=== PATIENT | female | born 1975 | race American Indian/Alaskan Native ===

== ENCOUNTER 2019-01-22 07:50 | Emergency (ER) | payer BC, OTHER ==
[~2019-01-22] VITALS: Ht 165.1 cm; Wt 71.7 kg
[~2019-01-22 07:50] MED LIST: ALLEGRA ALLERGY60 MG PO; FERROUS SULFAT325 MG PO; KEFLEX500 MG PO; LISINOPRIL5 MG PO; METHOCARBAMOL500 MG PO; OMEPRAZOLE20 MG PO; ORTHO TRI-CYCL1 EACH PO; PERCOCET 5-3251 EACH PO; PREDNISONE20 MG; QUASENSE1 EACH PO; SIMVASTATIN10 MG PO; VITAMIN D5000 UNIT PO; ZOFRAN ODT4 MG SL
--- OUTSIDE RECORDS SUMMARY | 2019-01-22 07:52 | XMS ---
PreManage Notification: HARLEEN CM Security Manager Completions Events No recent Security Events currently on file CRITERIA MET - PDMP CARE PROVIDERS [facility] Primary Care Current PRIMARY CARE CNTR PHONE: Unknown Leeann has no Care Guidelines for this patient. EJulia VISIT COUNT (12 MO.) 1 SHWETHA Persaud TOTAL 1 NOTE: Visits indicate total known visits. ED/UCC VISIT TRACKING (12 MO.) 01/22/2019 07:51 SHWETHA Yoder [place] TYPE: Emergency COMPLAINT: - BILAT HIP PAIN/NO INJURY INPATIENT VISIT TRACKING (12 MO.) No inpatient visits to display in this time frame [email or web address]
[2019-01-22] MEDS ORDERED: NORTRIPTYLINE H10 MG PO (08:12)
[2019-01-22] MEDS ORDERED: CYCLOBENZAPRINE5 MG PO (09:54)
[2019-01-22] MEDS ORDERED: NAPRELAN375 MG PO (09:54)
== END 2019-01-22 11:08 | disposition home or self-care (01) ==
LOC: ED 07:50
DX: M25.551 Pain in right hip (principal); M25.552 Pain in left hip; E87.6 Hypokalemia; E86.0 Dehydration; I10 Essential (primary) hypertension; D50.9 Iron deficiency anemia, unspecified; Z87.442 Personal history of urinary calculi; Z91.011 Allergy to milk products; Z88.5 Allergy status to narcotic agent; Z79.899 Other long term (current) drug therapy
CPT/HCPCS: 72131; 74176; 80053; 81001; 85025; 85379; 85651; 96372; 99284-25; J1885; J7030

== ENCOUNTER 2019-03-13 09:40 | Emergency (ER) | payer BC, OTHER ==
[~2019-03-13] VITALS: Ht 165.1 cm; Wt 71.7 kg
--- OUTSIDE RECORDS SUMMARY | ~2019-03-13 | XMS | Encounter Summary ---
Demographics + + + | Address | [address] | | | [place] [address] | + + + | Home Phone | | + + + | Preferred Language | Unknown | + + + | Marital Status | | + + + | Orthodox Affiliation | Unknown | + + + | Race | Unknown | + + + | Ethnic Group | Unknown | + + + Author + + + | Author | [facility] | | | and [place] | + + + | Organization | [facility] | | | and [place] | + + + | Address | Unknown | + + + | Phone | Unavailable | + + + Support + + +---------+ + | Name | Relationship | Address | Phone | + + +---------+ + | Meera Nicole | ECON | Unknown | | + + +---------+ + Care Team Providers + +------+ + | Care Baseball Club Manager Name | Role | Phone | + +------+ + | Maria Ines Moses PA-C | PCP | | + +------+ + Reason for Referral Diagnostic/Screening (Routine) +--------+--------+ + + + + | Status | Reason | Specialty | Diagnoses / | Referred By | Referred To | | | | | Procedures | Contact | Contact | +--------+--------+ + + + + | Closed | | Radiology | Diagnoses | Cortez, | [facility] | | | | | Pain and | Justin Salguero MD | [address] | | | | | numbness of | [address] | [place], | | | | | left upper | [address] | [place] | | | | | extremity | [place], | [address] | | | | | Neuropathic | [place] [address] | Phone: | | | | | pain | Phone: | [phone] | | | | | Cervicalgia | [phone] | Fax: | | | | | Weakness of | Fax: | [phone] | | | | | left upper | [phone] | | | | | | extremity | | | | | | | Cervical | | | | | | | radiculopath | | | | | | | y | | | | | | | Procedures | | | | | | | MRI Cervical | | | | | | | Spine wo | | | | | | | Contrast | | | | | | | 02/14- PEND | | | | | | | [facility] AUTH | | | +--------+--------+ + + + + Evaluate & Treat (Routine) + + + + + + + | Status | Reason | Specialty | Diagnoses / | Referred By | Referred To | | | | | Procedures | Contact | Contact | + + + + + + + | Authorized | Specialty | Physical | Diagnoses | [facility] | [address] | | | Services | Therapy | Thoracic | Justin E A, MD | [facility] | | | Required | | outlet | [address] | HOSPITAL | | | | | syndrome of | [address] | [address] | | | | | left | [place], | AVE | | | | | thoracic | [place] [address] | [place], [place] | | | | | outlet | Phone: | [phone] | | | | | Procedures | [phone] | Phone: | | | | | HIM | Fax: | [phone] | | | | | 02/08/19 | [phone] | Fax: | | | | | | | [phone] | + + + + + + + Reason for Visit + + + | Reason | Comments | + + + | Arm Pain | left upper extremity | + + + Encounter Details +--------+---------+ + + + | Date | Type | Department | Care Team | Description | +--------+---------+ + + + | 01/23/ | Office | [facility] [place] | Justin Cortez, | Pain and numbness of | | 2018 | Visit | PHYSIATRY [address] | MD [address] | left upper | | | | [address] [place], | [place], [place] | extremity (Primary | | | | [place] [address] | [address] | Dx); Neuropathic | | | | [phone] | | pain; Cervicalgia; | | | | | | Weakness of left | | | | | | upper extremity; | | | | | | Cervical | | | | | | radiculopathy; | | | | | | Thoracic outlet | | | | | | syndrome of left | | | | | | thoracic outlet | +--------+---------+ + + + Social History + +-------+ [...] this encounter Last Filed Vital Signs + + + + | Vital Sign | Reading | Time Taken | + + + + | Blood Pressure | - | - | + + + + | Pulse | - | - | + + + + | Temperature | - | - | + + + + | Respiratory Rate | - | - | + + + + | Oxygen Saturation | - | - | + + + + | Inhaled Oxygen | - | - | | Concentration | | | + + + + | Weight | 77.1 kg (170 lb) | 01/23/2019919 PDT | + + + + | Height | 165.1 cm (5' 5") | 01/23/2019919 PDT | + + + + | Body Mass Index | 28.29 | 01/23/2019919 PDT | + + + + documented in this encounter Patient Instructions Patient Instructions Melly Ambrocio, Home Office Claims Examiner - 01/23/2019 8:15 PDTPhysical therapy has been prescribed. Please participate in physical therapy. If you have not be co ntacted for an appointment with physical therapy within one week, please contact the clinic. Once you have completed physical therapy please continue the home exercise program as outl ine by physical therapy, indefinitely. X-rays have been requested. Please go to the x-ray department after your appointment to co mplete these x-rays. The results of your x-rays will be reviewed at your next appointment. If your x-rays demonstrate any emergent results, the clinic will contact you. A MRI has been requested. Please complete the requested imaging. Within one week, you speedy kernskevin receive a call to schedule your MRI. If you have not heard from anyone within one week, please call the clinic. The results of your MRI will be reviewed at your next appointment. If your MRI demonstrates any emergent results, the clinic will contact you. Continue taking Nortriptyline as prescribed. documented in this encounter Progress Notes Justin Cortez MD - 01/23/2019 0815 PDTFormatting of this note might be different from kavitha vail. Justin Cortez MD [address] [place], [place] [id number] FAX: PHYSICAL MEDICINE AND REHABILITATION H&P CHIEF COMPLAINT: Chief Complaint Patient presents with Arm Pain HISTORY OF PRESENT ILLNESS: Isi Springer is a 43 y.o. female being seen today in follow-up for complaints of left u pper extremity pain. Isi Springer was last seen on 11/15/18. Previously it was recomme nded that she continue taking Nortriptyline and have left upper extremity ultrasound. Marcelo Springer reports that she continues to take nortriptyline 40 mg with some improvement in pain. She denies side effects to medication. Isi Springer reports increased pain in the left elbow. She reports that elbow pain is throbbing. Isi Springer denies skin color hammad nges. She denies hyperesthesia to left upper extremity. She denies changes to hair in the le ft upper extremity. Isi Springer does report some neck pain. Isi Springer rates the pain as moderate. Isi Springer describes the pain as sha rp, stabbing, burning or throbbing. Her symptoms worsen with laying on her back. Her sympt oms improve with nothing. Isi Springer does describe numbness of the fourth and fifth digit on the left, though has improved. She does report weakness of the left upper extremi ty. Isi Springer report that she was in the hospital for renal impairment due to shelter use of lisinopril and hydrochlorothiazide. Isi Springer reports that has discontinued th e use of hydrochlorothiazide. She reports history of kidney impairment. She reports poor rajan etite. Isi Springer's medications, allergies, past medical, surgical, social and family histor ies were reviewed and updated as appropriate. CURRENT MEDICATIONS: Current Outpatient Prescriptions Medication Sig Dispense Refill cyclobenzaprine (FLEXERIL) 10 mg tablet Take 10 mg by mouth 3 times daily as needed for Muscle spasms. Do not take with hydrocodone may take 1/2 tablet diclofenac (FLECTOR) 1.3% PTCH Place 1 patch onto the skin 2 times daily. As directed hydroCHLOROthiazide 25 mg tablet lisinopril (PRINIVIL, ZESTRIL) 10 mg tablet Take 40 mg by mouth Daily. nortriptyline (PAMELOR) 10 MG capsule 1 capsule by mouth at bedtime for 7 days; then 2 at bedtime for 7 days; then 3 at bedtime for 7 days; then 4 at bedtime 120 capsule 1 sertraline (ZOLOFT) 25 mg tablet Take 50 mg by mouth Daily. No current facility-administered medications for this visit. ALLERGIES: Allergies Allergen Reactions Hydrocodone Rash REVIEW OF SYSTEMS: ROS GENERALLY: No fever, no night sweats, no anemia, no fatigue, no recent profound weight ch anges. EYES: No eye problems, no use of corrective lenses, no eye injury, no double vision, no bl indness. EARS, NOSE, AND THROAT: No changes in taste or smell, no hearing difficulty, no ringing in the ears, no ear drainage, no dizziness, no voice changes, no difficulty swallowing, no sig nificant snoring, no sleep apnea, no sinus problems, no major dental work. NEUROLOGICALLY:The patient has+ numbness/pain of arms, no numbness/pain of legs,+ awake wit h numbness/pain,+ weakness, no muscle aching, no coordination difficulty, no change in walk, no head injury, no neck injury, no back injury, no pain in neck, no pain in back, no stroke , no fainting spells, no loss of consciousness, no tremor/shaking, no seizures, no headaches , no migraine, no memory loss, no speech difficulty, no confusion and no numbness of face. PSYCHIATRIC: No depression, no sleep disorders, + anxiety, no bipolar disorder, no psychot ic episodes. CARDIOVASCULAR: No heart attacks, no heart murmur, no heart fluttering, no chest pain, no ankle swelling. LUNG DISEASE: No shortness of breath, no cough, no tuberculosis, no bloody cough, no asth ma, no emphysema/COPD. GASTROINTESTINAL: No bowel disease, no nausea or vomiting, no rectal bleeding, no constipa tion, no stool incontinence, no liver disease, no gallbladder disease, no abdominal pain, no ulcers. KIDNEY DISEASE: No urinary frequency, no painful or difficult urination, no incontinence. ENDOCRINE: No diabetes, no thyroid disease, no osteopenia or osteoporosis, no breast drain age. SKIN: No breast lumps, no skin changes, no rashes, no itches. HEMATOLOGIC/LYMPHATIC: No enlarged lymph nodes, no easy or unusual bleeding, no personal h istory of cancer. RHEUMATOLOGIC: No joint arthritis, no rheumatoid arthritis. PHYSICAL EXAMINATION: There were no vitals taken for this visit. There is no height or weight on file to calculat e BMI. GENERAL: The patient is well developed and well nourished. She does appear uncomfortable w hen seated. HEENT: Normocephalic and atraumatic. Normal sclerae without icterus. NECK (ANTERIOR): There is no apparent cervical lymphadenopathy or thyromegaly. PULMONARY: The patient is in no acute respiratory distress with unlabored respirations. CARDIOVASCULAR: Regular rate and rhythm. ABDOMEN: Non-distended. SKIN: Limited skin exam shows no significant rashes or lesions. NEUROLOGIC: The patient is awake, alert, and oriented. She follows simple and complex commands. Her speech is fluent. She comprehends speech well. She has no apparent deficits with short or shelter memory. The cranial nerves appear grossly intact. Sensory exam: Subjective decreased sensation in left C8 versus ulnar distribution to monof ilament touch. Intact sensation bilateral upper extremities to monofilament touch. 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 I concur with the results as reported by the Radiologist. ASSESSMENT: 1. Pain and numbness of left upper extremity 2. Neuropathic pain 3. Cervicalgia 4. Weakness of left upper extremity 5. Cervical radiculopathy 6. Thoracic outlet syndrome of left thoracic outlet PLAN: 1. Isi Springer returns to clinic today to review left upper extremity pain, numbness a nd weakness. Differential diagnosis includes but is not limited to thoracic outlet syndrome, cervical radiculopathy and cervical spinal stenosis. Additionally there may be a component of cervical dystonia contributing to referred pain. Upon exam etiology is unknown at this time. Initial injury was in the inner upper arm medi al aspect, above the elbow. Nerve conduction study of left upper extremity was normal. Left upper extremity ultrasound was also unremarkable. We will evaluate for cervical pathology. 2. Cervical MRI and cervical xray order was placed today for evaluation of cervical spinal stenosis, neural foraminal narrowing, facet arthritis and instability. Isi Springer lef t upper extremity symptoms are persisting for more than 3 months. Pain is interfering with q uality of life and function. 3. Order for physical therapy was placed with the focus of left upper extremity strengtheni ng and nerve flossing. 4. Isi Springer should continue Nortriptyline 50 mg. We can not consider gabapentin du e to renal impairment and recent hospitalization for renal function. We do not have labs to review at this time. 5. Isi Springer should return to clinic as scheduled to review physical therapy and sorin ging. We may consider addition of gabapentin in the future if renal function improves in hop es of reducing severity of pain. Isi Springer reports initial injury of kayak falling and hitting left ulnar nerve at amberly funes. Nerve study did not reveal ulnar nerve injury. Vascular ultrasound study demonstrates normal circulation in left upper extremity. She has hypersensitivity and pain throughout l eft shoulder and arm with continued reported numbness. She has neck pain. Her physical exa m demonstrates findings consistent with thoracic outlet syndrome (TOS). She will participat e in PT for TOS. While her nerve study was unremarkable, the presence of cervical radiculop athy and spinal stenosis cannot be excluded. It is possible that she had cervical strain wi th catching the falling Kayak and developed TOS. It is also possible that she has underlyin g cervical pathology contributing to her current pain, symptoms and disability. Her current symptoms are affecting function, her ability to carry out activities and quality of life. She has tried 6 months of prior PT. She has tried NSAIDs and medication for neuropathic mary n. She is sleeping better on notriptyline. At this time we are requesting cervical x-rays and MRI to evaluate for cervical pathology that could be contributing to her left upper extr emity pain, numbness, weakness and disability. We are evaluating for cervical spinal stenos is, cervical radiculopathy (left C8) We may consider Bone scan to evaluate for CRPS in the future. Thank you for allowing me to be involved in the care of your patient. If you have any ques tions regarding the care of your patient please don't hesitate to call. Approximately 40 minutes was spent face to face with Isi Springer, over half of which w as spent formulating and discussing their medical treatment plan. I, Justin Cortez MD personally performed the services described in this documentation, as scribed by in my presence, SHARAD Theodore and are both accurate and complete. Justin Cortez MD - 01/23/2019 documented in this encou nter Plan of Treatment +--------+---------+ + + + | Date | Type | Specialty | Care Team | Description | +--------+---------+ + + + | 05/02/ Office | Physical Medicine | Justin Cortez, | | | 2018 | Visit | and Rehabilitation | MD [address] | | | | | | [place] | | | | | | [address] | | | | | | | | +--------+---------+ + + + + +--------+ + + | Name | Priori | Associated Diagnoses | Order Schedule | | | ty | | | + +--------+ + + | XR Cervical Spine 4 or 5 Vws | Routin | Pain and numbness | Expected: | | | e | of left upper | 01/23/2019, Expires: | | | | extremity | 01/23/2020 | | | | Neuropathic pain | | | | | Cervicalgia | | | | | Weakness of left | | | | | upper extremity | | | | | Cervical | | | | | radiculopathy | | + +--------+ + + + +--------+ + + | Name | Priori | Associated Diagnoses | Order Schedule | | | ty | | | + +--------+ + + | Physical Therapy - Ambulatory | Routin | Thoracic outlet | Ordered: 01/23/2019 | | Referral | e | syndrome of left | | | | | thoracic outlet | | + +--------+ + + documented as of this encounter Results MRI Cervical Spine wo Contrast (02/15/2019 11:53 PDT) + + | Specimen | + + | | + + + + + | Narrative | Performed At | + + + | UNENHANCED MRI CERVICAL SPINE 02/15/2019 11:34 AM CLINICAL | [facility] | | HISTORY: Neck and left arm pain COMPARISON: MRI August | | | 2017 TECHNIQUE: The following 1.5T MR sequences of the cervical | | | spine were obtained: 1. Sagittal and coronal T1. 2. Axial and | | | sagittal T2. 3. Axial GRE. 4. Sagittal STIR. FINDINGS: | | | Cervical vertebral height and alignment are maintained, without | | | evident fracture or subluxation. Marrow signal is normal. Imaged | | | contents of the posterior fossa and foramen magnum are | | | unremarkable. The cervical and imaged thoracic spinal cord | | | demonstrates normal signal intensity and caliber. Imaged cervical | | | and upper thoracic soft tissues are unremarkable. The | | | craniocervical junction and C1-2 and C2-3 levels are unremarkable on | | | provided sagittal and coronal images through the region. C3-4: No | | | disc pathology or stenosis. C4-5: Minimal right paramedian disc | | | protrusion persists, without stenosis. C5-6: Mild, broad-based | | | left paramedian/foraminal disc bulge persists, mildly narrowing the | | | left foramen to a similar degree. C6-7: Generalized posterior disc | | | bulge again mildly narrows the central canal and mild to moderately | | | narrows the foramina to a similar to slightly greater degree. | | | C7-T1: No disc pathology or stenosis. The imaged upper thoracic | | | spine is unremarkable on provided sagittal images through the region. | | | IMPRESSION - 1. 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 | | | 2. DEGENERATIVE DISC DISEASE AT C5-6 WITH MILD LEFT FORAMINAL | | | STENOSIS. Dictated and Signed by: Joey Stokes MD | | | Electronically signed: 02/15/2019 1:41 PM | | + + + + + | Procedure Note | + + | Isaías, Rad Results In - 02/15/2019 1344 PDT UNENHANCED MRI CERVICAL SPINE 02/15/2019 | | 11:34 AMCLINICAL HISTORY: Neck and left arm pain COMPARISON: MRI August | | 2018TECHNIQUE: The following 1.5T MR sequences of the cervical spine were obtained:1. | | Sagittal and coronal T1.2. Axial and sagittal T2.3. Axial GRE.4. Sagittal | | STIR.FINDINGS: Cervical vertebral height and alignment are maintained, withoutevident | | fracture or subluxation. Marrow signal is normal. Imaged contents ofthe posterior | | fossa and foramen magnum are unremarkable. The cervical andimaged thoracic spinal cord | | demonstrates normal signal intensity and caliber. Imaged cervical and upper thoracic | | soft tissues are unremarkable.The craniocervical junction and C1-2 and C2-3 levels are | | unremarkable onprovided sagittal and coronal images through the region.C3-4: No disc | | pathology or stenosis.C4-5: Minimal right paramedian disc protrusion persists, without | | stenosis.C5-6: Mild, broad-based left paramedian/foraminal disc bulge persists, | | mildlynarrowing the left foramen to a similar degree.C6-7: Generalized posterior disc | | bulge again mildly narrows the central [place] mild to moderately narrows the foramina | | to a similar to slightly greaterdegree.C7-T1: No disc pathology or stenosis.The imaged | | upper thoracic spine is unremarkable on provided sagittal imagesthrough the | | region.IMPRESSION -1. DEGENERATIVE DISC DISEASE AT C6-7 WITH MILD CENTRAL CANAL | | STENOSIS AND MILDTO MODERATE FORAMINAL STENOSIS.2. DEGENERATIVE DISC DISEASE AT C5-6 | | WITH MILD LEFT FORAMINAL STENOSIS.Dictated and Signed by: Joey Stokes MD | | Electronically signed: 02/15/2019 1:41 PM | | | |C3-4: No disc pathology or stenosis. | | | |C4-5: Minimal right paramedian disc protrusion persists, without stenosis. | | | |C5-6: Mild, broad-based left paramedian/foraminal disc bulge persists, mildly | |narrowing the left foramen to a similar degree. | | | |C6-7: Generalized posterior disc bulge again mildly narrows the central canal | |and mild to moderately narrows the foramina to a similar to slightly greater | |degree. | | | |C7-T1: No disc pathology or stenosis. | | | |The imaged upper thoracic spine is unremarkable on provided sagittal images | |through the region. | | | |IMPRESSION - | |1. DEGENERATIVE DISC DISEASE AT C6-7 WITH MILD CENTRAL CANAL STENOSIS AND MILD | |TO MODERATE FORAMINAL STENOSIS. | | | |2. DEGENERATIVE DISC DISEASE AT C5-6 WITH MILD LEFT FORAMINAL STENOSIS. | | | |Dictated and Signed by: Joey Stokes MD | | Electronically signed: 02/15/2019 1:41 PM | + + + +---------+ + + | Performing | Address | City/State/Zipcode | Phone Number | | Organization | | | | + +---------+ + + | [facility] | | | | + +---------+ + + documented in this encounter Visit Diagnoses + + | Diagnosis | + + | Pain and numbness of left upper extremity - Primary | + + | Neuropathic pain Neuralgia, neuritis, and radiculitis, unspecified | + + | Cervicalgia | + + | Weakness of left upper extremity Other musculoskeletal symptoms referable to limbs | + + | Cervical radiculopathy Brachial neuritis or radiculitis nos | + + | Thoracic outlet syndrome of left thoracic outlet | + + documented in this encounter
--- OUTSIDE RECORDS SUMMARY | ~2019-03-13 | XMS | Encounter Summary ---
Demographics + + + | Address | [address] | | | [place] [address] | + + + | Home Phone | | + + + | Preferred Language | Unknown | + + + | Marital Status | | + + + | Yazdanism Affiliation | Unknown | + + + | Race | Unknown | + + + | Ethnic Group | Unknown | + + + Author + + + | Author | [facility] | | | and [place] | + + + | Organization | [facility] | | | and Justinana [...] Team Providers + +------+ + | Care Safe And Vault Mechanic Name | Role | Phone | + +------+ + | Maria Ines Moses PA-C | PCP | | + +------+ + Reason for Referral Diagnostic/Screening (Routine) + +--------+ + + + + | Status | Reason | Specialty | Diagnoses / | Referred By | Referred To | | | | | Procedures | Contact | Contact | + +--------+ + + + + | Pending | | Radiology | Diagnoses | Diego, | [facility] | | Review | | | Pain and | Justin Salguero MD | [facility] | | | | | numbness of | [address] | [facility] | | | | | left upper | [address] | MEDICAL | | | | | extremity | [place], | CENTER [address] | | | | | Complex | [place] [address] | [place] | | | | | regional | Phone: | [place], | | | | | pain | [phone] | [place] [address] | | | | | syndrome | Fax: | Phone: | | | | | type 2 of | [phone] | [phone] | | | | | left upper | | Fax: | | | | | extremity | | [phone] | | | | | Procedures | | | | | | | NM Bone Scan | | | | | | | 3 Phase W | | | | | | | SPECT | | | + +--------+ + + + + Reason for Visit + + + | Reason | Comments | + + + | Arm Pain | left upper extremity | + + + Encounter Details +--------+---------+ + + + | Date | Type | Department | Care Team | Description | +--------+---------+ + + + | 03/13/ | Office | [facility] [place] | Justin Cortez, | Pain and numbness of | | 2018 | Visit | PHYSIATRY [address] | MD [address] | left upper | | | | [place], | [place], [place] | extremity (Primary | | | | [place] [address] | [address] | Dx); Thoracic outlet | | | | [phone] | | syndrome of left | | | | | | thoracic outlet; | | | | | | Complex regional | | | | | | pain syndrome type 2 | | | | | | of left upper | | | | | | extremity; | | | | | | Hypertension, | | | | | | unspecified type; | | | | | | Recurrent kidney | | | | | | stones; Flank pain; | | | | | | Fatigue, unspecified | | | | | | type | +--------+---------+ + + + Social History [...] + + + | Blood Pressure | 148/107 | 03/13/2019815 PDT | + + + + | Pulse | 115 | 03/13/201916 PDT | + + + + | Temperature [...] Weight | 77.1 kg (170 lb) | 03/13/2019815 PDT | + + + + | Height | 165.1 cm (5' 5") | 03/13/201916 PDT | + + + + | Body Mass Index | 28.29 | 03/13/2019815 PDT | + + + + documented in this encounter Patient Instructions Patient Instructions Melly Ambrocio, Route Sales Delivery Drivers Supervisor - 03/13/2019 8:10 PDTBone scan order was placed today. Laboratory tests have been requested. Please go to the lab to complete your laboratory haylee ting. The results of your laboratory testing will be reviewed at your next appointment. If your labratory results demonstrate any emergent results the clinic will contact you. documented in this encounter Plan of Treatment +--------+---------+ + + + | Date | Type | Specialty | Care Team | Description | +--------+---------+ + + + | 05/02/ | Office | Physical Medicine | Justin Cortez, | | | 2018 | Visit | and Rehabilitation | MD [address] | | | | | | [place] | | | | | | [address] | | | | | | | | +--------+---------+ + + + + +--------+ + + | Name | Priori | Associated Diagnoses | Order Schedule | | | ty | | | + +--------+ + + | Comprehensive Metabolic Panel | Routin | Recurrent kidney | Expected: | | | e | stones | 03/13/2019, Expires: | | | | | 03/12/2020 | + +--------+ + + | Vitamin D, Deficiency Screen | Routin | Recurrent kidney | Expected: | | (25-Hydroxy) | e | stones | 03/13/2019, Expires: | | | | | 03/12/2020 | + +--------+ + + | CBC with Differential | Routin | Fatigue, | Expected: | | | e | unspecified type | 03/13/2019, Expires: | | | | | 03/12/2020 | + +--------+ + + | Calcium, Urine, 24Hr | Routin | Recurrent kidney | 1 Occurrences | | | e | stones | starting 03/13/2019 | | | | | until 03/13/2020 | + +--------+ + + | NM Bone Scan 3 Phase W SPECT | Routin | Pain and numbness | Expected: | | | e | of left upper | 03/13/2019, Expires: | | | | extremity Complex | 03/13/2020 | | | | regional pain | | | | | syndrome type 2 of | | | | | left upper extremity | | + +--------+ + + documented as of this encounter Visit Diagnoses + + | Diagnosis | + + | Pain and numbness of left upper extremity - Primary | + + | Thoracic outlet syndrome of left thoracic outlet | + + | Complex regional pain syndrome type 2 of left upper extremity | + + | Hypertension, unspecified type | + + | Recurrent kidney stones Calculus of kidney | + + | Flank pain Abdominal pain, unspecified site | + + | Fatigue, unspecified type | + + documented in this encounter
--- OUTSIDE RECORDS SUMMARY | ~2019-03-13 | XMS | Encounter Summary ---
Demographics + + + | Address | [address] | | | [place] [address] | + + + | Home Phone | | + + + | Preferred Language | Unknown | + + + | Marital Status | | + + + | Baptist Affiliation | Unknown | + + + | Race | Unknown | + + + | Ethnic Group | Unknown | + + + Author + + + | Author | [facility] | | | and [place] | + + + | Organization | [facility] | | | and Justinana | [...] Team Providers + +------+ + | Care Cattery Operator Name | Role | Phone | + [...] | Justin Salguero MD | [address] | | | | | numbness of | [address] | [place], | | | | | left upper | [address] | [place] | | | | | extremity | [place], | [address] | | | | | Neuropathic | [place] [address] | Phone: | | | | | pain | Phone: | [phone] | | | | | Cervicalgia | [phone] | Fax: | | | | | Weakness of | Fax: | [phone] | | | | | left upper | [phone] | | | | | | extremity [...] | | | | | | 02/14- | | | | | | | [facility] | | | +--------+--------+ + + + + Diagnostic/Screening (Routine) +--------+--------+ + + + + [...] | Justin Salguero MD | [address] | | | | | numbness of | [address] | [place], | | | | | left upper | [address] | [place] | | | | | extremity | [place], | [address] | | | | | Neuropathic | [place] [address] | Phone: | | | | | pain | Phone: | [phone] | | | | | Cervicalgia | [phone] | Fax: | | | | | Weakness of | Fax: | [phone] | | | | | left upper | [phone] | | | | | | extremity [...] | | | | | | 02/14- | | | | | | | [...] + + | 02/15/ | Hospital | [facility] | Justin Cortez, | Pain and numbness of | | 2019 | Encounter | MED CTR MRI [address] | MD [address] | left upper | | | | [address] [place], | [place], [place] | extremity; | | | | [place] [address] | [id number] | Neuropathic pain; | | | | [phone] | | Cervicalgia; | | | | [...] ZESTRIL) | Daily. | | | | | | 10 mg tablet | | | | | | + + + +---------+ + + | nortriptyline | Take 4 capsules by | 120 | 1 | 01/24/20 | | | (PAMELOR) 10 MG | mouth nightly. | capsule | | 19 | | | capsule | | | | | | + + + +---------+ + + | sertraline | Take 50 mg by mouth | | 0 | 10/18/20 | | | (ZOLOFT) 25 mg | Daily. | | | 18 | | | tablet | | | | | | + + + +---------+ + + documented as of this encounter Plan of Treatment +--------+---------+ + + + | Date | Type | Specialty | Care Team | Description | +--------+---------+ + + + | 05/02/ | Office | Physical Medicine | Justin Cortez, | | | 2019 | Visit | and Rehabilitation | [address] | | | | | | [place] | | | | | | [address] | | | | | | | | +--------+---------+ + + + documented as of this encounter Procedures + +--------+ + + + | Procedure Name | Priori | Date/Time | Associated Diagnosis | Comments | | | ty | | | | + +--------+ + + + | MRI CERVICAL SPINE | Routin | 02/15/2019 | Pain and numbness | Results for this | | WO CONTRAST | e | 11:53 PDT | of left upper | procedure are in the | | | | | extremity | results section. | | [...]
--- OUTSIDE RECORDS SUMMARY | ~2019-03-13 | XMS | Encounter Summary ---
Demographics + + + | Address | [address] | | | [place] [address] | + + + | Home Phone | | + + + | Preferred Language | Unknown | + + + | Marital Status | | + + + | Gnosticist Affiliation | Unknown | + + + | Race | Unknown | + + + | Ethnic Group | Unknown | + + + Author + + + | Author | [facility] | | | and [place] | + + + | Organization | [facility] | | | and Justinana [...] Team Providers + +------+ + | Care Heat Transfer Technician Name | Role | Phone | [...] | Justin Salguero MD | [address] | | | | | numbness of | [address] | [place], | | | | | left upper | [address] | [place] | | | | | extremity | [place], | [address] | | | | | Neuropathic | [place] [address] | Phone: | | | | | pain | Phone: | [phone] | | | | | Cervicalgia | [phone] | Fax: | | | | | Weakness of | Fax: | [phone] | | | | | left upper | [phone] | | | | | | extremity [...] | Justin Salguero MD | [address] | | | | | numbness of | [address] | [place], | | | | | left upper | [address] | [place] | | | | | extremity | [place], | [address] | | | | | Neuropathic | [place] [address] | Phone: | | | | | pain | Phone: | [phone] | | | | | Cervicalgia | [phone] | Fax: | | | | | Weakness of | Fax: | [phone] | | | | | left upper | [phone] | | | | | | extremity [...] + + | 02/15/ | Hospital | [facility] | Justin Cortez, | Pain and numbness of | | 2019 | Encounter | MED CTR MRI [address] | MD [address] | left upper | | | | [place], | [place], [place] | extremity; | | | | [place] [address] | [id number] | Neuropathic pain; | | | | [phone] | | Cervicalgia; | | | | [...] [place] | | | | | | [address] | | | | | | | [...]
--- OUTSIDE RECORDS SUMMARY | ~2019-03-13 | XMS | Encounter Summary ---
Demographics + + + | Address | [address] | | | [place] [address] | + + + | Home Phone | | + + + | Preferred Language | Unknown | + + + | Marital Status | | + + + | Jain Affiliation | Unknown | + + + | Race | Unknown | + + + | Ethnic Group | Unknown | + + + Author + + + | Author | [facility] | | | and Justin[place] | + + + | Organization | [facility] | | | and Justinana [...] Team Providers + +------+ + | Care Patrol Police Sergeant Name | Role | Phone | + [...] Pain and | Justin Salguero MD | [facility] | | | | | numbness of | [address] | [facility] | | | | | left upper | [address] | MEDICAL | | | | | extremity | [place], | CENTER [address] | | | | | Complex | [place] [address] | [place] | | | | | regional | Phone: | [place], | | | | | pain | [phone] | [place] [address] | | | | | syndrome | Fax: | Phone: | | | | | type 2 of | [phone] | [phone] | | | | | left upper | | Fax: | | | | | extremity | | [phone] | | | | | Procedures | [...] + + | 03/13/ | Office | [facility] [place] | Justin Cortez, | Pain and numbness of | | 2018 | Visit | PHYSIATRY [address] | MD [address] | left upper | | | | [place], | [place], [place] | extremity (Primary | | | | [place] [address] | [address] | Dx); Thoracic outlet | | | | [phone] | | syndrome of left | | [...] encounter Patient Instructions Patient Instructions Melly Ambrocio, Instrument Man - 03/13/2019 8:10 PDTBone scan order was [...] | | | | | [place] | | | | | | [id number] | | | | | | | [...]
--- OUTSIDE RECORDS SUMMARY | ~2019-03-13 | XMS | Clinical Summary ---
Demographics + + + | Address | [address] | | | [place] [address] | + + + | Home Phone | | + + + | Preferred Language | Unknown | + + + | Marital Status | Single | + + + | Zoroastrian Affiliation | Unknown | + + + | Race | Unknown | + + + | Ethnic Group | Unknown | + + + Author + + + | Author | [facility] | + + + | Organization | [facility] | + + + | Address | Unknown | + + + | Phone | Unavailable | + + + Support + + +---------+ + | Name | Relationship | Address | Phone | + + +---------+ + | Klaudia Palomares | ECON | Unknown | | + + +---------+ + | Meera Nicole | ECON | Unknown | | + + +---------+ + Care Team Providers + +------+ + | Care Regulatory Affairs Internship Name | Role | Phone | + +------+ + | Maria Ines Moses PA-C | PP | | + +------+ + Allergies + + + + + + | Active Allergy | Reactions | Severity | Noted | Comments | | | | | Date | | + + + + + + | Hydrocodone | Rash | High | 20/20 | | | | | | 18 | | + + + + + + Current Medications + + +-------+---------+------+------+-------+ | Prescription | Sig. | Disp. | Refills | Star | End | Statu | | | | | | t | Date | s | | | | | | Date | | | + + +-------+---------+------+------+-------+ | sertraline | Take 50 mg by mouth. | | | 12/0 | | Activ | | (ZOLOFT) 25 MG | | | | 5/20 | | e | | tablet | | | | 18 | | | + + +-------+---------+------+------+-------+ | lisinopril | Take 40 mg by mouth. | | | | | Activ | | (ZESTRIL) 10 MG | | | | | | e | | tablet | | | | | | | + + +-------+---------+------+------+-------+ | | | | | 11/2 | | Activ | | hydrochlorothiazide | | | | 0/20 | | e | | (HYDRODIURIL) 25 MG | | | | 18 | | | | tablet | | | | | | | + + +-------+---------+------+------+-------+ | nortriptyline | 1 capsule by mouth | | | 12/2 | | Activ | | (PAMELOR) 10 MG | at bedtime for 7 | | | 0/20 | | e | | capsule | days; then 2 at | | | 18 | | | | | bedtime for 7 days; | | | | | | | | then 3 at bedtime | | | | | | | | for 7 days; then 4 | | | | | | | | at bedtime | | | | | | + + +-------+---------+------+------+-------+ Active Problems No known active problems Family History + + +------+ + | Medical History | Relation | Name | Comments | + + +------+ + | Diabetes type II | Father | | | + + +------+ + | Heart disease | Father | | | + + +------+ + | Stroke | Father | | | + + +------+ + | Cancer | Mother | | | + + +------+ + | Hypertension | Mother | | | + + +------+ + + +------+ + + | Relation | Name | Status | Comments | + +------+ + + | Father | | | | + +------+ + + | Mother | | Alive | | + +------+ + + Social History + +-------+ +--------+------+ [...] on file | | + + + Last Filed Vital Signs + + + + | Vital Sign | Reading | Time Taken | + + + + | Blood Pressure | 131/96 | 12/04/2018 11:00 AM PST | + + + + | Pulse | 104 | 12/04/2018 11:00 AM PST | + + + + | Temperature [...] Weight | 77.1 kg (170 lb) | 12/04/2018 11:00 AM PST | + + + + | Height | 165.1 cm (5' 5") | 12/04/2018 11:00 AM PST | + + + + | Body Mass Index | 28.29 | 12/04/2018 11:00 AM PST | + + + + Plan of Treatment + + + + + | Health Maintenance | Due Date | Last Done | Comments | + + + + + | Vaccine: | | | | | Dtap/Tdap/Td (1 - | 4 | | | | Tdap) | | | | + + + + + | Cervical Cancer | | | | | Screening (Pap) | 5 | | | + + + + + | Vaccine: Influenza | | | | | (Season Ended) | 9 | | | + + + + + Results Not on filefrom Last 3 Months Insurance + +--------+ +------+-------+ + | Payer | Benefi | Subscriber | Type | Phone | Address | | | t Plan | ID | | | | | | / | | | | | | | Group | | | | | + +--------+ +------+-------+ + | PREMERA | PREMER | [id number] | | | [address] [address] | | | A BLUE | | | | [place], [place] | | | [place]OSS | | | | [address] | | | FED | | | | | | | PPO | | | | | + +--------+ +------+-------+ + | /[employer] | YELLOW | [id number] | | | | | PLANS | [place] | | | | | + +--------+ +------+-------+ + + +--------+ +--------+ + + | Guarantor Name | Accoun | Relation to | Date | Phone | Billing Address | | | t Type | Patient | of | | | | | | | | | | + +--------+ +--------+ + + | HARLEEN SPRINGER | Person | Self [birth year] | Home: | [address] | | | al/Fam | | 1974 | [phone] [place] [address] | | | [place] | | | [phone] | | + +--------+ +--------+ + +
--- OUTSIDE RECORDS SUMMARY | ~2019-03-13 | XMS | Clinical Summary ---
Demographics + + + | Address | [address] | | | [place] [address] | + + + | Home Phone [...] | Organization | [facility] | | | and Justinana | [...] Providers + +------+ + | Care Manager Math Name | Role | Phone | + +------+ + | Maria Ines Moses PA-C | PP | | + +------+ + Allergies + + + + + + | Active Allergy | Reactions | Severity | Noted | Comments | | | | | Date | | + + + + + + | Hydrocodone | Rash | High | 12/20/20 | | | | | | 18 [...] + + + +---------+------+------+-------+ | lisinopril | Take 40 mg by mouth | | 0 | | | Activ | | (PRINIVIL, ZESTRIL) | Daily. | | | | | e | | 10 mg tablet | | | | | | | + + + +---------+------+------+-------+ | sertraline | Take 50 mg by mouth | | 0 | 12/0 | | Activ | | (ZOLOFT) 25 mg | Daily. | | | 5/20 | | e | | tablet | | | | 18 | | | + + + +---------+------+------+-------+ | nortriptyline | Take 4 capsules by | 120 | 1 | 03/1 | | Activ | | (PAMELOR) 10 MG | mouth nightly. | capsule | | 2/20 | | e | | capsule | | | | 19 | | | + + + +---------+------+------+-------+ Active Problems No known active problems Encounters +--------+ + + + + | Date | Type | Specialty | Care Team | Description | +--------+ + + + + | 03/13/ | Office | | Justin Cortez, | Pain and numbness of | | 2018 | Visit | | MD | left upper | | | | | | extremity (Primary | | | | | | Dx); Thoracic outlet | | | | | [...] | | | | | type | +--------+ + + + + | 02/19/ | Telephone | | Justin Cortez, | Imaging Only | | 2018 | | | MD | | +--------+ + + + + | 02/15/ | Hospital | | Justin Cortez, | Pain and numbness of | | 2018 | Encounter | | MD | left upper | | | | | | extremity; | | | | | | Neuropathic pain; | | | | | | Cervicalgia; | | | | | | Weakness of left | | | | | | upper extremity; | | | | | | Cervical | | | | | | radiculopathy | +--------+ + + + + | 01/23/ | Office | | Justin Cortez, | Pain and numbness of | | 2019 | Visit | | MD | left upper | | | | | | extremity (Primary | | | | | | Dx); Neuropathic | | | | | | pain; Cervicalgia; | | | | | | Weakness of left | | | | | | upper extremity; | | | | | | Cervical | | | | | | radiculopathy; | | | | | | Thoracic outlet | | | | | | syndrome of left | | | | | | thoracic outlet | +--------+ + + + + from Last 3 Months Immunizations + + + + | Name | Dates Previously Given | Next Due | + + + + | HEP B, 3 DOSE | 02/23/2013, 09/29/2012 | | | (ADULT) | | | + + + + | ADIEL PF | 08/17/2012 | | | TRIVALENT | | | | INTRADERMAL | | | + + + + Family History + + +--------+ + | Relation | Name | Status | Comments | + + +--------+ + | Father | Lee | | | | | Lubrin | | | + + +--------+ + | Mother | Caitlyn | | | | | [place] | | | + + +--------+ + | Sister | Klaudia | Alive | | | | Jelani | | | + + +--------+ + | Sister | Meera | Alive | | | | Bonnie | | | + + +--------+ + Social History + +-------+ +--------+------+ | [...] + + | Pulse | 115 | 03/13/2019815 PDT | + + + [...] Height | 165.1 cm (5' 5") | 03/13/2019815 PDT | + + + + | Body Mass Index | 28.29 | 03/13/2019815 PDT | + + + + Plan of Treatment +--------+---------+ + + + | Date | Type | Specialty | Care Team | Description | +--------+---------+ + + + | 05/02/ | Office | | Justin Cortez, | | | 2018 | Visit | | [address] | | | | | | [place] | | | | | | [address] | | | | | | | | +--------+---------+ + + + + + + + [...] + + | Vaccine: Influenza | | 08/17/2012 | | | (Season Ended) | 9 | | | + + + + + Procedures + +--------+ + + + | [...] | | + +--------+ + + + from Last 3 Months Results MRI Cervical Spine wo Contrast (02/15/2019 [...] | | | + +---------+ + + from Last 3 Months Insurance + +--------+ +--------+-------+---------+--------+ | Payer | Benefi | Subscriber | Effect | Phone | Address | Type | | | t Plan | ID | george | | | | | | / | | Dates | | | | | | Group | | | | | | + +--------+ +--------+-------+---------+--------+ | BCBS | BCBS | [id number] | 11/14/19 | | | PPO | | | FEDERA | | 16-Pre | | | | | | L FEP | | sent | | | | + +--------+ +--------+-------+---------+--------+ | [facility] | [employer] | [id number] | 08/25/ | | | Indemn | | SERVICE | YELLOW | | 2018-P | | | ity | | | [...] Self | [birth year] | | [address] | | | al/Carmine | | 1975 | [phone] | [place] [address] | | | [place] | | | 2 (Home) | | + +--------+ +--------+ + + Advance Directives Patient has advance care planning documents on file. For more information, please contact:[facility] [place] [address]
--- OUTSIDE RECORDS SUMMARY | ~2019-03-13 | XMS | Encounter Summary ---
Demographics + + + | Address | [address] | | | [place] [address] | + + + | Home Phone | | + + + | Preferred Language | Unknown | + + + | Marital Status | | + + + | Pentecostal Affiliation | Unknown | + + + | Race | Unknown | + + + | Ethnic Group | Unknown | + + + Author + + + | Author | [facility] | | | and Justinana | + + + | Organization | [facility] | | | and Justinana [...] Team Providers + +------+ + | Care Vp Foundation Name | Role | Phone | + [...] Imaging Only | | 2018 | | PHYSIATRY [address] | MD [address] | | | | | [place], | [place], [place] | | | | | [place] [address] | [address] | | | | | [phone] | | | +--------+ + + + [...] [place] | | | | | | [address] | | | | | | | | +--------+---------+ + + + documented as of this encounter Visit Diagnoses Not on filedocumented in this encounter"
--- OUTSIDE RECORDS SUMMARY | ~2019-03-13 | XMS | Encounter Summary ---
Demographics + + + | Address | [address] | | | [place] [address] | + + + | Home Phone | | + + + | Preferred Language | Unknown | + + + | Marital Status | | + + + | Gnosticist Affiliation | Unknown | + + + | Race | Unknown | + + + | Ethnic Group | Unknown | + + + Author + + + | Author | [facility] | | | and [place]ana | + + + | Organization | [facility] | | | and [...] Team Providers + +------+ + | Care Screen Printing Equipment Setter Name | Role | Phone | [...] | Justin Salguero MD | [address] | | | | | numbness of | [address] | [place], | | | | | left upper | [address] | [place] | | | | | extremity | [place], | [address] | | | | | Neuropathic | [place] [address] | Phone: | | | | | pain | Phone: | [phone] | | | | | Cervicalgia | [phone] | Fax: | | | | | Weakness of | Fax: | [phone] | | | | | left upper | [phone] | | | | | | extremity [...] | | | | syndrome of | [address] | [address] | | | | | left | [place], | AVE | | | | | thoracic | [place] [address] | [place], [place] | | | | | outlet | Phone: | [phone] | | | | | Procedures | [phone] | Phone: | | | | | HIM | Fax: | [phone] | | | | | 02/08/19 | [phone] | Fax: | | | | | | | [phone] | + + + + + + + Reason for Visit + + + | Reason | Comments | + + + | Arm Pain | left upper extremity | + + + Encounter Details +--------+---------+ + + + | Date | Type | Department | Care Team | Description | +--------+---------+ + + + | 01/23/ | Office | [facility] [place] | Justin Cortez, | Pain and numbness of | | 2018 | Visit | PHYSIATRY [address] | MD [address] | left upper | | | | [place], | [place], [place] | extremity (Primary | | | | [place] [address] | [address] | Dx); Neuropathic | | | | [phone] | | pain; Cervicalgia; | | | [...] encounter Patient Instructions Patient Instructions Melly Ambrocio, Shoulder Boner - 01/23/2019 8:15 PDTPhysical therapy has been [...] from kavitha [facility]. Justin Cortez MD [address] [facility], [address] [place], [place] [id number] FAX: PHYSICAL MEDICINE AND REHABILITATION H&P CHIEF [...] Extension 5 5 Finger Abduction 5 5 Lime Puller Strength 5 4+ REFLEX: RIGHT LEFT BICEPS [...] | | | | | [place] | | | | | | [address] | | | | | | | [...]
--- OUTSIDE RECORDS SUMMARY | ~2019-03-13 | XMS | Clinical Summary ---
Demographics + + + | Address | [address] | | | [place] [address] | + + + | Home Phone [...] | Organization | [facility] | | | and Justinana [...] Team Providers + +------+ + | Care Instrument And Controls Technician Name | Role | Phone | [...] | 02/15/ | Hospital | | Justin Cortze, | Pain and numbness of | | [...] + + +--------+ + | Sister | Kluadia | Alive | | | | Jelani [...] [place] | | | | | | [address] | | | | | | | [...] +--------+ +--------+-------+---------+--------+ | BCBS | BCBS | [id number] | 11/14/19 | | | PPO | | | FEDERA | | 16-Pre | | | | | | L FEP | | sent | | | | + +--------+ +--------+-------+---------+--------+ | [facility] | IHS | [id number] | 08/25/ | | | Indemn | [...] | | al/Carmine | | 1975 | [phone] | [place] [address] | | | aroldo | | | 2 (Home) | | + +--------+ +--------+ + + Advance Directives Patient has advance care planning documents on file. For more information, please contact:[facility] [place] [address]
--- OUTSIDE RECORDS SUMMARY | ~2019-03-13 | XMS | Encounter Summary ---
Demographics + + + | Address | [address] | | | [place] [address] | + + + | Home Phone | | + + + | Preferred Language | Unknown | + + + | Marital Status | | + + + | Yazidism Affiliation | Unknown | + + + | Race | Unknown | + + + | Ethnic Group | Unknown | + + + Author + + + | Author | [facility] | | | and Justinana | + + + | Organization | [facility] | | | and [...] Team Providers + +------+ + | Care Corsetier Name | Role | Phone | + [...] PHYSIATRY [address] | MD [address] | | | | | [place], | [place], [place] | | | | | [place] [address] | [address] | | | | | [phone] | | | +--------+ + + + [...] [place] | | | | | | [address] | | | | | | | | +--------+---------+ + + + documented as of this encounter Visit Diagnoses Not on filedocumented in this encounter"
--- OUTSIDE RECORDS SUMMARY | ~2019-03-13 | XMS | Clinical Summary ---
Demographics + + + | Address | [address] | | | [place] [address] | + + + | Home Phone | | + + + | Preferred Language | Unknown | + + + | Marital Status | Single | + + + | Protestant Affiliation | Unknown | + + + | Race | Unknown | + + + | Ethnic Group | Unknown | + + + Author + + + | Author | [facility] | + + + | Organization | [facility] | + + + | [...] Team Providers + +------+ + | Care Diamond Cutter Name | Role | Phone | [...] +------+-------+ + | PREMERA | PREMER | [id number] | | | [address] [address] | | | A BLUE | | | | [place], [place] | | | CROSS | | | | [address] | | | FED | | | | | | | PPO | | | | | + +--------+ +------+-------+ + | /[employer] | YELLOW | [id number] | | | | | PLANS | [...] al/Fam | | 1974 | [phone] [place] [address] | | | [place] | | | [phone] | | + +--------+ +--------+ + +
[~2019-03-13 09:40] MED LIST changes: +CYCLOBENZAPRINE5 MG PO; +NAPRELAN375 MG PO; +NORTRIPTYLINE H10 MG PO
--- OUTSIDE RECORDS SUMMARY | 2019-03-13 09:44 | XMS ---
PreManage Notification: HARLEEN CM Security Program Admin Events No recent Security Events currently on file CRITERIA MET - [facility] - Has Care Guidelines CARE PROVIDERS ROXIE LAMAR Physician Franchise Specialist: Surgical 01/22/2019-Current PHONE: Unknown [facility] Primary Care Current PRIMARY CARE CNTR PHONE: Unknown Leeann has no Care Guidelines for this patient. 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 \T\middot;\T\nbsp; PLEASE REFER PATIENT TO [facility] FOR NON EMERGENT MEDICAL NEEDS. \T\middot;\ T\nbsp; [facility] CAN SEE PATIENTS SAME DAY FOR APTS IF PATIENT CALLS FIRST THING IN THE MORNING. E.D. VISIT COUNT (12 MO.) 2 SHWETHA Persaud TOTAL 2 NOTE: Visits indicate total known visits. 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
[2019-03-13] MEDS ORDERED: HYDROCHLOROTHIA25 MG PO (09:58)
[2019-03-13] MEDS ORDERED: SERTRALINE HCL25 MG PO (09:59)
[2019-03-13] MEDS ORDERED: ONDANSETRON ODT8 MG PO (13:43)
== END 2019-03-13 14:13 | disposition home or self-care (01) ==
LOC: ED 09:40
DX: K85.90 Acute pancreatitis without necrosis or infection, unspecified (principal); M54.9 Dorsalgia, unspecified; I10 Essential (primary) hypertension; Z88.5 Allergy status to narcotic agent; Z91.011 Allergy to milk products; Z79.899 Other long term (current) drug therapy
CPT/HCPCS: 71046; 76705; 80053; 81001; 83690; 85025; 96361; 96374; 96375; 99284-25; J1170; J1885; J2405; J7030

== ENCOUNTER 2020-04-19 21:12 | Inpatient (IN) | payer BC, OTHER ==
[~2020-04-19] VITALS: Ht 165.1 cm; Wt 83.0 kg
--- OUTSIDE RECORDS SUMMARY | ~2020-04-19 | XMS | Encounter Summary ---
Demographics + + + | Address | [address] | | | [place] [address] | + + + | Home Phone | | + + + | Preferred Language | Unknown | + + + | Marital Status | | + + + | Restorationist Affiliation | Unknown | + + + | Race | Unknown | + + + | Ethnic Group | Unknown | + + + Author + + + | Author | [facility] | | | and [place] | + + + | Organization | [facility] | | | and [place] | + + + | Address | Unknown | + + + | Phone | Unavailable | + + + Support + + +---------+ + | Name | Relationship | Address | Phone | + + +---------+ + | Meera Bonnie | ECON | Unknown | | + + +---------+ + | Klaudia Palomares | ECON | Unknown | | + + +---------+ + Care Team Providers + +------+ + | Care Lead Investigator Name | Role | Phone | + +------+ + | Maria Ines Moses PA-C | PCP | | + +------+ + Encounter Details +--------+ + + + + | Date | Type | Department | Care Team | Description | +--------+ + + + + | 09/28/ | Hospital | [facility] | Saurav Glover, | | | 2019 | Encounter | [facility] | MD [address] | | | | | XRAY [address] | | | | | [address], | [place] [address] | | | | | [place] [address] | [phone] | | | | | [phone] | | | +--------+ + + + + Social History + +-------+ +--------+------+ | Tobacco Use | Types | Packs/Day | Years | Date | | | | | Used | | + +-------+ +--------+------+ | Former Smoker | | | | | + +-------+ +--------+------+ + +---+---+---+ | Smokeless Tobacco: | | | | | Never Used | | | | + +---+---+---+ + + +---------+ + | Alcohol Use | Drinks/Week | oz/Week | Comments | + + +---------+ + | Yes | | | everyday | + + +---------+ + + + + | Sex Assigned at | Date Recorded | | | | + + + | Not on file | | + + + + + + + | Job Start Date | Occupation | Industry | + + + + | Not on file | Not on file | Not on file | + + + + + + + + | Travel History | Travel Start | Travel End | + + + + + + | No recent travel history available. | + + documented as of this encounter Medications at Time of Discharge + + + +---------+ + + | Medication | Sig | Dispensed | Refills | Start | End Date | | | | | | Date | | + + + +---------+ + + | B Complex Vitamins | Take by mouth. | | 0 | | | | (B COMPLEX-B12 PO) | | | | | | + + + +---------+ + + | cyclobenzaprine | Take 10 mg by mouth | | 0 | | | | (FLEXERIL) 10 mg | 3 times daily as | | | | | | tablet | needed for Muscle | | | | | | | spasms. Do not take | | | | | | | with hydrocodone may | | | | | | | take 1/2 tablet | | | | | + + + +---------+ + + | diclofenac | Place 1 patch onto | | 0 | | | | (FLECTOR) 1.3% PTCH | the skin 2 times | | | | | | | daily. As directed | | | | | + + + +---------+ + + | furosemide (LASIX) | Take 1 tablet by | 30 | 11 | 09/13/20 | | | 20 mg tablet | mouth Daily as | tablet | | 19 | 0 | | | needed for Edema. | | | | | + + + +---------+ + + | labetalol | Take 1 tablet by | 60 | 11 | 09/13/20 | | | (NORMODYNE) 100 mg | mouth 3 times daily. | tablet | | 19 | | | tablet | | | | | | + + + +---------+ + + | lisinopril | | | 0 | 04/02/20 | | | (PRINIVIL,ZESTRIL) | | | | 19 | | | 40 MG tablet | | | | | | + + + +---------+ + + | potassium chloride | Take 1 packet by | 30 | 0 | 09/13/20 | | | (KLOR-CON) 20 MEQ | mouth Daily as | tablet | | 19 | | | packet | needed (daily as | | | | | | | needed with Lasix). | | | | | + + + +---------+ + + | sertraline | | | 0 | 07/11/20 | | | (ZOLOFT) 50 mg | | | | 19 | | | tablet | | | | | | + + + +---------+ + + | amLODIPine | | | 0 | 04/11/20 | | | (NORVASC) 2.5 mg | | | | 19 | 0 | | tablet | | | | | | + + + +---------+ + + | calcitonin | 1 spray in alternate | 3.7 mL | 0 | 08/01/20 | | | (FORTICAL) 200 | nostrils daily | | | 19 | 0 | | units/nasal spray | | | | | | | nasal spray | | | | | | + + + +---------+ + + | gabapentin | 1 capsule by mouth | 120 | 1 | 08/01/20 | | | (NEURONTIN) 300 mg | at bedtime for 3 | capsule | | 19 | 9 | | capsule | days; then 1 twice | | | | | | | daily for 4 days; | | | | | | | then 1 three times | | | | | | | daily for 7 days; | | | | | | | then 1 qAM, 1 qNoon, | | | | | | | and 2 qHS | | | | | + + + +---------+ + + | nortriptyline | Take 1 capsule by | 30 | 1 | 05/02/20 | | | (PAMELOR) 50 MG | mouth nightly. | capsule | | 19 | 9 | | capsule | | | | | | + + + +---------+ + + documented as of this encounter Plan of Treatment +--------+ + + + + | Date | Type | Specialty | Care Team | Description | +--------+ + + + + | 04/23/ | Appointment | Radiology | Rylee Pollard DO | | | 2019 | | | [address] | | | | | | [place] | | | | | | [address] | | | | | | | | +--------+ + + + + | 05/22/ | Office | Cardiology | Rylee Pollard DO | | | 2019 | Visit | | [address] | | | | | | [place] | | | | | | [address] | | | | | | | | +--------+ + + + + | 06/18/ | Office | Physical Medicine | Justin Cortez, | | | 2019 | Visit | and Rehabilitation | [address] | | | | | | [place] | | | | | | [address] | | | | | | | | +--------+ + + + + documented as of this encounter Procedures + +--------+ + + + | Procedure Name | Priori | Date/Time | Associated Diagnosis | Comments | | | ty | | | | + +--------+ + + + | JOHN Lombardo ARM | Routin | 09/28/2019 | | Results for this | | | e | 8:18 AM | | procedure are in the | | | | PST | | results section. | + +--------+ + + + documented in this encounter Results AR Anthony (09/28/2019 8:18 AM PST) + + | Specimen | + + | | + + + + + | Narrative | Performed At | + + + | This exam has been finalized by a system utility. Please review | [facility] | | the encounter or progress note for any imaging results. | | + + + + + | Procedure Note | + + | Cherie User - 11/29/2019 6:35 AM PST This exam has been finalized by a system | | utility. Please review the encounter or progress note for any imaging results. | + + + +---------+ + + | Performing | Address | City/State/Zipcode | Phone Number | | Organization | | | | + +---------+ + + | [facility] | | | | + +---------+ + + documented in this encounter Visit Diagnoses Not on filedocumented in this encounter"
--- OUTSIDE RECORDS SUMMARY | ~2020-04-19 | XMS | Encounter Summary ---
Demographics + + + | Address | [address] | | | [place] [address] | + + + | Home Phone | | + + + | Preferred Language | Unknown | + + + | Marital Status | | + + + | Sabianism Affiliation | Unknown | + + + | Race | Unknown | + + + | Ethnic Group | Unknown | + + + Author + + + | Author | [facility] | | | and [place] | + + + | Organization | [facility] | | | and [...] Team Providers + +------+ + | Care Paper Conservator Name | Role | Phone | + +------+ + | Maria Ines Moses PA-C | PCP | | + +------+ + Reason for Visit +--------+ + | Reason | Comments | +--------+ + | Other | Patient reaction to Labetalol. | +--------+ + Encounter Details +--------+ + + + + | Date | Type | Department | Care Team | Description | +--------+ + + + + | 10/01/ | Telephone | [facility] | Shanice Santiago | Other (Patient | | 2019 | | CARDIOLOGY [place], [employer] | reaction to | | | | [address] | | Labetalol. ) | | | | [address] | | | | | | [place] | | | | | | [address] | | | | | | [phone] | | | +--------+ + + + [...] | | | 2019 | | | [address] | | | | | | [place] | | | | | | [address] | | | | | | | | +--------+ + + + + | 05/22/ | Office | Cardiology | Rylee Pollard DO | | | 2019 | Visit | | [address] | | | | | | [place] | | | | | | [address] | | | | | | | | +--------+ + + + + | 06/18/ | Office | Physical Medicine | Justin Cortez, | | | 2019 | Visit | and Rehabilitation | [address] | | | | | | [place] | | | | | | [address] | | | | | | | | +--------+ + + + + documented as of this encounter Visit Diagnoses Not on filedocumented in this encounter"
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
--- OUTSIDE RECORDS SUMMARY | ~2020-04-19 | XMS | Encounter Summary ---
Demographics + + + | Address | [address] | | | [place] [address] | + + + | Home Phone | | + + + | Preferred Language | Unknown | + + + | Marital Status | | + + + | Rastafari Affiliation | Unknown | + + + | Race | Unknown | + + + | Ethnic Group | Unknown | + + + Author + + + | Author | [facility] | | | and [place] | + + + | Organization | [facility] | | | and [...] Team Providers + +------+ + | Care Almond Cutting Machine Tender Name | Role | Phone | + +------+ + | Maria Ines Moses PA-C | PCP | | + +------+ + Reason for Visit + + + | Reason | Comments | + + + | Medication Refill | | + + + | Medication Refill | | + + + Encounter Details +--------+--------+ + + + | Date | Type | Department | Care Team | Description | +--------+--------+ + + + | 10/29/ | Refill | [facility] | Justin Cortez, | Medication Refill; | | 2018 | | PHYSIATRY [address] | MD [address] | Medication Refill | | | | [address] | [place] | | | | | [place] | [address] | | | | | [address] | | | | | | [phone] | | | +--------+--------+ + + + Social History + +-------+ [...] [place] | | | | | | [address] | | | | | | | | +--------+ + + + + | 05/22/ | Office | Cardiology | Rylee Pollard DO | | | 2019 | Visit | | [address] | | | | | | [place] | | | | | | [address] | | | | | | | | +--------+ + + + + | 06/18/ | Office | Physical Medicine | Justin Cortez, | | | 2019 | Visit | and Rehabilitation | [address] | | | | | | [place] | | | | | | [address] | | | | | | | | +--------+ + + + + documented as of this encounter Visit Diagnoses Not on filedocumented in this encounter"
--- OUTSIDE RECORDS SUMMARY | ~2020-04-19 | XMS | Encounter Summary ---
Demographics + + + | Address | [address] | | | [place] [address] | + + + | Home Phone | | + + + | Preferred Language | Unknown | + + + | Marital Status | | + + + | Baptism Affiliation | Unknown | + + + | Race | Unknown | + + + | Ethnic Group | Unknown | + + + Author + + + | Author | [facility] | | | and [place] | + + + | Organization | [facility] | | | [...] Team Providers + +------+ + | Care Manager Subway Name | Role | Phone | + [...] | Justin Salguero MD | [address] | | | | | numbness of | [address] | [place], | | | | | left upper | [address] | [place] | | | | | extremity | [place], | [address] | | | | | Neuropathic | [place] [address] | Phone: | | | | | pain | Phone: | [phone] | | | | | Cervicalgia | [phone] | Fax: | | | | | Weakness of | Fax: | [phone] | | | | | left upper | [phone] | | | | | | extremity [...] | | +--------+--------+ + + + + Reason for Visit Auth/Cert +--------+--------+ + [...] | +--------+ + + + + | 02/15/ | Hospital | [facility] | Justin Cortez, | Pain and numbness of | | 2019 | Encounter | MED CTR MRI [address] | MD [address] | left upper | | | | [place], | [place], [place] | extremity; | | | | [place] [address] | [address] | Neuropathic pain; | | | | [phone] | | Cervicalgia; | | | | | | Weakness of left | | | | | | upper extremity; | | | | | | Cervical | | | | | | radiculopathy | +--------+ + + + + Social [...] | +--------+ + + + + | 06/10/ | Appointment | Radiology | Rylee Pollard DO | | | 2019 | | | [address] | | | | | | [place] | | | | | | [address] | | | | | | | | +--------+ + + + + | 05/22/ | Office | Cardiology | Rylee Pollard DO | | | 2019 | Visit | | [address] | | | | | | [place] | | | | | | [address] | | | | | | | | +--------+ + + + + | 06/18/ | Office | Physical Medicine | Justin Cortez, | | | 2019 | Visit | and Rehabilitation | [address] | | | | | | [place] | | | | | | [address] | | | | | | | | +--------+ + + + + documented as of this encounter Procedures + +--------+ + + + | Procedure Name | Priori | Date/Time | Associated Diagnosis | Comments | | | ty | | | | + +--------+ + + + | MRI CERVICAL SPINE | Routin | 02/15/2019 | Pain and numbness | Results for this | | WO CONTRAST | e | 11:53 AM | of left upper | procedure are in the | | | | PDT | extremity | results section. | | | | | Neuropathic pain | | | | | | Cervicalgia | | | | | | Weakness of left | | | | | | upper extremity | | | | | | Cervical | | | | | | radiculopathy | | + +--------+ + + + documented in this encounter Results MRI Cervical Spine wo Contrast (02/15/2019 11:53 AM PDT) + + | Specimen | + + | | + + + + + | Narrative | Performed At | + + + | UNENHANCED MRI CERVICAL SPINE 02/15/2019 11:34 AM CLINICAL | [facility] | | HISTORY: Neck and left arm pain COMPARISON: MRI August 2018 | | | TECHNIQUE: The following 1.5T MR sequences of [...] the posterior fossa and foramen magnum are unremarkable. | | | The cervical and imaged thoracic spinal cord demonstrates normal | | | signal intensity and caliber. Imaged cervical and upper thoracic | | | soft tissues are unremarkable. The craniocervical junction and | | | C1-2 and C2-3 levels are unremarkable on provided sagittal and | | | coronal images through the region. C3-4: No disc pathology or | | | stenosis. C4-5: Minimal right paramedian disc protrusion persists, | | | without stenosis. C5-6: Mild, broad-based left | | | paramedian/foraminal disc bulge persists, mildly narrowing the left | | | foramen to a similar degree. C6-7: Generalized [...] | Isaías, Rad Results In - 02/15/2019 1:44 PM PDT UNENHANCED MRI CERVICAL SPINE 02/15/2019 | | 11:34 AMCLINICAL HISTORY: Neck and left arm pain COMPARISON: MRI August | | 2017TECHNIQUE: The following 1.5T MR sequences of the [...] neuritis or radiculitis nos | + + documented in this encounter"
--- OUTSIDE RECORDS SUMMARY | ~2020-04-19 | XMS | Encounter Summary ---
Demographics + + + | Address | [address] | | | [place] [address] | + + + | Home Phone | | + + + | Preferred Language | Unknown | + + + | Marital Status | | + + + | Jehovah'S Witness Affiliation | Unknown | + + + | Race | Unknown | + + + | Ethnic Group | Unknown | + + + Author + + + | Author | [facility] | | | and [place] | + + + | Organization | [facility] | | | and [place] | + + + | Address | Unknown | + + + | Phone | Unavailable | + + + Support + + +---------+ + | Name | Relationship | Address | Phone | + + +---------+ + | Meera Bonnie | ECON | Unknown | | + + +---------+ + | Klaudia Palomraes | ECON | Unknown | | + + +---------+ + Care Team Providers + +------+ + | Care Dairy Equipment Specialist Name | Role | Phone | + [...] | | | Pain and | Justin Lupillo Salguero MD | [address] | | | | | numbness of | [address] | [place], | | | | | left upper | [address] | [place] | | | | | extremity | [place], | [address] | | | | | Neuropathic | [place] [address] | Phone: | | | | | pain | Phone: | [phone] | | | | | Cervicalgia | [phone] | Fax: | | | | | Weakness of | Fax: | [phone] | | | | | left upper | [phone] | | | | | | extremity [...] | Specialty | Physical | Diagnoses | Cortez, | [address] ST | | | Services | Therapy | Thoracic | Justin Salguero MD | [facility] | | | Required | | outlet | [address] | HOSPITAL | | | | | syndrome of | [address] | [address] | | | | | left | [place], | AVE | | | | | thoracic | [place] [address] | [place] | | | | | outlet | Phone: | [phone] | | | | | Procedures | [phone] | Phone: | | | | | HIM | Fax: | [phone] | | | | | 02/08/19 | [phone] | Fax: | | | | | | | [phone] | +--------+ + + + + + Reason for Visit + + + | Reason | Comments | + + + | Arm Pain | left upper extremity | + + + Encounter Details +--------+---------+ + + + | Date | Type | Department | Care Team | Description | +--------+---------+ + + + | 01/23/ | Office | [facility] | Justin Cortez, | Pain and numbness of | | 2018 | Visit | PHYSIATRY [address] | MD [address] | left upper | | | | [address] | [place] | extremity (Primary | | | | [place] | [address] | Dx); Neuropathic | | | | [address] | | pain; Cervicalgia; | | | | [phone] | | Weakness of left | | [...] Filed Vital Signs + + + + + | Vital Sign | Reading | Time Taken | Comments | + + + + + | Blood Pressure | - | - | | + + + + + | Pulse | - | - | | + + + + + | Temperature | - | - | | + + + + + | Respiratory Rate | - | - | | + + + + + | Oxygen Saturation | - | - | | + + + + + | Inhaled Oxygen | - | - | | | Concentration | | | | + + + + + | Weight | 77.1 kg (170 lb) | 01/23/2019 9:20 AM | | | | | PDT | | + + + + + | Height | 165.1 cm (5' 5") | 01/23/2019 9:20 AM | | | | | PDT | | + + + + + | Body Mass Index | 28.29 | 01/23/2019 9:20 AM | | | | | PDT | | + + + + + documented in this encounter Patient Instructions Patient Instructions Melly Ambrocio, Pedal Assembler - 01/23/2019 8:15 AM PDTPhysic al therapy has been prescribed. Please participate in physical therapy. If you have not be contacted for an appointment with physical therapy within one week, please contact the clin ic. Once you have completed physical therapy please continue the home exercise program as o utline by physical therapy, indefinitely. X-rays have been requested. Please go to the x-ray department after your appointment to co mplete these x-rays. The results of your x-rays will be reviewed at your next appointment. If your x-rays demonstrate any emergent results, the clinic will contact you. A MRI has been requested. Please complete the requested imaging. Within one week, you speedy uld receive a call to schedule your MRI. If you have not heard from anyone within one week, please call the clinic. The results of your MRI will be reviewed at your next appointment. If your MRI demonstrates any emergent results, the clinic will contact you. Continue taking Nortriptyline as prescribed. documented in this encounter Progress Notes Justin Cortez MD - 01/23/2019 8:15 AM PDTFormatting of this note might be different fro m the original. Justin Cortez MD [address] [place] [address], [address] [place], [place] [id number] FAX: PHYSICAL MEDICINE AND REHABILITATION H&P CHIEF [...] of the left upper extremi ty. Isi pSringer report that she was in the hospital for renal impairment due to care home use of lisinopril and hydrochlorothiazide. Isi Springer reports that has discontinued use of hydrochlorothiazide. She reports history of kidney impairment. She reports poor rajan etite. Isi Gus medications, allergies, past medical, surgical, social and [...] has no apparent deficits with short or care home memory. The cranial nerves appear grossly intact. [...] Extension 5 5 Finger Abduction 5 5 Business Office Associate Strength 5 4+ REFLEX: RIGHT LEFT BICEPS [...] falling and hitting left ulnar nerve at [facility]. Nerve study did not reveal ulnar nerve [...] was spent face to face with Isi Reyes Luis Albertoyahaira, over half of which w as spent formulating and discussing their medical treatment plan. I, Justin Cortez MD personally performed the services described in this documentation, as scribed by in my presence, SHARAD Theodore and are both accurate and complete. Justin Cortez MD - 01/23/2019 documented in this en counter Plan of [...] [place] | | | | | | [id number] | | | | | | | | +--------+ + + + + | 05/22/ | Office | Cardiology | Rylee Pollard DO | | | 2019 | Visit | | [address] | | | | | | [place] | | | | | | [address] | | | | | | | | +--------+ + + + + | 06/18/ | Office | Physical Medicine | Justin Cortez, | | | 2019 | Visit | and Rehabilitation | [address] | | | | | | [place] | | | | | | [address] | | | | | | | | +--------+ + + + + + +---------+--------+ + + | Name | Type | Priori | Associated Diagnoses | Order Schedule | | | | ty | | | + +---------+--------+ + + | XR Cervical Spine 4 | Imaging | Routin | Pain and numbness | Expected: | | or 5 Vws | | e | of left upper | 01/23/2019, Expires: | | | | | extremity | 01/23/2020 | | | | | Neuropathic pain | | | | | | Cervicalgia | | | | | | Weakness of left | | | | | | upper extremity | | | | | | Cervical | | | | | | radiculopathy | | + +---------+--------+ + + + + +--------+ + + | Name | Type | Priori | Associated Diagnoses | Order Schedule | | | | ty | | | + + +--------+ + + | Physical Therapy - | Outpatient | Routin | Thoracic outlet | Ordered: 01/23/2019 | | Ambulatory Referral | Referral | e | syndrome of left | | | | | | thoracic outlet | | + + +--------+ + + documented as of [...]
--- OUTSIDE RECORDS SUMMARY | ~2020-04-19 | XMS | Encounter Summary ---
Demographics + + + | Address | [address] | | | [place] [address] | + + + | Home Phone | | + + + | Preferred Language | Unknown | + + + | Marital Status | | + + + | Restorationism Affiliation | Unknown | + + + | Race | Unknown | + + + | Ethnic Group | Unknown | + + + Author + + + | Author | [facility] | | | and [place] | + + + | Organization | [facility] | | | and [...] Team Providers + +------+ + | Care Director Social Service Name | Role | Phone | + +------+ + PCP | Unavailable | + +------+ + Encounter Details +--------+ + + + + | Date | Type | Department | Care Team | Description | +--------+ + + + + | 05/07/ | Hospital | [facility] | Conversion | | | 1994 | Encounter | SYSTEM EMR | Transaction, | | | | | CONVERSION [address] | Provider Unknown | | | | | [address] [place], [place] | | | | | | [address] | (Fax) | | | | | [phone] | | | +--------+ + + + + Social History + +-------+ +--------+------+ | Tobacco Use | Types | Packs/Day | Years | Date | | | | | Used | | + +-------+ +--------+------+ | Never Assessed | | | | | + +-------+ +--------+------+ + + + | Sex Assigned at [...] [place] | | | | | | [address] | | | | | | | | +--------+ + + + + | 05/22/ | Office | Cardiology | Rylee Pollard DO | | | 2019 | Visit | | [address] | | | | | | [place] | | | | | | [address] | | | | | | | | +--------+ + + + + | 06/18/ | Office | Physical Medicine | Justni Cortez, | | | 2019 | Visit | and Rehabilitation | [address] | | | | | | [place] | | | | | | [address] | | | | | | | | +--------+ + + + + documented as of this encounter Visit Diagnoses Not on filedocumented in this encounter"
--- OUTSIDE RECORDS SUMMARY | ~2020-04-19 | XMS | Encounter Summary ---
Demographics + + + | Address | [address] | | | [place] [address] | + + + | Home Phone | | + + + | Preferred Language | Unknown | + + + | Marital Status | | + + + | Episcopal Affiliation | Unknown | + + + | Race | Unknown | + + + | Ethnic Group | Unknown | + + + Author + + + | Author | [facility] | | | and [place] | + + + | Organization | [facility] | | | [...] Team Providers + +------+ + | Care Embedded Linux Engineer Name | Role | Phone | + +------+ + | Maria Ines Moess PA-C | PCP | | + +------+ + Reason for Visit + + + | Reason | Comments | + + + | Referral Question | | + + + Encounter Details +--------+ + + + + | Date | Type | Department | Care Team | Description | +--------+ + + + + | 09/21/ | Telephone | [facility] | Celeste Kingsley, | Referral Question | | 2019 | | [facility] | Farm Management Adviser | | | | | [address]OLOGY [address] | | | | | [address] | | | | | | [place] | | | | | | [address] | | | | | | [phone] | | | +--------+ + + + [...] | Rylee Pollard DO | | | 2020 | | | [address] | | | | | | [place] | | | | | | [address] | | | | | | | | +--------+ + + + + | 05/22/ | Office | Cardiology | Rylee Pollard DO | | | 2019 | Visit | | [address] | | | | | | [place] | | | | | | [address] | | | | | | | | +--------+ + + + + | 06/18/ | Office | Physical Medicine | Justin Cortez, | | | 2019 | Visit | and Rehabilitation | [address] | | | | | | [place] | | | | | | [address] | | | | | | | | +--------+ + + + + documented as of this encounter Visit Diagnoses Not on filedocumented in this encounter"
--- OUTSIDE RECORDS SUMMARY | ~2020-04-19 | XMS | Encounter Summary ---
Demographics + + + | Address | [address] | | | [place] [address] | + + + | Home Phone | | + + + | Preferred Language | Unknown | + + + | Marital Status | | + + + | Cheondoism Affiliation | Unknown | + + + | Race | Unknown | + + + | Ethnic Group | Unknown | + + + Author + + + | Author | [facility] | | | and [place] | + + + | Organization | [facility] | | | [...] Team Providers + +------+ + | Care Dehydrogenation Operator Head Name | Role | Phone | + +------+ + | Maria Ines Moses PA-C | PCP | | + +------+ + Reason for Visit + + + | Reason | Comments | + + + | Imaging Only | | + + + Encounter Details +--------+ + + + + | Date | Type | Department | Care Team | Description | +--------+ + + + + | 02/19/ | Telephone | [facility] [place] | Justin Cortez, | Imaging Only | | 2019 | | PHYSIATRY [address] | MD [address] | | | | | [address] | [place] | | | | | [place] | [address] | | | | | [address] | | | | | | [phone] | | | +--------+ + + + [...] [place] | | | | | | [address] | | | | | | | | +--------+ + + + + | 05/22/ | Office | Cardiology | Rylee Pollard DO | | | 2019 | Visit | | [address] | | | | | | [place] | | | | | | [address] | | | | | | | | +--------+ + + + + | 06/18/ | Office | Physical Medicine | Justin Cortez, | | | 2019 | Visit | and Rehabilitation | [address] | | | | | | [place] | | | | | | [address] | | | | | | | | +--------+ + + + + documented as of this encounter Visit Diagnoses Not on filedocumented in this encounter"
--- OUTSIDE RECORDS SUMMARY | ~2020-04-19 | XMS | Encounter Summary ---
Demographics + + + | Address | [address] | | | [place] [address] | + + + | Home Phone | | + + + | Preferred Language | Unknown | + + + | Marital Status | | + + + | Scientologist Affiliation | Unknown | + + + | Race | Unknown | + + + | Ethnic Group | Unknown | + + + Author + + + | Author | [facility] | | | and [place] | + + + | Organization | [facility] | | | and [...] Team Providers + +------+ + | Care Nonprofit Financial Controller Name | Role | Phone | + +------+ + | Maria Ines Moses PA-C | PCP | | + +------+ + Reason for Visit + + + | Reason | Comments | + + + | Procedure | | + + + Encounter Details +--------+ + + + + | Date | Type | Department | Care Team | Description | +--------+ + + + + | 09/26/ | Telephone | [facility] | Saurav Glover, | Procedure | | 2019 | | [facility] | [address] | | | | | [address] | | | | | [address] | [place] [address] | | | | | [place], [place] | [phone] | | | | | [address] | | | | | | [phone] | | | +--------+ + + + [...] | | | 2020 | | | [address] | | | | | | [place] | | | | | | [address] | | | | | | | | +--------+ + + + + | 05/22/ | Office | Cardiology | Rylee Pollard DO | | | 2019 | Visit | | [address] | | | | | | [place] | | | | | | [address] | | | | | | | | +--------+ + + + + | 06/18/ | Office | Physical Medicine | Justin Cortez, | | | 2019 | Visit | and Rehabilitation | [address] | | | | | | [place] | | | | | | [address] | | | | | | | | +--------+ + + + + documented as of this encounter Visit Diagnoses Not on filedocumented in this encounter"
--- OUTSIDE RECORDS SUMMARY | ~2020-04-19 | XMS | Encounter Summary ---
Demographics + + + | Address | [address] | | | [place] [address] | + + + | Home Phone | | + + + | Preferred Language | Unknown | + + + | Marital Status | | + + + | Restorationist Affiliation | Unknown | + + + | Race | Unknown | + + + | Ethnic Group | Unknown | + + + Author + + + | Author | [facility] | | | and [place] | + + + | Organization | [facility] | | | and [...] Team Providers + +------+ + | Care Physician Ophthalmologist Name | Role | Phone | + +------+ + | Maria Ines Moses PA-C | PCP | | + +------+ + Reason for Referral Service/Procedure (Routine) +--------+ + + + + + | Status | Reason | Specialty | Diagnoses / | Referred By | Referred To | | | | | Procedures | Contact | Contact | +--------+ + + + + + | Closed | Specialty | Pain Medicine | Diagnoses | Adalberto, | Teddy, | | | Services | | Cervical | MD Saurav | Nirmal Mckinley DO | | | Required | | radicular | [address] | | | | | pain | [address] | | | | | Cervical | [address] | [place] | | | | | spondylosis | [address] | [address] | | | | | without | [place] Phone: | | | | | myelopathy | [place] [address] | [phone] | | | | | HNP | Phone: | Fax: | | | | | (herniated | [phone] | [phone] | | | | | nucleus | Fax: | | | | | | pulposus), | [phone] | | | | | | cervical | | | | | | | Neuroforamin | | | | | | | al stenosis | | | | | | | of cervical | | | | | | | spine | | | | | | | Whiplash | | | | | | | injury to | | | | | | | neck, | | | | | | | sequela | | | +--------+ + + + + + Encounter Details +--------+ + + + + | Date | Type | Department | Care Team | Description | +--------+ + + + + | 09/25/ | Orders Only | [facility] | Saurav Glover, | Cervical radicular | | 2019 | | NE[facility]ENCE [facility]ENTER | [address] | pain (Primary Dx); | | | | [address]OLOGY [address] | Cervical spondylosis | | | | [address] | [place] [address] | without myelopathy; | | | | [place], [place] | [phone] | HNP (herniated | | | | [address] | | nucleus pulposus), | | | | [phone] | | cervical; | | | | | | Neuroforaminal | | | | | | stenosis of cervical | | | | | | spine; Whiplash | | | | | | injury to neck, | | | | | | sequela | +--------+ + + + + Social [...] [place] | | | | | | [address] | | | | | | | | +--------+ + + + + | 05/22/ | Office | Cardiology | Rylee Pollard DO | | | 2019 | Visit | | [address] | | | | | | [place] | | | | | | [address] | | | | | | | | +--------+ + + + + | 06/18/ | Office | Physical Medicine | Justin Cortez, | | | 2019 | Visit | and Rehabilitation | [address] | | | | | | [place] | | | | | | [address] | | | | | | | | +--------+ + + + + +---------+ +--------+ + + | Name | Type | Priori | Associated Diagnoses | Order Schedule | | | | ty | | | +---------+ +--------+ + + | [facility] | Outpatient | Routin | Cervical radicular | Ordered: 09/26/2019 | | | Referral | e | pain Cervical | | | | | | spondylosis without | | | | | | myelopathy HNP | | | | | | (herniated nucleus | | | | | | pulposus), cervical | | | | | | Neuroforaminal | | | | | | stenosis of cervical | | | | | | spine Whiplash | | | | | | injury to neck, | | | | | | sequela | | +---------+ +--------+ + + documented as of this encounter Visit Diagnoses + + | Diagnosis | + + | Cervical radicular pain - Primary Brachial neuritis or radiculitis nos | + + | Cervical spondylosis without myelopathy | + + | HNP (herniated nucleus pulposus), cervical Displacement of cervical intervertebral | | disc without myelopathy | + + | Neuroforaminal stenosis of cervical spine | + + | Whiplash injury to neck, sequela | + + documented in this encounter"
--- OUTSIDE RECORDS SUMMARY | ~2020-04-19 | XMS | Encounter Summary ---
Demographics + + + | Address | [address] | | | [place] [address] | + + + | Home Phone | | + + + | Preferred Language | Unknown | + + + | Marital Status | | + + + | Holiness Affiliation | Unknown | + + + [...] Team Providers + +------+ + | Care Household Personal Assistant Name | Role | Phone | + [...] PHYSIATRY [address] | MD [address] | | | | | [address] | [place] | | | | | [place] | [address] | | | | | [address] | | | | | | [phone] | | | +--------+ + + + [...] [place] | | | | | | [address] | | | | | | | | +--------+ + + + + | 05/22/ | Office | Cardiology | Rylee Pollard DO | | | 2019 | Visit | | [address] | | | | | | [place] | | | | | | [address] | | | | | | | | +--------+ + + + + | 06/18/ | Office | Physical Medicine | Justin Cortez, | | | 2019 | Visit | and Rehabilitation | [address] | | | | | | [place] | | | | | | [address] | | | | | | | | +--------+ + + + + documented as of this encounter Visit Diagnoses Not on filedocumented in this encounter"
--- OUTSIDE RECORDS SUMMARY | ~2020-04-19 | XMS | Encounter Summary ---
Demographics + + + | Address | [address] | | | [place] [address] | + + + | Home Phone | | + + + | Preferred Language | Unknown | + + + | Marital Status | | + + + | Voodoo Affiliation | Unknown | + + + | Race | Unknown | + + + | Ethnic Group | Unknown | + + + Author + + + | Author | [facility] | | | and [place] | + + + | Organization | [facility] | | [...] Team Providers + +------+ + | Care Care Aid Name | Role | Phone | + +------+ + | Maria Ines Moses PA-C | PCP | | + +------+ + Reason for Referral Evaluate & Treat (Routine) +--------+ + + + + + | Status | Reason | Specialty | Diagnoses / | Referred By | Referred To | | | | | Procedures | Contact | Contact | +--------+ + + + + + | Closed | Specialty | Pain Medicine | Diagnoses | Diego, | Adalberto, | | | Services | | Complex | Justin Salguero MD | MD Saurav | | | Required | | regional | [address] | | | | | pain | [address] | [address] | | | | | syndrome | [place], | B | | | | | type 1 of | [place] [address] | [place] | | | | | left upper | Phone: | [address] | | | | | extremity | [phone] | Phone: | | | | | Hyperalgesia | Fax: | [phone] | | | | | Allodynia | [phone] | Fax: | | | | | Pain and | | [phone] | | | | | numbness of | | | | | | | left upper | | | | | | | extremity | | | | | | | Diaphoresis | | | | | | | Procedures | | | | | | | 08/14- NEED | | | | | | | DATE OF | | | | | | | SERVICE FOR | | | | | | | [facility] | | | | | | | INSURANCE | | | +--------+ + + + + + Reason for Visit + + + | Reason | Comments | + + + | Follow-up | left hand and elbow | + + + Follow Up (Routine) + +--------+ + + + + | Status | Reason | Specialty | Diagnoses / | Referred By | Referred To | | | | | Procedures | Contact | Contact | + +--------+ + + + + | Authorized | | Physical | Diagnoses | Aurelia, | Justin Cortez | | | | Medicine and | Cervicalgia | Maria Ines H, | Lupillo Salguero MD [address] | | | | Rehabilitatio | 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 [address] | [address] | | | | n | plexus | [address] | [place], | | | | | disorders | [place] | [place] [address] | | | | | Radiculopath | [address] | Phone: | | | | | y, cervical | [facility] [place], | [phone] | | | | | region | [place] | Fax: | | | | | Other | [address] | [phone] | | | | | disturbances | Phone: | | | | | | of skin | [phone] | | | | | | sensation | Fax: | | | | | | Other | [phone] | | | | | | disturbances | | | | | | | of skin | | | | | | | sensation | | | | | | | physcial | | | | | | | therapy | | | | | | | review * | | | | | | | Procedures | | | | | | | FOLLOW UP | | | | | | | DOS 12/19/2019 | | | + +--------+ + + + + Encounter Details +--------+---------+ + + + | Date | Type | Department | Care Team | Description | +--------+---------+ + + + | 08/01/ | Office | [facility] [place] Justin Cortez, | Complex regional | | 2019 | Visit | PHYSIATRY [address] | MD [address] | pain syndrome type 1 | | | | [address] | [place] | of left upper | | | | [place] | [address] | extremity (Primary | | | | [address] | | Dx); Hyperalgesia; | | | | [phone] | | Allodynia; Pain and | | | | | | numbness of left | | | | | | upper extremity; | | | | | | Diaphoresis | +--------+---------+ + + + Social History [...] + + + | Blood Pressure | 124/62 | 08/01/2019 2:21 PM | | | | | PDT | | + + + + + | Pulse | 84 | 08/01/2019 2:21 PM | | | | | PDT | | + + + + + | Temperature | - | - | | + + + + + | Respiratory Rate | 16 | 08/01/2019 2:21 PM | | | | | PDT | | + + + + + | Oxygen Saturation | - | - | | + + + + + | Inhaled Oxygen | - | - | | | Concentration | | | | + + + + + | Weight | 77.1 kg (170 lb) | 08/01/2019 2:21 PM | | | | | PDT | | + + + + + | Height | 165.1 cm (5' 5") | 08/01/2019 2:21 PM | | | | | PDT | | + + + + + | Body Mass Index | 28.29 | 08/01/2019 2:21 PM | | | | | PDT | | + + + + + documented in this encounter Patient Instructions Patient Instructions Cielo Neri RN - 08/01/2019 2:10 PM PDTPlease taper the Gabapent in as written on your prescription. Please Take your Calcitonin. Please begin taking a Vitamin D and Calcium Supplement. documented in this encounter Progress Notes Justin Cortez MD - 08/01/2019 2:10 PM PDTFormatting of this note might be different fro m the original. Justin Cortez MD [address] [place] [address], [address] [place], [place] [id number] FAX: PHYSICAL MEDICINE AND REHABILITATION H&P CHIEF COMPLAINT: Chief Complaint Patient presents with Follow-up left hand and elbow HISTORY OF PRESENT ILLNESS: Isi Springer is a 43 y.o. female being seen today in follow-up for complaints of lef t arm, elbow, and hand pain. Isi Springer was last seen on 05/02/2019. Previously it was recommended that she participate in physical therapy and begin Nortriptyline. She r eports that the treatment was effective the physical therapy was helping until her foot inju ry, and the Nortriptyline has been reported to help. Isi Springer has not had her la bs completed that were ordered on 03/13/2019. Overall Isi Springer reports that her symptoms are worsening, Isi Springer re ports that this could be due to her foot injury that occurred in April. Isi Springer rates the pain as 7 on scale of 1-10. Isi Springer describes the pain as sharp or b urning. Her symptoms worsen with nothing. Her symptoms improve with ice and heat and flect or patches. Isi Springer does describe numbness of the inside of her left arm and h er fourth and fifth digit on her left hand. She does report weakness of the left arm, she does not report dropping items. Isi Springer reports experiencing spasms in the left shoulder. Isi Springer is currently taking cyclobenzaprine and flector patches for treatment of pain. Isi Springer's medications, allergies, past medical, surgical, social and family his tories were reviewed and updated as appropriate. CURRENT MEDICATIONS: Current Outpatient Medications Medication Sig Dispense Refill amLODIPine (NORVASC) 2.5 mg tablet B Complex Vitamins (B COMPLEX-B12 PO) Take by mouth. calcitonin (FORTICAL) 200 units/nasal spray nasal spray 1 spray in alternate nostrils d aily 3.7 mL 0 cyclobenzaprine (FLEXERIL) 10 mg tablet Take 10 mg by mouth 3 times daily as needed for Muscle spasms. Do not take with hydrocodone may take 1/2 tablet diclofenac (FLECTOR) 1.3% PTCH Place 1 patch onto the skin 2 times daily. As directed gabapentin (NEURONTIN) 300 mg capsule 1 capsule by mouth at bedtime for 3 days; then 1 twice daily for 4 days; then 1 three times daily for 7 days; then 1 qAM, 1 qNoon, and 2 qHS 120 capsule 1 hydroCHLOROthiazide 25 mg tablet lisinopril (PRINIVIL, ZESTRIL) 10 mg tablet Take 40 mg by mouth Daily. lisinopril (PRINIVIL,ZESTRIL) 40 MG tablet nortriptyline (PAMELOR) 50 MG capsule Take 1 capsule by mouth nightly. 30 capsule 1 sertraline (ZOLOFT) 50 mg tablet spironolactone (ALDACTONE) 100 MG tablet No current facility-administered medications for this visit. ALLERGIES: Allergies Allergen Reactions Hydrocodone Rash REVIEW OF SYSTEMS: Review of Systems Constitutional: Positive for diaphoresis. Musculoskeletal: Positive for joint pain, myalgias and neck pain. Neurological: Positive for headaches. PHYSICAL EXAMINATION: Body mass index is 28.29 kg/m. Vitals: 08/01/19 1421 BP: 124/62 Pulse: 84 Resp: 16 PainSc: 7 PainLoc: Shoulder GENERAL: The patient is well developed and well nourished. She does appear uncomfortable w hen seated. She has a walking shoe on the right foot from multiple hairline fractures of th e right foot. HEENT: Normocephalic and atraumatic. Normal sclerae without icterus. NECK (ANTERIOR): There is no apparent cervical lymphadenopathy or thyromegaly. PULMONARY: The patient is in no acute respiratory distress with unlabored respirations. CARDIOVASCULAR: Regular rate and rhythm. There is not lower extremity edema. ABDOMEN: Non-distended. SKIN: Limited skin exam shows no significant rashes or lesions. NEUROLOGIC: The patient is awake, alert, and oriented. She follows simple and complex commands. Her speech is fluent. She comprehends speech well. She has no apparent deficits with short or shelter memory. The cranial nerves appear grossly intact. MUSCULOSKELETAL : Supraclavicular fullness on the left side Hyperalgesia with palpation over the left rhombus and trapezius muscles Left hand warmer upon touch than right hand and left hand has airathemitis DATABASE: No pertinent imaging at this time. ASSESSMENT: 1. Complex regional pain syndrome type 1 of left upper extremity 2. Hyperalgesia 3. Allodynia 4. Pain and numbness of left upper extremity 5. Diaphoresis PLAN: 1. Isi Springer returns to the clinic today to discuss her response to physical medicine physician apy and Nortriptyline use for her left upper extremity pain 2. Today we discussed Isi Springer's right foot injury. 3. Today we discussed Isi Springer's usage of Nortriptyline, she reports improved sl eep and no side effects. 4. Today we discussed Isi Springer's physical therapy participation and how the use of crutched makes shoulder and arm pain worse. 5. Today we discussed further treatment options, which include but are not limited to tanivr er point injections or Botox injections. 6. Today we discussed desensitization of Isi Springer's hyperalgesia. 7. Today we discussed the possible diagnosis of Regional Complex Pain Syndrome. We discusse d the pathophysiology of CPS, and we discussed treatment options which are desensitization t echniques and Stellum Ganglion Block Today we sent a referral for a Stellate Ganglion Block at the Pain [facility] in [facility] 8. Today we discussed the possibilities of different types of medications. We advised Marcelo Springer that there may be, but not guaranteed, medication that she could take during the day that would not make her tired throughout the day. Today we discussed how Gabapentin is to be used and how the medication is tapered so that t he body is able to adjust to the medicatoin while also getting the benefits of the medicatio ns. Today we advised Isi Springer to take Calcitonin. Isi Springer was advised to begin taking a Calcium and Vitamin D supplement with this medication. Today we order Gabapentin. Isi Springer was advised to taper up the dose of the med ication as directed. She was advised to stop tapering up the medication at the lowest effe ctive dose. She was advised that if She experiences side effects to the medication that S he should reduce the dose of the medication to the last dose that She was able to tolerate w ithout side effects. In summary, even though Isi Springer has had normal bone scan, normal nerve study, h er clinical presentation today is very convincing for CRPS type I. She has temperature fall ges in her left arm. Her left arm is red and warm compared to her right. She has abnormal sweating of her left arm and palm compared to her right. She has severe allodynia and hyper algesia of her left arm. She recently has stress fractures of foot after running a [employer] race. She is already doing desensitization therapy of left arm. She has had some benefit f rom nortriptyline but symptoms persist. She had previously tried gabapentin, with possible benefit, but she was concerned because someone had told her that she could develop tolerance to gabapentin. She is willing to restart gabapentin. She will also start calcitonin for o ne kirby trial to see if it offers her benefit. She has been instructed to supplement calciu m and vitamin D daily while on nasal calcitonin. Lasting she will be referred to pain clini c for trial of stellate ganglion blocks. Based off of allodynia on today's exam, she would not likely benefit from trigger point injections, and in fact more likely to aggregate her c urrent symptoms. I spent 30 minutes in visit with Isi Springer today with the majority of time spent counselling the patient on her diagnosis, options for her care, and coordinating her care. I, Justin Cortez MD personally performed the services described in this documentation, as scribed by in my presence, Cielo Neri RN and are both accurate and complete. Justin Cortez MD - 08/01/2019 documented in this en counter Plan of [...] [place] | | | | | | [address] | | | | | | | | +--------+ + + + + | 05/22/ | Office | Cardiology | Rylee Pollard DO | | | 2019 | Visit | | [address] | | | | | | [place] | | | | | | [address] | | | | | | | | +--------+ + + + + | 06/18/ | Office | Physical Medicine | Justin Cortez, | | | 2019 | Visit | and Rehabilitation | MD [address] | | | | | | [place] | | | | | | [address] | | | | | | | | +--------+ + + + + + + +--------+ + + | Name | Type | Priori | Associated Diagnoses | Order Schedule | | | | ty | | | + + +--------+ + + | [facility] | Outpatient | Routin | Complex regional | Ordered: 08/01/2019 | | Management - AMB | Referral | e | pain syndrome type 1 | | | Referral | | | of left upper | | | | | | extremity | | | | | | Hyperalgesia | | | | | | Allodynia Pain and | | | | | | numbness of left | | | | | | upper extremity | | | | | | Diaphoresis | | + + +--------+ + + documented as of this encounter Visit Diagnoses + + | Diagnosis | + + | Complex regional pain syndrome type 1 of left upper extremity - Primary | + + | Hyperalgesia Disturbance of skin sensation | + + | Allodynia Disturbance of skin sensation | + + | Pain and numbness of left upper extremity | + + | Diaphoresis Generalized hyperhidrosis | + + documented in this encounter
--- OUTSIDE RECORDS SUMMARY | ~2020-04-19 | XMS | Encounter Summary ---
Demographics + + + | Address | [address] | | | [place] [address] | + + + | Home Phone | | + + + | Preferred Language | Unknown | + + + | Marital Status | | + + + | Confucianist Affiliation | Unknown | + + + | Race | Unknown | + + + | Ethnic Group | Unknown | + + + Author + + + | Author | [facility] | | | and [place] | + + + | Organization | [facility] | | [...] Team Providers + +------+ + | Care Micro Lab Analyst Name | Role | Phone | + +------+ + | Maria Ines Moses PA-C | PCP | | + +------+ + Reason for Visit +--------+ + | Reason | Comments | +--------+ + | Other | | +--------+ + Encounter Details +--------+ + + + + | Date | Type | Department | Care Team | Description | +--------+ + + + + | 09/25/ | Telephone | [facility] | Aaron Craig, | Other | | 2019 | | NEUROSCIENCE [facility]ENTER | Julianna Pe[facility] | | | | | DOLOROLOGY [address] | Hydrology Professor | | | | | [address] | | | | | | [place] | | | | | | [address] | | | | | | [phone] | | | +--------+ + + + [...] [place] | | | | | | [address] | | | | | | | | +--------+ + + + + | 05/22/ | Office | Cardiology | Rylee Pollard DO | | | 2019 | Visit | | [address] | | | | | | [place] | | | | | | [address] | | | | | | | | +--------+ + + + + | 06/18/ | Office | Physical Medicine | Justin Cortez, | | | 2019 | Visit | and Rehabilitation | [address] | | | | | | [place] | | | | | | [id number] | | | | | | | | +--------+ + + + + documented as of this encounter Visit Diagnoses Not on filedocumented in this encounter"
--- OUTSIDE RECORDS SUMMARY | ~2020-04-19 | XMS | Encounter Summary ---
Demographics + + + | Address | [address] | | | [place] [address] | + + + | Home Phone | | + + + | Preferred Language | Unknown | + + + | Marital Status | | + + + | Protestant Affiliation | Unknown | + + + | Race | Unknown | + + + | Ethnic Group | Unknown | + + + Author + + + | Author | [facility] | | | and [place] | + + + | Organization | [facility] | | | and [...] Providers + +------+ + | Care Paper Bag Making Machinist Name | Role | Phone | + +------+ + | Maria Ines Moses PA-C | PCP | | + +------+ + Encounter Details +--------+ + + + + | Date | Type | Department | Care Team | Description | +--------+ + + + + | 09/28/ | Hospital | [facility] | Saurav Gloevr, | | | 2019 | Encounter | NEUROSCIENCE CENTER | MD [address] | | | | | XRAY [address] | [address] | | | | | [address], | [place] [address] | | | | | [place] [address] | [phone] | | | | | [phone] | | | +--------+ + + + [...] [place] | | | | | | [address] | | | | | | | | +--------+ + + + + | 05/22/ | Office | Cardiology | Rylee Pollard DO | | | 2019 | Visit | | [address] | | | | | | [place] | | | | | | [address] | | | | | | | | +--------+ + + + + | 06/18/ | Office | Physical Medicine | Justin Cortez, | | | 2019 | Visit | and Rehabilitation | [address] | | | | | | [place] | | | | | | [address] | | | | | | | [...] + + documented in this encounter Results [place] Anthony (09/28/2019 8:18 AM PST) + + [...]
--- OUTSIDE RECORDS SUMMARY | ~2020-04-19 | XMS | Encounter Summary ---
Demographics + + + | Address | [address] | | | [place] [address] | + + + | Home Phone | | + + + | Preferred Language | Unknown | + + + | Marital Status | | + + + | Buddhist Affiliation | Unknown | + + + | Race | Unknown | + + + | Ethnic Group | Unknown | + + + Author + + + | Author | [facility] | | | and [place] | + + + | Organization | [facility] | | | [...] Team Providers + +------+ + | Care Manual Training Teacher Name | Role | Phone | + +------+ + | Maria Ines Moses PA-C | PCP | | + +------+ + Encounter Details +--------+ + + + + | Date | Type | Department | Care Team | Description | +--------+ + + + + | 12/04/ | Hospital | [facility] | Conversion | Causalgia of left | | 2019 | Encounter | [facility] | Transaction, | upper extremity | | | | ULTRASOUND [address] | Provider Unknown | | | | | [address] | | | | | | [place], [place] | (Fax) | | | | | [address] | | | | | | [phone] | | | +--------+ + + + [...] + | | | | 0 | 10/03/20 | | | hydroCHLOROthiazide | | | | 18 | 9 | | 25 mg tablet | | | | | | + + + +---------+ + + | lisinopril | Take 40 mg by mouth | | 0 | | | | (PRINIVIL, ZESTRIL) | Daily. | | | | 9 | | 10 mg tablet | | | | | | + + + +---------+ + + | nortriptyline | 1 capsule by mouth | 120 | 1 | 11/02/20 | | | (PAMELOR) 10 MG | at bedtime for 7 | capsule | | 18 | 9 | | capsule | days; then 2 at | | | | | | | bedtime for 7 days; | | | | | | | then 3 at bedtime | | | | | | | for 7 days; then 4 | | | | | | | at bedtime | | | | | + + [...] [place] | | | | | | [address] | | | | | | | | +--------+ + + + + | 05/22/ | Office | Cardiology | Rylee Pollard DO | | | 2019 | Visit | | [address] | | | | | | [facility] [place] | | | | | | [address] | | | | | | | | +--------+ + + + + | 06/18/ | Office | Physical Medicine | Justin Cortez, | | | 2019 | Visit | and Rehabilitation | [address] | | | | | | [place] | | | | | | [address] | | | | | | | | +--------+ + + + + documented as of this encounter Procedures + +--------+ + + + | Procedure Name | Priori | Date/Time | Associated Diagnosis | Comments | | | ty | | | | + +--------+ + + + | VAS UPPER EXTREMITY | Routin | 12/04/2018 | | Results for this | | ARTERIES LEFT | e | 8:49 AM | | procedure are in the | | | | PST | | results section. | + +--------+ + + + documented in this encounter Results VAS Upper Extremity Arteries Left (12/04/2018 8:49 AM PST) + + | Specimen | + + | | + + + + + | Impressions | Performed At | + + + | 1. No evidence of significant hemodynamic stenosis within the left | | | upper extremity. 2. Triphasic flow throughout. Signed by: Linus | | | Zion Reilly Date/Time: 12/04/2018 9:53 AM | | + + + + + + | Narrative | Performed At | + + + | ULTRASOUND ARTERIAL DUPLEX, LEFT UPPER EXTREMITY WITH COLOR DOPPLER | | | CLINICAL INFORMATION: Causalgia of left upper extremity. Left | | | elbow numbness. COMPARISON: None PROCEDURE: Duplex and color | | | Doppler evaluation of the arteries of the left upper extremity. | | | FINDINGS: Peak systolic velocity and waveforms. All velocities in | | | cm/sec. Subclavian Artery proximal: 115 and triphasic. Subclavian | | | artery distal: 90 and triphasic. Axillary Artery: 70 and triphasic | | | Brachial Artery: 84 and triphasic Ulnar Artery: 44 and triphasic | | | Radial Artery: 22 and triphasic | | + + + + + | Procedure Note | + + | Isaías, Roman Conversion - 06/26/2019 10:56 PM PDT ULTRASOUND ARTERIAL DUPLEX, LEFT UPPER | | EXTREMITY WITH COLOR DOPPLERCLINICAL INFORMATION:Causalgia of left upper extremity. | | Left elbow numbness.COMPARISON:NonePROCEDURE:Duplex and color Doppler evaluation of the | | arteries of the left upperextremity.FINDINGS:Peak systolic velocity and waveforms. All | | velocities in cm/sec.Subclavian Artery proximal: 115 and triphasic.Subclavian artery | | distal: 90 and triphasic.Axillary Artery: 70 and triphasicBrachial Artery: 84 and | | triphasicUlnar Artery: 44 and triphasicRadial Artery: 22 and triphasicIMPRESSION: 1. No | | evidence of significant hemodynamic stenosis within the leftupper extremity.2. Triphasic | | flow throughout.Signed by: Tawny Barriga Date/Time: 12/04/2018 9:53 AM | |Peak systolic velocity and waveforms. All velocities in cm/sec. | |Subclavian Artery proximal: 115 and triphasic. | |Subclavian artery distal: 90 and triphasic. | |Axillary Artery: 70 and triphasic | |Brachial Artery: 84 and triphasic | |Ulnar Artery: 44 and triphasic | |Radial Artery: 22 and triphasic | |IMPRESSION: | |1. No evidence of significant hemodynamic stenosis within the left | |upper extremity. | |2. Triphasic flow throughout. | |Signed by: Zion Barriga | |Sign Date/Time: 12/04/2018 9:53 AM | + + documented in this encounter Visit Diagnoses + + | Diagnosis | + + | Causalgia of left upper extremity Causalgia of upper limb | + + documented in this encounter"
--- OUTSIDE RECORDS SUMMARY | ~2020-04-19 | XMS | Encounter Summary ---
Demographics + + + | Address | [address] | | | [place] [address] | + + + | Home Phone | | + + + | Preferred Language | Unknown | + + + | Marital Status | | + + + | Voodoo Affiliation | Unknown | + + + | Race | Unknown | + + + | Ethnic Group | Unknown | + + + Author + + + | Author | [facility] | | | and [place] | + + + | Organization | [facility] | | [...] Team Providers + +------+ + | Care Oil Spot Washer Name | Role | Phone | + +------+ + PCP | Unavailable | + +------+ + Encounter Details +--------+ + + + + | Date | Type | Department | Care Team | Description | +--------+ + + + + | 04/20/ | Hospital | [facility] | Conversion | | | 1996 | Encounter | SYSTEM EMR | Transaction, | | | | | CONVERSION [address] | Provider Unknown | | | | | [address] [place], [place] | | | | | | [address] | (Fax) | | | | | [phone] | | | +--------+ + + + [...] [place] | | | | | | [address] | | | | | | | | +--------+ + + + + | 05/22/ | Office | Cardiology | Rylee Pollard DO | | | 2019 | Visit | | [address] | | | | | | [place] | | | | | | [address] | | | | | | | | +--------+ + + + + | 06/18/ | Office | Physical Medicine | Justin Cortez, | | | 2019 | Visit | and Rehabilitation | [address] | | | | | | [place] | | | | | | [address] | | | | | | | | +--------+ + + + + documented as of this encounter Visit Diagnoses Not on filedocumented in this encounter"
--- OUTSIDE RECORDS SUMMARY | ~2020-04-19 | XMS | Encounter Summary ---
Demographics + + + | Address | [address] | | | [place] [address] | + + + | Home Phone | | + + + | Preferred Language | Unknown | + + + | Marital Status | | + + + | Confucianism Affiliation | Unknown | + + + | Race | Unknown | + + + | Ethnic Group | Unknown | + + + Author + + + | Author | [facility] | | | and [place] | + + + | Organization | [facility] | | | and [...] Team Providers + +------+ + | Care Timber Appraiser Name | Role | Phone | + +------+ + | Meng Joseph MD | PCP | | + +------+ + Reason for Visit + + + | Reason | Comments | + + + | Referral | EMG | + + + Encounter Details +--------+ + + + + | Date | Type | Department | Care Team | Description | +--------+ + + + + | 09/12/ | Telephone | [facility] | Nirmal Espinal, | Referral (EMG) | | 2019 | | NEUROSCIENCE [facility]ENTER | DO [address] | | | | | [address] [place], [place] | | | | | [address] | [address] | | | | | [place], [place] | | | | | | [address] | | | | | | [phone] | | | +--------+ + + + [...] [place] | | | | | | [address] | | | | | | | | +--------+ + + + + | 05/22/ | Office | Cardiology | Rylee Pollard DO | | | 2019 | Visit | | [address] | | | | | | [place] | | | | | | [address] | | | | | | | | +--------+ + + + + | 06/18/ | Office | Physical Medicine | Justin Cortez, | | | 2019 | Visit | and Rehabilitation | MD [address] | | | | | | [place] | | | | | | [address] | | | | | | | | +--------+ + + + + documented as of this encounter Visit Diagnoses Not on filedocumented in this encounter"
--- OUTSIDE RECORDS SUMMARY | ~2020-04-19 | XMS | Encounter Summary ---
Demographics + + + | Address | [address] | | | [place] [address] | + + + | Home Phone | | + + + | Preferred Language | Unknown | + + + | Marital Status | | + + + | Tenriism Affiliation | Unknown | + + + | Race | Unknown | + + + | Ethnic Group | Unknown | + + + Author + + + | Author | [facility] | | | and [place] | + + + | Organization | [facility] | | [...] Team Providers + +------+ + | Care Family Helper Name | Role | Phone | + [...] + + | 09/26/ | Telephone | [facility] | Aaron Craig, | Other | | 2019 | | INTERVENTIONAL PAIN | Julianna Peña, Medical | | | | | [address] | Architectural Intern | | | | | [address] [place], | | | | | | [place] [address] | | | | | | [phone] | | | +--------+ + + + [...] [place] | | | | | | [address] | | | | | | | | +--------+ + + + + | 05/22/ | Office | Cardiology | Rylee Pollard DO | | | 2019 | Visit | | [address] | | | | | | [place] | | | | | | [address] | | | | | | | | +--------+ + + + + | 06/18/ | Office | Physical Medicine | Justin Cortez, | | | 2019 | Visit | and Rehabilitation | [address] | | | | | | [place] | | | | | | [address] | | | | | | | | +--------+ + + + + documented as of this encounter Visit Diagnoses Not on filedocumented in this encounter"
--- OUTSIDE RECORDS SUMMARY | ~2020-04-19 | XMS | Encounter Summary ---
Demographics + + + | Address | [address] | | | [place] [address] | + + + | Home Phone | | + + + | Preferred Language | Unknown | + + + | Marital Status | | + + + | Synagogue Affiliation | Unknown | + + + [...] Team Providers + +------+ + | Care Signalling And Communications Engineer Name | Role | Phone | [...] | | | | | pain | [address] | [address] | | | | | syndrome | [place], | [place] | | | | | type 1 of | [place] [address] | [place] | | | | | left upper | Phone: | [phone] | | | | | extremity | [phone] | Phone: | | | | | Hyperalgesia | Fax: | [phone] | | | | | Allodynia | [phone] | Fax: | | | | | Pain and | | [phone] | | | | | numbness of [...] Cervicalgia | Maria Ines H, | Lupillo Salgeuro MD [address] | | | | Rehabilitatio | 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 [address] | [address] | | | | n | plexus | [address] | [place], | | | | | disorders | [place] | [place] [address] | | | | | Radiculopath | [address] | Phone: | | | | | y, cervical | [place], | [phone] | | | | | region | [place] | Fax: | | | | | Other | [address] | [phone] | | | | | disturbances | Phone: | | | | | | of skin | [phone] | | | | | | sensation | Fax: | | | | | | Other | [phone] | | | | | | disturbances [...] + + | 08/01/ | Office | [facility] [place] | Justin Cortez, | 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 Justin Cortez MD [address] [place] [address], [address] [place], [place] [id number] FAX: PHYSICAL MEDICINE AND REHABILITATION H&P CHIEF [...] has no apparent deficits with short or intermediate memory. The cranial nerves appear grossly intact. [...] clinic today to discuss her response to geophysical laboratory supervisor apy and Nortriptyline use for her left [...] which include but are not limited to tanvir er point injections or Botox injections. 6. Today we discussed desensitization of Isi Springer's hyperalgesia. 7. Today we discussed the possible diagnosis of Regional Complex Pain Syndrome. We discusse d the pathophysiology of CPS, and we discussed treatment options which are desensitization t echniques and Stellum Ganglion Block Today we sent a referral for a Stellate Ganglion Block at the [facility] in [facility] 8. Today we discussed the possibilities of [...] [place] | | | | | | [address] | | | | | | | | +--------+ + + + + | 05/22/ | Office | Cardiology | Rylee Pollard DO | | | 2019 | Visit | | [address] | | | | | | [place] | | | | | | [address] | | | | | | | | +--------+ + + + + | 06/18/ | Office | Physical Medicine | Justin Cortez, | | | 2019 | Visit | and Rehabilitation | MD [address] | | | | | | [place] | | | | | | [address] | | | | | | | [...]
--- OUTSIDE RECORDS SUMMARY | ~2020-04-19 | XMS | Encounter Summary ---
Demographics + + + | Address | [address] | | | [place] [address] | + + + | Home Phone | | + + + | Preferred Language | Unknown | + + + | Marital Status | | + + + | Oriental Orthodox Affiliation | Unknown | + + + | Race | Unknown | + + + | Ethnic Group | Unknown | + + + Author + + + | Author | [facility] | | | and [place] | + + + | Organization | [facility] | | | and [...] Team Providers + +------+ + | Care Sessions Clerk Name | Role | Phone | + +------+ + PCP | Unavailable | + +------+ + Encounter Details +--------+ + + + + | Date | Type | Department | Care Team | Description | +--------+ + + + + | 05/07/ | Hospital | [facility] | Conversion | | | 1994 | Encounter | SYSTEM EMR | Transaction, | | | | | CONVERSION [address] | Provider Unknown | | | | | [address] [place], [place] | | | | | | [address] | (Fax) | | | | | [phone] | | | +--------+ + + + [...] [place] | | | | | | [address] | | | | | | | | +--------+ + + + + | 05/22/ | Office | Cardiology | Rylee Pollard DO | | | 2019 | Visit | | [address] | | | | | | [place] | | | | | | [address] | | | | | | | | +--------+ + + + + | 06/18/ | Office | Physical Medicine | Justin Cortez, | | | 2019 | Visit | and Rehabilitation | [address] | | | | | | [place] | | | | | | [address] | | | | | | | | +--------+ + + + + documented as of this encounter Visit Diagnoses Not on filedocumented in this encounter"
--- OUTSIDE RECORDS SUMMARY | ~2020-04-19 | XMS | Encounter Summary ---
Demographics + + + | Address | [address] | | | [place] [address] | + + + | Home Phone | | + + + | Preferred Language | Unknown | + + + | Marital Status | | + + + | Yazidi Affiliation | Unknown | + + + [...] Team Providers + +------+ + | Care Parking Enforcement Manager Name | Role | Phone | [...] | regional | [address] | | | | n | pain | [address] | [place], | | | | | syndrome | [place], | [place] [address] | | | | | type 2 of | [place] [address] | Phone: | | | | | left upper | Phone: | [phone] | | | | | extremity | [phone] | Fax: | | | | | Ulnar | Fax: | [phone] | | | | | neuropathy | [phone] | | | | | | of [...] | | | | | | | TX MOTOR | | | | | | | &/SENS 13/> | | | | | | | NRV CNDJ | | | | | | | PRECONF | | | | | | | ELTRODE LIMB | | | | | | | TX NEEDLE | | | | | | | EMG EA | | | | | | | EXTREMITY | | | | | | | W/PARASPINL | | | | | | | AREA LIMITED | | | | | | | TX MOTOR | | | | | | | &/SENS 7-8 | | | | | | | NRV CNDJ | | | | | | | PRECONF | | | | | | | ELTRODE LIMB | | | | | | | TX NEEDLE | | | | | | | EMG EA | | | | | | | EXTREMTY | | | | | | | W/PARASPINL | | | | | | | AREA | | | | | | | COMPLETE [place] | | | | | | | [...] PHYSIATRY [address] | MD [address] | pain syndrome type 2 | | | | [address] | [place], [place] | of left upper | | | | [place], [place] | [address] | extremity (Primary | | | | [address] | | Dx); Pain and | | | | [phone] | | numbness of left | | [...] might be different fro m the original. [facility] Physical Medicine & Rehabilitation [address] [place] [address], [facility] [address] [place] [address] Test Date: 11/15/2018 Patient Name: Isi Springer : 1975 Physician: Justin Cortez MD (Jr.) MR #: [id number] Sex: Female Referring Physician: Maria Ines Moses [...] denies having implanted electro clay device. Isi Springer denies taking blood thinning medications such as [...] biceps, tri ceps, wrist dorsiflexion and hand electronic security technician strength bilaterally. There is normal 2+ reflexes [...] (.) Physical Medicine and Rehabilitation Cc: Maria Inse Moses PA-C documented in this en counter Plan of Treatment +--------+ + + + + | Date | Type | Specialty | Care Team | Description | +--------+ + + + + | 04/23/ | Appointment | Radiology | Rylee Pollard DO | | | 2019 | | | [address] | | | | | | [facility] [facility] | | | | | | [id number] | | | | | | | | +--------+ + + + + | 05/22/ | Office | Cardiology | Rylee Pollard DO | | | 2019 | Visit | | [address] | | | | | | [place] | | | | | | [address] | | | | | | | | +--------+ + + + + | 06/18/ | Office | Physical Medicine | Justin Cortez, | | | 2019 | Visit | and Rehabilitation | [address] | | | | | | [place] | | | | | | [id number] | | | | | | | [...]
--- OUTSIDE RECORDS SUMMARY | ~2020-04-19 | XMS | Encounter Summary ---
Demographics + + + | Address | [address] | | | [place] [address] | + + + | Home Phone | | + + + | Preferred Language | Unknown | + + + | Marital Status | | + + + | Latter-Day Affiliation | Unknown | + + + | Race | Unknown | + + + | Ethnic Group | Unknown | + + + Author + + + | Author | [facility] | | | and [place] | + + + | Organization | [facility] | | [...] Team Providers + +------+ + | Care Spray Applicator Name | Role | Phone | + +------+ + | Maria Ines Moses PA-C | PCP | | + +------+ + Encounter Details +--------+---------+ + + + | Date | Type | Department | Care Team | Description | +--------+---------+ + + + | 10/22/ | Office | [facility] | Saurav Glover, | Cervical radicular | | 2019 | Visit | NEUROSCIENCE CENTER | [address] | pain (Primary Dx); | | | | [address] | HNP (herniated | | | | [address] | [place] [address] | nucleus pulposus), | | | | [place], [place] | [phone] | cervical; | | | | [address] | | Neuroforaminal | | | | [phone] | | stenosis of cervical | | | | | | spine; Whiplash | | | | | | injury to neck, | | | | | | sequela; Cervical | | | | | | spondylosis without | | | | | | myelopathy | +--------+---------+ + + + Social History [...] + + + | Blood Pressure | 130/94 | 10/22/2019 9:27 AM | | | | | PST | | + + + + + | Pulse | 108 | 10/22/2019 9:27 AM | | | | | PST | | + + + + + | Temperature | - | - | | + + + + + | Respiratory Rate | 16 | 10/22/2019 9:27 AM | | | | | PST | | + + + + + | Oxygen Saturation | 97% | 10/22/2019 9:27 AM | | | | | PST | | + + + + + | Inhaled Oxygen | - | - | | | Concentration | | | | + + + + + | Weight | 79.9 kg (176 lb 3.2 | 10/22/2019 9:27 AM | | | | oz) | PST | | + + + + + | Height | 165.1 cm (5' 5") | 10/22/2019 9:27 AM | | | | | PST | | + + + + + | Body Mass Index | 29.32 | 10/22/2019 9:27 AM | | | | | PST | | + + + + + documented in this encounter Progress Notes Saurav Glover MD - 10/22/2019 9:25 AM PSTFormatting of this note might be different fr om the original. Neurologic Progress note Subjective: Patient ID: Isi Springer is a 44 y.o. female. HPI This is a 44 y.o. female who presents to the office today for neck pain. She rates her pain at its worst a 5/10, at its least a 0/10, on average a 1/10 and is currently a 5/10. This 44-year-old patient was injured May 2016 when she was manipulating a kayak on top of a car and it slipped and fell into her arms injuring her left upper extremity. Patient stat es that the left upper extremity was quite injured and had significant swelling and bruising that persisted for significant period of time. She states that she broke her wrist. She h as had persistent left upper extremity pain since that time. The pain is located in the med ial aspect of her left arm and forearm extending into digits 4 and 5 of her left hand. Patient cervical MRI showed a significant disc protrusion at C6-7 eccentric to the left wit h neuroforaminal narrowing. The patient's primary complaint is neck pain radiating into her left upper extremity in approximately C8 distribution. When I examined her previously she did not have symptoms of CRPS her symptoms were more consistent with left upper extremity ra dicular pain. She did have an EMG test done in [place] which was reported as normal. T herefore at the time of that test he did not have permanent nerve damage. 09/28/2019 the clotilde vann underwent a left C7 transforaminal cervical epidural steroid injection. This has prov ided 70 to 80% relief of her pain. She does still have some upper extremity pain but it is much less frequent and much less severe. She still does have neck pain and left shoulder pa in. But it is much better. The patient denies any side effects from the injection. Overal l she is pleased with the results of the injection but she feels like it is beginning to wea r off but very slowly. She still exhibiting very significant relief of pain. The patient r eturns to discuss treatment options. At this point the patient's average pain is a 1 but th e maximum pain is 5. Review of Systems Musculoskeletal: Positive for back pain and neck pain. Muscle Spasms/Tightness Psychiatric/Behavioral: Positive for sleep disturbance. All other systems reviewed and are negative. Objective: BP (!) 130/94 | Pulse 108 | Resp 16 | Ht 1.651 m (5' 5") | Wt 79.9 kg (176 lb 3.2 oz) | SpO2 97% | BMI 29.32 kg/m Neurologic Exam Physical Exam General: Well-developed well-nourished patient in no acute distress. Patient is awake alert and oriented x4. Mood is appropriate. HEENT: NCAT, EOMI, PERRLA. Oropharynx is pink and moist without lesions. Lungs: Clear to auscultation. Heart: Regular rate and rhythm without murmurs gallops or rubs. Abdomen: Soft and nontender, bowel sounds present. Musculoskeletal: Upper Extremities-skin and hair growth appear normal. Motor mass tone and strength are normal and symmetric with 5/5 strength throughout. Deep tendon reflexes biceps triceps and brachia radialis-+2 and equal. Neurologic: Cranial nerves II through XII are grossly intact. Memory-intact. Speech is flue nt with no expressive issues. Fund of knowledge is appropriate. Sensation to light touch C2- C8 is intact except for a slight decrease in sensation in the left C8 distribution. Station/Gait: Upright, normal non-shuffling non-antalgic gait Cervical Spine: Normal cervical lordosis. Tenderness to palpation over spinous processes and facets: Moderately positive at C5-6 and C6-7. Range of motion: Flexion-60, extension-30, left tilt-45, right total-45, left rotation-60, right rotation-70. Spurling sign: Left-negative: Right-negative. Axial compression: Negative Thoracic Spine: Normal Kyhpo/Lordosis present Alignment/ROM/normal and sagittal/coronal plane without pain Non-tender to palpation over the thoracic spinous processes and facets The patient's cervical MRI was personally reviewed. Dictation performed with PulseOn voice recognition software and has been reviewed, even so t here may be some sound alike typographical errors. Assessment and Plan: This 44-year-old patient was injured May 2016 when she was manipulating a kayak on top of a car and it slipped and fell into her arms injuring her left upper extremity. Patient stat es that the left upper extremity was quite injured and had significant swelling and bruising that persisted for significant period of time. She states that she broke her wrist. She h as had persistent left upper extremity pain since that time. The pain is located in the med ial aspect of her left arm and forearm extending into digits 4 and 5 of her left hand. Patient cervical MRI showed a significant disc protrusion at C6-7 eccentric to the left wit h neuroforaminal narrowing. The patient's primary complaint is neck pain radiating into her left upper extremity in approximately C8 distribution. When I examined her previously she did not have symptoms of CRPS her symptoms were more consistent with left upper extremity ra dicular pain. She did have an EMG test done in [place] which was reported as normal. T herefore at the time of that test he did not have permanent nerve damage. 09/28/2019 the pa soo underwent a left C7 transforaminal cervical epidural steroid injection. This has prov ided 70 to 80% relief of her pain. She does still have some upper extremity pain but it is much less frequent and much less severe. She still does have neck pain and left shoulder pa in. But it is much better. The patient denies any side effects from the injection. Overal l she is pleased with the results of the injection but she feels like it is beginning to wea r off but very slowly. She still exhibiting very significant relief of pain. The patient r eturns to discuss treatment options. At this point the patient's average pain is a 1 but th e maximum pain is 5. On examination the patient does have a slight decrease in sensation in the left C8 distribu tion relative to the right. The neurologic exam of the upper extremity is otherwise normal. The patient is very positive results from her transforaminal epidural steroid injection al so suggest that her primary pain generator her left upper extremity is radicular pain and no t a CRPS type situation. I discussed treatment options with the patient and after our discu ssion the patient will continue to monitor her progress. When the pain starts to increase s ignificantly she will contact our office. At that point we will schedule her for a repeat l eft C7 transforaminal epidural steroid injection. The patient and I are in agreement with t his plan. Oswestry Disability Index (ESTUARDO): Total Score 12 (10/22/19926) Percentage 24 (10/22/19926) documented in this encounter Plan of Treatment +--------+ + + + + | Date | Type | Specialty | Care Team | Description | +--------+ + + + + | 04/23/ | Appointment | Radiology | Rylee Pollard DO | | | 2019 | | | [address] | | | | | | [place] | | | | | | [address] | | | | | | | | +--------+ + + + + | 05/22/ | Office | Cardiology | Rylee Pollard DO | | | 2019 | Visit | | [address] | | | | | | [place] | | | | | | [address] | | | | | | | | +--------+ + + + + | 06/18/ | Office | Physical Medicine | Justin Cortez, | | | 2019 | Visit | and Rehabilitation | MD [address] | | | | | | [place] | | | | | | [address] | | | | | | | | +--------+ + + + + documented as of this encounter Visit Diagnoses + + | Diagnosis | + + | Cervical radicular pain - Primary Brachial neuritis or radiculitis nos | + + | HNP (herniated nucleus pulposus), cervical Displacement of cervical intervertebral | | disc without myelopathy | + + | Neuroforaminal stenosis of cervical spine | + + | Whiplash injury to neck, sequela | + + | Cervical spondylosis without myelopathy | + + documented in this encounter
--- OUTSIDE RECORDS SUMMARY | ~2020-04-19 | XMS | Encounter Summary ---
Demographics + + + | Address | [address] | | | [place] [address] | + + + | Home Phone [...] Team Providers + +------+ + | Care Change Management Facilitator Name | Role | Phone | + [...] Justin Lupillo Salguero MD | [address] | | | | | numbness of | [address] | [place], | | | | | left upper | [address] | [place] | | | | | extremity | [place], | [address] | | | | | Neuropathic | [place] [address] | Phone: | | | | | pain | Phone: | [phone] | | | | | Cervicalgia | [phone] | Fax: | | | | | Weakness of | Fax: | [phone] | | | | | left upper | [phone] | | | | | | extremity [...] | | | | syndrome of | [address] | [address] | | | | | left | [place], | AVE | | | | | thoracic | [place] [address] | [place] | | | | | outlet | Phone: | [address] | | | | | Procedures | [phone] | Phone: | | | | | HIM | Fax: | [phone] | | | | | 02/08/19 | [phone] | Fax: | | | | | | | [phone] | +--------+ + + + + + Reason for Visit + + + | Reason | Comments | + + + | Arm Pain | left upper extremity | + + + Encounter Details +--------+---------+ + + + | Date | Type | Department | Care Team | Description | +--------+---------+ + + + | 01/23/ | Office | [facility] | Justin Cortez, | Pain and numbness of | | 2018 | Visit | PHYSIATRY [address] | MD [address] | left upper | | | | [address] | [place] | extremity (Primary | | | | [place] | [address] | Dx); Neuropathic | | | | [address] | | pain; Cervicalgia; | | | | [phone] | | Weakness of left | | [...] encounter Patient Instructions Patient Instructions Melly Ambrocio, Funder - 01/23/2019 8:15 AM PDTPhysic al therapy [...] fro m the original. Justin Cortez MD [address] [place] [address], [address] [place], [place] [id number] FAX: PHYSICAL MEDICINE AND REHABILITATION H&P CHIEF [...] the hospital for renal impairment due to snf use of lisinopril and hydrochlorothiazide. Isi Springer [...] has no apparent deficits with short or snf memory. The cranial nerves appear grossly intact. [...] Extension 5 5 Finger Abduction 5 5 Bpm Analyst Strength 5 4+ REFLEX: RIGHT LEFT BICEPS [...] [facility]. [facility] study did not reveal ulnar nerve [...] [place] | | | | | | [address] | | | | | | | | +--------+ + + + + | 05/22/ | Office | Cardiology | Rylee Pollard DO | | | 2019 | Visit | | [address] | | | | | | [place] | | | | | | [address] | | | | | | | | +--------+ + + + + | 06/18/ | Office | Physical Medicine | Justin Cortez, | | | 2019 | Visit | and Rehabilitation | [address] | | | | | | [place] | | | | | | [address] | | | | | | | [...]
--- OUTSIDE RECORDS SUMMARY | ~2020-04-19 | XMS | Encounter Summary ---
Demographics + + + | Address | [address] | | | [place] [address] | + + + | Home Phone | | + + + | Preferred Language | Unknown | + + + | Marital Status | | + + + | Amish Affiliation | Unknown | + + + | Race | Unknown | + + + | Ethnic Group | Unknown | + + + Author + + + | Author | [facility] | | | and [place] | + + + | Organization | [facility] | | | [...] Team Providers + +------+ + | Care Food Assembler Kitchen Name | Role | Phone | + [...] | | | spondylosis | [place] | [address] | | | | | without | Brad AMBROSIO Phone: | | | | | myelopathy | [place] [address] | [phone] | | | | | HNP | Phone: | Fax: | | | | | (herniated | [phone] | [phone] | | | | | nucleus | Fax: | | | | | | pulposus), | [phone] | | | | | | cervical [...] + | 09/25/ | Orders Only | [facility] | Saurav Glover, | Cervical radicular | | 2019 | | [facility] | [address] | pain (Primary Dx); | | | | [address] | Cervical spondylosis | | | | [address] | [place] [address] | without myelopathy; | | | | [place], [place] | [phone] | HNP (herniated | | | | [address] | | nucleus pulposus), | | | | [phone] | | cervical; | | | | [...] [place] | | | | | | [address] | | | | | | | | +--------+ + + + + | 05/22/ | Office | Cardiology | Rylee Pollard DO | | | 2019 | Visit | | [address] | | | | | | [place] | | | | | | [address] | | | | | | | | +--------+ + + + + | 06/18/ | Office | Physical Medicine | Justin Cortez, | | | 2019 | Visit | and Rehabilitation | [address] | | | | | | [place] | | | | | | [address] | | | | | | | [...]
--- OUTSIDE RECORDS SUMMARY | ~2020-04-19 | XMS | Encounter Summary ---
Demographics + + + | Address | [address] | | | [place] [address] | + + + | Home Phone | | + + + | Preferred Language | Unknown | + + + | Marital Status | | + + + | Scientology Affiliation | Unknown | + + + | Race | Unknown | + + + | Ethnic Group | Unknown | + + + Author + + + | Author | [facility] | | | and [place] | + + + | Organization | [facility] | | | [...] Team Providers + +------+ + | Care Angle Roll Operator Name | Role | Phone | [...] + + | 04/10/ | Hospital | [facility] | Justin Cortez, | | | 2018 | Encounter | MED CTR NUCLEAR | [address] | | | | | MEDICINE [address] | [place] | | | | | [place], | [address] | | | | | [place] [address] | | | | | | [phone] | | | +--------+ + + + [...] [place] | | | | | | [address] | | | | | | | | +--------+ + + + + | 05/22/ | Office | Cardiology | Rylee Pollard DO | | | 2019 | Visit | | [address] | | | | | | [place] | | | | | | [address] | | | | | | | | +--------+ + + + + | 06/18/ | Office | Physical Medicine | Justin Cortez, | | | 2019 | Visit | and Rehabilitation | [address] | | | | | | [place] | | | | | | [address] | | | | | | | [...]
--- OUTSIDE RECORDS SUMMARY | ~2020-04-19 | XMS | Encounter Summary ---
Demographics + + + | Address | [address] | | | [place] [address] | + + + | Home Phone | | + + + | Preferred Language | Unknown | + + + | Marital Status | | + + + | Hoahaoism Affiliation | Unknown | + + + | Race | Unknown | + + + | Ethnic Group | Unknown | + + + Author + + + | Author | [facility] | | | and [place] | + + + | Organization | [facility] | | [...] Team Providers + +------+ + | Care Plaster Whittler Name | Role | Phone | + +------+ + | Maria Ines Moses PA-C | PCP | | + +------+ + Reason for Visit Service/Procedure (Routine) +--------+--------+ + + + + | Status | Reason | Specialty | Diagnoses / | Referred By | Referred To | | | | | Procedures | Contact | Contact | +--------+--------+ + + + + | Closed | | Anesthesiolog | Diagnoses | Glover, | Glover, | | | | y / Pain | | MD Saurav | MD Saurav | | | | Medicine | Radiculopath | [address] | | | | | y, cervical | [address] | | | | | region HNP | [address]IVE [address] | B | | | | | (herniated | B | [place]ILY [place] | | | | | nucleus | DAILY, | [address] | | | | | pulposus), | [place] [address] | Phone: | | | | | cervical | Phone: | [phone] | | | | | Other | [phone] | Fax: | | | | | biomechanica | Fax: | [phone] | | | | | l lesions of | [phone] | | | | | | cervical | | | | | | | region | | | | | | | Cervical | | | | | | | spondylosis | | | | | | | Procedures | | | | | | | [place] INJECT | | | | | | | ANES/STEROID | | | | | | | FORAMEN | | | | | | | CERV/THORACI | | | | | | | C W IMG | | | | | | | GUIDE ,1 | | | | | | | LEVEL CHG | | | | | | | FLUOR | | | | | | | NEEDLE/CATH | | | | | | | SPINE/PARASP | | | | | | | INAL DX/THER | | | | | | | ADDON Left | | | | | | | C7 TFCESI- | | | +--------+--------+ + + + + Encounter Details +--------+ + + + + | Date | Type | Department | Care Team | Description | +--------+ + + + + | 09/28/ | Hospital | [facility] | Saurav Glover, | Cervical radicular | | 2019 | Encounter | INTERVENTIONAL PAIN | MD [address] | pain (Primary Dx); | | | | [facility] [address] | Neuroforaminal | | | | [address] [place], | [place] [address] | stenosis of cervical | | | | [place] [address] | [phone] | spine; Cervical | | | | [phone] | | spondylosis without | | | | | | myelopathy; HNP | | | | | | (herniated nucleus | | | | | | pulposus), cervical | +--------+ + + + + Social [...] + + + | Blood Pressure | 108/72 | 09/28/2019 8:26 AM | | | | | PST | | + + + + + | Pulse | 86 | 09/28/2019 8:26 AM | | | | | PST | | + + + + + | Temperature | 36.2 C (97.1 F) | 09/28/2019 8:22 AM | | | | | PST | | + + + + + | Respiratory Rate | 16 | 09/28/2019 8:26 AM | | | | | PST | | + + + + + | Oxygen Saturation | 98% | 09/28/2019 8:26 AM | | | | | PST | | + + + + + | Inhaled Oxygen | - | - | | | Concentration | | | | + + + + + | Weight | - | - | | + + + + + | Height | - | - | | + + + + + | Body Mass Index | - | - | | + + + + + documented in this encounter Discharge Instructions Patient Instructions Moraima Lee RN - 09/28/2019 7:48 AM PSTEpidural Steroid Inject ion Discharge Instructions Activity If you received medication for sedation-analgesia, you may experience drowsiness, dizziness , or blurred vision. You are instructed to: ? Rest for 24 hours; avoid strenuous activity. ? DO NOT drive. Do not perform other tasks in which you are required to be alert and coordi nated for the remainder of the day. ? Do not make important decisions today. ? Do not drink alcoholic beverages including beer, wine, etc. ? If you are diabetic, monitor your blood glucose ? Remove your dressing 2-3 hours after your procedure Medications May resume regular medications Diet You may eat a regular diet. If you are experiencing nausea, limit yourself to clear liquids then slowly advance your diet. Pain Control You may experience mild discomfort from the insertion of the needle for your injection. You may apply an ice pack as needed. Put the ice pack on only while you are awake for 20 minute s on, 20 minutes off. No heat including hot pads, heated seats, hot tubs, hot showers, etc. FOR 3 DAYS Dressing Keep the back dry for 24 hours. Effects It can take up to two weeks to feel the effects of the procedure. Follow-up Appointment Schedule an appointment with your physician as instructed. Report to your doctor if you experience: ? Persistent weakness in arms / legs. ? Continuous bleeding from the injection site. ? Persistent headache longer than 24 hours. ? Nausea / vomiting. ? Fever / chills. ? Any problems and / or concerns regarding this procedure. Dr. Saurav Glover and his staff can be contacted at [phone]. If you are unable to contact your doctor or their associate, you may come to the Emergency Department at [facility]. These instructions have been explained to the patient and escort. The patient received a co py and patient / escort verbalized understanding of these instructions documented in this encounter Medications at Time of Discharge [...] + + documented as of this encounter Progress Notes Saurav Glover MD - 09/28/2019 12:06 PM PST Please see procedure note. There have been no changes to the history and physical since 09/05/2019. Sedation Presedation Assessment completed. ASA Classification: 1 Airway assessment performed. Mallampati Classification: 1 documented in this e ncounter Plan of Treatment +--------+ + + + + | Date | Type | Specialty | Care Team | Description | +--------+ + + + + | 04/23/ | Appointment | Radiology | Rylee Pollard DO | | | 2019 | | | [address] | | | | | | [place] | | | | | | [address] | | | | | | | | +--------+ + + + + | 05/22/ | Office | Cardiology | Rylee Pollard DO | | | 2019 | Visit | | [address] | | | | | | [place] | | | | | | [address] | | | | | | | | +--------+ + + + + | 06/18/ | Office | Physical Medicine | Justin Cortez, | | | 2019 | Visit | and Rehabilitation | [address] | | | | | | [place] | | | | | | [address] | | | | | | | [...] + + documented in this encounter Results JOHN Cruz (09/28/2019 8:18 AM PST) + + | [...] or radiculitis nos | + + | Neuroforaminal stenosis of cervical spine | + + | Cervical spondylosis without myelopathy | + + | HNP (herniated nucleus pulposus), cervical Displacement of cervical intervertebral | | disc without myelopathy | + + documented in this encounter Administered Medications + +--------+ +-------+------+------+ | Medication Order | MAR | Action | Dose | Rate | Site | | | Action | Date | | | | + +--------+ +-------+------+------+ | dexamethasone (DECADRON) 10 | Given | 09/28/20 | 10 mg | | | | mg/mL injection ONCE PRN, | | 19 8:18 | | | | | Starting 09/28/19 at 0818, | | AM PST | | | | | Intra-op | | | | | | + +--------+ +-------+------+------+ +---+---+ | | | +---+---+ + +-------+ +--------+---+---+ | fentaNYL (PF) injection | Given | 09/28/20 | 50 mcg | | | | Intravenous, ONCE PRN, Starting | | 19 8:12 | | | | | 09/28/19 at 0812 | | AM PST | | | | + +-------+ +--------+---+---+ +---+---+ | | | +---+---+ + +-------+ +------+---+---+ | midazolam (VERSED) 1 mg/mL | Given | 09/28/20 | 1 mg | | | | injection Intravenous, ONCE PRN, | | 19 8:13 | | | | | Starting 09/28/19 at 0813, | | AM PST | | | | | Intra-op | | | | | | + +-------+ +------+---+---+ +---+---+ | | | +---+---+ + +-------+ +-------+---+---+ | sodium chloride (PF) 0.9% | Given | 09/28/20 | 5 mLs | | | | injection flush Intravenous, | | 19 8:13 | | | | | ONCE PRN, Starting 09/28/19 | | AM PST | | | | | at 0813 | | | | | | + +-------+ +-------+---+---+ +---+---+ | | | +---+---+ documented in this encounter"
--- OUTSIDE RECORDS SUMMARY | ~2020-04-19 | XMS | Encounter Summary ---
Demographics + + + | Address | [address] | | | [place] [address] | + + + | Home Phone | | + + + | Preferred Language | Unknown | + + + | Marital Status | | + + + | Buddhism Affiliation | Unknown | + + + | Race | Unknown | + + + | Ethnic Group | Unknown | + + + Author + + + | Author | [facility] | | | and [place] | + + + | Organization | [facility] | | | [...] Team Providers + +------+ + | Care Contestant Coordinator Name | Role | Phone | + [...] | Justin Salguero MD | [address] | | | | | numbness of | [address] | [place], | | | | | left upper | [address] | [place] | | | | | extremity | [place], | [address] | | | | | Neuropathic | [place] [address] | Phone: | | | | | pain | Phone: | [phone] | | | | | Cervicalgia | [phone] | Fax: | | | | | Weakness of | Fax: | [phone] | | | | | left upper | [phone] | | | | | | extremity [...] + + | 02/15/ | Hospital | [facility] | Justin Cortez, | Pain and numbness of | | 2019 | Encounter | MED CTR MRI [address] | MD [address] | left upper | | | | [place], | [place], [place] | extremity; | | | | [place] [address] | [address] | Neuropathic pain; | | | | [phone] | | Cervicalgia; | | | | [...] [place] | | | | | | [address] | | | | | | | | +--------+ + + + + | 05/22/ | Office | Cardiology | Rylee Pollard DO | | | 2019 | Visit | | [address] | | | | | | [place] | | | | | | [address] | | | | | | | | +--------+ + + + + | 06/18/ | Office | Physical Medicine | Justin Cortez, | | | 2019 | Visit | and Rehabilitation | [address] | | | | | | [place] | | | | | | [address] | | | | | | | [...]
--- OUTSIDE RECORDS SUMMARY | ~2020-04-19 | XMS | Encounter Summary ---
Demographics + + + | Address | [address] | | | [place] [address] | + + + | Home Phone | | + + + | Preferred Language | Unknown | + + + | Marital Status | | + + + | Mormon Affiliation | Unknown | + + + [...] Team Providers + +------+ + | Care Redrawer Name | Role | Phone | + +------+ + | Meng Joseph MD | PCP | | + +------+ + Reason for Visit +--------+ + | Reason | Comments | +--------+ + | Pain | | +--------+ + Follow Up (Routine) + +--------+ + + + + | Status | Reason | Specialty | Diagnoses / | Referred By | Referred To | | | | | Procedures | Contact | Contact | + +--------+ + + + + | Authorized | | Physical | Diagnoses | [place], | Justin Cortez | | | | Medicine and | Cervicalgia | Maria Ines H, | Lupillo Salguero MD [address] | | | | Rehabilitatio | 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 [address] | [address] | | | | n | plexus | [address] | [place], | | | | | disorders | [place] | [place] [address] | | | | | Radiculopath | [address] | Phone: | | | | | y, cervical | [place], | [phone] | | | | | region | [place] | Fax: | | | | | Other | [address] | [phone] | | | | | disturbances | Phone: | | | | | | of skin | [phone] | | | | | | sensation | Fax: | | | | | | Other | [phone] | | | | | | disturbances [...] Description | +--------+---------+ + + + | 12/19/ | Office | [facility] [place] | Justin Cortez, | Complex regional | | 2020 | Visit | PHYSIATRY [address] | MD [address] | pain syndrome type 1 | | | | [address] | [place] | of left upper | | | | [place] | [address] | extremity (Primary | | | | [address] | | Dx); Allodynia; | | | | [phone] | | Hyperalgesia; Pain | | | | | | and numbness of left | | | | | | upper extremity; | | | | | | Anemia, unspecified | | | | | | [...] + + + | Blood Pressure | 138/90 | 12/19/2019 3:05 PM | | | | | PST [...] + + + + | Weight | 79.8 kg (176 lb) | 12/19/2019 3:05 PM | | | | | PST | | + + + + + | Height | 165.1 cm (5' 5") | 12/19/2019 3:05 PM | | | | | PST | | + + + + + | Body Mass Index | 29.29 | 12/19/2019 3:05 PM | | | | | PST | | + + + + + documented in this encounter Patient Instructions Patient Instructions Melly Ambrocio, Animal Feeder - 12/19/2019 2:10 PM PSTContin ue with at home desensitization. Continue with plans to have repeat ganglion blocks. Consider watching video on [facility] videos, "Chronic Pain: Pain Without Purpose"Evera llmagalys signed by Justin Cortez MD at 12/19/2019 3:01 PM PST documented in this encounter Progress Notes Justin Cortez MD - 12/19/2019 2:10 PM PSTFormatting of this note might be different fro m the original. Justin Cortez MD [address] [facility] [place] [address] [place], [place] [id number] FAX: PHYSICAL MEDICINE AND REHABILITATION H&P CHIEF COMPLAINT: Chief Complaint Patient presents with Pain HISTORY OF PRESENT ILLNESS: Isi Springer is a 44 y.o. female being seen today in follow-up for complaints of lef t upper extremity pain. Isi Sprigner was last seen on 08/01/19. Previously it was recommended that she continue taking Nortriptyline and start Gabapentin. Isi Springer reports improvement in pain with taking combination of Nortriptyline and Gabapentin. She re ports that she completed use of calcitonin. Isi Springer reports that she had ganglion block that provided relief for about 2 we eks. She reports gradual return in symptoms following injection at about 2 weeks. Isi Springer rates the pain as mild-moderate. Isi Springer's medications, allergies, past medical, surgical, social and family his tories were reviewed and updated as appropriate. CURRENT MEDICATIONS: Current Outpatient Medications Medication Sig Dispense Refill B Complex Vitamins (B COMPLEX-B12 PO) Take by mouth. cyclobenzaprine (FLEXERIL) 10 mg tablet Take 10 mg by mouth 3 times daily as needed for Muscle spasms. Do not take with hydrocodone may take 1/2 tablet diclofenac (FLECTOR) 1.3% PTCH Place 1 patch onto the skin 2 times daily. As directed furosemide (LASIX) 20 mg tablet Take 1 tablet by mouth Daily as needed for Edema. 30 ta blet 11 gabapentin (NEURONTIN) 300 mg capsule 1 qAM, 1 qNoon, and 2 qHS 120 capsule 5 labetalol (NORMODYNE) 100 mg tablet Take 1 tablet by mouth 3 times daily. 60 tablet 11 lisinopril (PRINIVIL,ZESTRIL) 40 MG tablet nortriptyline (PAMELOR) 50 MG capsule Take 1 capsule by mouth nightly. 30 capsule 5 potassium chloride (KLOR-CON) 20 MEQ packet Take 1 packet by mouth Daily as needed (june ly as needed with Lasix). 30 tablet 0 sertraline (ZOLOFT) 50 mg tablet No current facility-administered medications for this [...] problems, no major dental work. NEUROLOGICALLY:The patient has no numbness/pain of arms, no numbness/pain of legs, no awake with numbness/pain, no weakness, no muscle aching, no coordination difficulty, no change in walk, no head injury, no neck injury, no back injury, no pain in neck, no pain in back, no stroke, no fainting spells, no loss of consciousness, no tremor/shaking, no seizures, no hea daches, no migraine, no memory loss, no speech difficulty, no confusion and no numbness of f billy. PSYCHIATRIC: No depression, no sleep disorders, no anxiety, no bipolar disorder, no psycho tic episodes. CARDIOVASCULAR: No heart attacks, no heart [...] joint arthritis, no rheumatoid arthritis. PHYSICAL EXAMINATION: Blood pressure 138/90, height 1.651 m (5' 5"), weight 79.8 kg (176 lb). Body mass index is 29.29 kg/m. GENERAL: The patient is well developed and well nourished. HEENT: Normocephalic and atraumatic. Normal sclerae without [...] has no apparent deficits with short or [facility] memory. The cranial nerves appear grossly intact. MUSCULOSKELETAL : Trace swelling in the left hand DATABASE: No new imaging is available on review. ASSESSMENT: 1. Complex regional pain syndrome type 1 of left upper extremity 2. Allodynia 3. Hyperalgesia 4. Pain and numbness of left upper extremity 5. Anemia, unspecified type PLAN: 1. Isi Springer presents to clinic today to review CRPS type I. It was previously re commended that she start medication Gabapentin and Nortriptyline and have stellate ganglion block. Isi Springer reports improvement in with addition of medication Gabapentin. Michael Springer denies side effects to medication. Isi Springer was provided with a 6 month supply of Gabapentin and Nortriptyline. No refill for calcitonin was provided today as there is no convincing improvement in pain w ith use of calcitonin. Usually calcitonin is most helpful early on in course of CRPS. Since there was no convincing evidence it was helping her, it has been discontinued. 2. Today we discussed possible treatment of pain with ketamine infusion. May consider this in the future if symptoms persist and stellate ganglion blocks fail to provide relief. Magdalena mine infusion would need to be done through a pain clinic that offers this service. Isi Springer should continue with stellate ganglion blocks with pain clinic. Reviewed that re peating the stellate ganglion blocks in a timely fashion may provide more benefit over time. 3. In regards to labs demonstrating anemia, Isi Springer was advised to follow up wi kavitha Joseph MD to discuss possible cause of anemia. Isi Springer denies heavy m enstruation. She has history of partial hysterectomy. Isi Springer denies melena. Meryl Springer is not vegetarian or vegan. She has routine exercise program. 4. Isi Springer should follow up in clinic as scheduled to review medication. I spent 30 minutes in visit with Isi Springer today with the majority of time spent counseling the patient on her diagnosis, options for her care, and coordinating her care. I, Justin Cortez MD personally performed the services described in this documentation, as scribed by in my presence, SHARAD Theodore and are both accurate and complete. Justin Cortez MD - 12/19/2019 documented in this en counter Plan of [...] [place] | | | | | | [id number] | | | | | | | | +--------+ + + + + | 05/22/ | Office | Cardiology | Rylee Pollard DO | | | 2019 | Visit | | [address] | | | | | | [place] | | | | | | [address] | | | | | | | | +--------+ + + + + | 06/18/ | Office | Physical Medicine | Justin Cortez, | | | 2019 | Visit | and Rehabilitation | [address] | | | | | | [place] | | | | | | [address] | | | | | | | | +--------+ + + + + documented as of this encounter Visit Diagnoses + + | Diagnosis | + + | Complex regional pain syndrome type 1 of left upper extremity - Primary | + + | Allodynia Disturbance of skin sensation | + + | Hyperalgesia Disturbance of skin sensation | + + | Pain and numbness of left upper extremity | + + | Anemia, unspecified type | + + documented in this encounter
--- OUTSIDE RECORDS SUMMARY | ~2020-04-19 | XMS | Encounter Summary ---
Demographics + + + | Address | [address] | | | [place] [address] | + + + | Home Phone | | + + + | Preferred Language | Unknown | + + + | Marital Status | | + + + | Caodaism Affiliation | Unknown | + + + [...] Team Providers + +------+ + | Care Rubber Stamp Assembler Name | Role | Phone | + [...] + + | 03/13/ | Office | [facility] | Justin Cortez, | Pain and numbness of | | 2018 | Visit | PHYSIATRY [address] | MD [address] | left upper | | | | [address] | [place] | extremity (Primary | | | | [place], [place] | [address] | Dx); Complex | | | | [id number] | | regional pain | | | | [phone] | | syndrome type 2 of | [...] unspecified | | | | | | type; Thoracic | | | | | | outlet syndrome of | | | | | | left thoracic outlet | +--------+---------+ + + + [...] + | Blood Pressure | 148/107 | 03/13/2019 8:16 AM | | | | | PDT | | + + + + + | Pulse | 115 | 03/13/2019 8:16 AM | | | | | PDT [...] Weight | 77.1 kg (170 lb) | 03/13/2019 8:16 AM | | | | | PDT | | + + + + + | Height | 165.1 cm (5' 5") | 03/13/2019 8:16 AM | | | | | PDT | | + + + + + | Body Mass Index | 28.29 | 03/13/2019 8:16 AM | | | | | PDT | | + + + + + documented in this encounter Patient Instructions Patient Instructions Melly Ambrocio, Transport Aircrewman - 03/13/2019 8:10 AM PDTBone s can order was placed today. Laboratory tests have been requested. Please go to the lab to complete your laboratory haylee ting. The results of your laboratory testing will be reviewed at your next appointment. If your labratory results demonstrate any emergent results the clinic will contact you. documented in this encounter Progress Notes Justin Cortez MD - 03/13/2019 8:10 AM PDTFormatting of this note might be different fro m the original. Justin Cortez MD [address] [place] [address], [address] [place] [address] FAX: PHYSICAL MEDICINE AND REHABILITATION H&P CHIEF COMPLAINT: Chief Complaint Patient presents with Arm Pain left upper extremity HISTORY OF PRESENT ILLNESS: Isi Springer is a 43 y.o. female being seen today in follow-up for complaints of lef t upper extremity pain. Isi Springer was last seen on 01/23/19. Previously it was recommended that she participate in physical therapy and have cervical imaging. Isi Springer reports that she has not participated in physical therapy. Isi Springer rates the pain as moderate-severe. Isi Springer describes the pain as piercing, throbbing and pulsating. Her symptoms worsen with nothing. Her symptoms improve with stetching. Isi Springer does describe numbness of the fourth and fifth digit on the left, though has improved. She does report weakness of the left upper extremi ty. Isi Springer reports continued kidney pain. She reports history of kidney stones. Sh jen reports that comes and goes throughout the day. She reports that she will be visiting the ER after this visit. Isi Springer has history of hypertension. Isi Springer's medications, allergies, past medical, surgical, social and family his tories were reviewed and updated as appropriate. CURRENT MEDICATIONS: Current Outpatient Medications Medication Sig Dispense Refill cyclobenzaprine (FLEXERIL) 10 mg tablet Take 10 mg by mouth 3 times daily as needed for Muscle spasms. Do not take with hydrocodone may take 1/2 tablet diclofenac (FLECTOR) 1.3% PTCH Place 1 patch onto the skin 2 times daily. As directed lisinopril (PRINIVIL, ZESTRIL) 10 mg tablet Take 40 mg by mouth Daily. nortriptyline (PAMELOR) 10 MG capsule Take 4 capsules by mouth nightly. 120 capsule 1 sertraline (ZOLOFT) 25 mg [...] no major dental work. NEUROLOGICALLY:The patient has + numbness/pain of arms, no numbness/pain of legs, no awake with numbness/pain, no weakness, no muscle aching, no coordination difficulty, no change in walk, no head injury, no neck injury, no back injury, no pain in neck, + pain in back, no st roke, no fainting spells, no loss of consciousness, no tremor/shaking, no seizures, no heada ches, no migraine, no memory loss, no speech difficulty, no confusion and no numbness of fac e. PSYCHIATRIC: No depression, no sleep disorders, no [...] no rheumatoid arthritis. PHYSICAL EXAMINATION: Blood pressure (!) 148/107, pulse 115, height 1.651 m (5' 5"), weight 77.1 kg (170 lb). Bod y mass index is 28.29 kg/m. GENERAL: The patient is well developed and well nourished. HEENT: Normocephalic and atraumatic. Normal sclerae without icterus. NECK (ANTERIOR): There is no apparent cervical lymphadenopathy or thyromegaly. PULMONARY: The patient is in no acute respiratory distress with unlabored respirations. CARDIOVASCULAR: Regular rate and rhythm. ABDOMEN: Non-distended. SKIN: Limited skin exam shows no significant rashes or lesions. T NEUROLOGIC: The patient is awake, alert, and oriented. She follows simple and complex commands. Her speech is fluent. She comprehends speech well. She has no apparent deficits with short or exterminator helper memory. The cranial nerves appear grossly intact. MUSCULOSKELETAL : DATABASE: Cervical MRI completed 02/15/19 was reviewed personally by me in detail during today's visit. I concur with the results as reported by the Radiologist. ASSESSMENT: 1. Pain and numbness of left upper extremity 2. Thoracic outlet syndrome of left thoracic outlet 3. Complex regional pain syndrome type 2 of left upper extremity 4. Hypertension, unspecified type 5. Recurrent kidney stones 6. Flank pain 7. Fatigue, unspecified type PLAN: 1. Isi Springer returns to clinic today to review cervical imaging and geophysical prospecting permit agent apy. Based on review of symptoms order for bone scan was placed today to evaluate for comple x regional pain syndrome. Isi Springer has persisting dusky color. Today we discussed changes that may be seen on bone scan including mineralization and calci um deposit that may be contributing to recurring kidney stones. Isi Springer reports history of renal impairment. unfortunately we do not have labs to review. She reports recent hospitalization due to kidney stones. Differential diagnosis includes but is not limited to pituitary dysfunction, hyperparathyro idism and complex regional pain syndrome. Isi Springer has history of hypertension an d reoccurring kidney stones. She has history of renal impairment. 2. Lab orders were placed today to evaluate for underlying condition that may be contributi ng to symptoms. 3. Isi Springer should continue taking Nortriptyline as prescribed. Isi syed reports improvement in sleep with use of Nortriptyline. 4. Isi Springer should return to clinic as scheduled to review labs and bone scan. F uture considerations includes referral to endocrinology to evaluate for hyperparathyroidism that may be contributing to symptoms. Isi Springer's exam for thoracic outlet syndrome continues to be positive on the lef t. She has not yet completed physical therapy. I would still like her to proceed with phys ical therapy to treat presumed thoracic outlet syndrome on the left, to include scalene musc le stretches and relaxation as well as nerve flossing. Isi Springer has skin discoloration in the left arm, she also has hypersensitivity. Her symptoms are consistent with CRPS. She will have bone scan to evaluate for changes con sistent with CRPS. Isi Springer has history of hypertension. She has had multiple rounds of flank pain and kidney stones over recent months. I am wondering if she has hypercalcemia. CRPS could increase calcium released into blood stream. Also hyperparathyroidism should be considered . Lab testing including CMP, 24 hour urine calcium, CBC and vitamin D have been requested. May consider bisphosphonate medication in future. She has found nortriptyline helpful, possibly improving pain, but is helping with sleep. S he denies side effects. The medication is not renally cleared. She will continue nortripty line at present dose. I spent 45 minutes in visit with Isi Springer today with the majority of time spent counselling the patient on her diagnosis, options for her care, and coordinating her care. I, Justin Cortez MD personally performed the services described in this documentation, as scribed by in my presence, SHARAD Theodore and are both accurate and complete. Justin Cortez MD - 03/13/2019 documented in this en counter Plan of [...] [place] | | | | | | [address] | | | | | | | | +--------+ + + + + | 05/22/ | Office | Cardiology | Rylee Pollard DO | | | 2019 | Visit | | [address] | | | | | | [place] | | | | | | [address] | | | | | | | | +--------+ + + + + | 06/18/ | Office | Physical Medicine | Justin Cortez, | | | 2019 | Visit | and Rehabilitation | [address] | | | | | | [place] | | | | | | [id number] | | | | | | | | +--------+ + + + + + +------+--------+ + + | Name | Type | Priori | Associated Diagnoses | Order Schedule | | | | ty | | | + +------+--------+ + + | Comprehensive | Lab | Routin | Recurrent kidney | Expected: | | Metabolic Panel | | e | stones | 03/13/2019, Expires: | | | | | | 03/12/2020 | + +------+--------+ + + | Vitamin D, | Lab | Routin | Recurrent kidney | Expected: | | Deficiency Screen | | e | stones | 03/13/2019, Expires: | | (25-Hydroxy) | | | | 03/12/2020 | + +------+--------+ + + | CBC with | Lab | Routin | Fatigue, | Expected: | | Differential | | e | unspecified type | 03/13/2019, Expires: | | | | | | 03/12/2020 | + +------+--------+ + + | Calcium, Urine, 24Hr | Lab | Routin | Recurrent kidney | 1 Occurrences | | | | e | stones | starting 03/13/2019 | | | | | | until 03/13/2020 | + +------+--------+ + + documented as of this encounter Visit Diagnoses + + | Diagnosis | + + | Pain and numbness of left upper extremity - Primary | + + | Complex regional pain syndrome type 2 of left upper extremity | + + | Hypertension, unspecified type | + + | Recurrent kidney stones Calculus of kidney | + + | Flank pain Abdominal pain, unspecified site | + + | Fatigue, unspecified type | + + | Thoracic outlet syndrome of left thoracic outlet | + + documented in this encounter
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
--- OUTSIDE RECORDS SUMMARY | ~2020-04-19 | XMS | Encounter Summary ---
Demographics + + + | Address | [address] | | | [place] [address] | + + + | Home Phone | | + + + | Preferred Language | Unknown | + + + | Marital Status | | + + + | Roman Catholic Affiliation | Unknown | + + + | Race | Unknown | + + + | Ethnic Group | Unknown | + + + Author + + + | Author | [facility] | | | and [place] | + + + | Organization | [facility] | | [...] Team Providers + +------+ + | Care Pediatric Psychologist Name | Role | Phone | + +------+ + | Maria Ines Moses PA-C | PCP | | + +------+ + Encounter Details +--------+ + + + + | Date | Type | Department | Care Team | Description | +--------+ + + + + | 10/21/ | Hospital | [facility] | Conversion | Pain | | 2018 | Encounter | CONVERSION [address] | Transaction, | | | | | [address] | Provider Unknown | | | | | [place], [place] | [phone] | | | | | [address] | | | | | | [phone] | | | +--------+ + + + [...] + + +---------+ + + | | Take 1-2 tablets by | | 0 | | | | HYDROcodone-acetamin | mouth nightly as | | | | 8 | | ophen (NORCO) 5-325 | needed for Pain. | | | | | | mg per tablet | | | | | | [...] [place] | | | | | | [address] | | | | | | | | +--------+ + + + + | 05/22/ | Office | Cardiology | Rylee Pollard DO | | | 2019 | Visit | | [address] | | | | | | [place] | | | | | | [address] | | | | | | | | +--------+ + + + + | 06/18/ | Office | Physical Medicine | Justin Cortez, | | | 2019 | Visit | and Rehabilitation | [address] | | | | | | [place] | | | | | | [address] | | | | | | | | +--------+ + + + + documented as of this encounter Procedures + +--------+ + + + | Procedure Name | Priori | Date/Time | Associated Diagnosis | Comments | | | ty | | | | + +--------+ + + + | MRI CERVICAL SPINE | Routin | 08/14/2018 | | Results for this | | WO CONTRAST | e | 1:24 AM | | procedure are in the | | | | PDT | | results section. | + +--------+ + + + documented in this encounter Results MRI Cervical Spine wo Contrast (08/14/2018 1:24 AM PDT) + + | Specimen | + + | | + + + + + | Narrative | Performed At | + + + | This is a non-reportable procedure without a radiologist report and | | | is used for image storage only | | + + + + + | Procedure Note | + + | Roman Metz Rosana - 06/27/2019 12:16 PM PDT This is a non-reportable procedure | | without a radiologist report and isused for image storage only | + + documented in this encounter Visit Diagnoses + + | Diagnosis | + + | Pain Generalized pain | + + documented in this encounter"
--- OUTSIDE RECORDS SUMMARY | ~2020-04-19 | XMS | Encounter Summary ---
Demographics + + + | Address | [address] | | | [place] [address] | + + + | Home Phone | | + + + | Preferred Language | Unknown | + + + | Marital Status | | + + + | Mormonism Affiliation | Unknown | + + + | Race | Unknown | + + + | Ethnic Group | Unknown | + + + Author + + + | Author | [facility] | | | and [place] | + + + | Organization | [facility] | | | and [...] Team Providers + +------+ + | Care Apple Turner Name | Role | Phone | + [...] + + | 04/10/ | Hospital | [facility] | Justin Cortez, | Pain and numbness of | | 2018 | Encounter | MED CTR NUCLEAR | MD [address] | left upper | | | | MEDICINE [address] | [place] | extremity; Complex | | | | [place], | [address] | regional pain | | | | [place] [address] | | syndrome type 2 of | | | | [phone] | | left upper extremity | +--------+ + + + + Social [...] | lisinopril | | | 0 | 05//20 | | | (PRINIVIL,ZESTRIL) | | | | 19 | | | 40 MG tablet | | | | | | + + + +---------+ + + | | | | 0 | 03/02/ | | | hydroCHLOROthiazide | | | [...] [place] | | | | | | [address] | | | | | | | | +--------+ + + + + | 05/22/ | Office | Cardiology | Rylee Pollard DO | | | 2019 | Visit | | [address] | | | | | | [place] | | | | | | [address] | | | | | | | | +--------+ + + + + | 06/18/ | Office | Physical Medicine | Justin Cortez, | | | 2019 | Visit | and Rehabilitation | [address] | | | | | | [place] | | | | | | [address] | | | | | | | [...] + | Isaías, Rad Results In - 04/11/2019 7:12 AM PDT [...] left upper extremity | + + | Complex regional pain syndrome type 2 of left upper extremity | + + documented in this encounter Administered Medications + +--------+ + +------+------+ | Medication Order | MAR | Action | Dose | Rate | Site | | | Action | Date | | | | + +--------+ + +------+------+ | technetium TC-99M medronate | Given | 04/10/20 | 25 | | | | (MDP) injection 25 millicurie 25 | | 19 9:10 | millicur | | | | millicurie, Intravenous, ONCE | | AM PDT | ies | | | | PRN, Other, Starting 04/10/19 | | | | | | | at 0910, For 1 dose, Nuclear | | | | | | | Medicine | | | | | | + +--------+ + +------+------+ +---+---+ | | | +---+---+ documented in this encounter"
--- OUTSIDE RECORDS SUMMARY | ~2020-04-19 | XMS | Encounter Summary ---
Demographics + + + | Address | [address] | | | [place] [address] | + + + | Home Phone [...] Team Providers + +------+ + | Care Computer Systems Administrator Name | Role | Phone | + [...] + + | 04/10/ | Hospital | [facility] | Justin Cortez, | Pain and numbness of | | 2018 | Encounter | MED CTR NUCLEAR | MD [address] | left upper | | | | MEDICINE [address] | [place] | extremity; Complex | | | | [place], | [address] | regional pain | | | | [place] [address] | | syndrome type 2 of | | | | [phone] | | left upper extremity | +--------+ [...] [place] | | | | | | [address] | | | | | | | | +--------+ + + + + | 05/22/ | Office | Cardiology | Rylee Pollard DO | | | 2019 | Visit | | [address] | | | | | | [place] | | | | | | [address] | | | | | | | | +--------+ + + + + | 06/18/ | Office | Physical Medicine | Justin Cortez, | | | 2019 | Visit | and Rehabilitation | MD [address] | | | | | | [place] | | | | | | [address] | | | | | | | [...]
--- OUTSIDE RECORDS SUMMARY | ~2020-04-19 | XMS | Clinical Summary ---
Demographics + + + | Address | [address] | | | [place] [address] | + + + | Home Phone | | + + + | Preferred Language | Unknown | + + + | Marital Status | | + + + | Rastafarian Affiliation | Unknown | + + + | Race | Unknown | + + + | Ethnic Group | Unknown | + + + Author + + + | Author | [facility] | | | and [place] | + + + | Organization | [facility] | | | [...] Team Providers + +------+ + | Care Pulpit Operator Name | Role | Phone | + +------+ + | Meng Joseph MD | PCP | | + +------+ + Allergies + + + + + + | Active Allergy | Reactions | Severity | Noted | Comments | | | | | Date | | + + + + + + | Hydrocodone | Rash | High | 11/02/20 | | | | | | 18 | | + + + + + + Medications + + + +---------+------+------+-------+ | Medication | Sig | Dispensed | Refills | Star | End | Statu | | | | | | t | Date | s | | | | | | Date | | | + + + +---------+------+------+-------+ | cyclobenzaprine | Take 10 mg by mouth | | 0 | | | Activ | | (FLEXERIL) 10 mg | 3 times daily as | | | | | e | | tablet | needed for Muscle | | | | | | | | spasms. Do not take | | | | | | | | with hydrocodone may | | | | | | | | take 1/2 tablet | | | | | | + + + +---------+------+------+-------+ | diclofenac | Place 1 patch onto | | 0 | | | Activ | | (FLECTOR) 1.3% PTCH | the skin 2 times | | | | | e | | | daily. As directed | | | | | | + + + +---------+------+------+-------+ | lisinopril | | | 0 | 05/2 | | Activ | | (PRINIVIL,ZESTRIL) | | | | 0/20 | | e | | 40 MG tablet | | | | 19 | | | + + + +---------+------+------+-------+ | B Complex Vitamins | Take by mouth. | | 0 | | | Activ | | (B COMPLEX-B12 PO) | | | | | | e | + + + +---------+------+------+-------+ | sertraline | | | 0 | 08/2 | | Activ | | (ZOLOFT) 50 mg | | | | 8/20 | | e | | tablet | | | | 19 | | | + + + +---------+------+------+-------+ | labetalol | Take 1 tablet by | 60 | 11 | 10/3 | | Activ | | (NORMODYNE) 100 mg | mouth 3 times daily. | tablet | | 1/20 | | e | | tablet | | | | 19 | | | + + + +---------+------+------+-------+ | furosemide (LASIX) | Take 1 tablet by | 30 | 11 | 10/3 | 10/3 | Activ | | 20 mg tablet | mouth Daily as | tablet | | 1/20 | 0/20 | e | | | needed for Edema. | | | 19 | 20 | | + + + +---------+------+------+-------+ | potassium chloride | Take 1 packet by | 30 | 0 | 10/3 | | Activ | | (KLOR-CON) 20 MEQ | mouth Daily as | tablet | | 1/20 | | e | | packet | needed (daily as | | | 19 | | | | | needed with Lasix). | | | | | | + + + +---------+------+------+-------+ | gabapentin | 1 qAM, 1 qNoon, and | 120 | 5 | 02/0 | | Activ | | (NEURONTIN) 300 mg | 2 qHS | capsule | | 5/20 | | e | | capsule | | | | 20 | | | + + + +---------+------+------+-------+ | nortriptyline | Take 1 capsule by | 30 | 5 | 02/0 | | Activ | | (PAMELOR) 50 MG | mouth nightly. | capsule | | 5/20 | | e | | capsule | | | | 20 | | | + + + +---------+------+------+-------+ Active Problems + + + | Problem | Noted Date | + + + | Cervical radicular pain | 09/05/2019 | + + + | Cervical spondylosis without myelopathy | 09/05/2019 | + + + | HNP (herniated nucleus pulposus), cervical | 09/05/2019 | + + + | Neuroforaminal stenosis of cervical spine | 09/05/2019 | + + + | Whiplash injury syndrome | 09/05/2019 | + + + Immunizations + + + + | Name | Administration Dates | Next Due | + + + + | HEP B, 3 DOSE | 02/23/2013, 09/29/2012 | | | (ADULT) | | | + + + + | INFLUENAZ PF | 08/17/2012 | | | TRIVALENT | | | | INTRADERMAL | | | + + + + | INFLUENZA TRIV | 08/17/2012 | | | W/PRES(PED/ADOL/ADUL | | | | T),MULTIDOSE | | | + + + + Family History + + +---------+ + | Medical History | Relation | Name | Comments | + + +---------+ + | Heart failure | Father | Lee | | | | | Lubrin | | + + +---------+ + + + + + + | Relation | Name | Status | Comments | + + + + + | Father | Lee | | | | | Lubrin | | | + + + + + | Mother | Caitlyn | Alive | | | | [place] | | | + + + + + | Sister | Klaudia | Alive | | | | Jelani | | | + + + + + | Sister | Meera | Alive | | | | Bonnie | | | + + + + + Social History + [...] recent travel history available. | + + Last Filed Vital Signs + + + [...] + + + + | Temperature | 36.7 C (98 F) | 10/08/2019 11:23 AM | | | | | PST [...] | | + + + + + Plan of Treatment +--------+ + + + + | Date | Type | Specialty | Care Team | Description | +--------+ + + + + | 04/23/ | Appointment | Radiology | Rylee Pollard DO | | | 2019 | | | [address] | | | | | | [place] | | | | | | [address] | | | | | | | | +--------+ + + + + | 05/22/ | Office | Cardiology | Rylee Pollard DO | | | 2019 | Visit | | [address] | | | | | | [place] | | | | | | [address] | | | | | | | | +--------+ + + + + | 06/18/ | Office | Physical Medicine | Justin Cortez, | | | 2019 | Visit | and Rehabilitation | [address] | | | | | | [place] | | | | | | [address] | | | | | | | | +--------+ + + + + + + + + + | Health Maintenance | Due Date | Last Done | Comments | + + + + + | Vaccine: | | | | | Dtap/Tdap/Td (1 - | 6 | | | | Tdap) | | | | + + + + + | Cervical Cancer | | | | | Screening (Pap) | 5 | | | + + + + + | Vaccine: Influenza | | 08/17/2012, 08/17/2012 | | | (Season Ended) | 0 | | | + + + + + Results Not on filefrom Last 3 Months Insurance + +--------+ +--------+-------+---------+--------+ | Payer | Benefi | Subscriber | Effect | Phone | Address | Type | | | t Plan | ID | george | | | | | | / | | Dates | | | | | | Group | | | | | | + +--------+ +--------+-------+---------+--------+ | BCBS | BCBS | [id number] | 11/14/19 | | | PPO | | | FEDERA | | 16-Pre | | | | | | L FEP | | sent | | | | + +--------+ +--------+-------+---------+--------+ | BCBS | BCBS | [id number] | 06/14/20 | | | PPO | | | FEDERA | | 19-Pre | | | | | | L FEP | | sent | | | | + +--------+ +--------+-------+---------+--------+ | [employer] [facility] | [employer] | [id number] | 08/25/ | | | Indemn | | SERVICE | YELLOW | | 2017-P | | | ity | | | HAWK | | resent | | | | + +--------+ +--------+-------+---------+--------+ | [employer] | [employer] | [id number] | 10/05/ | | | Indemn | | SERVICE | YELLOW | | 2017-P | | | ity | | | HAWK | | resent | | | | + +--------+ +--------+-------+---------+--------+ + +--------+ +--------+ + + | Guarantor Name | Accoun | Relation to | Date | Phone | Billing Address | | | t Type | Patient | of | | | | | | | | | | + +--------+ +--------+ + + | Isi Springer | Person | Self | [birth year] | | [address] | | | al/Fam | | 1974 | | [place], [place] | | | [place] | | | 2 (Home) | [address] | + +--------+ +--------+ + + | Isi Springer | Person | Self | [birth year] | | [address] | | | al/Fam | | 1974 | [address] | [place], [place] | | | [place] | | | 2 (Home) | [address] | + +--------+ +--------+ + + Advance Directives + + + + + | Type | Date Recorded | Patient | Explanation | | | | Scouring Train Operator Chief | | + + + + + | Power of | | | | | Tooth Cutter Spur | | | | + + + + + | Advance | | | | | Directive | | | | + + + + +
--- OUTSIDE RECORDS SUMMARY | ~2020-04-19 | XMS | Encounter Summary ---
Demographics + + + | Address | [address] | | | [place] [address] | + + + | Home Phone | | + + + | Preferred Language | Unknown | + + + | Marital Status | | + + + | Restorationist Affiliation | Unknown | + + + | Race | Unknown | + + + | Ethnic Group | Unknown | + + + Author + + + | Author | [facility] | | | and [place] | + + + | Organization | [facility] | | | [...] Team Providers + +------+ + | Care Bench Scientist Name | Role | Phone | + [...] + + | 09/12/ | Telephone | [facility] | Nirmal Espinal, | Referral (EMG) | | 2019 | | [facility] | DO [address] | | | | | [address] [place], [place] | | | | | [address] | [address] | | | | | [place], [place] | | | | | | [address] | | | | | | [phone] | | | +--------+ + + + [...] [place] | | | | | | [address] | | | | | | | | +--------+ + + + + | 05/22/ | Office | Cardiology | Rylee Pollard DO | | | 2019 | Visit | | [address] | | | | | | [place] | | | | | | [address] | | | | | | | | +--------+ + + + + | 06/18/ | Office | Physical Medicine | Justin Cortez, | | | 2019 | Visit | and Rehabilitation | [address] | | | | | | [place] | | | | | | [address] | | | | | | | | +--------+ + + + + documented as of this encounter Visit Diagnoses Not on filedocumented in this encounter"
--- OUTSIDE RECORDS SUMMARY | ~2020-04-19 | XMS | Encounter Summary ---
Demographics + + + | Address | [address] | | | [place] [address] | + + + | Home Phone | | + + + | Preferred Language | Unknown | + + + | Marital Status | | + + + | Amish Affiliation | Unknown | + + + | Race | Unknown | + + + | Ethnic Group | Unknown | + + + Author + + + | Author | [facility] | | | and [place] | + + + | Organization | [facility] | | | [...] Team Providers + +------+ + | Care Flight Agent Name | Role | Phone | + +------+ + PCP | Unavailable | + +------+ + Encounter Details +--------+ + + + + | Date | Type | Department | Care Team | Description | +--------+ + + + + | 04/20/ | Hospital | [facility] | Conversion | | | 1996 | Encounter | SYSTEM EMR | Transaction, | | | | | CONVERSION [address] | Provider Unknown | | | | | [address] [place], [place] | | | | | | [address] | (Fax) | | | | | [phone] | | | +--------+ + + + [...] [place] | | | | | | [address] | | | | | | | | +--------+ + + + + | 05/22/ | Office | Cardiology | Rylee Pollard DO | | | 2019 | Visit | | [address] | | | | | | [place] | | | | | | [address] | | | | | | | | +--------+ + + + + | 06/18/ | Office | Physical Medicine | Justin Cortez, | | | 2019 | Visit | and Rehabilitation | [address] | | | | | | [place] | | | | | | [address] | | | | | | | | +--------+ + + + + documented as of this encounter Visit Diagnoses Not on filedocumented in this encounter"
--- OUTSIDE RECORDS SUMMARY | ~2020-04-19 | XMS | Encounter Summary ---
Demographics + + + | Address | [address] | | | [place] [address] | + + + | Home Phone | | + + + | Preferred Language | Unknown | + + + | Marital Status | | + + + | Jehovah'S Witness Affiliation | Unknown | + + + | Race | Unknown | + + + | Ethnic Group | Unknown | + + + Author + + + | Author | [facility] | | | and [place] | + + + | Organization | [facility] | | | [...] Team Providers + +------+ + | Care Turning Lathe Tender Name | Role | Phone | + +------+ + PCP | Unavailable | + +------+ + Encounter Details +--------+ + + + + | Date | Type | Department | Care Team | Description | +--------+ + + + + | 10/19/ | Hospital | [facility] | Conversion | | | 1974 - | Encounter | SYSTEM GENERIC IP | Transaction, | | | | | CONVERSION [address] | Provider Unknown | | | 10/21/ | | [address] [place], [place] | [phone] | | | 1974 | | [address] | | | | | | [phone] | | | +--------+ + + + [...] [place] | | | | | | [address] | | | | | | | | +--------+ + + + + | 05/22/ | Office | Cardiology | Rylee Pollard DO | | | 2019 | Visit | | [address] | | | | | | [place] | | | | | | [address] | | | | | | | | +--------+ + + + + | 06/18/ | Office | Physical Medicine | Justin Cortez, | | | 2019 | Visit | and Rehabilitation | [address] | | | | | | [place] | | | | | | [address] | | | | | | | | +--------+ + + + + documented as of this encounter Visit Diagnoses Not on filedocumented in this encounter"
--- OUTSIDE RECORDS SUMMARY | ~2020-04-19 | XMS | Encounter Summary ---
Demographics + + + | Address | [address] | | | [place] [address] | + + + | Home Phone | | + + + | Preferred Language | Unknown | + + + | Marital Status | | + + + | Sikhism Affiliation | Unknown | + + + | Race | Unknown | + + + | Ethnic Group | Unknown | + + + Author + + + | Author | [facility] | | | and [place] | + + + | Organization | [facility] | | | [...] Team Providers + +------+ + | Care Nurse College Name | Role | Phone | + [...] | | | nucleus | DAILY, | [address] | | | | | pulposus), | [place] [address] | Phone: | | | | | cervical | Phone: | [phone] | | | | | Other | [phone] | Fax: | | | | | biomechanica | Fax: | [phone] | | | | | l lesions of | [phone] | | | | | | cervical | | | | | | | region | | | | | | | Cervical | | | | | | | spondylosis | | | | | | | Procedures | | | | | | | NE INJECT | | | | | | [...] + + | 09/28/ | Hospital | [facility] | Saurav Glover, | Cervical radicular | | 2019 | Encounter | INTERVENTIONAL PAIN | MD [address] | pain (Primary Dx); | | | | [place] | [address] | Neuroforaminal | | | | [address] [place], | [place] [address] | stenosis of cervical | | | | [place] [address] | [phone] | spine; Cervical | | | | [phone] | | spondylosis without | | | [...] and his staff can be contacted at [phone]. If you are unable to contact your doctor or their associate, you may come to the Emergency Department at [facility]. These instructions have been explained to the [...] [place] | | | | | | [address] | | | | | | | | +--------+ + + + + | 05/22/ | Office | Cardiology | Rylee Pollard DO | | | 2019 | Visit | | [address] | | | | | | [place] | | | | | | [address] | | | | | | | | +--------+ + + + + | 06/18/ | Office | Physical Medicine | Justin Cortez, | | | 2019 | Visit | and Rehabilitation | [address] | | | | | | [place] | | | | | | [address] | | | | | | | [...]
--- OUTSIDE RECORDS SUMMARY | ~2020-04-19 | XMS | Encounter Summary ---
Demographics + + + | Address | [address] | | | [place] [address] | + + + | Home Phone | | + + + | Preferred Language | Unknown | + + + | Marital Status | | + + + | Evangelical Affiliation | Unknown | + + + | Race | Unknown | + + + | Ethnic Group | Unknown | + + + Author + + + | Author | [facility] | | | and [place] | + + + | Organization | [facility] | | | [...] Team Providers + +------+ + | Care Donation Worker Name | Role | Phone | + [...] + + + | Authorized | | Diagnostic | Diagnoses | Atul, | [facility] | | | | Radiology | Essential | [facility] | | | | | hypertension | [address] | | | | | Procedures | [address] | [address] | | | | | VAS Renal | [address] | [place], [place] | | | | | Artery | [place], [place] | [address] | | | | | Complete | [address] | Phone: | | | | | | Phone: | [phone] | | | | | | [phone] | Fax: | | | | | | Fax: | [phone] | | | | | | [phone] | | + +--------+ + + + + Reason for Visit + + + | Reason | Comments | + + + | New Patient | new patient | + + + Evaluate & Treat (Routine) +--------+--------+ + + + + | Status | Reason | Specialty | Diagnoses / | Referred By | Referred To | | | | | Procedures | Contact | Contact | +--------+--------+ + + + + | Closed | | Cardiology | Diagnoses | Roseanne, | Atul, | | | | | | Jama Pro, | DO Rylee | | | | | HYPERTENSION | PA-C [address] | [address] | | | | | Procedures | [address] | [address] | | | | | CONSULT | WAY | [facility] [place] | | | | | | [place] | [address] Phone: | | | | | | [place] [address] | [phone] | | | | | | Phone: | Fax: | | | | | | [phone] | [phone] | | | | | | Fax: | | | | | | | [phone] | | +--------+--------+ + + + + Encounter Details +--------+---------+ + + + | Date | Type | Department | Care Team | Description | +--------+---------+ + + + | 09/13/ | Office | [facility] | Rylee Pollard DO | Essential | | 2019 | Visit | CARDIOLOGY [place] | [address] | hypertension | | | | [address] | [address] [place], [place] | (Primary Dx) | | | | [address] | [address] | | | | | [place], [place] | | | | | | [address] | | | | | | [phone] | | | +--------+---------+ + + + Social History [...] + + + | Blood Pressure | 110/76 | 09/13/2019 2:23 PM | | | | | PDT | | + + + + + | Pulse | 114 | 09/13/2019 2:23 PM | | | | | PDT | | + + + + + | Temperature | - | - | | + + + + + | Respiratory Rate | - | - | | + + + + + | Oxygen Saturation | 98% | 09/13/2019 2:23 PM | | | | | PDT | | + + + + + | Inhaled Oxygen | - | - | | | Concentration | | | | + + + + + | Weight | 79.4 kg (175 lb) | 09/13/2019 2:23 PM | | | | | PDT | | + + + + + | Height | 165.1 cm (5' 5") | 09/13/2019 2:23 PM | | | | | PDT | | + + + + + | Body Mass Index | 29.12 | 09/13/2019 2:23 PM | | | | | PDT | | + + + + + documented in this encounter Patient Instructions Patient Instructions Rylee Pollard DO - 09/13/2019 2:20 PM PDT- STOP taking spironolacton e - START taking Labetalol 100mg by mouth three times daily - Check your blood pressure at home, if it continues to run high (>140/90, give me a call) - I ordered a renal artery ultrasound - check lab work in one month from today ~10/14/19 documented in this encounter Progress Notes Rylee Pollard DO - 09/13/2019 2:20 PM PDT [facility] Cardiology Cardiology Consult Note Reason for Consultation: HTN Requesting Physician: Jama Cronin History Obtained From: patient HISTORY OF PRESENT ILLNESS: The patient is a very pleasant 43-year-old female, who presents to the Cardiology office fo r initial consultation regarding hypertension. The patient reports that she was first diagn osed with hypertension in her 20s. She reports that it was mildly elevated when it was firs t diagnosed and progressively has become worse. She was on hydrochlorothiazide and lisinopr il and was told that her hydrochlorothiazide may be affecting her pancreas, so this medicat ion was discontinued. She is currently on spironolactone 50 mg by mouth daily and has been on this for the past 4 months. She also notes that she had issues with hypertension during her pregnancies. She has never had an echocardiogram. She describes herself as an active i ndividual and runs 5K daily up until recently when she broke her foot and has not been back to running since. She denies any lower extremity swelling, orthopnea, PND. She does check her blood pressures at home and recently her systolics have been in the 140s and diastolics have been in the 90s typically. She denies any recent episodes of chest pain or shortness of breath. Review of Systems Constitutional: Negative for fatigue. HENT: Negative for nosebleeds. Eyes: Negative for visual disturbance. Respiratory: Negative for cough and shortness of breath. Cardiovascular:see HPI Gastrointestinal: Negative for nausea, vomiting, abdominal pain and blood in stool. Genitourinary: Negative for hematuria or dysuria. Musculoskeletal: Negative for myalgias, back pain and arthralgias. Skin: Negative for color change. Neurological: Negative for dizziness, syncope and numbness. Hematological: Does not bruise/bleed easily. Psychiatric/Behavioral: The patient is not nervous/anxious. PAST MEDICAL & SURGICAL HISTORY Past Medical History: Diagnosis Date Acute sinusitis [...] Uterine leiomyoma Vitamin D deficiency Past Surgical History: Procedure Laterality Date BUNIONECTOMY HYSTERECTOMY 2014 KIDNEY STONE SURGERY 2013 MEDICATIONS Home Medications Outpatient Encounter Medications as of 09/13/2019 Medication Sig Dispense Refill amLODIPine (NORVASC) 2.5 [...] qNoon, and 2 qHS 120 capsule 1 lisinopril (PRINIVIL,ZESTRIL) 40 MG tablet nortriptyline (PAMELOR) 50 MG capsule Take 1 capsule by mouth nightly. 30 capsule 1 sertraline (ZOLOFT) 50 mg tablet spironolactone (ALDACTONE) 100 MG tablet No facility-administered encounter medications on file as of 09/13/2019. 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 Appears approximately stated age . HEENT: Normocephalic, atraumatic. EYES: PERRL, sclerae anicteric, no xanthelsasmas NECK: No JVD, lymphadenopathy, thyromegaly, bruits. Carotid pulses are 2+ bilaterally LUNGS: Clear bilaterally, with no rales, rhonchi or wheezing noted, respirations unlabored HEART: Nondisplaced PMI, regular rate and rhythm, S1, S2 normal. No murmurs, rubs or gall ops noted. ABDOMEN: Soft, nontender, no organomegaly, masses or bruits. Bowel sounds are normal in a ll 4 quadrants. The abdominal aortic pulsation is not palpable. EXTREMITIES: No edema. Radial pulses 2+ bilaterally. DP and PT pulses are 2+ bilaterally. SKIN: Warm and dry, capillary refill is normal, no lesions. NEUROLOGIC: Awake, alert and oriented x 3. No focal motor deficits. PSYCHIATRIC: Appropriate, affect appears normal DATA No results found for: WBC, HGB, HCT, PLTNo results found for: INR, PTT No results found for : NA, K, CL, CO2, BUN, CREA, GLUCOSE, MG, AST, ALT, DIGOXIN, BNP, TSHNo results found for: C HOL, TRIG, HDL, LDL, TSH Most recent blood work from 03/13/2019 reviewed including sodium 142, potassium 3.4, chlori de 100, carbon dioxide 26, glucose 74, BUN 0.74, creatinine 0.82, calcium 8.9, AST 49, ALT 3 1, alkaline phosphatase 61, total bilirubin 0.4, total protein 6.7, white blood cell count 1 2.6, hemoglobin 10.1, hematocrit 30.2, platelet count 365. EK09/13/2019 ordered and reviewed by myself sinus tachycardia 105 bpm, otherwise normal EKG. Last Echo: Last stress test: Last cath: Carotid US: AAA screening: Lower extremity US: OTHERS: ASSESSMENT & PLAN 1. Resistant HTN -The patient is a 43-year-old female who presents to the cardiology office for initial cons ultation history of resistant hypertension. She is currently on amlodipine, lisinopril, and spironolactone. Her systolic blood pressures remain above 140. Will pursue a work-up for secondary hypertension including renal artery ultrasound and aldosterone renin ratio. Will discontinue spironolactone today and allow for a 3-week washout before checking aldosterone and renal levels. We will also check a TSH. -Continue lisinopril 40 mg by mouth daily -Continue amlodipine 2.5 mg by mouth daily -Start labetalol 100 mg by mouth 3 times daily -Obtain bilateral renal artery ultrasound -Follow-up in 3 months - Sleep Study - Renin level, aldosterone level, and ratio - Renal artery US - TSH - Plasma metanephrines Thank you for allowing me to participate in the care of this patient. Primary Care Physician: MEKHI Agarwal, 09/13/2019 documented in this enco unter Plan of Treatment +--------+ + + + + | Date | Type | Specialty | Care Team | Description | +--------+ + + + + | 04/23/ | Appointment | Radiology | Rylee Pollard DO | | | 2019 | | | [address] | | | | | | [place] | | | | | | [address] | | | | | | | | +--------+ + + + + | 05/22/ | Office | Cardiology | Rylee Pollard DO | | | 2019 | Visit | | [address] | | | | | | [place] | | | | | | [address] | | | | | | | | +--------+ + + + + | 06/18/ | Office | Physical Medicine | Justin Cortez, | | | 2019 | Visit | and Rehabilitation | [address] | | | | | | [place] | | | | | | [address] | | | | | | | | +--------+ + + + + + +---------+--------+ + + | Name | Type | Priori | Associated Diagnoses | Order Schedule | | | | ty | | | + +---------+--------+ + + | VAS Renal Artery | Imaging | Routin | Essential | Expected: | | Complete | | e | hypertension | 09/13/2019, Expires: | | | | | | 09/13/2020 | + +---------+--------+ + + | Renin Activity and | Lab | Routin | Essential | 1 Occurrences | | Aldosterone | | e | hypertension | starting 09/13/2019 | | | | | | until 09/13/2020 | + +---------+--------+ + + | Aldosterone/Renin | Lab | Routin | Essential | 1 Occurrences | | Ratio | | e | hypertension | starting 09/13/2019 | | | | | | until 09/13/2020 | + +---------+--------+ + + | TSH | Lab | Routin | Essential | 1 Occurrences | | | | e | hypertension | starting 09/13/2019 | | | | | | until 09/13/2020 | + +---------+--------+ + + | Comprehensive | Lab | Routin | Essential | 1 Occurrences | | Metabolic Panel | | e | hypertension | starting 09/13/2019 | | | | | | until 09/13/2020 | + +---------+--------+ + + documented as of this encounter Procedures + +--------+ + + + | Procedure Name | Priori | Date/Time | Associated Diagnosis | Comments | | | ty | | | | + +--------+ + + + | ECG 12 LEAD | Routin | 09/13/2019 | Essential | Results for this | | | e | 2:30 PM | hypertension | procedure are in the | | | | PDT | | results section. | + +--------+ + + + documented in this encounter Results ECG 12 lead (09/13/2019 2:30 PM PDT) + + + + + + | Component | Value | Ref Range | Performed | Pathologist | | | | | At | Signature | + + + + + + | VENTRICULAR | 105 | BPM | [facility] | | | RATE EKG | | | | | + + + + + + | ATRIAL RATE | 105 | BPM | [facility] | | + + + + + + | P-R | 154 | ms | [facility] | | | INTERVAL | | | | | + + + + + + | QRS | 76 | ms | [facility] | | | DURATION | | | | | + + + + + + | Q-T | 338 | ms | [facility] | | | INTERVAL | | | | | + + + + + + | Q-T | 446 | ms | [facility] | | | INTERVAL | | | | | | (CORRECTED) | | | | | + + + + + + | P WAVE AXIS | 56 | degrees | [facility] | | + + + + + + | QRS AXIS | 43 | degrees | [facility] | | + + + + + + | T AXIS | 18 | degrees | [facility] | | + + + + + + | INTERPRETAT | Please refer to | | [facility] | | | ION TEXT | Providers office visit | | | | | | note for Providers | | | | | | Interpretation.Confirmed | | | | | | by ICA Burr Read Only, | | | | | | ICA Veronica ([id number]), | | | | | | film editor supervisor Helder Oreilly | | | | | | ([id number]) on 09/13/2019 | | | | | | 3:05:02 PM | | | | + + + + + + + + | Specimen | + + | | + + + + + | Narrative | Performed At | + + + | | | + + + + +---------+ + + | Performing | Address | City/State/Zipcode | Phone Number | | Organization | | | | + +---------+ + + | [facility] | | | | + +---------+ + + documented in this encounter Visit Diagnoses + + | Diagnosis | + + | Essential hypertension - Primary Unspecified essential hypertension | + + documented in this encounter
--- OUTSIDE RECORDS SUMMARY | ~2020-04-19 | XMS | Encounter Summary ---
Demographics + + + | Address | [address] | | | [place] [address] | + + + | Home Phone | | + + + | Preferred Language | Unknown | + + + | Marital Status | | + + + | Islam Affiliation | Unknown | + + + | Race | Unknown | + + + | Ethnic Group | Unknown | + + + Author + + + | Author | [facility] | | | and [place] | + + + | Organization | [facility] | | | [...] Team Providers + +------+ + | Care Electrician Deck Name | Role | Phone | + +------+ + | Maria Ines Moses PA-C | PCP | | + +------+ + Encounter Details +--------+ + + + + | Date | Type | Department | Care Team | Description | +--------+ + + + + | 10/16/ | Abstract | [facility] [place] | Provider, | | | 2017 | | PHYSIATRY [address] | [address] | | | | | [address] | [place] | | | | | [place] | [place] [address] | | | | | [address] | | | | | | [phone] | | | +--------+ + + + [...] [place] | | | | | | [address] | | | | | | | | +--------+ + + + + | 05/22/ | Office | Cardiology | Rylee Pollard DO | | | 2019 | Visit | | [address] | | | | | | [place] | | | | | | [address] | | | | | | | | +--------+ + + + + | 06/18/ | Office | Physical Medicine | Justin Cortez, | | | 2019 | Visit | and Rehabilitation | [address] | | | | | | [place] | | | | | | [address] | | | | | | | | +--------+ + + + + documented as of this encounter Visit Diagnoses Not on filedocumented in this encounter"
--- OUTSIDE RECORDS SUMMARY | ~2020-04-19 | XMS | Encounter Summary ---
Demographics + + + | Address | [address] | | | [place] [address] | + + + | Home Phone | | + + + | Preferred Language | Unknown | + + + | Marital Status | | + + + | Anglican Affiliation | Unknown | + + + | Race | Unknown | + + + | Ethnic Group | Unknown | + + + Author + + + | Author | [facility] | | | and [place] | + + + | Organization | [facility] | | [...] Team Providers + +------+ + | Care Potline Monitor Name | Role | Phone | + +------+ + | Maria Ines Moses PA-C | PCP | | + +------+ + Reason for Visit + + + | Reason | Comments | + + + | Results, Imaging | | + + + Encounter Details +--------+ + + + + | Date | Type | Department | Care Team | Description | +--------+ + + + + | 04/12/ | Telephone | [facility] [place] | Justin Cortez, | Results, Imaging | | 2019 | | PHYSIATRY [address] | MD [address] | | | | | [address] | [place] | | | | | [place] | [address] | | | | | [address] | | | | | | [phone] | | | +--------+ + + + [...] [place] | | | | | | [address] | | | | | | | | +--------+ + + + + | 05/22/ | Office | Cardiology | Rylee Pollard DO | | | 2019 | Visit | | [address] | | | | | | [place] | | | | | | [address] | | | | | | | | +--------+ + + + + | 06/18/ | Office | Physical Medicine | Justin Cortez, | | | 2019 | Visit | and Rehabilitation | [address] | | | | | | [place] | | | | | | [id number] | | | | | | | | +--------+ + + + + documented as of this encounter Visit Diagnoses Not on filedocumented in this encounter"
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
--- OUTSIDE RECORDS SUMMARY | ~2020-04-19 | XMS | Encounter Summary ---
Demographics + + + | Address | [address] | | | [place] [address] | + + + | Home Phone | | + + + | Preferred Language | Unknown | + + + | Marital Status | | + + + | Moravian Affiliation | Unknown | + + + | Race | Unknown | + + + | Ethnic Group | Unknown | + + + Author + + + | Author | [facility] | | | and [place] | + + + | Organization | [facility] | | [...] Team Providers + +------+ + | Care Mechanical Unit Repairer Name | Role | Phone | + +------+ + | Maria Ines Moses PA-C | PCP | | + +------+ + Encounter Details +--------+ + + + + | Date | Type | Department | Care Team | Description | +--------+ + + + + | 02/09/ | Imaging | [facility] | Provider, | | | 2019 | Exam | [facility] | [address] | | | | | IMAGING [address] | [address] | | | | | [address] [place] | [place] [address] | | | | | [place] [address] | | | | | | [phone] | | | +--------+ + + + [...] [place] | | | | | | [address] | | | | | | | | +--------+ + + + + | 05/22/ | Office | Cardiology | Rylee Pollard DO | | | 2019 | Visit | | [address] | | | | | | [place] | | | | | | [address] | | | | | | | | +--------+ + + + + | 06/18/ | Office | Physical Medicine | Justin Cortez, | | | 2019 | Visit | and Rehabilitation | [address] | | | | | | [place] | | | | | | [address] | | | | | | | [...] | | WO CONTRAST | e | 9:00 AM | | procedure are in the | | | | PDT | | results section. | + +--------+ + + + documented in this encounter Results MRI Cervical Spine wo Contrast (08/14/2018 9:00 AM PDT) + + | Specimen | + + | | + + + + + | Narrative | Performed At | + + + | External films for comparison only | [facility] | | | | | No results will be in the chart. | | + + + + +---------+ + + | Performing | Address | City/State/Zipcode | Phone Number | | Organization | | | | + +---------+ + + | [facility] | | | | + +---------+ + + documented in this encounter Visit Diagnoses Not on filedocumented in this encounter"
--- OUTSIDE RECORDS SUMMARY | ~2020-04-19 | XMS | Encounter Summary ---
Demographics + + + | Address | [address] | | | [place] [address] | + + + | Home Phone | | + + + | Preferred Language | Unknown | + + + | Marital Status | | + + + | Methodist Affiliation | Unknown | + + + | Race | Unknown | + + + | Ethnic Group | Unknown | + + + Author + + + | Author | [facility] | | | and [place] | + + + | Organization | [facility] | | | [...] Providers + +------+ + | Care Director Of Tax Services Name | Role | Phone | + +------+ + PCP | Unavailable | + +------+ + Encounter Details +--------+ + + + + | Date | Type | Department | Care Team | Description | +--------+ + + + + | 04/20/ | Hospital | [facility] | Conversion | | | 1996 | Encounter | SYSTEM EMR | Transaction, | | | | | CONVERSION [address] | Provider Unknown | | | | | [address] [place], [place] | | | | | | [address] | (Fax) | | | | | [phone] | | | +--------+ + + + [...] [place] | | | | | | [address] | | | | | | | | +--------+ + + + + | 05/22/ | Office | Cardiology | Rylee Pollard DO | | | 2019 | Visit | | [address] | | | | | | [place] | | | | | | [address] | | | | | | | | +--------+ + + + + | 06/18/ | Office | Physical Medicine | Justin Cortez, | | | 2019 | Visit | and Rehabilitation | [address] | | | | | | [place] | | | | | | [address] | | | | | | | | +--------+ + + + + documented as of this encounter Visit Diagnoses Not on filedocumented in this encounter"
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
--- OUTSIDE RECORDS SUMMARY | ~2020-04-19 | XMS | Encounter Summary ---
Demographics + + + | Address | [address] | | | [place] [address] | + + + | Home Phone [...] Team Providers + +------+ + | Care Undercover Operator Name | Role | Phone | + +------+ + PCP | Unavailable | + +------+ + Encounter Details +--------+ + + + + | Date | Type | Department | Care Team | Description | +--------+ + + + + | 05/04/ | Hospital | [facility] | Conversion | | | 1994 | Encounter | SYSTEM EMR | Transaction, | | | | | CONVERSION [address] | Provider Unknown | | | | | [address] [place], [place] | | | | | | [address] | (Fax) | | | | | [phone] | | | +--------+ + + + [...] [place] | | | | | | [address] | | | | | | | | +--------+ + + + + | 05/22/ | Office | Cardiology | Rylee Pollard DO | | | 2019 | Visit | | [address] | | | | | | [place] | | | | | | [address] | | | | | | | | +--------+ + + + + | 06/18/ | Office | Physical Medicine | Justin Cortez, | | | 2019 | Visit | and Rehabilitation | [address] | | | | | | [place] | | | | | | [address] | | | | | | | | +--------+ + + + + documented as of this encounter Visit Diagnoses Not on filedocumented in this encounter"
--- OUTSIDE RECORDS SUMMARY | ~2020-04-19 | XMS | Encounter Summary ---
Demographics + + + | Address | [address] | | | [place] [address] | + + + | Home Phone | | + + + | Preferred Language | Unknown | + + + | Marital Status | | + + + | Roman Catholic Affiliation | Unknown | + + + | Race | Unknown | + + + | Ethnic Group | Unknown | + + + Author + + + | Author | [facility] | | | and [place] | + + + | Organization | [facility] | | | and [...] + +------+ + | Care Director Of Fundraising Name | Role | Phone | + [...] | | | | | pain | [address] | [address] | | | | | syndrome | [place], | B | | | | | type 1 of | [place] [id number] | [place] | | | | | left upper | Phone: | [address] | | | | | extremity | [phone] | Phone: | | | | | Hyperalgesia | Fax: | [phone] | | | | | Allodynia | [phone] | Fax: | | | | | Pain and | | [phone] | | | | | numbness of [...] | 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 [address] | [address] | | | | n | plexus | [address] | [place], | | | | | disorders | [place] | [place] [address] | | | | | Radiculopath | [address] | Phone: | | | | | y, cervical | [place], | [phone] | | | | | region | [place] | Fax: | | | | | Other | [address] | [phone] | | | | | disturbances | Phone: | | | | | | of skin | [phone] | | | | | | sensation | Fax: | | | | | | Other | [phone] | | | | | | disturbances [...] + + | 08/01/ | Office | [facility] [place] | Justin Cortez, | 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 Justin Cortez MD [address] [place] [address], [address] [place], [place] [id number] FAX: PHYSICAL MEDICINE AND REHABILITATION H&P CHIEF [...] has no apparent deficits with short or residential memory. The cranial nerves appear grossly intact. [...] clinic today to discuss her response to certified adaptive physical educator apy and Nortriptyline use for her left [...] Ganglion Block at the [facility]. Today we discussed the possibilities of [...] [place] | | | | | | [address] | | | | | | | | +--------+ + + + + | 05/22/ | Office | Cardiology | Rylee Pollard DO | | | 2019 | Visit | | [address] | | | | | | [place] | | | | | | [address] | | | | | | | | +--------+ + + + + | 06/18/ | Office | Physical Medicine | Justin Cortez, | | | 2019 | Visit | and Rehabilitation | [address] | | | | | | [place] | | | | | | [address] | | | | | | | [...]
--- OUTSIDE RECORDS SUMMARY | ~2020-04-19 | XMS | Encounter Summary ---
Demographics + + + | Address | [address] | | | [place] [address] | + + + | Home Phone | | + + + | Preferred Language | Unknown | + + + | Marital Status | | + + + | Jehovah'S Witness Affiliation | Unknown | + + + | Race | Unknown | + + + | Ethnic Group | Unknown | + + + Author + + + | Author | [facility] | | | and [place] | + + + | Organization | [facility] | | | [...] Team Providers + +------+ + | Care Radio Sportscaster Name | Role | Phone | + +------+ + | Maria Ines Moses PA-C | PCP | | + +------+ + Reason for Visit + + + | Reason | Comments | + + + | Flank Pain | | + + + Encounter Details +--------+ + + + + | Date | Type | Department | Care Team | Description | +--------+ + + + + | 10/08/ | Emergency | [facility] | He Sarkar MD | Flank pain (Primary | | 2019 | | [facility] | [address] | Dx) | | | | CENTER [address] | [place] | | | | | [place] | [address] | | | | | [address] | | | | | | [phone] | | | +--------+ + + + [...] + + + | Blood Pressure | 128/80 | 10/08/2019 11:23 AM | | | | | PST | | + + + + + | Pulse | 117 | 10/08/2019 11:23 AM | | | | | PST | | + + + + + | Temperature | 36.7 C (98 F) | 10/08/2019 11:23 AM | | | | | PST | | + + + + + | Respiratory Rate | 22 | 10/08/2019 11:23 AM | | | | | PST | | + + + + + | Oxygen Saturation | 98% | 10/08/2019 11:23 AM | | | [...] + documented in this encounter Discharge Instructions Instructions He Sarkar MD - 10/08/2019Follow-up with your primary care provider. Take Flexeril and tramadol as needed for your back pain. AttachmentsThe following attachments cannot be sent through Care Everywhere.Flank Pain, Unc ertain Cause (Maltese)documented in this encounter Medications at Time of [...] [place] | | | | | | [address] | | | | | | | | +--------+ + + + + | 05/22/ | Office | Cardiology | Rylee Pollard DO | | | 2019 | Visit | | [address] | | | | | | [place] | | | | | | [address] | | | | | | | | +--------+ + + + + | 06/18/ | Office | Physical Medicine | Justin Cortez, | | | 2019 | Visit | and Rehabilitation | [address] | | | | | | [place] | | | | | | [address] | | | | | | | | +--------+ + + + + + +------+--------+ + + | Name | Type | Priori | Associated Diagnoses | Date/Time | | | | ty | | | + +------+--------+ + + | ED INFORMATION | NA | Routin | | 10/08/2019 10:50 AM | | EXCHANGE | | e | | PST | + +------+--------+ + + documented as of this encounter Procedures + +--------+ + + + | Procedure Name | Priori | Date/Time | Associated Diagnosis | Comments | | | ty | | | | + +--------+ + + + | CBC WITH | STAT | 10/08/2019 | | Results for this | | DIFFERENTIAL | | 3:22 PM | | procedure are in the | | | | PST | | results section. | + +--------+ + + + | LIPASE | STAT | 10/08/2019 | | Results for this | | | | 3:22 PM | | procedure are in the | | | | PST | | results section. | + +--------+ + + + | COMPREHENSIVE | STAT | 10/08/2019 | | Results for this | | METABOLIC PANEL | | 3:22 PM | | procedure are in the | | | | PST | | results section. | + +--------+ + + + | URINALYSIS WITH | STAT | 10/08/2019 | | Results for this | | MICROSCOPIC WITH | | 3:21 PM | | procedure are in the | | CULTURE IF INDICATED | | PST | | results section. | + +--------+ + + + | CT ABDOMEN PELVIS W | STAT | 10/08/2019 | | Results for this | | CONTRAST | | 3:02 PM | | procedure are in the | | | | PST | | results section. | + +--------+ + + + | ED INFORMATION | Routin | 10/08/2019 | | | | EXCHANGE | e | 10:50 AM | | | | | | PST | | | + +--------+ + + + +---+--------+ | | | | | Proced | | | ure | | | Note - | | | Isaías, | | | Lab In | | | | | | Hlseve | | | n - | | | | | | 2019 | | | 10:51 | | | AM PST | | | | | | Format | | | ting | | | of | | | this | | | note | | | might | | | be | | | differ | | | ent | | | from | | | the | | | origin | | | al.COL | | | LECTIV | | | E?NOTI | | | FICATI | | | ON?11/ | | | 25/201 | | | 9 | | | 10:49? | | | LUBRIN | | | , | | | ELFRIN | | | A | | | H?MRN: | | | | | | [id number] | | | [id number] | | | riteri | | | a Met | | | Care | | | Guidel | | | inesSe | | | curity | | | and | | | Safety | | | No | | | recent | | | | | | Securi | | | ty | | | Events | | | | | | curren | | | tly on | | | | | | fileED | | | Care | | | Guidel | | | inesTh | | | ere | | | are | | | curren | | | tly no | | | ED | | | Care | | | Guidel | | | hanh | | | for | | | this | | | patien | | | t. | | | Please | | | check | | | your | | | facili | | | ty's | | | medica | | | l | | | record | | | s | | | system | | | .Care | | | Histor | | | yMedic | | | al/Wilman | | | [email or web address] | | | /11/19 | | | 12:00 | | | AM | | | [facility] | | [facility] | | | al?? | | | PATIEN | | | T IS A | | | | | | YELLOW | | | [facility] | | | MEMBER | | | .?? | | | PLEASE | | | REFER | | | | | | PATIEN | | | T TO | | | [facility] | | | [facility] | [facility] | | | FOR | | | NON | | | EMERGE | | | NT | | | MEDICA | | | L | | | NEEDS. | | | ?? | | | YELLOW | | | [facility] | | [facility] | | | CAN | | | SEE | | | PATIEN | | | TS | | | SAME | | | DAY | | | FOR | | | APTS | | | IF | | | PATIEN | | | T | | | CALLS | | | FIRST | | | THING | | | IN THE | | | | | | MORNIN | | | G.Pres | | | cripti | | | on | | | Drug | | | Report | | | (12 | | | Mo.)PD | | | MP | | | query | | | found | | | no | | | report | | | .E.D. | | | Visit | | | Count | | | (12 | | | mo.)Fa | | | cility | | | | | | Visits | | | Low | | | Acuity | | | | | | Provid | | | ence | | | St[facility] | | | [facility] | Medica | | | l | | | Center | | | 1 0 | | | [facility] y | | | Hospit | | | al 2 0 | | | Total | | | 3 0 | | | Note: | | | Visits | | | | | | indica | | | te | | | total | | | known | | | visits | | | . | | | Medica | | | id Low | | | | | | Acuity | | | Dx | | | are | | | the | | | number | | | of | | | primar | | | y | | | diagno | | | ses on | | | the | | | Medica | | | id's | | | Low | | | Acuity | | | dx | | | list. | | | | | | Recent | | | | | | Emerge | | | ncy | | | Depart | | | ment | | | Visit | | | [facility] | | | yDate | | | Facili | | | ty | | | City | | | State | | | Type | | | Diagno | | | ses or | | | Chief | | | | | | Compla | | | int | | | Nov | | | 25, | | | 2019 | | | Prov[facility] | | | ence | | | [facility] | [facility] | [place] | | | [place] | | | Emerge | | | ncy | | | | | | kidney | | | pain | | | Apr | | | 30, | | | 2019 | | | [facility] [place] | [facility] | [facility] | | | [place] | | | [place] | | | Emerge | | | ncy | | | | | | Dorsal | | | gabbie, | | | unspec | | | ified | | | | | | Acute | | | pancre | | | atitis | | | | | | withou | | | t | | | necros | | | is or | | | infect | | | ion, | | | unsp | | | | | | Unspec | | | ified | | | abdomi | | | nal | | | pain | | | | | | Allerg | | | y | | | status | | | to | | | narcot | | | ic | | | agent | | | status | | | | | | Other | | | long | | | term | | | (curre | | | nt) | | | drug | | | therap | | | y | | | Allerg | | | y to | | | milk | | | produc | | | ts | | | Essent | | | ial | | | (prima | | | ry) | | | hypert | | | ension | | | Mar | | | 11, | | | 2019 | | | [facility] [place] | | [facility] | | | [place] | | | [place] | | | Emerge | | | ncy | | | Other | | | long | | | term | | | (curre | | | nt) | | | drug | | | therap | | | y | | | Pain | | | in | | | left | | | hip | | | Iron | | | defici | | | ency | | | anemia | | | , | | | unspec | | | ified | | | | | | Dehydr | | | ation | | | | | | Allerg | | | y | | | status | | | to | | | narcot | | | ic | | | agent | | | status | | | | | | Person | | | al | | | histor | | | y of | | | urinar | | | y | | | calcul | | | i | | | [place] | | | lemia | | | | | | Allerg | | | y to | | | milk | | | produc | | | ts | | | Pain | | | in | | | right | | | hip | | | | | | Essent | | | ial | | | (prima | | | ry) | | | hypert | | | ension | | | | | | Recent | | | | | | Inpati | | | ent | | | Visit | | | [facility] | | | yNo | | | record | | | ed | | | inpati | | | ent | | | visits | | | . Care | | | | | | TeamPr | | | ovider | | | | | | Specia | | | lty | | | Phone | | | Fax | | | Servic | | | e | | | Dates | | | BOURRE | | | T, | | | FÁTIMA | | | N, PAC | | | | | | Physic | | | mary | | | Assist | | | ant: | | | Surgic | | | al | | | Mar | | | 11, | | | 2019 - | | | | | | Curren | | | t | | | [facility] | | | | | | [facility] | | | | | | PRIMAR | | | Y CARE | | | CNTR | | | Primar | | | y Care | | | | | | Curren | | | t | | | Collec | | | tive | | | Portal | | | This | | | patien | | | t has | | | regist | | | ered | | | at the | | | | | | Provid | | | ence | | | St[facility] | | | [facility] | Medica | | | l | | | Center | | | | | | Emerge | | | ncy | | | Depart | | | ment | | | For | | | more | | | inform | | | ation | | | visit: | | | | | | https: | | | //secu | | | re.col | | | lectiv | | | emedic | | | al.com | | | /notif | | | y/470d | | | a051-4 | | | f18-4f | | | 6b-86d | | | [phone] | | | [id number] | | | 2d | | | PLEASE | | | NOTE: | | | 1. | | | Any | | | care | | | recomm | | | endati | | | ons | | | and | | | other | | | clinic | | | al | | | inform | | | ation | | | are | | | provid | | | ed as | | | guidel | | | hanh | | | or for | | | | | | histor | | | ical | | | purpos | | | es | | | only, | | | and | | | provid | | | ers | | | should | | | | | | exerci | | | se | | | their | | | own | | | clinic | | | al | | | judgme | | | nt | | | when | | | provid | | | ing | | | care. | | | 2. | | | You | | | may | | | only | | | use | | | this | | | inform | | | ation | | | for | | | purpos | | | es of | | | treatm | | | ent, | | | paymen | | | t or | | | health | | | care | | | operat | | | ions | | | activi | | | ties, | | | and | | | subjec | | | t to | | | the | | | limita | | | tions | | | of | | | applic | | | able | | | Collec | | | tive | | | Polici | | | es. | | | 3. | | | You | | | should | | | | | | consul | | | t | | | direct | | | ly | | | with | | | the | | | organi | | | zation | | | that | | | provid | | | ed a | | | care | | | guidel | | | ine or | | | other | | | | | | clinic | | | al | | | histor | | | y with | | | any | | | questi | | | ons | | | about | | | additi | | | onal | | | inform | | | ation | | | or | | | accura | | | cy or | | | comple | | | teness | | | of | | | inform | | | ation | | | provid | | | ed.? | | | 2019 | | | Collec | | | tive | | | Medica | | | l | | | Techn[employer] | | | logies | | | , Inc[employer] | | | - | | | [email or web address] | | | llecti | | | vemedi | | | [email or web address] | | | m | +---+--------+ documented in this encounter Results Lipase (10/08/2019 3:22 PM PST) + + + + + + | Component | Value | Ref Range | Performed | Pathologist | | | | | At | Signature | + + + + + + | Lipase | 25Comment: New method in | 12 - 53 U/L | [facility] | | | | use as of January 10, | | [facility] | | | | 2019. Check reference | | MEDICAL | | | | range for changes.Some | | CENTER - | | | | analytes show | | LABORATORY | | | | significant variation | | | | | | from the previous | | | | | | method.It may be | | | | | | necessary to set a new | | | | | | baseline for this | | | | | | analyte. | | | | + + + + + + + + | Specimen | + + | Blood | + + + + + + + | Performing | Address | City/State/Zipcode | Phone Number | | Organization | | | | + + + + + | [facility] | [address] | [place] | [phone] | | [facility] | | [address] | | | - LABORATORY | | | | + + + + + Comprehensive Metabolic Panel (10/08/2019 3:22 PM PST) + +---------+ + + + | Component | Value | Ref Range | Performed | Pathologist | | | | | At | Signature | + +---------+ + + + | Na | 134 (L) | 136 - 145 | [facility] | | | | | mmol/L | [facility] | | | | | | [facility] | | | | | | CENTER - | | | | | | LABORATORY | | + +---------+ + + + | K | 3.4 | 3.4 - 5.1 | [facility] | | | | | mmol/L | [facility] | | | | | | [facility] | | | | | | CENTER - | | | | | | LABORATORY | | + +---------+ + + + | Cl | 101 | 98 - 107 mmol/L | [facility] | | | | | | [facility] | | | | | | [facility] | | | | | | CENTER - | | | | | | LABORATORY | | + +---------+ + + + | CO2 | 22 | 20 - 31 mmol/L | [facility] | | | | | | [facility] | | | | | | [facility] | | | | | | CENTER - | | | | | | LABORATORY | | + +---------+ + + + | Anion Gap | 11 | 3 - 16 mmol/L | [facility] | | | | | | [facility] | | | | | | [facility] | | | | | | CENTER - | | | | | | LABORATORY | | + +---------+ + + + | Glucose | 94 | 60 - 106 mg/dL | [facility] | | | | | | [facility] | | | | | | [facility] | | | | | | CENTER - | | | | | | LABORATORY | | + +---------+ + + + | BUN | 8 (L) | 9 - 23 mg/dL | [facility] | | | | | | [facility] | | | | | | [facility] | | | | | | CENTER - | | | | | | LABORATORY | | + +---------+ + + + | Creatinine | 0.58 | 0.55 - 1.02 | [facility] | | | | | mg/dL | [facility] | | | | | | MEDICAL | | | | | | CENTER - | | | | | | LABORATORY | | + +---------+ + + + | eGFR if not | >60 | >=60 | [facility] | | | | | mL/min/1.73m2 | [facility] | | | [facility] | | | MEDICAL | | | | | | CENTER - | | | | | | LABORATORY | | + +---------+ + + + | Calcium | 8.1 (L) | 8.7 - 10.4 | [facility] | | | | | mg/dL | [facility] | | | | | | MED[facility] | | | | | | CENTER - | | | | | | LABORATORY | | + +---------+ + + + | Albumin | 3.8 | 3.2 - 4.8 g/dL | [facility] | | | | | | [facility] | | | | | | MEDICAL | | | | | | CENTER - | | | | | | LABORATORY | | + +---------+ + + + | Bilirubin | 0.2 (L) | 0.3 - 1.2 mg/dL | [facility] | | | Total | | | [facility] | | | | | | MEDICAL | | | | | | CENTER - | | | | | | LABORATORY | | + +---------+ + + + | Total | 6.2 | 5.7 - 8.2 g/dL | [facility] | | | Protein | | | [facility] | | | | | | MEDICAL | | | | | | CENTER - | | | | | | LABORATORY | | + +---------+ + + + | AST | 36 (H) | 0 - 34 U/L | [facility] | | | | | | [facility] | | | | | | MEDICAL | | | | | | CENTER - | | | | | | LABORATORY | | + +---------+ + + + | ALT | 43 | 10 - 49 U/L | [facility] | | | | | | [facility] | | | | | | MEDICAL | | | | | | CENTER - | | | | | | LABORATORY | | + +---------+ + + + | Alkaline | 82 | 46 - 116 U/L | [facility] | | | Phosphatase | | | [facility] | | | | | | MEDICAL | | | | | | CENTER - | | | | | | LABORATORY | | + +---------+ + + + | Globulin | 2.4 | 2.1 - 3.8 g/dL | [facility] | | | | | | [facility] | | | | | | MEDICAL | | | | | | CENTER - | | | | | | LABORATORY | | + +---------+ + + + | Albumin/Kady | 1.6 | 0.8 - 1.9 | [facility] | | | bulin Ratio | | | [facility] | | | | | | MEDICAL | | | | | | CENTER - | | | | | | LABORATORY | | + +---------+ + + + | BUN/Creatin | 13.8 | | [facility] | | | ine Ratio | | | [facility] | | | | | | MEDICAL | | | | | | CENTER - | | | | | | LABORATORY | | + +---------+ + + + + + | Specimen | + + | Blood | + + + + + + + | Performing | Address | City/State/Zipcode | Phone Number | | Organization | | | | + + + + + | [facility] | [address] | [place] | [phone] | | [facility] | | [address] | | | - LABORATORY | | | | + + + + + CBC with Differential (10/08/2019 3:22 PM PST) + + + + + + | Component | Value | Ref Range | Performed | Pathologist | | | | | At | Signature | + + + + + + | WBC | 10.2 | 4.0 - 11.0 K/uL | [facility] | | | | | | [facility] | | | | | | MEDICAL | | | | | | CENTER - | | | | | | LABORATORY | | + + + + + + | RBC | 3.36 (L) | 3.70 - 5.20 | [facility] | | | | | M/uL | [facility] | | | | | | MEDICAL | | | | | | CENTER - | | | | | | LABORATORY | | + + + + + + | Hemoglobin | 10.0 (L) | 11.5 - 16.0 | [facility] | | | | | g/dL | [facility] | | | | | | MEDICAL | | | | | | CENTER - | | | | | | LABORATORY | | + + + + + + | Hematocrit | 30.6 (L) | 34.0 - 47.0 % | [facility] | | | | | | [facility] | | | | | | MEDICAL | | | | | | CENTER - | | | | | | LABORATORY | | + + + + + + | MCV | 91.1 | 83.0 - 101.0 fL | [facility] | | | | | | [facility] | | | | | | MEDICAL | | | | | | CENTER - | | | | | | LABORATORY | | + + + + + + | MCH | 29.8 | 28.0 - 35.0 pg | [facility] | | | | | | [facility] | | | | | | MEDICAL | | | | | | CENTER - | | | | | | LABORATORY | | + + + + + + | MCHC | 32.7 | 32.0 - 36.0 | [facility] | | | | | g/dL | [facility] | | | | | | MEDICAL | | | | | | CENTER - | | | | | | LABORATORY | | + + + + + + | RDW-CV | 14.1 | <15.0 % | [facility] | | | | | | [facility] | | | [facility] | | MEDICAL | | | | | | CENTER - | | | | | | LABORATORY | | + + + + + + | RDW-SD | 47.0 (H) | 35.1 - 46.3 fL | [facility] | | | | | | [facility] | | | | | | MED[facility] | | | | | | CENTER - | | | | | | LABORATORY | | + + + + + + | Platelet | 331 | 140 - 440 K/uL | [facility] | | | Count | | | [facility] | | | | | | MEDICAL | | | | | | CENTER - | | | | | | LABORATORY | | + + + + + + | MPV | 9.3 | 6.5 - 12.4 fL | [facility] | | | | | | [facility] | | | | | | MEDICAL | | | | | | CENTER - | | | | | | LABORATORY | | + + + + + + | % | 70.3 | 45.0 - 82.0 % | [facility] | | | Neutrophils | | | [facility] | | | | | | MEDICAL | | | | | | CENTER - | | | | | | LABORATORY | | + + + + + + | % | 18.9 (L) | 20.0 - 45.0 % | [facility] | | | Lymphocytes | | | [facility] | | | | | | MEDICAL | | | | | | CENTER - | | | | | | LABORATORY | | + + + + + + | % Monocytes | 6.5 | 4.0 - 12.0 % | [facility] | | | | | | [facility] | | | | | | MEDICAL | | | | | | CENTER - | | | | | | LABORATORY | | + + + + + + | % | 2.2 | 0.0 - 5.0 % | [facility] | | | Eosinophils | | | [facility] | | | | | | MEDICAL | | | | | | CENTER - | | | | | | LABORATORY | | + + + + + + | % Basophils | 0.7 | 0.0 - 1.0 % | [facility] | | | | | | [facility] | | | | | | MEDICAL | | | | | | CENTER - | | | | | | LABORATORY | | + + + + + + | % Immature | 1.4 (H)Comment: | 0.0 - 0.4 % | [facility] | | | Granulocyte | Preliminary studies have | | [facility] | | | s | indicated the IG% | | MEDICAL | | | | and/or IG# show promise | | CENTER - | | | | as an early indicator | | LABORATORY | | | | for infection. For | | | | | | patients, use | | | | | | the special reference | | | | | | ranges listed below. | | | | + + + + + + | Absolute | 7.20 | 1.80 - 8.50 | [facility] | | | Neutrophils | | K/uL | [facility] | | | | | | MEDICAL | | | | | | CENTER - | | | | | | LABORATORY | | + + + + + + | Absolute | 1.93 | 0.60 - 3.20 | [facility] | | | Lymphocytes | | K/uL | [facility] | | | | | | MEDICAL | | | | | | CENTER - | | | | | | LABORATORY | | + + + + + + | Absolute | 0.66 | 0.00 - 1.00 | [facility] | | | Monocytes | | K/uL | [facility] | | | | | | MEDICAL | | | | | | CENTER - | | | | | | LABORATORY | | + + + + + + | Absolute | 0.23 | 0.00 - 0.40 | [facility] | | | Eosinophils | | K/uL | [facility] | | | | | | MEDICAL | | | | | | CENTER - | | | | | | LABORATORY | | + + + + + + | Absolute | 0.07 | 0.00 - 0.10 | [facility] | | | Basophils | | K/uL | [facility] | | | | | | MEDICAL | | | | | | CENTER - | | | | | | LABORATORY | | + + + + + + | Absolute | 0.14 (H)Comment: For | 0.00 - 0.03 | [facility] | | | Immature | patients, use | K/uL | [facility] | | | Granulocyte | the special reference | | MEDICAL | | | s | ranges listed below. | | CENTER - | | | | | | LABORATORY | | + + + + + + | % nRBC | 0 | 0 - 2 per 100 | [facility] | | | | | WBCs | [facility] | | | | | | MEDICAL | | | | | | CENTER - | | | | | | LABORATORY | | + + + + + + | Absolute | 0.00 | 0.00 - 0.01 | [facility] | | | nRBC | | K/uL | [facility] | | | | | | MEDICAL | | | | | | CENTER - | | | | | | LABORATORY | | + + + + + + + + | Specimen | + + | Blood | + + + + + | Narrative | Performed At | + + + | IMMATURE GRANULOCYTES - For patients, use the following | [facility] | | reference ranges: Trim. Absolute (K/uL) Percentage (%) | [facility] | | 1st 0.003-0.091 K/uL 0.0-0.9% 2nd 0.007-0.247 K/uL | MEDICAL CENTER | | 0.1-2.0% 3rd 0.018-0.456 K/uL 0.1-2.0% | - LABORATORY | + + + + + + + + | Performing | Address | City/State/Zipcode | Phone Number | | Organization | | | | + + + + + | [facility] | [address] | [place], [place] | [phone] | | [facility] | | [address] | | | - LABORATORY | | | | + + + + + Urinalysis with Microscopic with Culture if Indicated (10/08/2019 3:21 PM PST) + + + + + + | Component | Value | Ref Range | Performed | Pathologist | | | | | At | Signature | + + + + + + | Color, | Yellow | Light Yellow, | [facility] | | | Urine | | Yellow, Straw | [facility] | | | | | | MEDICAL | | | | | | CENTER - | | | | | | LABORATORY | | + + + + + + | Clarity | Clear | Clear | [facility] | | | | | | [facility] | | | | | | MEDICAL | | | | | | CENTER - | | | | | | LABORATORY | | + + + + + + | pH, Urine | 8.0 | 5.0 - 8.0 | [facility] | | | | | | [facility] | | | | | | MEDICAL | | | | | | CENTER - | | | | | | LABORATORY | | + + + + + + | Specific | 1.015 | 1.001 - 1.030 | [facility] | | | [place], | | | [facility] | | | Urine | | | MEDICAL | | | | | | CENTER - | | | | | | LABORATORY | | + + + + + + | Protein, | Negative | Negative | [facility] | | | Urine | | | [facility] | | | | | | MEDICAL | | | | | | CENTER - | | | | | | LABORATORY | | + + + + + + | Blood, | Negative | Negative | [facility] | | | Urine | | | [facility] | | | | | | MEDICAL | | | | | | CENTER - | | | | | | LABORATORY | | + + + + + + | Glucose, | Negative | Negative | [facility] | | | Urine | | | [facility] | | | | | | MEDICAL | | | | | | CENTER - | | | | | | LABORATORY | | + + + + + + | Ketones, | Negative | Negative | [facility] | | | Urine | | | [facility] | | | | | | MEDICAL | | | | | | CENTER - | | | | | | LABORATORY | | + + + + + + | Bilirubin, | Negative | Negative | [facility] | | | Urine | | | [facility] | | | | | | MEDICAL | | | | | | CENTER - | | | | | | LABORATORY | | + + + + + + | Nitrite, | Negative | Negative | [facility] | | | Urine | | | [facility] | | | | | | MEDICAL | | | | | | CENTER - | | | | | | LABORATORY | | + + + + + + | Leukocyte | Negative | Negative | [facility] | | | Esterase, | | | [facility] | | | Urine | | | MEDICAL | | | | | | CENTER - | | | | | | LABORATORY | | + + + + + + | Urobilinoge | Negative | 0.2 mg/dL, 1.0 | [facility] | | | n, Urine | | mg/dL, Negative | [facility] | | | | | | MEDICAL | | | | | | CENTER - | | | | | | LABORATORY | | + + + + + + | White Blood | 0-2 | 0 - 2 /HPF | [facility] | | | Cells, | | | [facility] | | | Urine | | | MEDICAL | | | | | | CENTER - | | | | | | LABORATORY | | + + + + + + | Red Blood | 0-2 | 0 - 2 /HPF | [facility] | | | Cells, | | | [facility] | | | Urine | | | MEDICAL | | | | | | CENTER - | | | | | | LABORATORY | | + + + + + + | Squamous | 10-15 (A) | 0 - 2 /LPF | [facility] | | | Epithelial | | | [facility] | | | Cells, | | | MEDICAL | | | Urine | | | CENTER - | | | | | | LABORATORY | | + + + + + + | Bacteria, | Negative | Negative /HPF | [facility] | | | Urine | | | [facility] | | | | | | MEDICAL | | | | | | CENTER - | | | | | | LABORATORY | | + + + + + + | Mucus, | Present (A) | Negative /LPF | [facility] | | | Urine | | | [facility] | | | | | | MEDICAL | | | | | | CENTER - | | | | | | LABORATORY | | + + + + + + | Urine | Urine Culture Not | | [facility] | | | Comment | Indicated | | [facility] | | | | | | MEDICAL | | | | | | CENTER - | | | | | | LABORATORY | | + + + + + + + + | Specimen | + + | Urine - Urine | | specimen obtained by | | clean catch | | procedure (specimen) | + + + + + + + | Performing | Address | City/State/Zipcode | Phone Number | | Organization | | | | + + + + + | [facility] | [address] | [place] | [phone] | | [facility] | | [id number] | | | - LABORATORY | | | | + + + + + CT Abdomen Pelvis w Contrast (10/08/2019 3:02 PM PST) + + | Specimen | + + | | + + + + + | Impressions | Performed At | + + + | No acute abdominal or pelvic abnormality. Dictated and Signed | [facility] | | by: Lopez Aldrich MD Electronically signed: 10/08/2019 3:40 PM | | | | | + + + + + + | Narrative | Performed At | + + + | TECHNIQUE: After administration of 90 mL Omnipaque 350 | [facility] | | intravenously, axial CT imaging was obtained through the abdomen and | | | pelvis with coronal and sagittal reformats. At least one of the | | | following CT dose optimization techniques were used: Automated | | | exposure control; Adjustment of mA and/or kV according to patient | | | size; Use of iterative reconstruction technique. CLINICAL | | | INFORMATION: Abdominal pain, acute, nonlocalized Bilateral kidney | | | pain initially right now left ongoing for the past week. | | | COMPARISON: None available. FINDINGS: LUNGS: Bases are clear. | | | BONES: No acute osseous abnormality. No osteoblastic or | | | osteolytic lesion. ABDOMEN/PELVIS: Abdominal wall: Normal. | | | Liver: No mass lesion. Gallbladder: No calcified gallstones. Normal | | | caliber wall. Pancreas: No mass or ductal dilatation. Spleen: | | | Unremarkable. Adrenals: No nodule. Kidneys: No mass, | | | nephrolithiasis, or hydronephrosis. Ureters: No hydroureter. | | | Urinary Bladder: No wall thickening. Reproductive organs: No adnexal | | | mass. Bowel: Normal appendix. No wall thickening or obstruction. | | | Peritoneum/retroperitoneum: No ascites, free air, or lymphadenopathy. | | | Vessels: Normal caliber of the abdominal aorta. | | + + + + + | Procedure Note | + + | Isaías, Rad Results In - 10/08/2019 3:43 PM PST | | TECHNIQUE: After administration of 90 mL Omnipaque 350 intravenously, axial CT | | imaging was obtained through the abdomen and pelvis with coronal and sagittal | | reformats. | | | | At least one of the following CT dose optimization techniques were | | used: Automated exposure control; Adjustment of mA and/or kV according | | to patient size; Use of iterative reconstruction technique. | | | | CLINICAL INFORMATION: Abdominal pain, acute, nonlocalized | | Bilateral kidney pain initially right now left ongoing for the past week. | | | | COMPARISON: None available. | | | | FINDINGS: | | | | LUNGS: Bases are clear. | | | | BONES: No acute osseous abnormality. No osteoblastic or osteolytic lesion. | | | | ABDOMEN/PELVIS: | | Abdominal wall: Normal. | | | | Liver: No mass lesion. | | Gallbladder: No calcified gallstones. Normal caliber wall. | | Pancreas: No mass or ductal dilatation. | | Spleen: Unremarkable. | | | | Adrenals: No nodule. | | Kidneys: No mass, nephrolithiasis, or hydronephrosis. | | Ureters: No hydroureter. | | Urinary Bladder: No wall thickening. | | Reproductive organs: No adnexal mass. | | | | Bowel: Normal appendix. No wall thickening or obstruction. | | Peritoneum/retroperitoneum: No ascites, free air, or lymphadenopathy. | | Vessels: Normal caliber of the abdominal aorta. | | | | | | IMPRESSION: | | | | No acute abdominal or pelvic abnormality. | | | | Dictated and Signed by: Lopez Aldrich MD | | Electronically signed: 10/08/2019 3:40 PM | + + + +---------+ + + | Performing | Address | City/State/Zipcode | Phone Number | | Organization | | | | + +---------+ + + | [facility] | | | | + +---------+ + + documented in this encounter Visit Diagnoses + + | Diagnosis | + + | Flank pain - Primary Abdominal pain, unspecified site | + + documented in this encounter Administered Medications + +--------+ +--------+------+------+ | Medication Order | MAR | Action | Dose | Rate | Site | | | Action | Date | | | | + +--------+ +--------+------+------+ | iohexol (OMNIPAQUE 350) 350 | Given | 10/08/20 | 90 mLs | | | | mg/mL injection 90 mL 90 mL, | | 19 3:03 | | | | | Intravenous, ONCE PRN, Other, for | | PM PST | | | | | imaging CT study, Starting Mon | | | | | | | 10/08/19 at 1502, For 1 dose, | | | | | | | Radiology | | | | | | + +--------+ +--------+------+------+ +---+---+ | | | +---+---+ + +-------+ +-------+---+---+ | ketorolac (TORADOL) injection | Given | 10/08/20 | 15 mg | | | | 15 mg 15 mg, Intravenous, ONCE, | | 19 3:26 | | | | | 10/08/19 at 1425, For 1 dose | | PM PST | | | | + +-------+ +-------+---+---+ +---+---+ | | | +---+---+ + +---------+ +--------+-------+---+ | sodium chloride 0.9% (NS) bolus | New Bag | 10/08/20 | 1,000 | 2000 | | | 1,000 mL 1,000 mL, Intravenous, | | 19 3:26 | mLs | mL/hr | | | Administer over 30 Minutes, | | PM PST | | | | | ONCE, 10/08/19 at 1425, For 1 | | | | | | | dose | | | | | | + +---------+ +--------+-------+---+ +---+---+ | | | +---+---+ documented in this encounter"
--- OUTSIDE RECORDS SUMMARY | ~2020-04-19 | XMS | Clinical Summary ---
Demographics + + + | Address | [address] | | | [place] [address] | + + + | Home Phone | | + + + | Preferred Language | Unknown | + + + | Marital Status | | + + + | Hinduism Affiliation | Unknown | + + + | Race | Unknown | + + + | Ethnic Group | Unknown | + + + Author + + + | Author | [facility] | | | and [place] | + + + | Organization | [facility] | | | and [...] Team Providers + +------+ + | Care Custom Home Installer Name | Role | Phone | + [...] + | Heart failure | Father | Ele | | | | | Lubrin | [...] [place] | | | | | | [address] | | | | | | | | +--------+ + + + + | 05/22/ | Office | Cardiology | Rylee Pollard DO | | | 2019 | Visit | | [address] | | | | | | [place] | | | | | | [address] | | | | | | | | +--------+ + + + + | 06/18/ | Office | Physical Medicine | Justin Cortez, | | | 2019 | Visit | and Rehabilitation | [address] | | | | | | [place] | | | | | | [address] | | | | | | | [...] +--------+ +--------+-------+---------+--------+ | BCBS | BCBS | [id number] | 11/14/19 | | | PPO | | | FEDERA | | 16-Pre | | | | | | L FEP | | sent | | | | + +--------+ +--------+-------+---------+--------+ | BCBS | BCBS | [id number] | 06/14/20 | | | PPO | | | [place]A | | 19-Pre | | | | | | L FEP | | sent | | | | + +--------+ +--------+-------+---------+--------+ | [facility] | IHS | [id number] | 08/25/ | | | Indemn | | SERVICE | YELLOW | | 2017-P | | | ity | | | HAWK | | resent | | | | + +--------+ +--------+-------+---------+--------+ | [facility] | IHS | [id number] | 10/05/ | | | Indemn | [...] [place] | | | 2 (Home) | [address] | + +--------+ +--------+ + + | Isi Springer | Person | Self | [birth year] | | [address] | | | al/Fam | | 1974 | [address] | [place], [place] | | | [place] | | | 2 (Home) | [address] | + +--------+ +--------+ + + Advance Directives + + + + + | Type | Date Recorded | Patient | Explanation | | | | Human Resources Associate | | + + + + + | Power of | | | | | Blanket Winder Helper | | | | + + + + + | Advance | | | | | Directive | | | | + + + + +
--- OUTSIDE RECORDS SUMMARY | ~2020-04-19 | XMS | Encounter Summary ---
Demographics + + + | Address | [address] | | | [place] [address] | + + + | Home Phone | | + + + | Preferred Language | Unknown | + + + | Marital Status | | + + + | Anabaptist Affiliation | Unknown | + + + | Race | Unknown | + + + | Ethnic Group | Unknown | + + + Author + + + | Author | [facility] | | | and [place] | + + + | Organization | [facility] | | | [...] Team Providers + +------+ + | Care Ornamental Painter Name | Role | Phone | + [...] + + | 04/12/ | Telephone | [facility] [place] | Justin Cortez, | Results, Imaging | | 2019 | | [address]SIATRY [address] | MD [address] | | | | | [address] | [place] | | | | | [place] | [address] | | | | | [address] | | | | | | [phone] | | | +--------+ + + + [...] [place] | | | | | | [address] | | | | | | | | +--------+ + + + + | 05/22/ | Office | Cardiology | Rylee Pollard DO | | | 2019 | Visit | | [address] | | | | | | [place] | | | | | | [address] | | | | | | | | +--------+ + + + + | 06/18/ | Office | Physical Medicine | Justin Cortez, | | | 2019 | Visit | and Rehabilitation | [address] | | | | | | [place] | | | | | | [address] | | | | | | | | +--------+ + + + + documented as of this encounter Visit Diagnoses Not on filedocumented in this encounter"
--- OUTSIDE RECORDS SUMMARY | ~2020-04-19 | XMS | Encounter Summary ---
Demographics + + + | Address | [address] | | | [place] [address] | + + + | Home Phone | | + + + | Preferred Language | Unknown | + + + | Marital Status | | + + + | Latter Day Affiliation | Unknown | + + + | Race | Unknown | + + + | Ethnic Group | Unknown | + + + Author + + + | Author | [facility] | | | and [place] | + + + | Organization | [facility] | | | [...] Team Providers + +------+ + | Care Executive Coach Name | Role | Phone | + +------+ + PCP | Unavailable | + +------+ + Encounter Details +--------+ + + + + | Date | Type | Department | Care Team | Description | +--------+ + + + + | 10/25/ | Hospital | [facility] | Conversion | | | 1998 | Encounter | SYSTEM EMR | Transaction, | | | | | CONVERSION [address] | Provider Unknown | | | | | [address] [place], [place] | | | | | | [address] | (Fax) | | | | | [phone] | | | +--------+ + + + [...] [place] | | | | | | [address] | | | | | | | | +--------+ + + + + | 05/22/ | Office | Cardiology | Rylee Pollard DO | | | 2019 | Visit | | [address] | | | | | | [place] | | | | | | [address] | | | | | | | | +--------+ + + + + | 06/18/ | Office | Physical Medicine | Justin Cortez, | | | 2019 | Visit | and Rehabilitation | [address] | | | | | | [place] | | | | | | [address] | | | | | | | | +--------+ + + + + documented as of this encounter Visit Diagnoses Not on filedocumented in this encounter"
--- OUTSIDE RECORDS SUMMARY | ~2020-04-19 | XMS | Encounter Summary ---
Demographics + + + | Address | [address] | | | [place] [address] | + + + | Home Phone [...] Team Providers + +------+ + | Care Outreach Coordinator Name | Role | Phone | [...] Justin Lupillo Salguero MD | [address] | | | | | numbness of | [address] | [place], | | | | | left upper | [address] | [place] | | | | | extremity | [place], | [address] | | | | | Neuropathic | [place] [address] | Phone: | | | | | pain | Phone: | [phone] | | | | | Cervicalgia | [phone] | Fax: | | | | | Weakness of | Fax: | [phone] | | | | | left upper | [phone] | | | | | | extremity [...] | | | | syndrome of | [address] | [address] | | | | | left | [place], | AVE | | | | | thoracic | [place] [address] | [place] | | | | | outlet | Phone: | [phone] | | | | | Procedures | [phone] | Phone: | | | | | HIM | Fax: | [phone] | | | | | 02/08/19 | [phone] | Fax: | | | | | | | [phone] | +--------+ + + + + + Reason for Visit + + + | Reason | Comments | + + + | Arm Pain | left upper extremity | + + + Encounter Details +--------+---------+ + + + | Date | Type | Department | Care Team | Description | +--------+---------+ + + + | 01/23/ | Office | [facility] | Justin Cortez, | Pain and numbness of | | 2018 | Visit | PHYSIATRY [address] | MD [address] | left upper | | | | [address] | [place] | extremity (Primary | | | | [place] | [address] | Dx); Neuropathic | | | | [address] | | pain; Cervicalgia; | | | | [phone] | | Weakness of left | | [...] encounter Patient Instructions Patient Instructions Melly Ambrocio, State Assessed Properties Director - 01/23/2019 8:15 AM PDTPhysic al therapy [...] fro m the original. Justin Cortez MD [address] [place] [address], [address] [place], [place] [id number] FAX: PHYSICAL MEDICINE AND REHABILITATION H&P CHIEF [...] the hospital for renal impairment due to [facility] use of lisinopril and hydrochlorothiazide. Isi Springer [...] has no apparent deficits with short or [facility] memory. The cranial nerves appear grossly intact. [...] Extension 5 5 Finger Abduction 5 5 Key Maker Strength 5 4+ REFLEX: RIGHT LEFT BICEPS [...] falling and hitting left ulnar nerve at [facility]. Nerve study did not reveal ulnar [...] [place] | | | | | | [address] | | | | | | | | +--------+ + + + + | 05/22/ | Office | Cardiology | Rylee Pollard DO | | | 2019 | Visit | | [address] | | | | | | [place] | | | | | | [address] | | | | | | | | +--------+ + + + + | 06/18/ | Office | Physical Medicine | Justin Cortez, | | | 2019 | Visit | and Rehabilitation | [address] | | | | | | [place] | | | | | | [address] | | | | | | | [...]
--- OUTSIDE RECORDS SUMMARY | ~2020-04-19 | XMS | Encounter Summary ---
Demographics + + + | Address | [address] | | | [place] [address] | + + + | Home Phone | | + + + | Preferred Language | Unknown | + + + | Marital Status | | + + + | Judaism Affiliation | Unknown | + + + [...] Team Providers + +------+ + | Care Managed Care Provider Name | Role | Phone | + [...] + + | 04/10/ | Hospital | [facility] | Justin Cortez, | | | 2018 | Encounter | [facility] | [address] | | | | | MEDICINE [address] | [place] | | | | | [place], | [address] | | | | | [place] [address] | | | | | | [phone] | | | +--------+ + + + [...] [place] | | | | | | [address] | | | | | | | | +--------+ + + + + | 05/22/ | Office | Cardiology | Rylee Pollard DO | | | 2019 | Visit | | [address] | | | | | | [place] | | | | | | [address] | | | | | | | | +--------+ + + + + | 06/18/ | Office | Physical Medicine | Justin Cortez, | | | 2019 | Visit | and Rehabilitation | [address] | | | | | | [place] | | | | | | [address] | | | | | | | [...]
--- OUTSIDE RECORDS SUMMARY | ~2020-04-19 | XMS | Encounter Summary ---
Demographics + + + | Address | [address] | | | [place] [address] | + + + | Home Phone | | + + + | Preferred Language | Unknown | + + + | Marital Status | | + + + | Mandaen Affiliation | Unknown | + + + | Race | Unknown | + + + | Ethnic Group | Unknown | + + + Author + + + | Author | [facility] | | | and [place] | + + + | Organization | [facility] | [...] Team Providers + +------+ + | Care Molecular Biologist Name | Role | Phone | + [...] | Physical | Diagnoses | Cortez, | [facility] | | | Services | Therapy | Trigger | Justin Salguero MD | HOSPITAL | | | Required | | point with | [address] | PHYSICAL | | | | | neck pain | [address] | THERAPY [address] | | | | | Thoracic | [place], | [place] | | | | | outlet | [place] [address] | [place] | | | | | syndrome | Phone: | [address] | | | | | Cervical | [phone] | Phone: | | | | | radiculitis | Fax: | [phone] | | | | | | [phone] | Fax: | | | | | Hyperalgesia | | [phone] | | | | | Allodynia | | | +--------+ + + + + + Reason for Visit + + + | Reason | Comments | + + + | Arm Pain | | + + + | Elbow Pain | | + + + Encounter Details +--------+---------+ + + + | Date | Type | Department | Care Team | Description | +--------+---------+ + + + | 05/02/ | Office | [facility] | Justin Cortez, | Trigger point with | | 2019 | Visit | PH[address]SIATRY [address] | MD [address] | neck pain (Primary | | | | [address] | [place] | Dx); Thoracic outlet | | | | [place] | [address] | syndrome; Cervical | | | | [address] | | radiculitis; | | | | [phone] | | Hyperalgesia; | | | | | | Allodynia | +--------+---------+ + + + Social History [...] Weight | 77.1 kg (170 lb) | 05/02/2019 8:11 AM | | | | | PDT | | + + + + + | Height | 165.1 cm (5' 5") | 05/02/2019 8:11 AM | | | | | PDT | | + + + + + | Body Mass Index | 28.29 | 05/02/2019 8:11 AM | | | | | PDT | | + + + + + documented in this encounter Patient Instructions Patient Instructions Melly Ambrocio, Senior Solutions Consultant - 05/02/2019 8:10 AM PDTTake N ortriptyline 50 mg. Continue with plans to participate in physical therapy. documented in this encounter Progress Notes Justin Cortez MD - 05/02/2019 8:10 AM PDTFormatting of this note might be different fro m the original. Justin Cortez MD [address] [place] [address], [address] [place] [address] FAX: PHYSICAL MEDICINE AND REHABILITATION H&P CHIEF COMPLAINT: Chief Complaint Patient presents with Arm Pain Elbow Pain HISTORY OF PRESENT ILLNESS: Isi Springer is a 43 y.o. female being seen today in follow-up for complaints of lef t upper extremity pain. Isi Springer was last seen on 03/13/19. Previously it was recommended that she participate in physical therapy and complete imaging. Isi [place] in reports that she has not contacted the physical therapy department for an appointment. Isi Springer rates the pain as moderate-severe. Isi Springer describes the pain as piercing, throbbing and pulsating. Her symptoms worsen with nothing. Her symptoms improve with stretching. Isi Springer doesdescribe numbness of the fourth and fifth digit on the left, though has improved.Shedoesreport weakness of the left upper e xtremity.Isi Springer reports persisting left elbow pain. Isi Springer's medications, allergies, past medical, [...] joint arthritis, no rheumatoid arthritis. PHYSICAL EXAMINATION: Height 1.651 m (5' 5"), weight 77.1 kg (170 lb). Body mass index is 28.29 kg/m. GENERAL: The patient is well developed and well nourished. She does not appear uncomfortab le when seated. HEENT: Normocephalic and atraumatic. Normal sclerae without icterus. NECK (ANTERIOR): There is no apparent cervical lymphadenopathy or thyromegaly. PULMONARY: The patient is in no acute respiratory distress with unlabored respirations. CARDIOVASCULAR: Regular rate and rhythm. There is not lower extremity edema. ABDOMEN: Non-distended. SKIN: Limited skin exam shows no significant rashes or lesions. There are not scars in the cervical region. NEUROLOGIC: The patient is awake, alert, and oriented. She follows simple and complex commands. Her speech is fluent. She comprehends speech well. She has no apparent deficits with short or computer terminal operator memory. The cranial nerves appear grossly intact. Sensory exam: Sensation is intact in both upper extremities but with subjective paresthesi a over ulnar versus C8 distribution of left upper extremity. MOTOR EXAM: (5 IS NORMAL) * Indicates pain limited MUSCLE/ MOVEMENT: RIGHT LEFT Deltoids 5 5 Biceps 5 5 Triceps 5 5 Wrist Flexion 5 5 Wrist Extension 5 5 Finger Abduction 5 5 Mathematician Research Strength 5 5 Hip Flexion 5 5 Hip Extension 5 5 Knee Flexion 5 5 Knee Extension 5 5 Extensor Hallicus Longus 5 5 Ankle Dorsiflexion 5 5 Plantarflexion 5 5 REFLEX: RIGHT LEFT BICEPS 2+ 2+ BRACHIORADIALIS 2+ 2+ TRICEPS 2+ 2+ MUSCULOSKELETAL : Mild reproduction of elbow pain with triceps activation Tenderness over left levator scapulae, and ulnar aspect of left upper arm, elbow, and forea rm. Paresthesia over palpation of ulnar region of elbow Hyperalgesia over left cervical paraspinal muscles DATABASE: Cervical MRI completed 02/15/19 was reviewed personally by me in detail during today's visit . I concur with the results as reported by the Radiologist. 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 NM Bone scan completed on 04/10/19 was reviewed personally by me in detail during today's v isit. I concur with the results as reported by the Radiologist. ASSESSMENT: 1. Trigger point with neck pain 2. Thoracic outlet syndrome 3. Cervical radiculitis 4. Hyperalgesia 5. Allodynia PLAN: 1. Today Michaelbull Vaughnkari Springer returns to clinic today to review bone scan as previously requ sharifa. Based on review of imaging there is no evidence of CRPS. Symptoms are most consistent but not limited to thoracic outlet syndrome. Today we reviewed pathology and treatment opti ons for thoracic outlet syndrome include physical therapy, posture stabilization and trigge r point injections. Order for physical therapy was placed today for the treatment of thoracic outlet syndrome w ith the focus of nerve flossing and posture stabilization. In hopes of reducing pain and simplicity of dosing Isi Springer will increase Nortri ptyline 1 50 mg capsule. Isi Springer denies side effects to Nortriptyline 40 mg. Michaelvincenzo vishnu Roderick Springer should complete labs as previously requested. Discussed with Isi Springer the process of pain chronification.Isi Springer advised that when an individual sufferers from chronic pain for an extended period of time t heir brain become more proficient at recognizing, responding, and feeling painful stimuli. E xplained that over time the body recognizes and feel even non painful stimuli as painful, nichols ch as light touch. Patient advised that even after the cause of the pain is removed, individ uals with pain chronification may continue to feel pain. Patient advised that the goal of t reatment for her will not be to make her pain free,rather the goal would be to minimize her pain. Isi Springer was advised to work towards desensitization of pain in left cervic al and shoulder muscles. Due to hyperalgesia of pain on exam today Isi Sahuyahaira may not tolerate trigger poin t injections for the treatment of trigger point with neck pain. If physical therapy and dose adjustment of Nortriptyline fails to provide relief may consider trigger point injections. Isi Springer should return to clinic as scheduled to review physical therapy and lab s. Future considerations include trigger point injections. 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 She has palpable tr igger points. She reports paresthesia, not numbness into the left upper extremity. This co uld be thoracic outlet syndrome from dystonic scalene muscles. This could be myofacial refe rral of pain from her trigger points. 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 She will participate in physical therapy for thoracic outlet, dystonia, and trigge r points. Future treatment considerations include trigger point injections, Botox for dysto sea. Her cervical MRI is unremarkable without significant neural foraminal narrowing that w ould associate with her symptoms. She has previously had nerve conduction study which was n ormal. Diagnostic cervical epidural steroid injection could be considered, but is less like ly to be helpful, given unremarkable MRI and nerve study. If she doesn't demonstrate improvement with PT, continued nortriptyline then we will consid er trigger point injections. If no improvement with trigger point injections we will likely request second opinion. I spent 45 minutes in visit with Isi Springer today with the majority of time spent counseling the patient on her diagnosis, options for her care, and coordinating her care. I, Justin Cortez MD personally performed the services described in this documentation, as scribed by in my presence, SHARAD Theodore and are both accurate and complete. Justin Cortez MD - 05/02/2019 documented in this en counter Plan of [...] [place] | | | | | | [address] | | | | | | | | +--------+ + + + + | 05/22/ | Office | Cardiology | Rylee Pollard DO | | | 2019 | Visit | | [address] | | | | | | [place] | | | | | | [address] | | | | | | | | +--------+ + + + + | 06/18/ | Office | Physical Medicine | Justin Cortez, | | | 2019 | Visit | and Rehabilitation | [address] | | | | | | [place] | | | | | | [address] | | | | | | | | +--------+ + + + + + + +--------+ + + | Name | Type | Priori | Associated Diagnoses | Order Schedule | | | | ty | | | + + +--------+ + + | Physical Therapy - | Outpatient | Routin | Trigger point with | Ordered: 05/02/2019 | | Ambulatory Referral | Referral | e | neck pain Thoracic | | | | | | outlet syndrome | | | | | | Cervical radiculitis | | | | | | Hyperalgesia | | | | | | Allodynia | | + + +--------+ + + documented as of this encounter Visit Diagnoses + + | Diagnosis | + + | Trigger point with neck pain - Primary Cervicalgia | + + | Thoracic outlet syndrome Brachial plexus lesions | + + | Cervical radiculitis Brachial neuritis or radiculitis nos | + + | Hyperalgesia Disturbance of skin sensation | + + | Allodynia Disturbance of skin sensation | + + documented in this encounter
--- OUTSIDE RECORDS SUMMARY | ~2020-04-19 | XMS | Encounter Summary ---
Demographics + + + | Address | [address] | | | [place] [address] | + + + | Home Phone | | + + + | Preferred Language | Unknown | + + + | Marital Status | | + + + | Voodoo Affiliation | Unknown | + + + | Race | Unknown | + + + | Ethnic Group | Unknown | + + + Author + + + | Author | [facility] | | | and [place] | + + + | Organization | [facility] | | | [...] Team Providers + +------+ + | Care Funeral Service Apprentice Name | Role | Phone | + +------+ + | Maria Ines Moses PA-C | PCP | | + +------+ + Reason for Visit + + + | Reason | Comments | + + + | New Patient | 09/05 appointment question | + + + Encounter Details +--------+ + + + + | Date | Type | Department | Care Team | Description | +--------+ + + + + | 09/04/ | Telephone | [facility] | Saurav Glover, | New Patient (09/05 | | 2019 | | [facility] | [address] | appointment | | | | [address] | question) | | | | [address] | [place] [address] | | | | | [place], [place] | [phone] | | | | | [address] | | | | | | [phone] | | | +--------+ + + + [...] [place] | | | | | | [address] | | | | | | | | +--------+ + + + + | 05/22/ | Office | Cardiology | Rylee Pollard DO | | | 2019 | Visit | | [address] | | | | | | [place] | | | | | | [address] | | | | | | | | +--------+ + + + + | 06/18/ | Office | Physical Medicine | Justin Cortez, | | | 2019 | Visit | and Rehabilitation | [address] | | | | | | [place] | | | | | | [phone] | | | | | | | | +--------+ + + + + documented as of this encounter Visit Diagnoses Not on filedocumented in this encounter"
--- OUTSIDE RECORDS SUMMARY | ~2020-04-19 | XMS | Encounter Summary ---
Demographics + + + | Address | [address] | | | [place] [address] | + + + | Home Phone | | + + + | Preferred Language | Unknown | + + + | Marital Status | | + + + | Gnosticist Affiliation | Unknown | + + + | Race | Unknown | + + + | Ethnic Group | Unknown | + + + Author + + + | Author | [facility] | | | and [place] | + + + | Organization | [facility] | | | [...] Team Providers + +------+ + | Care Microfilm Equipment Inspector Name | Role | Phone | + [...] | | | [address] | [place] [address] | | | | | [place] [address] | | | | | | [phone] | | | +--------+ + + + [...] [place] | | | | | | [address] | | | | | | | | +--------+ + + + + | 05/22/ | Office | Cardiology | Rylee Pollard DO | | | 2019 | Visit | | [address] | | | | | | [place] | | | | | | [address] | | | | | | | | +--------+ + + + + | 06/18/ | Office | Physical Medicine | Justin Cortez, | | | 2019 | Visit | and Rehabilitation | [address] | | | | | | [place] | | | | | | [address] | | | | | | | [...]
--- OUTSIDE RECORDS SUMMARY | ~2020-04-19 | XMS | Encounter Summary ---
Demographics + + + | Address | [address] | | | [place] [address] | + + + | Home Phone [...] | Author | [facility] | | | and [place] | + + + | Organization | [facility] | | | and [...] Team Providers + +------+ + | Care Ladies Underwear Operator Name | Role | Phone | [...] | | NEUROSCIENCE CENTER | Julianna Peña [facility] | | | | | DOLOROLOGY [address] | Petrophysical Engineer | | | | | [address] | | | | | | [place] | | | | | | [address] | | | | | | [phone] | | | +--------+ + + + [...] [place] | | | | | | [address] | | | | | | | | +--------+ + + + + | 05/22/ | Office | Cardiology | Rylee Pollard DO | | | 2019 | Visit | | [address] | | | | | | [place] | | | | | | [address] | | | | | | | | +--------+ + + + + | 06/18/ | Office | Physical Medicine | Justin Cortez, | | | 2019 | Visit | and Rehabilitation | [address] | | | | | | [place] | | | | | | [address] | | | | | | | | +--------+ + + + + documented as of this encounter Visit Diagnoses Not on filedocumented in this encounter"
--- OUTSIDE RECORDS SUMMARY | ~2020-04-19 | XMS | Encounter Summary ---
Demographics + + + | Address | [address] | | | [place] [address] | + + + | Home Phone | | + + + | Preferred Language | Unknown | + + + | Marital Status | | + + + | Caodaism Affiliation | Unknown | + + + | Race | Unknown | + + + | Ethnic Group | Unknown | + + + Author + + + | Author | [facility] | | | and [place] | + + + | Organization | [facility] | | | and [place] | + + + | Address | Unknown | + + + | Phone | Unavailable | + + + Support + + +---------+ + | Name | Relationship | Address | Phone | + + +---------+ + | Merea Nicole | ECON | Unknown | | + + +---------+ + | Klaudia Palomares | ECON | Unknown | | + + +---------+ + Care Team Providers + +------+ + | Care Agricultural Inspector Name | Role | Phone | + +------+ + PCP | Unavailable | + +------+ + Encounter Details +--------+ + + + + | Date | Type | Department | Care Team | Description | +--------+ + + + + | 10/25/ | Hospital | [facility] | Conversion | | | 1998 | Encounter | SYSTEM EMR | Transaction, | | | | | CONVERSION [address] | Provider Unknown | | | | | [address] [place], [place] | | | | | | [address] | (Fax) | | | | | [phone] | | | +--------+ + + + [...] [place] | | | | | | [address] | | | | | | | | +--------+ + + + + | 05/22/ | Office | Cardiology | Rylee Pollard DO | | | 2019 | Visit | | [address] | | | | | | [place] | | | | | | [address] | | | | | | | | +--------+ + + + + | 06/18/ | Office | Physical Medicine | Justin Cortez, | | | 2019 | Visit | and Rehabilitation | [address] | | | | | | [place] | | | | | | [address] | | | | | | | | +--------+ + + + + documented as of this encounter Visit Diagnoses Not on filedocumented in this encounter"
--- OUTSIDE RECORDS SUMMARY | ~2020-04-19 | XMS | Encounter Summary ---
Demographics + + + | Address | [address] | | | [place] [address] | + + + | Home Phone | | + + + | Preferred Language | Unknown | + + + | Marital Status | | + + + | Hindu Affiliation | Unknown | + + + [...] Team Providers + +------+ + | Care Investigator Cash Shortage Name | Role | Phone | + [...] + + | 09/12/ | Telephone | [facility] | Nirmal Espinal, | Referral (EMG) | | 2019 | | NEUROSCIENCE CENTER | DO [address] | | | | | [address] | [address] [place], [place] | | | | | [address] | [address] | | | | | [place], [place] | | | | | | [address] | | | | | | [phone] | | | +--------+ + + + [...] [place] | | | | | | [address] | | | | | | | | +--------+ + + + + | 05/22/ | Office | Cardiology | Rylee Pollard DO | | | 2019 | Visit | | [address] | | | | | | [place] | | | | | | [address] | | | | | | | | +--------+ + + + + | 06/18/ | Office | Physical Medicine | Justin Cortez, | | | 2019 | Visit | and Rehabilitation | [address] | | | | | | [place] | | | | | | [address] | | | | | | | | +--------+ + + + + documented as of this encounter Visit Diagnoses Not on filedocumented in this encounter"
--- OUTSIDE RECORDS SUMMARY | ~2020-04-19 | XMS | Encounter Summary ---
Demographics + + + | Address | [address] | | | [place] [address] | + + + | Home Phone | | + + + | Preferred Language | Unknown | + + + | Marital Status | | + + + | Jewish Affiliation | Unknown | + + + [...] Team Providers + +------+ + | Care Street Sweeper Operator Name | Role | Phone | [...] | | | [address] | [place] [address] | | | | | [place], [place] | [phone] | | | | | [address] | | | | | | [phone] | | | +--------+ + + + [...] [place] | | | | | | [address] | | | | | | | | +--------+ + + + + | 05/22/ | Office | Cardiology | Rylee Pollard DO | | | 2019 | Visit | | [address] | | | | | | [place] | | | | | | [address] | | | | | | | | +--------+ + + + + | 06/18/ | Office | Physical Medicine | Justin Cortez, | | | 2019 | Visit | and Rehabilitation | [address] | | | | | | [place] | | | | | | [phone] | | | | | | | | +--------+ + + + + documented as of this encounter Visit Diagnoses Not on filedocumented in this encounter"
--- OUTSIDE RECORDS SUMMARY | ~2020-04-19 | XMS | Encounter Summary ---
Demographics + + + | Address | [address] | | | [place] [address] | + + + | Home Phone | | + + + | Preferred Language | Unknown | + + + | Marital Status | | + + + | Presybeterian Affiliation | Unknown | + + + | Race | Unknown | + + + | Ethnic Group | Unknown | + + + Author + + + | Author | [facility] | | | and [place] | + + + | Organization | [facility] | | [...] Team Providers + +------+ + | Care Coiled Tubing Supervisor Name | Role | Phone | + +------+ + | Maria Ines Moses PA-C | PCP | | + +------+ + Reason for Visit +--------+ + | Reason | Comments | +--------+ + | Other | chart note 09/05 | +--------+ + Encounter Details +--------+ + + + + | Date | Type | Department | Care Team | Description | +--------+ + + + + | 09/19/ | Telephone | [facility] | Saurav Glover, | Other (chart note | | 2019 | | INTERVENTIONAL PAIN | [address] | 09/05) | | | | [address] [address] | [address] | | | | | [address] [place], | [place] [address] | | | | | [place] [address] | [phone] | | | | | [phone] | | | +--------+ + + + [...] [place] | | | | | | [address] | | | | | | | | +--------+ + + + + | 05/22/ | Office | Cardiology | Rlyee Pollard DO | | | 2019 | Visit | | [address] | | | | | | [place] | | | | | | [address] | | | | | | | | +--------+ + + + + | 06/18/ | Office | Physical Medicine | Justin Cortez, | | | 2019 | Visit | and Rehabilitation | [address] | | | | | | [place] | | | | | | [phone] | | | | | | | | +--------+ + + + + documented as of this encounter Visit Diagnoses Not on filedocumented in this encounter"
--- OUTSIDE RECORDS SUMMARY | ~2020-04-19 | XMS | Encounter Summary ---
Demographics + + + | Address | [address] | | | [place] [address] | + + + | Home Phone | | + + + | Preferred Language | Unknown | + + + | Marital Status | | + + + | Christian Affiliation | Unknown | + + + | Race | Unknown | + + + | Ethnic Group | Unknown | + + + Author + + + | Author | [facility] | | | and [place] | + + + | Organization | [facility] | | | and [...] Team Providers + +------+ + | Care Secondary School Registrar Name | Role | Phone | + +------+ + | Maria Ines Moses PA-C | PCP | | + +------+ + Encounter Details +--------+ + + + + | Date | Type | Department | Care Team | Description | +--------+ + + + + | 10/21/ | Hospital | [facility] | Conversion | Pain | | 2018 | Encounter | CONVERSION [address] | Transaction, | | | | | [address] | Provider Unknown | | | | | [place], [place] | [phone] | | | | | [address] | | | | | | [phone] | | | +--------+ + + + [...] [place] | | | | | | [address] | | | | | | | | +--------+ + + + + | 05/22/ | Office | Cardiology | Rylee Pollard DO | | | 2019 | Visit | | [address] | | | | | | [place] | | | | | | [address] | | | | | | | | +--------+ + + + + | 06/18/ | Office | Physical Medicine | Justin Cortez, | | | 2019 | Visit | and Rehabilitation | [address] | | | | | | [place] | | | | | | [address] | | | | | | | [...]
--- OUTSIDE RECORDS SUMMARY | ~2020-04-19 | XMS | Encounter Summary ---
Demographics + + + | Address | [address] | | | [place] [address] | + + + | Home Phone | | + + + | Preferred Language | Unknown | + + + | Marital Status | | + + + | Adventism Affiliation | Unknown | + + + [...] Team Providers + +------+ + | Care Webbing Tacker Name | Role | Phone | + [...] + + | 09/26/ | Telephone | [facility] | Aaron Craig, | Other | | 2019 | | INTERVENTIONAL PAIN | Julianna Peña, Medical | | | | | [address] [address] | Director Of Media | | | | | [address] [place], | | | | | | [place] [address] | | | | | | [phone] | | | +--------+ + + + [...] [place] | | | | | | [address] | | | | | | | | +--------+ + + + + | 05/22/ | Office | Cardiology | Rylee Pollard DO | | | 2019 | Visit | | [address] | | | | | | [place] | | | | | | [address] | | | | | | | | +--------+ + + + + | 06/18/ | Office | Physical Medicine | Justin Cortez, | | | 2019 | Visit | and Rehabilitation | [address] | | | | | | [place] | | | | | | [address] | | | | | | | | +--------+ + + + + documented as of this encounter Visit Diagnoses Not on filedocumented in this encounter"
--- OUTSIDE RECORDS SUMMARY | ~2020-04-19 | XMS | Encounter Summary ---
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 Justin Cortez MD [address] [place] [address], [address] [place] [address] FAX: PHYSICAL MEDICINE AND REHABILITATION [...] no apparent deficits with short or intermediate school teacher memory. The cranial nerves appear grossly intact. [...] clinic today to review cervical imaging and physical sciences instructor apy. Based on review of symptoms order [...] [place] | | | | | | [address] | | | | | | | | +--------+ + + + + | 05/22/ | Office | Cardiology | Rylee Pollard DO | | | 2019 | Visit | | [address] | | | | | | [place] | | | | | | [address] | | | | | | | | +--------+ + + + + | 06/18/ | Office | Physical Medicine | Justin Cortez, | | | 2019 | Visit | and Rehabilitation | [address] | | | | | | [place] | | | | | | [phone] | | | | | | | [...]
--- OUTSIDE RECORDS SUMMARY | ~2020-04-19 | XMS | Encounter Summary ---
Demographics + + + | Address | [address] | | | [place] [address] | + + + | Home Phone | | + + + | Preferred Language | Unknown | + + + | Marital Status | | + + + | Sabianism Affiliation | Unknown | + + + | Race | Unknown | + + + | Ethnic Group | Unknown | + + + Author + + + | Author | [facility] | | | and [place] | + + + | Organization | [facility] | | [...] Team Providers + +------+ + | Care Sales Support Specialist Name | Role | Phone | [...] + + | 09/26/ | Telephone | [facility] | Aaron Craig, | Other | | 2019 | | INTERVENTIONAL PAIN | Julianna Peña, Medical | | | | | [address] | Area Field Worker | | | | | [address] [place], | | | | | | [place] [address] | | | | | | [phone] | | | +--------+ + + + [...] [place] | | | | | | [address] | | | | | | | | +--------+ + + + + | 05/22/ | Office | Cardiology | Rylee Pollard DO | | | 2019 | Visit | | [address] | | | | | | [place] | | | | | | [address] | | | | | | | | +--------+ + + + + | 06/18/ | Office | Physical Medicine | Justin Cortez, | | | 2019 | Visit | and Rehabilitation | [address] | | | | | | [place] | | | | | | [address] | | | | | | | | +--------+ + + + + documented as of this encounter Visit Diagnoses Not on filedocumented in this encounter"
--- OUTSIDE RECORDS SUMMARY | ~2020-04-19 | XMS | Encounter Summary ---
Demographics + + + | Address | [address] | | | [place] [address] | + + + | Home Phone | | + + + | Preferred Language | Unknown | + + + | Marital Status | | + + + | Baptist Affiliation | Unknown | + + + | Race | Unknown | + + + | Ethnic Group | Unknown | + + + Author + + + | Author | [facility] | | | and [place] | + + + | Organization | [facility] | | [...] Team Providers + +------+ + | Care Fundraising Consultant Name | Role | Phone | + [...] + + | 09/19/ | Telephone | [facility] | Saurav Glover, | Other (chart note | | 2019 | | INTERVENTIONAL PAIN | [address] | 09/05) | | | | [address] | [address] | | | | | [address] [place], | [place] [address] | | | | | [place] [address] | [phone] | | | | | [phone] | | | +--------+ + + + [...] [place] | | | | | | [address] | | | | | | | | +--------+ + + + + | 05/22/ | Office | Cardiology | Rylee Pollard DO | | | 2019 | Visit | | [address] | | | | | | [place] | | | | | | [address] | | | | | | | | +--------+ + + + + | 06/18/ | Office | Physical Medicine | Justin Cortez, | | | 2019 | Visit | and Rehabilitation | [address] | | | | | | [place] | | | | | | [phone] | | | | | | | | +--------+ + + + + documented as of this encounter Visit Diagnoses Not on filedocumented in this encounter"
--- OUTSIDE RECORDS SUMMARY | ~2020-04-19 | XMS | Encounter Summary ---
Demographics + + + | Address | [address] | | | [place] [address] | + + + | Home Phone [...] Organization | [facility] | | | and [place] | + [...] Providers + +------+ + | Care Director Call Name | Role | Phone | + +------+ + PCP | Unavailable | + +------+ + Encounter Details +--------+ + + + + | Date | Type | Department | Care Team | Description | +--------+ + + + + | 05/07/ | Hospital | [facility] | Conversion | | | 1994 | Encounter | SYSTEM EMR | Transaction, | | | | | CONVERSION [address] | Provider Unknown | | | | | [address] [place], [place] | | | | | | [address] | (Fax) | | | | | [phone] | | | +--------+ + + + [...] [place] | | | | | | [address] | | | | | | | | +--------+ + + + + | 05/22/ | Office | Cardiology | Rylee Pollard DO | | | 2019 | Visit | | [address] | | | | | | [place] | | | | | | [address] | | | | | | | | +--------+ + + + + | 06/18/ | Office | Physical Medicine | Justin Cortez, | | | 2019 | Visit | and Rehabilitation | [address] | | | | | | [place] | | | | | | [address] | | | | | | | | +--------+ + + + + documented as of this encounter Visit Diagnoses Not on filedocumented in this encounter"
--- OUTSIDE RECORDS SUMMARY | ~2020-04-19 | XMS | Encounter Summary ---
Demographics + + + | Address | [address] | | | [place] [address] | + + + | Home Phone | | + + + | Preferred Language | Unknown | + + + | Marital Status | | + + + | Buddhist Affiliation | Unknown | + + + | Race | Unknown | + + + | Ethnic Group | Unknown | + + + Author + + + | Author | [facility] | | | and [place] | + + + | Organization | [facility] | | | [...] Team Providers + +------+ + | Care Senior Maintenance Technician Name | Role | Phone | [...] | | | [address] | [place] [address] | | | | | [place] [address] | | | | | | [phone] | | | +--------+ + + + [...] [place] | | | | | | [address] | | | | | | | | +--------+ + + + + | 05/22/ | Office | Cardiology | Rylee Pollard DO | | | 2019 | Visit | | [address] | | | | | | [place] | | | | | | [address] | | | | | | | | +--------+ + + + + | 06/18/ | Office | Physical Medicine | Justin Cortez, | | | 2019 | Visit | and Rehabilitation | [address] | | | | | | [place] | | | | | | [address] | | | | | | | [...]
--- OUTSIDE RECORDS SUMMARY | ~2020-04-19 | XMS | Encounter Summary ---
Demographics + + + | Address | [address] | | | [place] [address] | + + + | Home Phone | | + + + | Preferred Language | Unknown | + + + | Marital Status | | + + + | Congregational Affiliation | Unknown | + + + [...] Team Providers + +------+ + | Care Repair Specialist Name | Role | Phone | [...] | | | | | pain | [address] | [address] | | | | | syndrome | [place], | [place] | | | | | type 1 of | [place] [address] | [place] | | | | | left upper | Phone: | [address] | | | | | extremity | [phone] | Phone: | | | | | Hyperalgesia | Fax: | [phone] | | | | | Allodynia | [phone] | Fax: | | | | | Pain and | | [phone] | | | | | numbness of [...] + + | 09/05/ | Office | [facility] | Saurav Glover, | Cervical radicular | | 2019 | Visit | NEUROSCIENCE CENTER | MD Vicky MARTIN | pain (Primary Dx); | | | | [address] | Cervical spondylosis | | | | [address] | [place] [address] | without myelopathy; | | | | [place], [place] | [phone] | HNP (herniated | | | | [address] | | nucleus pulposus), | | | | [phone] | | cervical; | | | | [...] a physical medicine and rehab physician in [place]. He did an EMG and nerve conduction [...] MRI was personally reviewed. Dictation performed with [employer] voice recognition software and has been reviewed, [...] a physical medicine and rehab physician in [place]. He did an EMG and nerve conduction [...] [place] | | | | | | [address] | | | | | | | | +--------+ + + + + | 05/22/ | Office | Cardiology | Rylee Pollard DO | | | 2019 | Visit | | [address] | | | | | | [place] | | | | | | [address] | | | | | | | | +--------+ + + + + | 06/18/ | Office | Physical Medicine | Justin Cortez, | | | 2019 | Visit | and Rehabilitation | [address] | | | | | | [place] | | | | | | [address] | | | | | | | [...]
--- OUTSIDE RECORDS SUMMARY | ~2020-04-19 | XMS | Encounter Summary ---
Demographics + + + | Address | [address] | | | [place] [address] | + + + | Home Phone | | + + + | Preferred Language | Unknown | + + + | Marital Status | | + + + | Sabianist Affiliation | Unknown | + + + | Race | Unknown | + + + | Ethnic Group | Unknown | + + + Author + + + | Author | [facility] | | | and [place] | + + + | Organization | [facility] | | [...] Team Providers + +------+ + | Care Industrial Cafeteria Manager Name | Role | Phone | [...] | 2019 | | NEUROSCIENCE CENTER | Pharmaceutical Laboratory Technician | | | | | [address] | | | | | | [address] | | | | | | [place] | | | | | | [address] | | | | | | [phone] | | | +--------+ + + + [...] [place] | | | | | | [address] | | | | | | | | +--------+ + + + + | 05/22/ | Office | Cardiology | Rylee Pollard DO | | | 2019 | Visit | | [address] | | | | | | [place] | | | | | | [address] | | | | | | | | +--------+ + + + + | 06/18/ | Office | Physical Medicine | Justin Cortez, | | | 2019 | Visit | and Rehabilitation | [address] | | | | | | [place] | | | | | | [address] | | | | | | | | +--------+ + + + + documented as of this encounter Visit Diagnoses Not on filedocumented in this encounter"
--- OUTSIDE RECORDS SUMMARY | ~2020-04-19 | XMS | Encounter Summary ---
Demographics + + + | Address | [address] | | | [place] [address] | + + + | Home Phone | | + + + | Preferred Language | Unknown | + + + | Marital Status | | + + + | Shinto Affiliation | Unknown | + + + [...] Team Providers + +------+ + | Care Air Defense Specialist Name | Role | Phone | + +------+ + PCP | Unavailable | + +------+ + Encounter Details +--------+ + + + + | Date | Type | Department | Care Team | Description | +--------+ + + + + | 05/04/ | Hospital | [facility] | Conversion | | | 1994 | Encounter | SYSTEM EMR | Transaction, | | | | | CONVERSION [address] | Provider Unknown | | | | | [address] [place], [place] | | | | | | [address] | (Fax) | | | | | [phone] | | | +--------+ + + + [...] [place] | | | | | | [address] | | | | | | | | +--------+ + + + + | 05/22/ | Office | Cardiology | Rylee Pollard DO | | | 2019 | Visit | | [address] | | | | | | [place] | | | | | | [address] | | | | | | | | +--------+ + + + + | 06/18/ | Office | Physical Medicine | Justin Cortez, | | | 2019 | Visit | and Rehabilitation | [address] | | | | | | [place] | | | | | | [address] | | | | | | | | +--------+ + + + + documented as of this encounter Visit Diagnoses Not on filedocumented in this encounter"
--- OUTSIDE RECORDS SUMMARY | ~2020-04-19 | XMS | Encounter Summary ---
Demographics + + + | Address | [address] | | | [place] [address] | + + + | Home Phone | | + + + | Preferred Language | Unknown | + + + | Marital Status | | + + + | Religion Affiliation | Unknown | + + + [...] Team Providers + +------+ + | Care Ski Lift Operator Name | Role | Phone | + +------+ + | Maria Ines Moses PA-C | PCP | | + +------+ + Encounter Details +--------+ + + + + | Date | Type | Department | Care Team | Description | +--------+ + + + + | 09/05/ | Hospital | [facility] | Saurav Glover, | | | 2019 | Encounter | [facility] | MD [address] | | | | | [address] | [address] | | | | | [address] [place], [place] | [place] [address] | | | | | [address] | [phone] | | | | | [phone] | | | +--------+ + + + [...] + + + +---------+ + + | spironolactone | | | 0 | 07/11/20 | | | (ALDACTONE) 100 MG | | | | 19 | 9 | | tablet | | [...] [place] | | | | | | [address] | | | | | | | | +--------+ + + + + | 05/22/ | Office | Cardiology | Rylee Pollard DO | | | 2019 | Visit | | [address] | | | | | | [place] | | | | | | [address] | | | | | | | | +--------+ + + + + | 06/18/ | Office | Physical Medicine | Justin Cortez, | | | 2019 | Visit | and Rehabilitation | [address] | | | | | | [place] | | | | | | [address] | | | | | | | [...] 2. Mild degenerative disc disease. Signed by: Allie, | | | Philip Limon Date/Time: 09/05/2019 [...]
--- OUTSIDE RECORDS SUMMARY | ~2020-04-19 | XMS | Encounter Summary ---
Demographics + + + | Address | [address] | | | [place] [address] | + + + | Home Phone | | + + + | Preferred Language | Unknown | + + + | Marital Status | | + + + | Mosque Affiliation | Unknown | + + + [...] Team Providers + +------+ + | Care Purchasing Manager Name | Role | Phone | [...] | | | | neck pain | [address] | [address] | | | | | Thoracic | [place], | [place] | | | | | outlet | [place] [address] | [place] | | | | | syndrome | Phone: | [address] | | | | | Cervical | [phone] | Phone: | | | | | radiculitis | Fax: | [phone] | | | | | | [phone] | Fax: | | | | | Hyperalgesia | | [phone] | | | | | Allodynia | [...] + + | 05/02/ | Office | [facility] | Justin Cortez, | Trigger point with | | 2019 | Visit | PHYSIATRY [address] | MD [address] | neck pain (Primary | | | | [address] | [place] | Dx); 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 Continue with plans to participate in physical therapy. documented in this encounter Progress Notes Justin Cortez MD - 05/02/2019 8:10 AM PDTFormatting of this note might be different fro m the original. Justin Cortez MD [address] [place] [address], [address] [place] [address] FAX: PHYSICAL MEDICINE AND REHABILITATION H&P CHIEF [...] has no apparent deficits with short or on air personality memory. The cranial nerves appear grossly intact. [...] Extension 5 5 Finger Abduction 5 5 Endocrinologist Strength 5 5 Hip Flexion 5 5 [...] [place] | | | | | | [address] | | | | | | | | +--------+ + + + + | 05/22/ | Office | Cardiology | Rylee Pollard DO | | | 2019 | Visit | | [address] | | | | | | [place] | | | | | | [address] | | | | | | | | +--------+ + + + + | 06/18/ | Office | Physical Medicine | Justin Cortez, | | | 2019 | Visit | and Rehabilitation | [address] | | | | | | [place] | | | | | | [address] | | | | | | | [...]
--- OUTSIDE RECORDS SUMMARY | ~2020-04-19 | XMS | Encounter Summary ---
Demographics + + + | Address | [address] | | | [place] [address] | + + + | Home Phone [...] Team Providers + +------+ + | Care Wallcovering Texturer Name | Role | Phone | + [...] | 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 [address] | [address] | | | | n | plexus | NW | [place], | | | | | disorders | [place] | [place] [address] | | | | | Radiculopath | [address] | Phone: | | | | | y, cervical | [place], | [phone] | | | | | region | [place] | Fax: | | | | | Other | [address] | [phone] | | | | | disturbances | Phone: | | | | | | of skin | [phone] | | | | | | sensation | Fax: | | | | | | Other | [phone] | | | | | | disturbances [...] + + | 12/19/ | Office | [facility] [place] | Justin Cortez, | 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 Continue with plans to have repeat ganglion blocks. Consider watching video on [employer] videos, "Chronic Pain: Pain Without Purpose"Evera llmagalys signed by Justin Cortez MD at 12/19/2019 3:01 PM PST documented in this encounter Progress Notes Justin Cortez MD - 12/19/2019 2:10 PM PSTFormatting of this note might be different fro m the original. Justin Cortez MD [address] [facility], [address] [place], [place] [id number] FAX: PHYSICAL MEDICINE AND REHABILITATION H&P CHIEF COMPLAINT: Chief Complaint Patient presents with Pain HISTORY OF PRESENT ILLNESS: Isi Springer is a 44 y.o. female being seen today in follow-up for complaints of lef t upper extremity pain. Isi Springer was last seen on 08/01/19. Previously it [...] has no apparent deficits with short or senior living memory. The cranial nerves appear grossly intact. [...] documentation, as scribed by in my presence, SHRAAD Theodore and are both accurate and complete. [...] [place] | | | | | | [id number] | | | | | | | | +--------+ + + + + | 05/22/ | Office | Cardiology | Rylee Pollard DO | | | 2019 | Visit | | [address] | | | | | | [place] | | | | | | [address] | | | | | | | | +--------+ + + + + | 06/18/ | Office | Physical Medicine | Justin Cortez, | | | 2019 | Visit | and Rehabilitation | [address] | | | | | | [place] | | | | | | [address] | | | | | | | [...]
--- OUTSIDE RECORDS SUMMARY | ~2020-04-19 | XMS | Encounter Summary ---
Demographics + + + | Address | [address] | | | [place] [address] | + + + | Home Phone | | + + + | Preferred Language | Unknown | + + + | Marital Status | | + + + | Gnosticism Affiliation | Unknown | + + + [...] Providers + +------+ + | Care Sales And Marketing Manager Name | Role | Phone | [...] | | [address] | [place] | | | | | [place] | [place] [address] | | | | | [address] | | | | | | [phone] | | | +--------+ + + + [...] [place] | | | | | | [address] | | | | | | | | +--------+ + + + + | 05/22/ | Office | Cardiology | Rylee Pollard DO | | | 2019 | Visit | | [address] | | | | | | [place] | | | | | | [address] | | | | | | | | +--------+ + + + + | 06/18/ | Office | Physical Medicine | Justin Cortez, | | | 2019 | Visit | and Rehabilitation | [address] | | | | | | [place] | | | | | | [address] | | | | | | | | +--------+ + + + + documented as of this encounter Visit Diagnoses Not on filedocumented in this encounter"
--- OUTSIDE RECORDS SUMMARY | ~2020-04-19 | XMS | Encounter Summary ---
Demographics + + + | Address | [address] | | | [place] [address] | + + + | Home Phone | | + + + | Preferred Language | Unknown | + + + | Marital Status | | + + + | Denominational Affiliation | Unknown | + + + [...] Team Providers + +------+ + | Care Aluminum Boat Assembly Supervisor Name | Role | Phone | [...] PHYSIATRY [address] | MD [address] | Medication Refill | | | | [address] | [place] | | | | | [place] | [address] | | | | | [address] | | | | | | [phone] | | | +--------+--------+ + + + [...] [place] | | | | | | [address] | | | | | | | | +--------+ + + + + | 05/22/ | Office | Cardiology | Rylee Pollard DO | | | 2019 | Visit | | [address] | | | | | | [place] | | | | | | [address] | | | | | | | | +--------+ + + + + | 06/18/ | Office | Physical Medicine | Justin Cortez, | | | 2019 | Visit | and Rehabilitation | [address] | | | | | | [place] | | | | | | [address] | | | | | | | | +--------+ + + + + documented as of this encounter Visit Diagnoses Not on filedocumented in this encounter"
--- OUTSIDE RECORDS SUMMARY | ~2020-04-19 | XMS | Encounter Summary ---
Demographics + + + | Address | [address] | | | [place] [address] | + + + | Home Phone | | + + + | Preferred Language | Unknown | + + + | Marital Status | | + + + | Alevism Affiliation | Unknown | + + + | Race | Unknown | + + + | Ethnic Group | Unknown | + + + Author + + + | Author | [facility] | | | and [place] | + + + | Organization | [facility] | | | [...] Team Providers + +------+ + | Care Light Industrial Name | Role | Phone | + [...] | | | spondylosis | [place] | [address] | | | | | without | [place] Phone: | | | | | myelopathy | [place] [address] | [phone] | | | | | HNP | Phone: | Fax: | | | | | (herniated | [phone] | [phone] | | | | | nucleus | Fax: | | | | | | pulposus), | [phone] | | | | | | cervical [...] + | 09/25/ | Orders Only | [facility] | Saurav Glover, | Cervical radicular | | 2019 | | NE[facility]ENCE [facility]ENTER | [address] | pain (Primary Dx); | | | | [address] | Cervical spondylosis | | | | [address] | [place] [address] | without myelopathy; | | | | [place], [place] | [phone] | HNP (herniated | | | | [address] | | nucleus pulposus), | | | | [phone] | | cervical; | | | | [...] [place] | | | | | | [address] | | | | | | | | +--------+ + + + + | 05/22/ | Office | Cardiology | Rylee Pollard DO | | | 2019 | Visit | | [address] | | | | | | [place] | | | | | | [address] | | | | | | | | +--------+ + + + + | 06/18/ | Office | Physical Medicine | Justin Cortez, | | | 2019 | Visit | and Rehabilitation | [address] | | | | | | [place] | | | | | | [address] | | | | | | | [...]
--- OUTSIDE RECORDS SUMMARY | ~2020-04-19 | XMS | Encounter Summary ---
Demographics + + + | Address | [address] | | | [place] [address] | + + + | Home Phone | | + + + | Preferred Language | Unknown | + + + | Marital Status | | + + + | Judaism Affiliation | Unknown | + + + | Race | Unknown | + + + | Ethnic Group | Unknown | + + + Author + + + | Author | [facility] | | | and [place] | + + + | Organization | [facility] | | [...] Team Providers + +------+ + | Care Visual Merchandising Associate Name | Role | Phone | + +------+ + PCP | Unavailable | + +------+ + Encounter Details +--------+ + + + + | Date | Type | Department | Care Team | Description | +--------+ + + + + | 10/19/ | Hospital | [facility] | Conversion | | | 1974 - | Encounter | SYSTEM GENERIC IP | Transaction, | | | | | CONVERSION [address] | Provider Unknown | | | 10/21/ | | [address] [place], [place] | [phone] | | | 1974 | | [address] | | | | | | [phone] | | | +--------+ + + + [...] [place] | | | | | | [address] | | | | | | | | +--------+ + + + + | 05/22/ | Office | Cardiology | Rylee Pollard DO | | | 2019 | Visit | | [address] | | | | | | [place] | | | | | | [address] | | | | | | | | +--------+ + + + + | 06/18/ | Office | Physical Medicine | Justin Cortez, | | | 2019 | Visit | and Rehabilitation | [address] | | | | | | [place] | | | | | | [address] | | | | | | | | +--------+ + + + + documented as of this encounter Visit Diagnoses Not on filedocumented in this encounter"
--- OUTSIDE RECORDS SUMMARY | ~2020-04-19 | XMS | Encounter Summary ---
Demographics + + + | Address | [address] | | | [place] [address] | + + + | Home Phone | | + + + | Preferred Language | Unknown | + + + | Marital Status | | + + + | Yazidism Affiliation | Unknown | + + + | Race | Unknown | + + + | Ethnic Group | Unknown | + + + Author + + + | Author | [facility] | | | and [place] | + + + | Organization | [facility] | | | [...] Team Providers + +------+ + | Care Table Machine Operator Name | Role | Phone | + +------+ + | Maria Ines Moses PA-C | PCP | | + +------+ + Encounter Details +--------+ + + + + | Date | Type | Department | Care Team | Description | +--------+ + + + + | 10/21/ | Hospital | [facility] | Conversion | Pain | | 2018 | Encounter | CON[address] | Transaction, | | | | | [address] | Provider Unknown | | | | | [place], [place] | [phone] | | | | | [address] | | | | | | [phone] | | | +--------+ + + + [...] [place] | | | | | | [address] | | | | | | | | +--------+ + + + + | 05/22/ | Office | Cardiology | Rylee Pollard DO | | | 2019 | Visit | | [address] | | | | | | [place] | | | | | | [address] | | | | | | | | +--------+ + + + + | 06/18/ | Office | Physical Medicine | Justin Cortez, | | | 2019 | Visit | and Rehabilitation | [address] | | | | | | [place] | | | | | | [address] | | | | | | | [...]
--- OUTSIDE RECORDS SUMMARY | ~2020-04-19 | XMS | Encounter Summary ---
Demographics + + + | Address | [address] | | | [place] [address] | + + + | Home Phone | | + + + | Preferred Language | Unknown | + + + | Marital Status | | + + + | Muslim Affiliation | Unknown | + + + | Race | Unknown | + + + | Ethnic Group | Unknown | + + + Author + + + | Author | [facility] | | | and [place] | + + + | Organization | [facility] | | [...] Team Providers + +------+ + | Care Reinforcing Bar Setter Name | Role | Phone | + [...] | regional | [address] | | | | n | pain | [address] | [place], | | | | | syndrome | [place], | [place] [address] | | | | | type 2 of | [place] [address] | Phone: | | | | | left upper | Phone: | [phone] | | | | | extremity | [phone] | Fax: | | | | | Ulnar | Fax: | [phone] | | | | | neuropathy | [phone] | | | | | | of [...] | | | | | | | DC MOTOR | | | | | | | &/SENS 13/> | | | | | | | NRV CNDJ | | | | | | | PRECONF | | | | | | | ELTRODE LIMB | | | | | | | DC NEEDLE | | | | | | | EMG EA | | | | | | | EXTREMITY | | | | | | | W/PARASPINL | | | | | | | AREA LIMITED | | | | | | | DC MOTOR | | | | | | | &/SENS 7-8 | | | | | | | NRV CNDJ | | | | | | | PRECONF | | | | | | | ELTRODE LIMB | | | | | | | DC NEEDLE | | | | | | | EMG EA | | | | | | | EXTREMTY | | | | | | | W/PARASPINL | | | | | | | AREA | | | | | | | COMPLETE DC | | | | | | | [...] of upper | PA-C [address] | [address] | | | | n | limb | NW | [place], | | | | | | [place] | [place] [address] | | | | | | [address] | Phone: | | | | | | [place], | [phone] | | | | | | [place] | Fax: | | | | | | [address] | [phone] | | | | | | Phone: | | | | | | | [phone] | | | | | | | Fax: | | | | | | | [phone] | | +--------+--------+ + + + + Encounter Details +--------+---------+ + + + | Date | Type | Department | Care Team | Description | +--------+---------+ + + + | 11/02/ | Office | [facility] [place] | Justin Cortez, | 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 Iis Springer reports that they have not had [...] dorsiflexion , right finger abduction, and hand nurse administrator. 4 left finger abduction Reflexes: 2+ normal [...] to inside of left upper arm. 7. Isi Springer was advised to follow up with [...] [place] | | | | | | [address] | | | | | | | | +--------+ + + + + | 05/22/ | Office | Cardiology | Rylee Pollard DO | | 2019 | Visit | | [address] | | | | | | [place] | | | | | | [address] | | | | | | | | +--------+ + + + + | 06/18/ | Office | Physical Medicine | Justin Cortez, | | | 2019 | Visit | and Rehabilitation | [address] | | | | | | [place] | | | | | | [address] | | | | | | | [...]
--- OUTSIDE RECORDS SUMMARY | ~2020-04-19 | XMS | Encounter Summary ---
Demographics + + + | Address | [address] | | | [place] [address] | + + + | Home Phone | | + + + | Preferred Language | Unknown | + + + | Marital Status | | + + + | Yazdanism Affiliation | Unknown | + + + | Race | Unknown | + + + | Ethnic Group | Unknown | + + + Author + + + | Author | [facility] | | | and [place] | + + + | Organization | [facility] | | [...] Team Providers + +------+ + | Care Controls Design Engineer Name | Role | Phone | [...] | | | | | pain | [address] | [address] | | | | | syndrome | [place], | [place] | | | | | type 1 of | [place] [address] | [place] | | | | | left upper | Phone: | [address] | | | | | extremity | [phone] | Phone: | | | | | Hyperalgesia | Fax: | [phone] | | | | | Allodynia | [phone] | Fax: | | | | | Pain and | | [phone] | | | | | numbness of [...] + + | 09/05/ | Office | [facility] | Saurav Glover, | Cervical radicular | | 2019 | Visit | NE[facility]ENCE [facility]ENTER | MD Vicky MARTIN | pain (Primary Dx); | | | | [address] | Cervical spondylosis | | | | [address] | [place] [address] | without myelopathy; | | | | [place], [place] | [phone] | HNP (herniated | | | | [address] | | nucleus pulposus), | | | | [phone] | | cervical; | | | | [...] a physical medicine and rehab physician in [place]. He did an EMG and nerve conduction [...] MRI was personally reviewed. Dictation performed with [employer] voice recognition software and has been reviewed, [...] a physical medicine and rehab physician in [place]. He did an EMG and nerve conduction [...] [place] | | | | | | [address] | | | | | | | | +--------+ + + + + | 05/22/ | Office | Cardiology | Rylee Pollard DO | | | 2019 | Visit | | [address] | | | | | | [place] | | | | | | [address] | | | | | | | | +--------+ + + + + | 06/18/ | Office | Physical Medicine | Justin Cortez, | | | 2019 | Visit | and Rehabilitation | [address] | | | | | | [place] | | | | | | [address] | | | | | | | [...]
--- OUTSIDE RECORDS SUMMARY | ~2020-04-19 | XMS | Encounter Summary ---
Demographics + + + | Address | [address] | | | [place] [address] | + + + | Home Phone | | + + + | Preferred Language | Unknown | + + + | Marital Status | | + + + | Christianity Affiliation | Unknown | + + + [...] Providers + +------+ + | Care Manager Technical Support Name | Role | Phone | [...] | 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 [address] | [address] | | | | n | plexus | NW | [place], | | | | | disorders | [place] | [place] [address] | | | | | Radiculopath | [address] | Phone: | | | | | y, cervical | [place], | [phone] | | | | | region | [place] | Fax: | | | | | Other | [address] | [phone] | | | | | disturbances | Phone: | | | | | | of skin | [phone] | | | | | | sensation | Fax: | | | | | | Other | [phone] | | | | | | disturbances [...] + + | 12/19/ | Office | [facility] [place] [place] | Justin Cortez, | Complex regional | | 2020 | Visit | PHYSIATRY [address] | MD [address] | pain syndrome type 1 | | | | [address] | [place] | of left upper | | | | [place] | [address] | extremity (Primary | | | | [address] | | Dx); Allodynia; | | | | [phone] | | Hyperalgesia; Pain | | | [...] encounter Patient Instructions Patient Instructions Melly Ambrocio, Broke Beater - 12/19/2019 2:10 PM PSTContin ue with at home desensitization. Continue with plans to have repeat ganglion blocks. Consider watching video on [employer] videos, "Chronic Pain: Pain Without Purpose"Evera llmagalys signed by Justin Cortez MD at 12/19/2019 3:01 PM PST documented in this encounter Progress Notes Justin Cortez MD - 12/19/2019 2:10 PM PSTFormatting of this note might be different fro m the original. Justin Cortez MD [address] [facility] [address] [place], [place] [address] FAX: PHYSICAL MEDICINE AND REHABILITATION H&P CHIEF [...] has no apparent deficits with short or detention memory. The cranial nerves appear grossly intact. [...] [place] | | | | | | [id number] | | | | | | | | +--------+ + + + + | 05/22/ | Office | Cardiology | Rylee Pollard DO | | | 2019 | Visit | | [address] | | | | | | [place] | | | | | | [address] | | | | | | | | +--------+ + + + + | 06/18/ | Office | Physical Medicine | Justin Cortez, | | | 2019 | Visit | and Rehabilitation | [address] | | | | | | [place] | | | | | | [id number] | | | | | | | [...]
--- OUTSIDE RECORDS SUMMARY | ~2020-04-19 | XMS | Encounter Summary ---
Demographics + + + | Address | [address] | | | [place] [address] | + + + | Home Phone | | + + + | Preferred Language | Unknown | + + + | Marital Status | | + + + | Anabaptist Affiliation | Unknown | + + + | Race | Unknown | + + + | Ethnic Group | Unknown | + + + Author + + + | Author | [facility] | | | and [place] | + + + | Organization | [facility] | | [...] Team Providers + +------+ + | Care Insulation Worker Interior Surface Name | Role | Phone | + [...] PHYSIATRY [address] | MD [address] | Medication Refill | | | | [address] | [place] | | | | | [place] | [address] | | | | | [address] | | | | | | [phone] | | | +--------+--------+ + + + [...] [place] | | | | | | [address] | | | | | | | | +--------+ + + + + | 05/22/ | Office | Cardiology | Rylee Pollard DO | | | 2019 | Visit | | [address] | | | | | | [place] | | | | | | [address] | | | | | | | | +--------+ + + + + | 06/18/ | Office | Physical Medicine | Justin Cortez, | | | 2019 | Visit | and Rehabilitation | [address] | | | | | | [place] | | | | | | [address] | | | | | | | | +--------+ + + + + documented as of this encounter Visit Diagnoses Not on filedocumented in this encounter"
--- OUTSIDE RECORDS SUMMARY | ~2020-04-19 | XMS | Encounter Summary ---
Demographics + + + | Address | [address] | | | [place] [address] | + + + | Home Phone | | + + + | Preferred Language | Unknown | + + + | Marital Status | | + + + | Lutheran Affiliation | Unknown | + + + [...] Team Providers + +------+ + | Care Blindstitch Lapel Padder Name | Role | Phone | + [...] + + | 04/12/ | Telephone | [facility] [place] | Justin Cortez, | Results, Imaging | | 2019 | | PHYSIATRY [address] | MD [address] | | | | | [address] | [place] | | | | | [place] | [address] | | | | | [address] | | | | | | [phone] | | | +--------+ + + + [...] [place] | | | | | | [address] | | | | | | | | +--------+ + + + + | 05/22/ | Office | Cardiology | Rylee Pollard DO | | | 2019 | Visit | | [address] | | | | | | [place] | | | | | | [address] | | | | | | | | +--------+ + + + + | 06/18/ | Office | Physical Medicine | Justin Cortez, | | | 2019 | Visit | and Rehabilitation | MD [address] | | | | | | [place] | | | | | | [address] | | | | | | | | +--------+ + + + + documented as of this encounter Visit Diagnoses Not on filedocumented in this encounter"
--- OUTSIDE RECORDS SUMMARY | ~2020-04-19 | XMS | Encounter Summary ---
Demographics + + + | Address | [address] | | | [place] [address] | + + + | Home Phone | | + + + | Preferred Language | Unknown | + + + | Marital Status | | + + + | Worship Affiliation | Unknown | + + + [...] Team Providers + +------+ + | Care Sand Tester Name | Role | Phone | + [...] + + | 10/08/ | Emergency | [facility] | He Sarkar MD | Flank pain (Primary | | 2019 | | [facility] | [address] | Dx) | | | | CENTER [address] | [place] | | | | | [place] | [address] | | | | | [address] | | | | | | [phone] | | | +--------+ + + + [...] through Care Everywhere.Flank Pain, Unc ertain Cause (Romanian)documented in this encounter Medications at Time of [...] [place] | | | | | | [address] | | | | | | | | +--------+ + + + + | 05/22/ | Office | Cardiology | Rylee Pollard DO | | | 2019 | Visit | | [address] | | | | | | [place] | | | | | | [address] | | | | | | | | +--------+ + + + + | 06/18/ | Office | Physical Medicine | Justin Cortez, | | | 2019 | Visit | and Rehabilitation | [address] | | | | | | [place] | | | | | | [address] | | | | | | | [...] H?MRN: | | | | | | [id number] | | | [id number] | | | riteri | | | [...] | | | St. | | | [place] | | | y | | | [...] | | | St. | | | [place] | | | y | | | [...] | | | St. | | | [place] | | | y H. | | [...] | | | St. | | | [place] | | | y H. | | [...] in | 12 - 53 U/L | [facility] | | | | use as of [...] [address] | [place] | [phone] | | [facility] | | [address] | | | - LABORATORY | | [...] mL/min/1.73m2 | [facility] | | | [facility] | | | MEDICAL | | | [...] [address] | [place] | [phone] | | [facility] | | [address] | | | - LABORATORY | | [...] ST. | [address] | [place], [place] | [phone] | | [facility] | | [address] | | | - LABORATORY | | [...] - 1.030 | [facility] | | | [place], | | | [facility] | | [...] ST. | [address] | [place] | [phone] | | [facility] | | [address] | | | - LABORATORY | | [...]
--- OUTSIDE RECORDS SUMMARY | ~2020-04-19 | XMS | Encounter Summary ---
Demographics + + + | Address | [address] | | | [place] [address] | + + + | Home Phone | | + + + | Preferred Language | Unknown | + + + | Marital Status | | + + + | Yarsanism Affiliation | Unknown | + + + [...] Team Providers + +------+ + | Care Distribution Manager Name | Role | Phone | + +------+ + | Maria Ines Moses PA-C | PCP | | + +------+ + Encounter Details +--------+---------+ + + + | Date | Type | Department | Care Team | Description | +--------+---------+ + + + | 10/22/ | Office | [facility] | Saurav Glover, | Cervical radicular | | 2019 | Visit | [facility] | [address] | pain (Primary Dx); | | | | [address]OLOGY [address] | HNP (herniated | | | | [address] | [place] [address] | nucleus pulposus), | | | | [place], [place] | [phone] | cervical; | | | | [address] | | Neuroforaminal | | | | [phone] | | stenosis of cervical | | [...] did have an EMG test done in [place] which was reported as normal. T herefore [...] MRI was personally reviewed. Dictation performed with [employer] voice recognition software and has been reviewed, [...] did have an EMG test done in [place] which was reported as normal. T herefore [...] [place] | | | | | | [address] | | | | | | | | +--------+ + + + + | 05/22/ | Office | Cardiology | Rylee Pollard DO | | | 2019 | Visit | | [address] | | | | | | [place] | | | | | | [address] | | | | | | | | +--------+ + + + + | 06/18/ | Office | Physical Medicine | Justin Cortez, | | | 2019 | Visit | and Rehabilitation | MD [address] | | | | | | [place] | | | | | | [address] | | | | | | | [...]
--- OUTSIDE RECORDS SUMMARY | ~2020-04-19 | XMS | Encounter Summary ---
Demographics + + + | Address | [address] | | | [place] [address] | + + + | Home Phone [...] + + | Author | [facility] | | | and [place] | + + + | Organization | [facility] | | | [...] Team Providers + +------+ + | Care Drum Attendant Name | Role | Phone | + +------+ + | Maria nIes Moses PA-C | PCP | | + +------+ + Reason for Visit + + + | Reason | Comments | + + + | Procedure | | + + + Encounter Details +--------+ + + + + | Date | Type | Department | Care Team | Description | +--------+ + + + + | 09/26/ | Telephone | [facility] | Saurav Glover, | Procedure | | 2019 | | [facility] | [address] | | | | | [address]OLOG[address] | | | | | [address] | [place] [address] | | | | | [place], [place] | [phone] | | | | | [address] | | | | | | [phone] | | | +--------+ + + + [...] [place] | | | | | | [address] | | | | | | | | +--------+ + + + + | 05/22/ | Office | Cardiology | Rylee Pollard DO | | | 2019 | Visit | | [address] | | | | | | [place] | | | | | | [address] | | | | | | | | +--------+ + + + + | 06/18/ | Office | Physical Medicine | Justin Cortez, | | | 2019 | Visit | and Rehabilitation | [address] | | | | | | [place] | | | | | | [address] | | | | | | | | +--------+ + + + + documented as of this encounter Visit Diagnoses Not on filedocumented in this encounter"
--- OUTSIDE RECORDS SUMMARY | ~2020-04-19 | XMS | Encounter Summary ---
Demographics + + + | Address | [address] | | | [place] [address] | + + + | Home Phone | | + + + | Preferred Language | Unknown | + + + | Marital Status | | + + + | Anabaptism Affiliation | Unknown | + + + [...] Team Providers + +------+ + | Care Otr Hazmat Company Driver Name | Role | Phone | + [...] | 2019 | | NE[facility]ENCE [facility]ENTER | Clinical Director | | | | | [address]OLOROLOGY [address] | | | | | | [address] | | | | | | [place] | | | | | | [address] | | | | | | [phone] | | | +--------+ + + + [...] [place] | | | | | | [address] | | | | | | | | +--------+ + + + + | 05/22/ | Office | Cardiology | Rylee Pollard DO | | | 2019 | Visit | | [address] | | | | | | [place] | | | | | | [address] | | | | | | | | +--------+ + + + + | 06/18/ | Office | Physical Medicine | uJstin Cortez, | | | 2019 | Visit | and Rehabilitation | MD [address] | | | | | | [place] | | | | | | [address] | | | | | | | | +--------+ + + + + documented as of this encounter Visit Diagnoses Not on filedocumented in this encounter"
--- OUTSIDE RECORDS SUMMARY | ~2020-04-19 | XMS | Encounter Summary ---
Demographics + + + | Address | [address] | | | [place] [address] | + + + | Home Phone [...] Team Providers + +------+ + | Care Slimer Name | Role | Phone | + +------+ + PCP | Unavailable | + +------+ + Encounter Details +--------+ + + + + | Date | Type | Department | Care Team | Description | +--------+ + + + + | 10/19/ | Hospital | [facility] | Conversion | | | 1974 - | Encounter | SYSTEM GENERIC IP | Transaction, | | | | | CONVERSION [address] | Provider Unknown | | | 10/21/ | | [address] [place], [place] | [phone] | | | 1974 | | [address] | | | | | | [phone] | | | +--------+ + + + [...] [place] | | | | | | [address] | | | | | | | | +--------+ + + + + | 05/22/ | Office | Cardiology | Rylee Pollard DO | | | 2019 | Visit | | [address] | | | | | | [place] | | | | | | [address] | | | | | | | | +--------+ + + + + | 06/18/ | Office | Physical Medicine | Justin Cortez, | | | 2019 | Visit | and Rehabilitation | [address] | | | | | | [place] | | | | | | [address] | | | | | | | | +--------+ + + + + documented as of this encounter Visit Diagnoses Not on filedocumented in this encounter"
--- OUTSIDE RECORDS SUMMARY | ~2020-04-19 | XMS | Encounter Summary ---
Demographics + + + | Address | [address] | | | [place] [address] | + + + | Home Phone | | + + + | Preferred Language | Unknown | + + + | Marital Status | | + + + | Yazidi Affiliation | Unknown | + + + | Race | Unknown | + + + | Ethnic Group | Unknown | + + + Author + + + | Author | [facility] | | | and [place] | + + + | Organization | [facility] | | | and [...] Team Providers + +------+ + | Care Silo Operator Name | Role | Phone | + +------+ + PCP | Unavailable | + +------+ + Encounter Details +--------+ + + + + | Date | Type | Department | Care Team | Description | +--------+ + + + + | 05/04/ | Hospital | [facility] | Conversion | | | 1994 | Encounter | SYSTEM EMR | Transaction, | | | | | CONVERSION [address] | Provider Unknown | | | | | [address] [place], [place] | | | | | | [address] | (Fax) | | | | | [phone] | | | +--------+ + + + [...] [place] | | | | | | [address] | | | | | | | | +--------+ + + + + | 05/22/ | Office | Cardiology | Rylee Pollard DO | | | 2019 | Visit | | [address] | | | | | | [place] | | | | | | [address] | | | | | | | | +--------+ + + + + | 06/18/ | Office | Physical Medicine | Justin Cortez, | | | 2019 | Visit | and Rehabilitation | [address] | | | | | | [place] | | | | | | [address] | | | | | | | | +--------+ + + + + documented as of this encounter Visit Diagnoses Not on filedocumented in this encounter"
--- OUTSIDE RECORDS SUMMARY | ~2020-04-19 | XMS | Encounter Summary ---
Demographics + + + | Address | [address] | | | [place] [address] | + + + | Home Phone [...] Team Providers + +------+ + | Care Slat Basket Maker Helper Machine Name | Role | Phone | + [...] | | [facility]ENTER | [facility] | | | | | DOLOROLOGY [address] | Welt Trimming Machine Operator | | | | | [address] | | | | | | [place] | | | | | | [address] | | | | | | [phone] | | | +--------+ + + + [...] [place] | | | | | | [address] | | | | | | | | +--------+ + + + + | 05/22/ | Office | Cardiology | Rylee Pollard DO | | | 2019 | Visit | | [address] | | | | | | [place] | | | | | | [address] | | | | | | | | +--------+ + + + + | 06/18/ | Office | Physical Medicine | Justin Cortez, | | | 2019 | Visit | and Rehabilitation | [address] | | | | | | [place] | | | | | | [address] | | | | | | | | +--------+ + + + + documented as of this encounter Visit Diagnoses Not on filedocumented in this encounter"
--- OUTSIDE RECORDS SUMMARY | ~2020-04-19 | XMS | Encounter Summary ---
Demographics + + + | Address | [address] | | | [place] [address] | + + + | Home Phone | | + + + | Preferred Language | Unknown | + + + | Marital Status | | + + + | Congregational Affiliation | Unknown | + + + | Race | Unknown | + + + | Ethnic Group | Unknown | + + + Author + + + | Author | [facility] | | | and [place] | + + + | Organization | [facility] | | | [...] Team Providers + +------+ + | Care Rn Licensed Practical Name | Role | Phone | + +------+ + | Maria Ines Moses PA-C | PCP | | + +------+ + Encounter Details +--------+ + + + + | Date | Type | Department | Care Team | Description | +--------+ + + + + | 09/05/ | Hospital | [facility] | Saurav Glover, | | | 2019 | Encounter | [facility] XRAY | MD [address] | | | | | [address] | [address] | | | | | [address] [place], [place] | [place] [address] | | | | | [address] | [phone] | | | | | [phone] | | | +--------+ + + + [...] [place] | | | | | | [address] | | | | | | | | +--------+ + + + + | 05/22/ | Office | Cardiology | Rylee Pollard DO | | | 2019 | Visit | | [address] | | | | | | [place] | | | | | | [address] | | | | | | | | +--------+ + + + + | 06/18/ | Office | Physical Medicine | Justin Cortez, | | | 2019 | Visit | and Rehabilitation | [address] | | | | | | [place] | | | | | | [address] | | | | | | | [...]
--- OUTSIDE RECORDS SUMMARY | ~2020-04-19 | XMS | Encounter Summary ---
Demographics + + + | Address | [address] | | | [place] [address] | + + + | Home Phone | | + + + | Preferred Language | Unknown | + + + | Marital Status | | + + + | Bahai Affiliation | Unknown | + + + [...] Team Providers + +------+ + | Care Gutter Mouth Cutter Name | Role | Phone | + [...] + + | 10/08/ | Emergency | [facility] | He Sarkar MD | Flank pain (Primary | | 2019 | | [facility] | [address] | Dx) | | | | CENTER [address] | [place] | | | | | [place] | [address] | | | | | [address] | | | | | | [phone] | | | +--------+ + + + [...] through Care Everywhere.Flank Pain, Unc ertain Cause (Ukrainian)documented in this encounter Medications at Time of [...] [place] | | | | | | [address] | | | | | | | | +--------+ + + + + | 05/22/ | Office | Cardiology | Rylee Pollard DO | | | 2019 | Visit | | [address] | | | | | | [place] | | | | | | [address] | | | | | | | | +--------+ + + + + | 06/18/ | Office | Physical Medicine | Justin Cortez, | | | 2019 | Visit | and Rehabilitation | [address] | | | | | | [place] | | | | | | [address] | | | | | | | [...] H?MRN: | | | | | | [id number] | | | [id number] | | | riteri | | | [...] | | | St. | | | [place] | | | y | | | [...] | | | St. | | | [place] | | | y | | | [...] | | | St. | | | [place] | | | y H. | | [...] | | | St. | | | [place] | | | y H. | | [...] in | 12 - 53 U/L | [facility] | | | | use as [...] [address] | [place] | [phone] | | [facility] | | [address] | | | - LABORATORY | | [...] mL/min/1.73m2 | [facility] | | | [place] | | | MEDICAL | | | [...] [address] | [place] | [phone] | | [facility] | | [address] | | | - LABORATORY | | [...] ST. | [address] | [place], [place] | [phone] | | [facility] | | [address] | | | - LABORATORY | | [...] - 1.030 | [facility] | | | [place], | | | [facility] | | [...] ST. | [address] | [place] | [phone] | | [facility] | | [address] | | | - LABORATORY | | [...]
--- OUTSIDE RECORDS SUMMARY | ~2020-04-19 | XMS | Encounter Summary ---
Demographics + + + | Address | [address] | | | [place] [address] | + + + | Home Phone [...] Team Providers + +------+ + | Care Amphibious Operations Officer Name | Role | Phone | + [...] | | [address] | [place] | | | | | [place] | [place] [address] | | | | | [address] | | | | | | [phone] | | | +--------+ + + + [...] [place] | | | | | | [address] | | | | | | | | +--------+ + + + + | 05/22/ | Office | Cardiology | Rylee Pollard DO | | | 2019 | Visit | | [address] | | | | | | [place] | | | | | | [address] | | | | | | | | +--------+ + + + + | 06/18/ | Office | Physical Medicine | Justin Cortez, | | | 2019 | Visit | and Rehabilitation | [address] | | | | | | [place] | | | | | | [address] | | | | | | | | +--------+ + + + + documented as of this encounter Visit Diagnoses Not on filedocumented in this encounter"
--- OUTSIDE RECORDS SUMMARY | ~2020-04-19 | XMS | Encounter Summary ---
Demographics + + + | Address | [address] | | | [place] [address] | + + + | Home Phone [...] Team Providers + +------+ + | Care Warehouse Helper Name | Role | Phone | + +------+ + | Maria Ines Moses PA-C | PCP | | + +------+ + Encounter Details +--------+ + + + + | Date | Type | Department | Care Team | Description | +--------+ + + + + | 09/28/ | Hospital | [facility] | Saurav Glover, | | | 2019 | Encounter | [facility] | MD [address] | | | | | XRAY [address] | [address] | | | | | [address], | [place] [address] | | | | | [place] [address] | [phone] | | | | | [phone] | | | +--------+ + + + [...] [place] | | | | | | [address] | | | | | | | | +--------+ + + + + | 05/22/ | Office | Cardiology | Rylee Polladr DO | | | 2019 | Visit | | [address] | | | | | | [place] | | | | | | [address] | | | | | | | | +--------+ + + + + | 06/18/ | Office | Physical Medicine | Justin Cortez, | | | 2019 | Visit | and Rehabilitation | [address] | | | | | | [place] | | | | | | [address] | | | | | | | [...]
--- OUTSIDE RECORDS SUMMARY | ~2020-04-19 | XMS | Encounter Summary ---
Demographics + + + | Address | [address] | | | [place] [address] | + + + | Home Phone [...] Team Providers + +------+ + | Care Drop Board Man Name | Role | Phone | + +------+ + PCP | Unavailable | + +------+ + Encounter Details +--------+ + + + + | Date | Type | Department | Care Team | Description | +--------+ + + + + | 10/25/ | Hospital | [facility] | Conversion | | | 1998 | Encounter | SYSTEM EMR | Transaction, | | | | | CONVERSION [address] | Provider Unknown | | | | | [address] [place], [place] | | | | | | [address] | (Fax) | | | | | [phone] | | | +--------+ + + + [...] [place] | | | | | | [address] | | | | | | | | +--------+ + + + + | 05/22/ | Office | Cardiology | Rylee Pollard DO | | | 2019 | Visit | | [address] | | | | | | [place] | | | | | | [address] | | | | | | | | +--------+ + + + + | 06/18/ | Office | Physical Medicine | Justin Cortez, | | | 2019 | Visit | and Rehabilitation | [address] | | | | | | [place] | | | | | | [address] | | | | | | | | +--------+ + + + + documented as of this encounter Visit Diagnoses Not on filedocumented in this encounter"
--- OUTSIDE RECORDS SUMMARY | ~2020-04-19 | XMS | Encounter Summary ---
Demographics + + + | Address | [address] | | | [place] [address] | + + + | Home Phone | | + + + | Preferred Language | Unknown | + + + | Marital Status | | + + + | Restorationist Affiliation | Unknown | + + + | Race | Unknown | + + + | Ethnic Group | Unknown | + + + Author + + + | Author | [facility] | | | and [place] | + + + | Organization | [facility] | | | [...] Team Providers + +------+ + | Care Draw Furnace Tender Name | Role | Phone | [...] + + | 03/13/ | Office | [facility] | Justin Cortez, | Pain and numbness of | | 2018 | Visit | PH[address]SIATRY [address] | MD [address] | left upper | | | | [address] | [place] | extremity (Primary | | | | [place], [place] | [address] | Dx); 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 Justin Cortez MD [address] [place] [address], [address] [place] [address] FAX: PHYSICAL MEDICINE AND REHABILITATION [...] has no apparent deficits with short or superintendent warehouse memory. The cranial nerves appear grossly intact. 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 Based on review of symptoms order [...] [place] | | | | | | [address] | | | | | | | | +--------+ + + + + | 05/22/ | Office | Cardiology | Rylee Pollard DO | | | 2019 | Visit | | [address] | | | | | | [place] | | | | | | [address] | | | | | | | | +--------+ + + + + | 06/18/ | Office | Physical Medicine | Justin Cortez, | | | 2019 | Visit | and Rehabilitation | [address] | | | | | | [place] | | | | | | [phone] | | | | | | | [...]
--- OUTSIDE RECORDS SUMMARY | ~2020-04-19 | XMS | Encounter Summary ---
Demographics + + + | Address | [address] | | | [place] [address] | + + + | Home Phone | | + + + | Preferred Language | Unknown | + + + | Marital Status | | + + + | Samaritan Affiliation | Unknown | + + + [...] Team Providers + +------+ + | Care Fitter Machinist Name | Role | Phone | [...] + + | 09/19/ | Telephone | [facility] | Saurav Glover, | Other (chart note | | 2019 | | INTERVENTIONAL PAIN | [address] | 09/05) | | | | [address] | [address] | | | | | [address], | [place] [address] | | | | | [place] [address] | [phone] | | | | | [phone] | | | +--------+ + + + [...] [place] | | | | | | [address] | | | | | | | | +--------+ + + + + | 05/22/ | Office | Cardiology | Rylee oPllard DO | | | 2019 | Visit | | [address] | | | | | | [place] | | | | | | [address] | | | | | | | | +--------+ + + + + | 06/18/ | Office | Physical Medicine | Justin Cortez, | | | 2019 | Visit | and Rehabilitation | [address] | | | | | | [place] | | | | | | [phone] | | | | | | | | +--------+ + + + + documented as of this encounter Visit Diagnoses Not on filedocumented in this encounter"
--- OUTSIDE RECORDS SUMMARY | ~2020-04-19 | XMS | Encounter Summary ---
Demographics + + + | Address | [address] | | | [place] [address] | + + + | Home Phone | | + + + | Preferred Language | Unknown | + + + | Marital Status | | + + + | Presybeterian Affiliation | Unknown | + + + | Race | Unknown | + + + | Ethnic Group | Unknown | + + + Author + + + | Author | [facility] | | | and [place] | + + + | Organization | [facility] | | | [...] Team Providers + +------+ + | Care Masonry Instructor Name | Role | Phone | + +------+ + | Maria Ines Moses PA-C | PCP | | + +------+ + Encounter Details +--------+ + + + + | Date | Type | Department | Care Team | Description | +--------+ + + + + | 09/05/ | Hospital | [facility] | Saurav Glover, | | | 2019 | Encounter | [facility] | MD [address] | | | | | [address] | [address] | | | | | [address] [place], [place] | [place] [address] | | | | | [address] | [phone] | | | | | [phone] | | | +--------+ + + + [...] [place] | | | | | | [address] | | | | | | | | +--------+ + + + + | 05/22/ | Office | Cardiology | Rylee Pollard DO | | | 2019 | Visit | | [address] | | | | | | [place] | | | | | | [address] | | | | | | | | +--------+ + + + + | 06/18/ | Office | Physical Medicine | Justin Cortez, | | | 2019 | Visit | and Rehabilitation | [address] | | | | | | [place] | | | | | | [address] | | | | | | | [...]
--- OUTSIDE RECORDS SUMMARY | ~2020-04-19 | XMS | Encounter Summary ---
Demographics + + + | Address | [address] | | | [place] [address] | + + + | Home Phone | | + + + | Preferred Language | Unknown | + + + | Marital Status | | + + + | Mandaeism Affiliation | Unknown | + + + [...] Team Providers + +------+ + | Care Spring Bender Name | Role | Phone | + [...] | regional | [address] | | | | n | pain | [address] | [place], | | | | | syndrome | [place], | [place] [address] | | | | | type 2 of | [place] [address] | Phone: | | | | | left upper | Phone: | [phone] | | | | | extremity | [phone] | Fax: | | | | | Ulnar | Fax: | [phone] | | | | | neuropathy | [phone] | | | | | | of [...] | | | | | | | CA MOTOR | | | | | | | &/SENS 13/> | | | | | | | NRV CNDJ | | | | | | | PRECONF | | | | | | | ELTRODE LIMB | | | | | | | CA NEEDLE | | | | | | | EMG EA | | | | | | | EXTREMITY | | | | | | | W/PARASPINL | | | | | | | AREA LIMITED | | | | | | | CA MOTOR | | | | | | | &/SENS 7-8 | | | | | | | NRV CNDJ | | | | | | | PRECONF | | | | | | | ELTRODE LIMB | | | | | | | CA NEEDLE | | | | | | | EMG EA | | | | | | | EXTREMTY | | | | | | | W/PARASPINL | | | | | | | AREA | | | | | | | COMPLETE CA | | | | | | | [...] of upper | PA-C [address] | | | | n | limb | [address] | [place], | | | | | | [place] | [place] [address] | | | | | | [address] | Phone: | | | | | | [place], | [phone] | | | | | | [place] | Fax: | | | | | | [address] | [phone] | | | | | | Phone: | | | | | | | [phone] | | | | | | | Fax: | | | | | | | [phone] | | +--------+--------+ + + + + Encounter Details +--------+---------+ + + + | Date | Type | Department | Care Team | Description | +--------+---------+ + + + | 11/02/ | Office | [facility] [place] | Justin Cortez, | 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 4 left finger abduction Reflexes: 2+ normal [...] [place] | | | | | | [address] | | | | | | | | +--------+ + + + + | 05/22/ | Office | Cardiology | Rylee Pollard DO | | 2019 | Visit | | [address] | | | | | | [place] | | | | | | [address] | | | | | | | | +--------+ + + + + | 06/18/ | Office | Physical Medicine | Justin Cortez, | | | 2019 | Visit | and Rehabilitation | [address] | | | | | | [place] | | | | | | [address] | | | | | | | [...]
--- OUTSIDE RECORDS SUMMARY | ~2020-04-19 | XMS | Encounter Summary ---
Demographics + + + | Address | [address] | | | [place] [address] | + + + | Home Phone | | + + + | Preferred Language | Unknown | + + + | Marital Status | | + + + | Anabaptist Affiliation | Unknown | + + + | Race | Unknown | + + + | Ethnic Group | Unknown | + + + Author + + + | Author | [facility] | | | and [place] | + + + | Organization | [facility] | | | [...] Team Providers + +------+ + | Care Inspector Barrel Name | Role | Phone | + [...] + + | 10/01/ | Telephone | [facility] | Shanice Santiago | Other (Patient | | 2019 | | CARDIOLOGY SITA Wyatt, Feather Renovator | reaction to | | | | [address] | | Labetalol. ) | | | | [address] | | | | | | [place] | | | | | | [address] | | | | | | [phone] | | | +--------+ + + + [...] [place] | | | | | | [address] | | | | | | | | +--------+ + + + + | 05/22/ | Office | Cardiology | Rylee Pollard DO | | | 2019 | Visit | | [address] | | | | | | [place] | | | | | | [address] | | | | | | | | +--------+ + + + + | 06/18/ | Office | Physical Medicine | Justin Cortez, | | | 2019 | Visit | and Rehabilitation | [address] | | | | | | [place] | | | | | | [address] | | | | | | | | +--------+ + + + + documented as of this encounter Visit Diagnoses Not on filedocumented in this encounter"
--- OUTSIDE RECORDS SUMMARY | ~2020-04-19 | XMS | Encounter Summary ---
Demographics + + + | Address | [address] | | | [place] [address] | + + + | Home Phone [...] Team Providers + +------+ + | Care Heel Cementer Name | Role | Phone | + [...] | | | Radiology | Essential | [facility] | | | | | hypertension | [address] | | | | | Procedures | [address] | [address] | | | | | VAS Renal | [address] | [place], [place] | | | | | Artery | [place] | [address] | | | | | Complete | [address] | Phone: | | | | | | Phone: | [phone] | | | | | | [phone] | Fax: | | | | | | Fax: | [phone] | | | | | | [phone] | | + +--------+ + + + [...] | | | | HYPERTENSION | PA-C [address] | [address] | | | | | Procedures | [address] | [address] | | | | | CONSULT | WAY | [facility] [place] | | | | | | [place] | [address] Phone: | | | | | | [place] [address] | [phone] | | | | | | Phone: | Fax: | | | | | | [phone] | [phone] | | | | | | Fax: | | | | | | | [phone] | | +--------+--------+ + + + + Encounter Details +--------+---------+ + + + | Date | Type | Department | Care Team | Description | +--------+---------+ + + + | 09/13/ | Office | [facility] | Rylee Pollard DO | Essential | | 2019 | Visit | CARDIOLOGY [place] | [address] | hypertension | | | | [address] | [place], [place] | (Primary Dx) | | | | [address] | [address] | | | | | [place], [place] | | | | | | [address] | | | | | | [phone] | | | +--------+---------+ + + + [...] Pollard DO - 09/13/2019 2:20 PM PDT [facility] Cardiology Consult Note Reason for Consultation: [...] 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
--- OUTSIDE RECORDS SUMMARY | ~2020-04-19 | XMS | Encounter Summary ---
Demographics + + + | Address | [address] | | | [place] [address] | + + + | Home Phone | | + + + | Preferred Language | Unknown | + + + | Marital Status | | + + + | Episcopalian Affiliation | Unknown | + + + | Race | Unknown | + + + | Ethnic Group | Unknown | + + + Author + + + | Author | [facility] | | | and [place] | + + + | Organization | [facility] | | | and [place] | + + + | Address | Unknown | + + + | Phone | Unavailable | + + + Support + + +---------+ + | Name | Relationship | Address | Phone | + + +---------+ + | Merea Bonnie | ECON | Unknown | | + + +---------+ + | Klaudia Palomares | ECON | Unknown | | + + +---------+ + Care Team Providers + +------+ + | Care Cnc Mechanic Name | Role | Phone | + +------+ + | Maria Ines Moses PA-C | PCP | | + +------+ + Encounter Details +--------+ + + + + | Date | Type | Department | Care Team | Description | +--------+ + + + + | 12/04/ | Hospital | [facility] | Conversion | Causalgia of left | | 2019 | Encounter | MEDICAL CENTER | Transaction, | upper extremity | | | | ULTRASOUND [address] | Provider Unknown | | | | | [address] | | | | | | [place], [place] | (Fax) | | | | | [address] | | | | | | [phone] | | | +--------+ + + + [...] [place] | | | | | | [address] | | | | | | | | +--------+ + + + + | 05/22/ | Office | Cardiology | Rylee Pollard DO | | | 2019 | Visit | | [address] | | | | | | [place] [facility] | | | | | | [address] | | | | | | | | +--------+ + + + + | 06/18/ | Office | Physical Medicine | Justin Cortez, | | | 2019 | Visit | and Rehabilitation | [address] | | | | | | [place] | | | | | | [address] | | | | | | | [...]
--- OUTSIDE RECORDS SUMMARY | ~2020-04-19 | XMS | Encounter Summary ---
Demographics + + + | Address | [address] | | | [place] [address] | + + + | Home Phone [...] Team Providers + +------+ + | Care Engineering And Operations Director Name | Role | Phone | + [...] | Justin Salguero MD | [address] | | | | | numbness of | [address] | [place], | | | | | left upper | [address] | [place] | | | | | extremity | [place], | [address] | | | | | Neuropathic | [place] [address] | Phone: | | | | | pain | Phone: | [phone] | | | | | Cervicalgia | [phone] | Fax: | | | | | Weakness of | Fax: | [phone] | | | | | left upper | [phone] | | | | | | extremity [...] + + | 02/15/ | Hospital | [facility] | Justin Cortez, | Pain and numbness of | | 2019 | Encounter | MED CTR MRI [address] | MD [address] | left upper | | | | [place], | [place], [place] | extremity; | | | | [place] [address] | [address] | Neuropathic pain; | | | | [phone] | | Cervicalgia; | | | | [...] [place] | | | | | | [address] | | | | | | | | +--------+ + + + + | 05/22/ | Office | Cardiology | Rylee Pollard DO | | | 2019 | Visit | | [address] | | | | | | [place] | | | | | | [address] | | | | | | | | +--------+ + + + + | 06/18/ | Office | Physical Medicine | Justin Cortez, | | | 2019 | Visit | and Rehabilitation | [address] | | | | | | [place] | | | | | | [address] | | | | | | | [...]
--- OUTSIDE RECORDS SUMMARY | ~2020-04-19 | XMS | Encounter Summary ---
Demographics + + + | Address | [address] | | | [place] [address] | + + + | Home Phone [...] Team Providers + +------+ + | Care Finance Accounting Internship Name | Role | Phone | [...] | | | Radiology | Ess[facility] | | | | | hypertension | [address] | | | | | Procedures | [address] | [address] | | | | | VAS Renal | [address] | [place], [place] | | | | | Artery | [place], [place] | [address] | | | | | Complete | [address] | Phone: | | | | | | Phone: | [phone] | | | | | | [phone] | Fax: | | | | | | Fax: | [phone] | | | | | | [phone] | | + +--------+ + + + [...] | | | | HYPERTENSION | PA-C [address] | [address] | | | | | Procedures | [address] | [address] | | | | | CONSULT | WAY | [facility] [place] | | | | | | [place] | [address] Phone: | | | | | | [place] [address] | [phone] | | | | | | Phone: | Fax: | | | | | | [phone] | [phone] | | | | | | Fax: | | | | | | | [phone] | | +--------+--------+ + + + + Encounter Details +--------+---------+ + + + | Date | Type | Department | Care Team | Description | +--------+---------+ + + + | 09/13/ | Office | [facility] | Rylee Pollard DO | Essential | | 2019 | Visit | CARDIOLOGY [place] | [address] | hypertension | | | | [address] | [place], [place] | (Primary Dx) | | | | [address] | [address] | | | | | [place], [place] | | | | | | [address] | | | | | | [phone] | | | +--------+---------+ + + + [...] Pollard DO - 09/13/2019 2:20 PM PDT [facility] Cardiology Consult Note Reason for Consultation: [...] 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
--- OUTSIDE RECORDS SUMMARY | ~2020-04-19 | XMS | Encounter Summary ---
Demographics + + + | Address | [address] | | | [place] [address] | + + + | Home Phone [...] Team Providers + +------+ + | Care Architectural Inspector Name | Role | Phone | + +------+ + | Maria Ines Moses PA-C | PCP | | + +------+ + Encounter Details +--------+ + + + + | Date | Type | Department | Care Team | Description | +--------+ + + + + | 12/04/ | Hospital | [facility] | Conversion | Causalgia of left | | 2019 | Encounter | MEDICAL CENTER | Transaction, | upper extremity | | | | ULTRASOUND [address] | Provider Unknown | | | | | [address] | | | | | | [place], [place] | (Fax) | | | | | [address] | | | | | | [phone] | | | +--------+ + + + [...] [address] | | | | | | [place] | | | | | | [address] | | | | | | | | +--------+ + + + + | 05/22/ | Office | Cardiology | Rylee Pollard DO | | | 2019 | Visit | | [address] | | | | | | [place] [facility] [place] | | | | | | [address] | | | | | | | | +--------+ + + + + | 06/18/ | Office | Physical Medicine | Justin Cortez, | | | 2019 | Visit | and Rehabilitation | [address] | | | | | | [place] | | | | | | [address] | | | | | | | [...]
--- OUTSIDE RECORDS SUMMARY | ~2020-04-19 | XMS | Encounter Summary ---
Demographics + + + | Address | [address] | | | [place] [address] | + + + | Home Phone [...] Team Providers + +------+ + | Care Transfer Controller Name | Role | Phone | [...] | regional | [address] | | | | n | pain | [address] | [place], | | | | | syndrome | [place], | [place] [address] | | | | | type 2 of | [place] [address] | Phone: | | | | | left upper | Phone: | [phone] | | | | | extremity | [phone] | Fax: | | | | | Ulnar | Fax: | [phone] | | | | | neuropathy | [phone] | | | | | | of [...] | | | | | | | MS MOTOR | | | | | | | &/SENS 13/> | | | | | | | NRV CNDJ | | | | | | | PRECONF | | | | | | | ELTRODE LIMB | | | | | | | MS NEEDLE | | | | | | | EMG EA | | | | | | | EXTREMITY | | | | | | | W/PARASPINL | | | | | | | AREA LIMITED | | | | | | | MS MOTOR | | | | | | | &/SENS 7-8 | | | | | | | NRV CNDJ | | | | | | | PRECONF | | | | | | | ELTRODE LIMB | | | | | | | MS NEEDLE | | | | | | | EMG EA | | | | | | | EXTREMTY | | | | | | | W/PARASPINL | | | | | | | AREA | | | | | | | COMPLETE MS | | | | | | | [...] PHYSIATRY [address] | MD [address] | pain syndrome type 2 | | | | [address] | [place], [place] | of left upper | | | | [place] | [address] | extremity (Primary | | | | [address] | | Dx); Pain and | | | | [phone] | | numbness of left | | [...] might be different fro m the original. [facility] Physical Medicine & Rehabilitation [address] [place] [address], [facility] [address] [place] [address] Test Date: 11/15/2018 Patient Name: Isi Springer : 1975 Physician: Justin Cortez MD (Jr.) MR #: [id number] Sex: Female Referring Physician: Maria Ines Moses [...] thinning medications such as Coumadin. PHYSICAL EXAM: sIi Springer is in no acute distress. 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 There is normal 2+ reflexes [...] | | | | | [place] [facility] | | | | | | [id number] | | | | | | | | +--------+ + + + + | 05/22/ | Office | Cardiology | Rylee Pollard DO | | | 2019 | Visit | | [address] | | | | | | [place] | | | | | | [address] | | | | | | | | +--------+ + + + + | 06/18/ | Office | Physical Medicine | Justin Cortez, | | | 2019 | Visit | and Rehabilitation | [address] | | | | | | [place] | | | | | | [id number] | | | | | | | [...]
--- OUTSIDE RECORDS SUMMARY | ~2020-04-19 | XMS | Encounter Summary ---
Demographics + + + | Address | [address] | | | [place] [address] | + + + | Home Phone | | + + + | Preferred Language | Unknown | + + + | Marital Status | | + + + | Congregation Affiliation | Unknown | + + + [...] Team Providers + +------+ + | Care News Correspondent Name | Role | Phone | + [...] PHYSIATRY [address] | MD [address] | | | | | [address] | [place] | | | | | [place] | [address] | | | | | [address] | | | | | | [phone] | | | +--------+ + + + [...] [place] | | | | | | [address] | | | | | | | | +--------+ + + + + | 05/22/ | Office | Cardiology | Rylee Pollard DO | | | 2019 | Visit | | [address] | | | | | | [place] | | | | | | [address] | | | | | | | | +--------+ + + + + | 06/18/ | Office | Physical Medicine | Justin Cortez, | | | 2019 | Visit | and Rehabilitation | MD [address] | | | | | | [place] | | | | | | [address] | | | | | | | | +--------+ + + + + documented as of this encounter Visit Diagnoses Not on filedocumented in this encounter"
--- OUTSIDE RECORDS SUMMARY | ~2020-04-19 | XMS | Encounter Summary ---
Demographics + + + | Address | [address] | | | [place] [address] | + + + | Home Phone | | + + + | Preferred Language | Unknown | + + + | Marital Status | | + + + | Judaism Affiliation | Unknown | + + + | Race | Unknown | + + + | Ethnic Group | Unknown | + + + Author + + + | Author | [facility] | | | and [place] | + + + | Organization | [facility] | | [...] Team Providers + +------+ + | Care Rouge Mixer Name | Role | Phone | + +------+ + | Maria Ines Moses PA-C | PCP | | + +------+ + Encounter Details +--------+---------+ + + + | Date | Type | Department | Care Team | Description | +--------+---------+ + + + | 10/22/ | Office | [facility] | Sauarv Glover, | Cervical radicular | | 2019 | Visit | [facility] | [address] | pain (Primary Dx); | | | | [address]OLOGY [address] | HNP (herniated | | | | [address] | [place] [address] | nucleus pulposus), | | | | [place], [place] | [phone] | cervical; | | | | [address] | | Neuroforaminal | | | | [phone] | | stenosis of cervical | | [...] did have an EMG test done in [place] which was reported as normal. T herefore [...] MRI was personally reviewed. Dictation performed with PoshVine voice recognition software and has been reviewed, [...] did have an EMG test done in [place] which was reported as normal. T herefore [...] [place] | | | | | | [address] | | | | | | | | +--------+ + + + + | 05/22/ | Office | Cardiology | Rylee Pollard DO | | | 2019 | Visit | | [address] | | | | | | [place] | | | | | | [address] | | | | | | | | +--------+ + + + + | 06/18/ | Office | Physical Medicine | Justin Cortez, | | | 2019 | Visit | and Rehabilitation | MD [address] | | | | | | [place] | | | | | | [address] | | | | | | | [...]
--- OUTSIDE RECORDS SUMMARY | ~2020-04-19 | XMS | Encounter Summary ---
Demographics + + + | Address | [address] | | | [place] [address] | + + + | Home Phone | | + + + | Preferred Language | Unknown | + + + | Marital Status | | + + + | Faith Affiliation | Unknown | + + + | Race | Unknown | + + + | Ethnic Group | Unknown | + + + Author + + + | Author | [facility] | | | and [place] | + + + | Organization | [facility] | | [...] Team Providers + +------+ + | Care Field Technician Name | Role | Phone | [...] | | | [address] | [place] [address] | | | | | [place], [place] | [phone] | | | | | [address] | | | | | | [phone] | | | +--------+ + + + [...] [place] | | | | | | [address] | | | | | | | | +--------+ + + + + | 05/22/ | Office | Cardiology | Rylee Pollard DO | | | 2019 | Visit | | [address] | | | | | | [place] | | | | | | [address] | | | | | | | | +--------+ + + + + | 06/18/ | Office | Physical Medicine | Justin Cortez, | | | 2019 | Visit | and Rehabilitation | [address] | | | | | | [place] | | | | | | [address] | | | | | | | | +--------+ + + + + documented as of this encounter Visit Diagnoses Not on filedocumented in this encounter"
--- OUTSIDE RECORDS SUMMARY | ~2020-04-19 | XMS | Encounter Summary ---
Demographics + + + | Address | [address] | | | [place] [address] | + + + | Home Phone | | + + + | Preferred Language | Unknown | + + + | Marital Status | | + + + | Religion Affiliation | Unknown | + + + | Race | Unknown | + + + | Ethnic Group | Unknown | + + + Author + + + | Author | [facility] | | | and [place] | + + + | Organization | [facility] | | [...] Team Providers + +------+ + | Care Equal Opportunity Representative Name | Role | Phone | + [...] + + | 04/10/ | Hospital | [facility] | Justin Cortez, | Pain and numbness of | | 2018 | Encounter | MED CTR NUCLEAR | MD [address] | left upper | | | | MEDICINE [address] | [place] | extremity; Complex | | | | [place], | [address] | 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
--- OUTSIDE RECORDS SUMMARY | ~2020-04-19 | XMS | Encounter Summary ---
Demographics + + + | Address | [address] | | | [place] [address] | + + + | Home Phone | | + + + | Preferred Language | Unknown | + + + | Marital Status | | + + + | Anabaptism Affiliation | Unknown | + + + | Race | Unknown | + + + | Ethnic Group | Unknown | + + + Author + + + | Author | [facility] | | | and [place] | + + + | Organization | [facility] | | [...] Team Providers + +------+ + | Care Bond Clerk Name | Role | Phone | [...] | | | | neck pain | [address] | [address] | | | | | Thoracic | [place], | [place] | | | | | outlet | [place] [address] | [place] | | | | | syndrome | Phone: | [phone] | | | | | Cervical | [phone] | Phone: | | | | | radiculitis | Fax: | [phone] | | | | | | [phone] | Fax: | | | | | Hyperalgesia | | [phone] | | | | | Allodynia | [...] + + | 05/02/ | Office | [facility] | Justin Cortez, | Trigger point with | | 2019 | Visit | PHYSIATRY [address] | MD [address] | neck pain (Primary | | | | [address] | [place] | Dx); 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 Continue with plans to participate in physical therapy. documented in this encounter Progress Notes Justin Cortez MD - 05/02/2019 8:10 AM PDTFormatting of this note might be different fro m the original. Justin Cortez MD [address] [place] [address], [address] [place] [address] FAX: PHYSICAL MEDICINE AND REHABILITATION H&P CHIEF [...] has no apparent deficits with short or terminal carman memory. The cranial nerves appear grossly intact. [...] Extension 5 5 Finger Abduction 5 5 Food And Beverage Assistant Strength 5 5 Hip Flexion 5 5 [...] [place] | | | | | | [address] | | | | | | | | +--------+ + + + + | 05/22/ | Office | Cardiology | Rylee Pollard DO | | | 2019 | Visit | | [address] | | | | | | [place] | | | | | | [address] | | | | | | | | +--------+ + + + + | 06/18/ | Office | Physical Medicine | Justin Cortez, | | | 2019 | Visit | and Rehabilitation | MD [address] | | | | | | [place] | | | | | | [address] | | | | | | | [...]
--- OUTSIDE RECORDS SUMMARY | ~2020-04-19 | XMS | Encounter Summary ---
Demographics + + + | Address | [address] | | | [place] [address] | + + + | Home Phone | | + + + | Preferred Language | Unknown | + + + | Marital Status | | + + + | Zoroastrian Affiliation [...] Team Providers + +------+ + | Care Business Solutions Director Name | Role | Phone | [...] | | | nucleus | [place], | [address] | | | | | pulposus), | [place] [address] | Phone: | | | | | cervical | Phone: | [phone] | | | | | Other | [phone] | Fax: | | | | | biomechanica | Fax: | [phone] | | | | | l lesions of | [phone] | | | | | | cervical | | | | | | | region | | | | | | | Cervical | | | | | | | spondylosis | | | | | | | Procedures | | | | | | | LA INJECT | | | | | | [...] + + | 09/28/ | Hospital | [facility] | Saurav Glover, | Cervical radicular | | 2019 | Encounter | INTERVENTIONAL PAIN | MD [address] | pain (Primary Dx); | | | | [place] | [address] | Neuroforaminal | | | | DR [place], | [place] [address] | stenosis of cervical | | | | [place] [address] | [phone] | spine; Cervical | | | | [phone] | | spondylosis without | | | [...] and his staff can be contacted at [phone]. If you are unable to contact your doctor or their associate, you may come to the Emergency Department at [facility]. These instructions have been explained to the [...] [place] | | | | | | [address] | | | | | | | | +--------+ + + + + | 05/22/ | Office | Cardiology | Rylee Pollard DO | | | 2019 | Visit | | [address] | | | | | | [place] | | | | | | [address] | | | | | | | | +--------+ + + + + | 06/18/ | Office | Physical Medicine | Justin Cortez, | | | 2019 | Visit | and Rehabilitation | MD [address] | | | | | | [place] | | | | | | [address] | | | | | | | [...]
--- OUTSIDE RECORDS SUMMARY | ~2020-04-19 | XMS | Encounter Summary ---
Demographics + + + | Address | [address] | | | [place] [address] | + + + | Home Phone | | + + + | Preferred Language | Unknown | + + + | Marital Status | | + + + | Taoism Affiliation | Unknown | + + + | Race | Unknown | + + + | Ethnic Group | Unknown | + + + Author + + + | Author | [facility] | | | and [place] | + + + | Organization | [facility] | | [...] Team Providers + +------+ + | Care Rehabilitation Counselor Name | Role | Phone | + [...] | | | [address] | [place] [address] | | | | | [place], [place] | [phone] | | | | | [address] | | | | | | [phone] | | | +--------+ + + + [...] [place] | | | | | | [address] | | | | | | | | +--------+ + + + + | 05/22/ | Office | Cardiology | Rylee Pollard DO | | | 2019 | Visit | | [address] | | | | | | [place] | | | | | | [address] | | | | | | | | +--------+ + + + + | 06/18/ | Office | Physical Medicine | Justin Cortez, | | | 2019 | Visit | and Rehabilitation | MD [address] | | | | | | [place] | | | | | | [id number] | | | | | | | | +--------+ + + + + documented as of this encounter Visit Diagnoses Not on filedocumented in this encounter"
--- OUTSIDE RECORDS SUMMARY | ~2020-04-19 | XMS | Encounter Summary ---
Demographics + + + | Address | [address] | | | [place] [address] | + + + | Home Phone [...] Team Providers + +------+ + | Care Structural Mill Supervisor Name | Role | Phone | [...] + + | 10/01/ | Telephone | [facility] | Shanice Santiago | Other (Patient | | 2019 | | CARDIOLOGY [place], Replanter | reaction to | | | | [address] | | Labetalol. ) | | | | [address] | | | | | | [place] | | | | | | [address] | | | | | | [phone] | | | +--------+ + + + [...] [place] | | | | | | [address] | | | | | | | | +--------+ + + + + | 05/22/ | Office | Cardiology | Rylee Pollard DO | | | 2019 | Visit | | [address] | | | | | | [place] | | | | | | [address] | | | | | | | | +--------+ + + + + | 06/18/ | Office | Physical Medicine | Justin Cortez, | | | 2019 | Visit | and Rehabilitation | MD [address] | | | | | | [place] | | | | | | [address] | | | | | | | | +--------+ + + + + documented as of this encounter Visit Diagnoses Not on filedocumented in this encounter"
[~2020-04-19 21:12] MED LIST changes: +HYDROCHLOROTHIA25 MG PO; +ONDANSETRON ODT8 MG PO; +SERTRALINE HCL25 MG PO
--- OUTSIDE RECORDS SUMMARY | 2020-04-19 21:14 | XMS ---
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 \T\middot;\T\nbsp; PLEASE REFER PATIENT TO [facility] FOR NON EMERGENT MEDICAL NEEDS. \T\middot;\ T\nbsp; [facility] CAN SEE PATIENTS SAME DAY FOR APTS IF PATIENT CALLS FIRST THING IN THE MORNING. E.D. VISIT COUNT (12 MO.) 1 Mildred Clare Tracee 1 [facility] TOTAL 2 NOTE: Visits indicate total known visits. ED/UCC VISIT TRACKING (12 MO.) 04/19/2020 21:12 [facility] [place] [facility] TYPE: Emergency COMPLAINT: - [facility] DIAGNOSES: - Unspecified abdominal pain - kidney pain - Flank Pain INPATIENT VISIT TRACKING (12 MO.) No inpatient visits to display in this time frame [email or web address]
[2020-04-19] MEDS ORDERED: NORTRIPTYLINE H25 MG PO (21:28)
[2020-04-19] MEDS ORDERED: NEURONTIN100 MG PO (21:28)
--- NOTE | 2020-04-20 02:11 | NUR ---
PATIENT ARRIVED TO THE UNIT VIA STRETCHER. TRANSFERED INDEPENDENTLY FROM THE STRETCHER TO THE BATHROOM. PATIENT VOIDED GREATER THAN 200 MLS, UNABLE TO MEASURE ALL. PATIENT REPORTS 8/10 PAIN, NO NAUSEA. DILAUDID GIVEN PER ORDER. PATIENT REQUIRES 2L NC TO MAINTAIN O2 SAT GREATER THAN 90%. IV FLUIDS STARTED PER ORDER, SITE WNL. PATIENT DENIES ANY FURTHER NEEDS. CALL LIGHT IN REACH.
--- NOTE | 2020-04-20 03:45 | NUR ---
PT C/O SHARP PAIN RADIATING FROM UPPER ABD UP INTO CHEST. NOT TIME FOR PAIN MED DR WEBBER CALLED AND ORDER OBTAINED. PT GIVEN 4MG ZOFRAN IV FOR INTERMITTANT NAUSEA AND 1MG DILAUDID IV FOR PAIN. PT AMB TO BR TO VOID. STEADY ON FEET.
--- NOTE | 2020-04-20 06:02 | NUR ---
HAVING INCREASED PAIN, GIVEN 1MG DILAUDID IV. UP TO BSC TO VOID. C/O BEING TOO HOT, GIVEN COOL CLOTH.
--- NOTE | 2020-04-20 07:30 | NUR ---
REPORT RECIEVED. IS AWAKE LAYING IN BED. C/O RIGHT SIDE ABD PAIN,RIGHT SIDE BACK PAIN AND EPIGASTRIC DISCOMFORT. IVF PATENT. DR. WEBBER HERE TO SEE PATIENT.
[2020-04-20] MEDS ORDERED: AMLODIPINE BESYL5 MG PO (07:39)
[2020-04-20] MEDS ORDERED: NORTRIPTYLINE H50 MG PO (07:40)
[2020-04-20] MEDS ORDERED: CYCLOBENZAPRINE10 MG PO (07:40)
[2020-04-20] MEDS ORDERED: LISINOPRIL40 MG PO (07:40)
[2020-04-20] MEDS ORDERED: DICLOFENAC EPO1 EACH TD (07:41)
[2020-04-20] MEDS ORDERED: GABAPENTIN300 MG PO ×2 (07:41→08:11)
[2020-04-20] MEDS ORDERED: SERTRALINE HCL50 MG PO (07:42)
--- NOTE | 2020-04-20 07:54 | NUR ---
dr. manley here to see patient. ORDERS RECIEVED.DILAUDID 1 MG IV GIVEN FOR C/O OF MID ABD PAIN ASN EPIGASTRIC PAIN. C/O NAUSEA . DMITRY MEDICATE TIME ALLOWS.
--- NOTE | 2020-04-20 08:00 | NUR ---
ASSESSMENT DONE. DILAUDID 1 MG IV GIVEN FOR PAIN. TAKING ICE CHIPS. STATES HER ABD IS DISTENDED. PATIENT TOLD MED SHE HAS A HISTORY OF HYPETENTION, SHE WAS TO SEE A PERSONAL CARE AIDE REGARDING THIS ON THIS COMING TUESDAY. CURRENT BP-112/83. TALKED DAISY MEJIA ABOUT POC FOR DAY AND CURRENT DX. WILL GIVE EDUCATION MATERIAL TODAY.
--- NOTE | 2020-04-20 08:12 | NUR ---
MED REC COMPLETE
--- NOTE | 2020-04-20 09:17 | NUR ---
ZOFRAN 4 MG IV GIVEN FOR NAUSEA.
--- NOTE | 2020-04-20 10:22 | NUR ---
DILAUDID 1 MG IV GIVEN FOR PAIN. LESS NAUSEA.
--- NOTE | 2020-04-20 12:20 | NUR ---
ASSESSMENT DONE. DILAUDID 1 MG IV GIVENN FOR PAIN. HAS BEEN TAKING ICE CHIPS AND SIPS OF LEMON POP. ENCOUAGE TO GO SLOW ON THE CLEAR LIQUIDS.
--- NOTE | 2020-04-20 14:00 | NUR ---
PATIENT HAS BEEN C/O INCREASED ABD DISTENTION AND RIGHT SIDE BACK PAIN. DR. WEBBER UPDATED ON PATIENT ABD DISTENTION, VITAL SIGNS, DIAPHORESIS. ORDERS RECIEVED FOR ATIVAN.
--- NOTE | 2020-04-20 14:15 | NUR ---
ATIVAN 0.5 MG IV GIVEN. FAN IN ROON PATIENT STATES SHE HAS BEEN SWEATING MOST OF DAY. DENIES NEED FOR PAIN MEDICAION. IVF REMAINS AT 125 ML/HR. DR. WEBBER WAS UPATED EARLIER REGARDING U/O, VOID TWICE THIS SHIFT.
--- NOTE | 2020-04-20 15:34 | NUR ---
resting at THIS TIME.
--- NOTE | 2020-04-20 16:00 | NUR ---
assessment done. no changes. abd remains distended.
--- NOTE | 2020-04-20 18:50 | NUR ---
UP TO VOID. SPONGE BATH GIVEN. STATES SHE FEEL BETTER AT THIS TIME.
--- NOTE | 2020-04-20 19:09 | NUR ---
DR. WEBBER AWARE OF U/O. NO FUTHER ORDERS.
--- NOTE | 2020-04-20 19:23 | EKG ---
[facility] [address] [place] [address] Signed Sinus tachycardia with occasional premature ventricular complexes Nonspecific T wave abnormality Abnormal ECG When compared with ECG of 17-FEB-2017 14:31, Vent. rate has increased BY [address] no longer elevated in Anterior leads T wave inversion now evident in Inferior leads Nonspecific T wave abnormality now evident in Anterolateral leads Confirmed by SONNY WEBBER MD ([id number]) on 04/20/2020 7:23:43 PM Electronically Signed By: SONNY WEBBER MD 04/20/20 192 PATIENT NAME: HARLEEN CM Electrocardiogram DATE OF : 75 PHYSICIAN: SONNY WEBBER MD REPORT #: [id number] REPORT IS CONFIDENTIAL AND NOT TO BE RELEASED WITHOUT AUTHORIZATION
--- NOTE | 2020-04-20 19:33 | NUR ---
REPORT TO NEXT SHIFT.
--- NOTE | 2020-04-20 20:05 | NUR ---
AWAKE, STATES PAIN IS MANAGABLE AT THIS TIME. TALKED ABOUT POSS ATIVAN IF NEEDED FOR ANXIETY. ABD IS MORE DISTENDED THAN WHEN THIS NURSE SAW PT THIS AM. DISCUSSED HOW FLUID 3RD SPACES INTO ABD.
--- NOTE | 2020-04-20 21:52 | NUR ---
C/O ABD/ EPIGASTRIC PAIN 06/23. GIVEN WET CLOTH FOR C/O BEING TOO WARM . GIVEN 1MG DILAUDID IV FOR PAIN.
--- NOTE | 2020-04-21 00:17 | NUR ---
WAS ABLE TO SLEEP SOME AFTER LAST DOSE OF DILAUDID. IS SOMEWHAT RESTLESS IN SLEEP. IS AWAKE NOW AND STATES PAIN IS STARTING TO INCREASE. STAND BY ASSIST TO BSC TO VOID. VOIDED 300ML CONCENTRATED URINE. PT ALSO C/O FEELING DISTENDED. T 99.8. GIVEN 650MG TYLENOL FOR DISCOMFORT AND ALSO GIVEN 1MG DILAUDID IV. PT STATES SHE DOES USE IS. RR 30 WITH GETTING UP. BREATH TONES ARE BECOMING SL VESICULAR.
--- NOTE | 2020-04-21 02:20 | NUR ---
SLEEPING OFF AND ON, DIAPHORETIC. T 98.8. GIVEN COOL CLOTH.
--- NOTE | 2020-04-21 03:36 | NUR ---
REQUESTING PAIN MED, STATES PAIN IS STARTING TO INCREASE. PAIN STARTING IN LOWER ABD AND RADIATING UPWARD. GIVEN 1MG DILAUDID IV. HAS FEW CRACKLES L BASE, IS LAYING ON L SIDE. ENCOURAGED TO DEEP BREATH AND COUGH, EXPLAINED POTENTIAL FOR PNEUMONIA.
--- NOTE | 2020-04-21 04:40 | NUR ---
UP TO BSC TO COMMODE, HR UP TO 110 WITH ACTIVITY.
--- NOTE | 2020-04-21 06:29 | NUR ---
SITTING AT EDGE OF BED, STATES PAIN IS STARTING TO INC. LOWER ABD IS NOT FIRM IT WAS EARLIER. PT GIVEN 650MG TYLENOL PO AND DILAUDID 1MG IV. FOR PAIN CONTROL.
--- NOTE | 2020-04-21 07:30 | NUR ---
REPORT RECIEVED PATIENT IS SITTING AT BEDSIDE. TALKED WITH PATIENT ABOUT POC FOR DAY. IS UNDERSTANDING.
--- NOTE | 2020-04-21 08:00 | NUR ---
ASSESSMENT DONE. TAKING CLEAR LIQUIDS. CHIQUITA NAUSEA.
--- NOTE | 2020-04-21 09:20 | NUR ---
DILAUDID 1 MG IV GIVEN FOR C/O OF ABD/RIGHT SIDE BACK PAIN. ROUTINE MEDICATIONS GIVEN . TOOK TEA.
--- NOTE | 2020-04-21 10:30 | NUR ---
TOLERATED SHOWER WELL. IS TIRED AFTER TAKING SHOWER. IVS TO LEFT AC DC'D PER PATIENT R/O. IV SITE STARTED TO RIGHT FA.
--- NOTE | 2020-04-21 10:50 | NUR ---
report to med-surg.
--- NOTE | 2020-04-21 11:00 | NUR ---
pt amb from [facility] to rm 116 oriented to room - hr business partner in to discuss food. denies needs.
--- NOTE | 2020-04-21 11:00 | NUR ---
AMBULATED TO MED-SURG. ROOM 116.
--- NOTE | 2020-04-21 11:45 | NUR ---
CONSULT RECEIVED FOR NUTRITION FOR HIGH TRIGLYCERIDES. PATIENT'S TRIGS ARE 988, WHICH IS SUSPECTED WHAT IS CAUSING HER PANCREATITIS. SHE STATES SHE DOES NOT DRINK COFFEE OR ENERGY DRINKS AND IS NOT A BIG SWEETS EATER. SHE DOES DRINK WINE DAILY, THOUGH. PROVIDED HER INFORMATION ON NUTRITION THERAPY FOR HIGH TRIGLYCERIDES. SPEND TIME TALKING ABOUT EPA AND DHA - FISH OILS THAT ARE KNOWN TO HELP LOWER TRIGLYCERIDES. IT'S IMPORTANT THAT SHE FOLLOW-UP WITH HER DOCTOR ON THE AMOUNT OF FISH OIL TO TAKE. I SAID SHE WILL LIKELY BE TOLD TO TAKE AROUND 2000 MG OF EPA AND DHA COMBINED DAILY. I ALSO REMINDED HER ITS IMPORTANT TO EAT A BALANCED DIET AND LIMIT ADDED SUGARS. SHE SAID SHE DOES EAT ICE CREAM ONCE IN AWHILE BUT THAT'S ABOUT IT. SHE WAS JUST GETTING SETTLED IN TO HER ROOM ON MED/SURG SO I TOLD HER IF SHE HAS MORE DIET QUESTIONS, I CAN ALWAYS COME BACK, OR SHE CAN CALL ME. SHE APPRECIATED MY TIME.
--- NOTE | 2020-04-21 14:55 | NUR ---
PATIENT IN BED RESTING. FRESH WATER GIVEN. CALL LIGHT IN REACH. NO FURTHER NEEDS AT THIS TIME.
--- NOTE | 2020-04-21 15:26 | NUR ---
pt anxious - sob - hurts in abdomen/ribs to take deep breath. discussed ativan and its adjuvent use with pain meds and help with anxiety. agree to try.
--- NOTE | 2020-04-21 17:37 | NUR ---
pt given po tylenol for pain - reports strange dreams, and slight confusion. re oriented. call light in reach - drinking water and talking on her phone. denies other needs at this time
--- NOTE | 2020-04-21 17:38 | NUR ---
ccu trans. at 10 am. pt has medication and trigliceride related pancreatitis. on o2 for sob r/t abd. pain and swelling of the pancrease. anxious - ativan given - po tylenol - rn suspects that dialadid is causeing bad dreams or maybe etoh withdrawl? pt reports not a heavy drinker but history shows she drinks wine and may be not reported accuratly - obs. for DT.
--- NOTE | 2020-04-21 18:40 | NUR ---
PATIENT IN BED. PATIENT IS SWAETING, TEMP WAS HIGH, RN NOTIFIED. BOX FAN BROUGHT INTO PATIENTS ROOM. CALL LIGHT IN REACH. NO FURTHER NEEDS AT THIS TIME.
--- NOTE | 2020-04-21 18:54 | NUR ---
notified of fever of 101.6 due to call parameters. pt has box fan. and reports feeling better.
--- NOTE | 2020-04-21 19:43 | NUR ---
BEDSIDE REPORT RECEIVED FROM LIBIA MARTINES. pt RESTING IN BED, RATES PAIN 8/10. PRN ATIVAN ADMINISTERED AT THIS TIME. IVF INFUSING WNL ORDERED. CALL LIGHT IN REACH.
--- NOTE | 2020-04-21 20:26 | NUR ---
pt ASSESSMENT COMPLETE. VSS. PRN PAIN MEDICATION ADMINISTERED FOR 8/10 ABD PAIN. ABDOMEN DISTENDED, BOWEL TONES ACTIVE, TENDER W PALPATION. pt EDUCATED ON DIET ADVANCED TO FULL LIQUID DIET, REQUESTING SOUP. TEST FIXTURE DESIGNER NOTIFIED. pt DENIES HALLUCINATIONS, DENIES NIETO AND NAUSEA. NO TREMORS NOTED. IVF INFUSING WNL ORDERED.
--- NOTE | 2020-04-21 23:47 | NUR ---
CHECKED ON pt. RATES PAIN 7/10 IN ABDOMEN. PRN PAIN MEDICATION, ANXIETY MEDICATION ADMINISTERED REQUESTED. pt DENIES ADDITIONAL NEEDS. TOLERATED SOUP WELL. DENIES NAUSEA. CALL LIGHT IN REACH.
--- NOTE | 2020-04-22 02:58 | NUR ---
IN pt ROOM TO REASSESS PAIN, pt RESTING IN BED, DRESSED IN OWN CLOTHING, BAG PACKED ON TABLE. pt STATES "I'M THINKING ABOUT LEAVING". RN AND MANAGEMENT LECTURER IN ROOM. pt STATES PAIN IS "OKAY". RATES PAIN 6/10 IN ABDOMEN. pt STATES SHE PULLED OUT IV SITE AND IS "DONE WITH BEING IN HERE AND WITH IT ALL." NO TREMORS, HALLUCINATIONS, HEADACHES NOTED. VSS. pt DENIES NAUSEA. MD NOTIFIED. TELEPHONE ORDERS FOR PO MEDICATIONS REPEATED BACK TO VERIFY, OKAY TO D/C IVF FOR TONIGHT. pt AGREEABLE TO STAY UNTIL MORNING TO MEED WITH MD.
--- NOTE | 2020-04-22 03:19 | NUR ---
PRN PAIN AND ANXIETY MEDICATION ADMINISTERED. ASSESSMENT COMPLETE. ICE WATER PROVIDED. pt C/O 04/23 PAIN ACROSS ABDOMEN "MOVING TO LEFT SIDE AGAIN AND TO MY BACK". ABD SOFT, DISTENDED, TENDER W PALPATION. pt HAS CALL LIGHT IN REACH, NO ADDITIONAL REQUESTS.
--- NOTE | 2020-04-22 05:34 | NUR ---
pt SLEEPING, AWAKENS TO VOICE, NO C/O PAIN. VSS. HOT TEA PROVIDED REQUESTED. STANDING WEIGHT COMPLETE. CALL LIGHT IN REACH, NO ADDITIONAL REQUESTS.
--- NOTE | 2020-04-22 05:37 | NUR ---
pt PAINFUL THROUGHOUT SHIFT. PULLED IV SITE IN MORNING HOURS, CONTEMPLATING LEAVING HOSPITAL, AGREEABLE TO STAY WITH PO MEDICATIONS, NO IV FLUIDS. NEW ORDERS FROM MD. ABDOMEN DISTENDED, SOFT, PAINFUL WITH PALPATION, BOWEL TONES ACTIVE. DENIES NAUSEA. TOLERATING FULL LIQUIDS, SOUP THIS SHIFT. PRN ATIVAN ADMINISTERED AVAILABLE, NO S/SX OF ALCOHOL WITHDRAWAL NOTED. AFEBRILE.
--- NOTE | 2020-04-22 06:59 | NUR ---
pt STANDING, LEANING AGAINST TRAY TABLE. RATES PAIN 8/10 IN RIGHT FLANK. PRN PAIN AND ANXIETY MEDICATION ADMINISTERED. ICE WATER PROVIDED. CALL LIGHT IN REACH. pt INSTRUCTED TO USE CALL LIGHT WHEN HAVING PAIN, VERBALIZES UNDERSTANDING.
--- NOTE | 2020-04-22 07:37 | NUR ---
Pt resting in bed, a&ox4. Pt states she is interested in going home today. Pt denies pain at this time. Pt recently medicated for pain per report. Pt is on 2l oxygen. Personal supplies and call light within reach.
--- NOTE | 2020-04-22 08:10 | NUR ---
PATIENT SITTING UP IN BED. WHITE BOARD UPDATED. ICE WATER AND HOT TE GIVEN. PATIENT MAYBE WILL TAKE A SHOWER THIS AFTERNOON. CALL LIGHT WITHIN REACH. NO OTHER NEEDS AT THIS TIME
--- NOTE | 2020-04-22 09:06 | NUR ---
PATIENT RESTING IN BED. VITAL SIGNS AND I&O DONE. CALL LIGHT WITHIN REACH. NO OTHER NEEDS AT THIS TIME
--- NOTE | 2020-04-22 09:49 | NUR ---
PENDING IV PLACEMENT; IV MEDS WILL BE ADMIN ONCE IV PLACED. PT RESTING IN BED, EYES CLOSED, RESP NON LABORED.
--- NOTE | 2020-04-22 11:23 | NUR ---
Admin dilaudid 2mg po and ativan 1mg po for reports of 7/10 abdominal pain and agitation/anxiety.
--- NOTE | 2020-04-22 11:39 | NUR ---
Spoke with Andrey. She is pleasant. States she feels if she has trouble breathing. States she was given something to calm her nerves and this has helped. She has [address] States she cont. with abd pain. Wants to go home when she can discharge.
--- NOTE | 2020-04-22 13:51 | NUR ---
PATIENT RESTING IN BED. VITAL SIGNS AND I&O DONE. HOT TEA GIVEN. CALL LIGHT WITHIN REACH. NO OTHER NEEDS AT THIS TIME
--- NOTE | 2020-04-22 14:11 | NUR ---
ADMIN TYLENOL 650MG PO FOR REPORTS OF RIGHT FLANK PAIN AND EPIGASTRIC DISCOMFORT.
--- NOTE | 2020-04-22 15:53 | NUR ---
ZOFRAN 4MG IVP ADMIN FOR REPORTS OF NAUSEA.
--- NOTE | 2020-04-22 16:25 | NUR ---
ADMIN DILAUDID 2MG AND ATIVAN 1MG PO FOR REPORTS OF EPIGASTRIC PAIN AND AGITATION/ANXIETY.
--- NOTE | 2020-04-22 18:18 | NUR ---
PATIENT IN BED RESTING. PATIENT ASKING FOR SOMETHING TO HELP HER SLEEP, RN NOTIFIED. CALL LIGHT IN REACH. NO FURTHER NEEDS AT THIS TIME.
--- NOTE | 2020-04-22 19:00 | NUR ---
BEDSIDE REPORT RECEIVED FROM LIBIA GARSIA. pt RESTING IN BED ON PHONE. RATES PAIN 6/10 IN ABDOMEN, DENIES NAUSEA. REQUESTING TO GO TO SLEEP SOON AFTER HER NIGHT TIME MEDICATIONS. IVF INFSUING WNL ORDERED. CALL LIGHT IN REACH.
--- NOTE | 2020-04-22 20:46 | NUR ---
pt ASSESSMENT COMPLETE. VSS. pt ON 3L OXYGEN BY NC FOR COMFORT, SOB DUE TO ABD DISTENTION. RATES PAIN 7/10 IN ABDOMEN. PRN PAIN MEDICATION ADMINISTERED. ABD SOFT, DISTENDED, TENDER W PALPATION, BOWEL TONES HYPOACTIVE X 4. WATER PROVIDED. IV FLUSHED WNL, IVF INFUSING ORDERED. CALL LIGHT IN REACH. LIGHTS OFF IN ROOM.
--- NOTE | 2020-04-22 21:34 | NUR ---
CALL LIGHT ANSWERED. pt AWAKENS CONFUSED, ASKING FOR DILAUDID, EDUCATED ON PRN SCHEDULED, TIME THAT DILAUDID WAS ADMINISTERED. pt VERBALIZES UNDERSTANDING, REORIENTS EASILY. pt REQUESTING TEMPERATURE REASSESSED, 98.8 ORAL. NO DIAPHORESIS NOTED AT THIS TIME. SBA TO RESTROOM. IVF INFUSING WNL ORDERED.
--- NOTE | 2020-04-22 22:50 | NUR ---
CALL LIGHT ANSWERED, IV PUMP ALARMING. pt D/C'D OWN IV. STATES "I HOOKED IT ON SOMETHING". APPEARS CONFUSED UPON AWAKENING, REORIENTS EASILY. ALERT AND ORIENTED X 4. NEW PIV STARTED LEFT WRIST. HOT TEA PROVIDED. pt RATES PAIN 6/10 IN ABDOMEN, RIGHT FLANK STATES "IT'S OKAY RIGHT NOW". RESTING IN BED ON PHONE. CALL LIGHT IN REACH.
--- NOTE | 2020-04-23 01:00 | NUR ---
PRN PAIN MEDICATION ADMINISTERED REQUESTED, 5/10 PAIN IN ABDOMEN, RIGHT FLANK. ASSESSMENT COMPLETE. BOWEL TONES AUSCULTATED, HYPOACTIVE, ABD SOFT, TENDER THROUGHOUT W PALPATION, DISTENDED. SBA TO RESTROOM FOR VOID AND BACK TO BED. CALL LIGHT IN REACH. pt STATES WITH LAUGH "I WILL TRY TO BE GOOD AND NOT PULL OUT ANY IVS OR SPILL ANYTHING". IVF INFUSING WNL ORDERED, IV WRAPPED.
--- NOTE | 2020-04-23 03:22 | NUR ---
CHECKED ON pt. RESTING IN BED WITH EYES CLOSED, BREATHING UNLABORED. LIGHTS OFF IN ROOM.
--- NOTE | 2020-04-23 04:18 | NUR ---
IV PUMP ALARMING, NEW BAG IVF INFUSING WNL ORDERED. pt UP TO RESTROOM INDEPENDENTLY, DUMPED OWN URINE HAT. STATES "THERE WAS 1400 IN THERE". BACK IN BED. pt STATES "PAIN IS BARELY THERE RIGHT NOW". NO ADDITIONAL REQUESTS. CALL LIGHT IN REACH.
--- NOTE | 2020-04-23 05:51 | NUR ---
pt COOPERATIVE WITH CARES, PRN ANXIETY AND PAIN MEDICATION THROUGHOUT SHIFT. pt ACCIDENTLY PULLED OWN IV SITE, NEW IV SITE RIGHT WRIST INFUSING WNL. UP TO RESTROOM INDEPENDENTLY. QS OUTPUT. BOWEL TONES HYPOACTIVE, ABD DISTENDED, SOFT. PAIN APPEARS TO BE IMPROVED FROM PREVIOUS SHIFT. TOLERATING CLEAR LIQUIDS THIS SHIFT, NO C/O NAUSEA. AWAKENS WITH SOME DELIRIUM, REORIENTS EASILY.
--- NOTE | 2020-04-23 06:31 | NUR ---
pt AWAKENS TO VOICE, DENIES PAIN. VSS. pt ALERT, LAUGHING. DENIES NEED FOR PRN ANXIETY OR PAIN MEDICATION. UP TO SHOWER INDEPENDENTLY ON RA. IV WRAPPED. INSTRUCTED TO USE CALL LIGHT WHEN FINISHED.
--- NOTE | 2020-04-23 07:12 | NUR ---
REPORT RECIEVED FROM Marin PINON RN. INTRODUCED SELF TO PATIENT. IV FLUIDS RESTARTED BY Marin PINON RN, AFTER PATIENT COMPLETED SHOWER. PATIENT DENIES OTHER NEEDS AT THIS TIME. CALL LIGHT IN REACH, BED RAILS UP X2.
--- NOTE | 2020-04-23 10:01 | NUR ---
PATIENT SITTING UP IN BED. VITAL SIGNS AND I&O DONE. CALL LIGHT WITHIN REACH. NO OTHER NEEDS AT THIS TIME
--- NOTE | 2020-04-23 10:02 | NUR ---
AM MEDICATIONS GIVEN. TAKES WITHOUT DIFFICULTY. STATES PAIN IS TOLERABLE AT THIS TIME. ASSESSMENT COMPLETED. DENIES NEEDS AT THIS TIME. CALL LIGTH IN REACH.
--- NOTE | 2020-04-23 10:32 | NUR ---
LYING IN BED WITH HEAD ELEVATED. STATES PAIN IS 8/10. PRN ANALGESIC PROVIDED. DENIES OTHER NEEDS AT THIS TIME. STATES SHE WOULD LIKE TO REST.
--- NOTE | 2020-04-23 11:44 | NUR ---
UNFORTUNATELY,MORNING VITALS WERE NOT COMPLETED, THERE WAS SOME CONFUSION AND THIS INSTRUMENT AND CONTROLS TECHNICIAN WAS NOT AWARE THIS PATIENT WAS ASSIGNED TO ME. VITALS ARE NOW TAKEN AND CHARTED, WELL I&OS. NO URINE OUTPUTFOR MORNING, WILL NOTIFY RN. ICE IN CRYO CUFF REPLENISHED. CALL LIGHT IN REACH. NO OTHER NEEDS.
--- NOTE | 2020-04-23 11:50 | NUR ---
Spoke with Andrey. She states she is wanting to go home. Feels she will have assistance from mom and sister. She will discuss with Dr. Alejandre, when he visits her.
--- NOTE | 2020-04-23 12:58 | NUR ---
PATIENT SITTING UP IN BED. VITAL SIGNS AND I&O DONE. ICE WATER GIVEN. CALL LIGHT WITHIN REACH. NO OTHER NEEDS AT THIS TIME
[2020-04-23] MEDS ORDERED: FENOFIBRATE145 MG PO (13:36)
[2020-04-23] MEDS ORDERED: HYDROMORPHONE HC2 MG PO (13:39)
[2020-04-23] MEDS ORDERED: ONDANSETRON ODT4 MG PO (13:42)
--- NOTE | 2020-04-23 14:17 | NUR ---
PATIENT FINISHED WITH LUNCH, 1PA TO BATHROOM WITH FWW. PATIENT A BIT IMPULSIVE WHEN WALKING. LINENS CHANGED. VITALS AND I&OS DONE AND CHARTED. PT CIRO IN TO WORK WITH PATIENT.
== END 2020-04-23 14:10 | disposition home or self-care (01) | DRG 439 ==
LOC: ED 21:12 → CCU 04-20 01:13 → MS 04-20 01:13
PROVIDERS: ADMIT Internal Medicine
DX: K85.20 Alcohol induced acute pancreatitis without necrosis or infection (principal); E87.1 Hypo-osmolality and hyponatremia; E78.1 Pure hyperglyceridemia; D50.9 Iron deficiency anemia, unspecified; I10 Essential (primary) hypertension; E87.6 Hypokalemia; G89.4 Chronic pain syndrome; F41.9 Anxiety disorder, unspecified; R74.0 Nonspecific elevation of levels of transaminase and lactic acid dehydrogenase [LDH]; E83.42 Hypomagnesemia; Z20.828 Contact with and (suspected) exposure to other viral communicable diseases; Z88.5 Allergy status to narcotic agent; Z79.899 Other long term (current) drug therapy; Z87.442 Personal history of urinary calculi; Z79.1 Long term (current) use of non-steroidal anti-inflammatories (NSAID)
CPT/HCPCS: 36415; 71046; 71260; 74177; 76705; 80048; 80053; 81001; 83605; 83690; 83735; 84478; 84484; 85025; 85379; 99285-25; C9113; G0480; J1170; J2060; J2405; J3475; J3480; J7030; J7040; J7120; J7121; Q9967; U0002

== ENCOUNTER 2020-11-25 11:13 | Inpatient (IN) | payer BC, OTHER ==
[~2020-11-25] VITALS: Ht 165.1 cm; Wt 85.6 kg
[~2020-11-25 11:13] MED LIST changes: +AMLODIPINE BESYL5 MG PO; +CYCLOBENZAPRINE10 MG PO; +DICLOFENAC EPO1 EACH TD; +FENOFIBRATE145 MG PO; +GABAPENTIN300 MG PO; +HYDROMORPHONE HC2 MG PO; +LISINOPRIL40 MG PO; +NEURONTIN100 MG PO; +NORTRIPTYLINE H25 MG PO; +NORTRIPTYLINE H50 MG PO; +ONDANSETRON ODT4 MG PO; +SERTRALINE HCL50 MG PO
--- OUTSIDE RECORDS SUMMARY | 2020-11-25 11:16 | XMS ---
PreManage Notification: HARLEEN CM Security Library Science Instructor Events No recent Security Events currently on file CRITERIA MET - [facility] [place] - Has Care Guidelines CARE PROVIDERS ROXIE GIBBS Physician Pharmacy Retail Support Specialist: Surgical 01/22/2019-Current PHONE: Unknown NAI PEREZ [facility] PHONE: [phone] Name [facility] 04/21/2020-Current PHONE: [phone] Leeann has no Care Guidelines for this patient. Care History Medical/Surgical 01/22/2019 [facility] - PATIENT IS A [facility] ELIGIBLE, \T\middot;\T\nbsp; PLEASE REFER PATIENT TO [facility] FOR NON EMERGENT MEDICAL NEEDS. \T\middot;\T\nbsp; [facility] CAN SEE PATIENTS SAME DAY FOR APTS IF PATIENT CALLS FIRST THING IN THE MORNING. Katina VISIT COUNT (12 MO.) 2 SHWETHA Persaud TOTAL 2 NOTE: Visits indicate total known visits. ED/UCC VISIT TRACKING (12 MO.) 11/25/2020 11:13 SHWETHA Yoder OR TYPE: Emergency COMPLAINT: - CHEST PAIN 04/19/2020 21:12 SHWETHA Yoder [place] TYPE: Emergency COMPLAINT: - CHEST PAIN INPATIENT VISIT TRACKING (12 MO.) 04/20/2020 01:13 SHWETHA Yoder [place] TYPE: Medical Surgical COMPLAINT: - ACUTE PANCREATITIS DIAGNOSES: - Nonspecific elevation of levels of transaminase and lactic acid dehydrogenase [LDH] - Other assisted (current) drug therapy - Hypokalemia - Pure hyperglyceridemia - Personal history of urinary calculi - FPC (current) use of non-steroidal anti-inflammatories (NSAID) - Acute pancreatitis without necrosis or infection, unspecified - Anxiety disorder, unspecified - Hypomagnesemia - Hypo-osmolality and hyponatremia - Alcohol induced acute pancreatitis without necrosis or infection - Chronic pain syndrome - Essential (primary) hypertension - Allergy status to narcotic agent - Iron deficiency anemia, unspecified - Contact with and (suspected) exposure to other viral communicable diseases [email or web address]
[2020-11-25] MEDS ORDERED: AMLODIPINE BESYL5 MG PO (11:21)
[2020-11-25] MEDS ORDERED: LABETALOL HCL100 MG PO (11:23)
[2020-11-25] MEDS ORDERED: VASCEPA1 GM PO (11:24)
[2020-11-25] MEDS ORDERED: ROSUVASTATIN CA40 MG PO (11:24)
--- NOTE | 2020-11-25 15:10 | NUR ---
PT ARRIVED FROM ED. REPORT RECEIVED FROM LIBIA CURTIS. PT TRANSFERS SELF TO BED, PT STEADY ON FEET WITH STAND BY ASSIST. PT REPORTS 5/10 PAIN IN CHEST THAT MOVES TO RIGHT SHOULDER AND "INSIDE MY RIGHT SHOULDER BLADE AND MAKES THESE TWO FINGERS GO NUMB" PT INDICATES POINTER AND THUMB OF RIGHT HAND. LIDOCANE PATCH APPLIED TO RIGHT SHOULDER. TRACE AMOUNT OF PITTING EDEMA NOTED TO BILATERAL LOWER SHINS. PT REPORTS HER ANKLES ARE "SWOLLEN SOMETIMES" AND STATES HER FILLING ROOM OPERATOR DOCTOR WANTED HER HEART EVALUATED RELATED TO THIS SWELLING. PT STATES SHE HAD AND ECHO ORDER PLACED BUT SHE HAS NOT YET COME "TO [facility] TO MAKE THE APPOINTMENT." PT ALSO STATES SHE WAS SCHEDULED TO HAVE A SLEEP STUDY "BECUASE OF MY HEART." PT STATES SHE CANCELED THIS APPOINTMENT RELATED TO ER VISIT. TACHYCARDIA NOTED. PT REPORTS "I ALWAYS HAVE A FAST HEART RATE." MEDICATIONS GIVEN (SEE MAR). FOOD ORDER PLACED FOR PT. SNACK PROVIDED. PT DENIES ADDITIONAL REQUESTS OR COMLAINTS. CALL LIGHT WITHIN REACH. BED RAILS UP.
--- NOTE | 2020-11-25 15:53 | NUR ---
ER BOLUS COMPLETE. IV FLUIDS STARTED (SEE MAR). PT RESTING IN BED. REPORTS RIGHT CHEST AND SHOULDER PAIN CONTINUE AT 03/23. PT DENIES NEED FOR ADDITIONAL INTERVENTIONS AT THIS TIME. NO ADDITIONAL REQUESTS OR COMPLAINTS CALL LIGHT WITHIN REACH.
--- NOTE | 2020-11-25 16:29 | EKG ---
[facility] [address] [place] [address] Signed Sinus tachycardia with occasional premature ventricular complexes Otherwise normal ECG When compared with ECG of 19-APR-2020 21:18, Nonspecific T wave abnormality no longer evident in Anterolateral leads Confirmed by SNEHAL SALAZAR DO ([id number]) on 11/25/2020 4:29:07 PM Electronically Signed By: SNEHAL SALAZAR DO 11/25/20 1629 PATIENT NAME: TOIFRANKLINAKASH AGUILAR Electrocardiogram DATE OF : 75 PHYSICIAN: SNEHAL SALAZAR DO REPORT #: [id number] REPORT IS CONFIDENTIAL AND NOT TO BE RELEASED WITHOUT AUTHORIZATION
[2020-11-25] MEDS ORDERED: KLOR-CON M2020 MEQ PO (17:08)
[2020-11-25] MEDS ORDERED: LISINOPRIL40 MG PO (17:09)
[2020-11-25] MEDS ORDERED: FENOFIBRATE160 MG PO (17:16)
--- NOTE | 2020-11-25 17:21 | NUR ---
THIS RN TO ROOM TO CHECK ON PT. PT REPORTS CHEST PAIN IS "GETTING LOWER" AND CLARIFIES BY STATING "IT'S MOVING DOWN TOWARD MY STOMACH." PT REPORTS PAIN IS NOW 4/10 AND HAS IMPROVED. PT REPORTS SHOULDER PAIN IS NOW 3/10 AND STATES "THAT PATCH IS REALLY HELPING." PT DENIES ADDIITONAL REQUESTS OR COMPLAINTS. CALL LIGHT WITHIN REACH. CLEAR LIQUID TRAY AT BEDSIDE. BED RAILS UP.
--- NOTE | 2020-11-25 17:32 | NUR ---
PT ADMITED THIS SHIFT FOR METABOLIC ACIDOSIS. PT INDEPENDANT IN ROOM AND TOELRATING CLEAR LIQUID DIET WITH MINIMAL APPITITE. PT REPORTS 4-5/10 PAIN IN RIGHT CHEST THAT LATER MOVES TO UPPER ABDOMEN AND 3-5/10 PAIN IN RIGHT SHOULDER. LIDOCANE PATCH IN PLACE OVER RIGHT SHOULDER. PT DENIES NAUSEA THIS SHIFT. PT REPORTS PLANNED OUTPATIENT ECHO AND SLEEP STUDIES THAT HAVE NOT YET BEEN CONDUCTED. PO FLUIDS ENCORUAGED TOELRATED. IV FLUIDS INFUSING. PT VOIDING QUANTITY SUFFICIENT. PT USES CALL LIGHT APPROPRIATLY.
--- NOTE | 2020-11-25 18:39 | NUR ---
THIS RN TO ROOM TO CHECK ON PT. PT REPORTS 4/10 ACHING PAIN NOW IN ABDOMEN AND BACK STATING "WELL IT'S TOLERABEL AND EVERYTHING, I'M JUST REALLY WORRIED." PRN TYLENOL OFFERED AND ACCEPTED. PT ENCORUAGED TO CALL NURSING STAFF IF PAIN WORSENS OR IF TYELNOL IS NOT EFFECTIVE. PT RESTING ON BACK IN BED. PT DENIES ADDITIONAL REQUESTS OR COMPLAINTS. CALL LIGHT WITHIN REACH. BED RAILS UP.
--- NOTE | 2020-11-25 20:10 | NUR ---
VERBAL ORDER FROM MD TO ONLY ADMINISTER 50 CC OF 3% NS, ORDERS REPEATED BACK.
--- NOTE | 2020-11-25 22:25 | NUR ---
PT LAYING IN BED FLAT. PT HAD JUST BEEN TRANSFERRED FROM MED/SURG VIA HOSPITAL BED. PT CURRENTLY ON ROOM AIR AND ON ORDERED IVF (SEE MAR). PT REPORTED HAVING A 7/10 PAIN THAT IS PRESENT ON HER ABDOMEN,CHEST, AND BACK. PRN IV MORPHINE WAS ADMINISTERED FOR PAIN. BLOOD GLUCOSE WAS CHECKED AND WAS WITHIN NORMAL LIMITS (SEE CHART). ORDERED MEDICATIONS ADMINISTERED (SEE MAR). PT REPORTS NO FURTHER NEEDS AT THIS TIME, WILL CONTINUE PLAN OF CARE. CALL LIGHT WITHIN REACH, BED IN LOWEST POSITION.
--- NOTE | 2020-11-25 23:20 | NUR ---
PT LAYING IN BED ALERT AND ORIENTED. LAB IN TO DRAW BLOOD. BLOOD GLUCOSE CHECKED AND WAS 114. PT NOW HAS DEXTROSE 10% INFUSING ORDERED. PT REPORTS NO FURTHER NEEDS AT THIS TIME, WILL CONTINUE PLAN OF CARE. CALL LIGHT WITHIN REACH, BED IN LOWEST POSITION.
--- NOTE | 2020-11-25 23:45 | NUR ---
PT AMB TO BR TO VOID. HR TO 130'S WITH AMB. VOIDED 500ML CLEAR YELLOW URINE. DOES CONT TO HAVE LOWER ABD CRAMPING WITH SOME PAIN UP INTO CHEST.
--- NOTE | 2020-11-26 00:04 | NUR ---
PT LAYING IN BED AWAKE. BLOOD GLUCOSE CHECKED AND WAS 138. PT REPORTS NO NEEDS AT THIS TIME, WILL CONTINUE PLAN OF CARE.
--- NOTE | 2020-11-26 00:33 | NUR ---
IN TO ASSESS PT. PT LAYING IN BED AWAKE. PT STATES SHE HAS 5/10 PAIN STILL IN THE ABDOMEN/CHEST AND BACK. ICE PACKS AND WARM PACKS GIVEN FOR PAIN. IV FLUIDS STILL INFUSING ORDERED. PT STATES IT IS PAINFUL TO TAKE DEEP BREATHS WELL. SPO2 AT 92% WHILE ON ROOM AIR. PT REPORTS NO FURTHER NEEDS AT THIS TIME, WILL CONTINUE PLAN OF CARE. CALL LIGHT WITHIN REACH, BED IN LOWEST POSITION.
--- NOTE | 2020-11-26 00:41 | NUR ---
DR SALAZAR GIVEN UPDATE AND DISCUSSED LAB VALUES. INFORMED PT CONT TO HAVE ABD PAIN AND RR MID 20'S. ORDERS RECIEVED.
--- NOTE | 2020-11-26 00:45 | NUR ---
ADDENDUM, ADVISED PER DR SALAZAR WHEN INSULIN INFUSION HUNG TO TARGET 2 TO 4 UNITS/HR.
--- NOTE | 2020-11-26 01:13 | NUR ---
PT LAYING IN BED AWAKE. PT STARTED ON IV INSULINE DRIP AT 1UNIT/HR ORDERED. PT GIVEN PRN IV MORPHINE FOR CHEST,ABDOMINAL, AND BACK PAIN. OTHER ORDERED MEDICATION GIVEN ORDERED (SEE MAR). PT ON ROOM AIR, SPO2 AT 93%. PT USING COLD AND HOT PACKS ON ABDOMEN FOR PAIN WELL. PT REPORTS NO FURTHER NEEDS AT THIS TIME. WILL CONTINUE PLAN OF CARE, CALL LIGHT WITHIN REACH, BED IN LOWEST POSITION.
--- NOTE | 2020-11-26 03:10 | NUR ---
RESPONDED TO PT CALL LIGHT, IV PUMP WAS ALARMING. IV FLUIDS RESTARTED AFTER ASSESSING SITE WHICH WAS WNL. PT BLOOD GLUCOSE CHECKED AND WAS 142, INSULIN DRIP WAS THEN TITRATED UP TO 2 UNITS/HR. PT REPORTS 4/10 PAIN AND STATES THAT IT IS TOLERABLE AT THIS TIME. PT PUT ON 2L O2 NC DUE TO DESATURATIONS IN THE 89% WHILE FALLING ASLEEP, PT NOW HAS AN SPO2 OF 96%. PT REPORTS NO FURTHER NEEDS AT THIS TIME. CALL LIGHT WITHIN REACH, BED IN LOWEST POSITION. WILL CONTINUE PLAN OF CARE.
--- NOTE | 2020-11-26 04:10 | NUR ---
IN TO ASSESS PT. PT WAS SLEEPING IN BED BUT AWOKE EASILY. WHEN ASKING PT TO TAKE DEEP BREATHES PT STATED THEY WOULD HURT HER. PT RATED HER PAIN AT A 4/10 AND STATED IT WAS TOLERABLE. PT STILL ON 2L O2 NC, SPO2 AT 100%. BLOOD GLUCOSE AT 131. INSULIN DRIP LEFT ON 2 UNITS/HR. PT STILL ALSO RECEIVING POTASSIUM PHOS, D10, AND 3% NS. PT REPORTS NO FURTHER NEEDS AT THIS TIME, WILL CONTINUE PLAN OF CARE. CALL LIGHT WITHIN REACH, BED IN LOWEST POSITION.
--- NOTE | 2020-11-26 05:00 | NUR ---
RESPONDED TO PT CALL LIGHT, IV PUMP ALARMING. PT IV FLUSHED WITH NS AND IV PUMP RESTARTED. BLOOD GLUCOSE CHECKED AND WAS 113. PT INSULIN DRIP LEFT AT 2 UNITS/HR. PT ON 2L NC, SPO2 AT 96%. PT STATES HER PAIN IS STILL AT A 4/10 AND TOLERABLE. PT REPORTS NO FURTHER NEEDS WHEN ASKED, WILL CONTINUE PLAN OF CARE.
--- NOTE | 2020-11-26 06:15 | NUR ---
PT LAYING IN BED SLEEPING, RESPIRATIONS EVEN AND UNLABORED. PT IN NO APPARENT DISTRESS AND WAS LEFT UNDISTURBED, WILL CONTINUE PLAN OF CARE.
--- NOTE | 2020-11-26 07:30 | NUR ---
PATIENT SHIFT REPORT RECIEVED FROM CONTACT LENS FITTER RN. PATIENT RESTING IN BED. PATIENT CALLS APPROPRIATELY. NO OTHER NEEDS AT THIS TIME. WILL CONTINUE TO CLOSELY MONITOR.
--- NOTE | 2020-11-26 08:15 | NUR ---
THIS RN IN TO TAKE BLOOD SUGAR. PATIENTS INSULIN GTT AT 1MLS/HR. PATIENT RESTING AT THIS TIME. PT REQUESTING PAIN MEDICATIONS. NO OTHER NEEDS AT THIS TIME. WILL GET PRN PAIN MEDICATIONS.
--- NOTE | 2020-11-26 09:30 | NUR ---
Pt lives with 10 yo daughter and sister. Denies needs to go home when cleared medically. Mom and sister will assist as needed. Pt works at the [employer], but is currently working from home. Plans on dc to home when discharged.
--- NOTE | 2020-11-26 10:00 | NUR ---
PATIENT RESTING IN BED. ASSESSMENT COMPLETED. PATIENT BREATH SOUDNS CLEAR AND DIMINISHED. PATIENT ON 1-2L WITH SLEEP D/T DECREASED OXYGENATION WITH SLEEPING. PATIENTS BOWEL TONES HYPOACTIVE. TENDERNESS NOTED IN MID AND UPPER LEFT QUADRANT. PATIENT REPORTS PAIN IS MUCH IMPROVED SINCE ADMISSION. PATIENT ALSO REPORTS CHRONIC PAIN IN BACK. FRESH WATER PROVIDED AT THE BEDSIDE. NO OTHER NEEDS AT THIS TIME. WILL CONTINUE TO CLOSELY MONITOR.
--- NOTE | 2020-11-26 11:15 | NUR ---
PATIENT UP TO THE BATHRROM AND TOELRATED WELL. PATIENT NOW BACK TO BED AND RESTING. PATIENT ASKED ABOUT THE PLAN OF CARE UPDATED WITH CURRENT PLAN OF CARE AND THAT MD WILL BE IN THIS AFTERNOON TO SPEAK WITH PATIENT ABOUT PLAN OF CARE. NO FURSTHER QUESTIONS AT THIS TIME. WILL CONTINUE TO CLOSELY MONTIOR.
--- NOTE | 2020-11-26 12:45 | NUR ---
PATIENT CALLED AND SPILLED BROTH ON HER. ALL NEW LINEN PROVIDED. GOWN CHANGED. PATIENT DENIES THE BROTH BURNING HER. ASSESSMENT COMPLETED AND REMAINS UNCHANGED FROM PRIOR. MD SALAZAR HAS BEEN IN TO SPEAK WITH PATIENT AND PLAN OF CARE REVIEWED. NO OTHER QUESTIONS AT THIS TIME.
--- NOTE | 2020-11-26 14:29 | NUR ---
PATIENT RESTING IN BED AND REMAINS ON INSULIN GTT. PATIENT MOM BROUGHT MEDICATION FROM HOME. CALLED PHARMACY TO REVIEW MEDICATION. NO OTHER NEEDS AT THIS TIME.
--- NOTE | 2020-11-26 16:23 | NUR ---
CALLED MD SALAZAR AND UPDATED ON PATIENTS CONDITION. PER MD SALAZAR STOP INSULIN GTT AT THSI TIME. CONTINUE WITH D10 FOR 1 HOUR AND THEN DECREASE IN HALF FOR AN HOUR AND THEN START LR AT 100. PATIENT TOLERATED BREAD THIS AFTERNOON WITH NO INCREASED PAIN. PER PATIENT MAY HAVE FOOD WITH 0 FAT CONTENT. UPDATED THAT PATIENT MAG WAS LOW THIS AM AND PATIENTS K/PHOS IS FINISHED INFUSING. SEE NEW ORDERS.
--- NOTE | 2020-11-26 17:30 | NUR ---
DECREASED D10 GTT RATE IN HALF AT THIS TIME. UPDATED ON PLAN OF CARE.
--- NOTE | 2020-11-26 17:44 | NUR ---
PATIENT SPIKED A TEMPERATURE TO 101.7. CALLED AND NOTIFIED MD SALAZAR. SEE NEW ORDERS. PATIENT DENIES FEELING HOT OR COLD. PATIENT IS WARM TO THE TOUCH.
--- NOTE | 2020-11-26 18:30 | NUR ---
D10 GTT STOPPED AND TOOK PATIENT DOWN FOR CHEST X-RAY AT THIS TIME. PATIENT HAS STARTED SWEATING AT THIS TIME WELL. PATIENTS RESTING HR IS DOWN TO 109. WILL START ABX ONCE BACK TO ROOM.
--- NOTE | 2020-11-26 18:57 | NUR ---
PATIENT BACK TO BED. ICE WATER PROVIDED. ICE PACK PROVIDED. PATIENT TOLERATED SCAN WELL. ALL QUESTIONS ANSWERED. NO OTHER NEEDS AT THIS TIME. WILL CONTINUE TO CLOSELY MONITOR.
--- NOTE | 2020-11-26 19:45 | NUR ---
IN TO ASSESS PT. PT LAYING IN BED SLEEPING AND AWOKE EASILY. PT IS ALERT AND ORIENTED. A BLOOD GLUCOSE OF 119 WAS OBTAINED. PT REPORTS MINIMAL PAIN WHICH SHE STATES IS TOLERABLE. PT DENIES ANY NEED FOR PAIN MEDICATION AT THIS TIME. PT REPORTS NO FURTHER NEEDS AT THIS TIME, WILL CONTINUE PLAN OF CARE. CALL LIGHT WITHIN REACH, BED IN LOWEST POSITION.
--- NOTE | 2020-11-26 20:15 | NUR ---
THIS RN IN TO ASSESS PT AND ADMINISTER MEDICATIONS. PT LAYING IN BED ASLEEP AND WOKE EASILY. PT WAS ALERT AND ORIENTED. PT'S ABDOMEN TENDER ON LEFT UPPER QUADRANT WHEN PALPATED. PT AFEBRILE WITH A TEMP OF 98.7. PT REPORTS PAIN BUT STATES IT IS TOLERABLE AND REQUIRES NO PAIN MEDICATION AT THIS TIME. LABETOLOL WAS HELD DUE TO BLOOD PRESSURES IN THE 80'S. IV ABX COMPLETE, IV LR NOW INFUSING. PT REPORTS NO FURTHER NEEDS AT THIS TIME, CALL LIGHT WITHIN REACH, BED IN LOWEST POSITION, WILL CONTINUE PLAN OF CARE.
--- NOTE | 2020-11-26 20:25 | NUR ---
DR SALAZAR CALLED AND INFORMED ON PT'S LOW BLOOD PRESSURES AND THAT THE LABETOLOL WAS HELD. NEW ORDERS GIVEN OVER PHONE TO ADMINISTER 1L BOLUS OF LR AND CHANGE BLOOD SUGAR CHECKS TO Q6. WILL CONTINUE PLAN OF CARE.
--- NOTE | 2020-11-26 20:40 | NUR ---
THIS RN IN TO START BOLUS OF LR. PT LAYING IN BED SLEEPING AND AWOKE WHEN I ENTERED THE ROOM. PT WAS UPDATED ON THE PLAN OF CARE. PT ALSO DENIES NEEDING PAIN MEDICATIONS AND STATES HER PAIN IS AT A TOLERABLE LEVEL AT THIS TIME. 1L BOLUS OF LR STARTED. PT REPORTS NO FURTHER NEEDS AT THIS TIME WHEN ASKED, WILL CONTINUE PLAN OF CARE.
--- NOTE | 2020-11-26 21:45 | NUR ---
IN TO ASSESS PT DUE TO DESATURATIONS OF 88-89%. PT IN ROOM ASLEEP AND SNORING, PT PUT ON 1L O2 NC. PT THEN NEEDED TO USE THE RESTROOM AND WAS ABLE TO WALK OVER UNASSISTED. PT VOIDED AND WALKED BACK. PT STATES SHE DID NO FEEL LIGHTHEADED THIS TIME WHILE GETTING UP OR WALKING AND STATES IT FELT BETTER COMPARED TO PREVIOUS TIMES. PT NOW LAYING IN BED WITH 1L O2 NC, SPO2 AT 100%. MAINTENANCE IV FLUIDS NOW INFUSING ORDERED, BOLUS COMPLETE. PT REPORTS NO FURTHER NEEDS AND STATES THAT HER PAIN IS TOLERABLE AND REQUIRES NO PAIN MEDICATIONS. WILL CONTINUE PLAN OF CARE. CALL LIGHT WITHIN REACH, BED IN LOWEST POSITION.
--- NOTE | 2020-11-26 22:41 | NUR ---
RESPONDED TO PT CALL LIGHT. PT WAS LAYING IN BED AWAKE AND STATED THAT SHE HAD TO GO TO THE BATHROOM. AFTER PAUSING IV FLUIDS PT WAS ABLE TO GET UP AND WALK TO BATHROOM UNASSISTED TO VOID. PT THEN WALKED BACK AND GOT INTO BED WITHOUT ASSISTANCE WELL. PT AGAIN STATED THAT SHE DID NOT FEEL LIGHT HEADED LIKE THE PREVIOUS TIMES SHE HAD GOTTEN UP. PT STATES THAT HER PAIN IS TOLERABLE AT THIS TIME WELL AND DID DENIED NEEDING PAIN MEDICATIONS WHEN ASKED. PT PROVIDED WITH WATER SHE REQUESTED. PT REPORTS NO FURTHER NEEDS AT THIS TIME AND RETURNED BACK TO SLEEP, WILL CONTINUE PLAN OF CARE. CALL LIGHT WITHIN REACH, BED IN LOWEST POSITION.
--- NOTE | 2020-11-26 23:58 | NUR ---
RESPONDED TO CALL LIGHT, PT WAS LAYING IN BED AWAKE. PT STATED THAT SHE NEEDED TO USE THE RESTROOM. IV FLUIDS PAUSED MOMENTARILY AND PT WAS ABLE TO GET UP AND WALK TO THE BATHROOM TO VOID. PT ABLE TO WALK BACK AND GET INTO BED WITHOUT ASSISTANCE WELL. ASSESSMENT COMPLETE, PT REPORTS 4/10 PAIN THAT IS TOLERABLE FOR HER. UPON PALPATION PT STATES LEFT UPPER QUADRANT AND EPIGASTRIC AREA ARE TENDER. PT REPORTS NO FURTHER NEEDS AT THIS TIME. IV FLUIDS STARTED. WILL CONTINUE PLAN OF CARE. CALL LIGHT WITHIN REACH, BED IN LOWEST POSITION.
--- NOTE | 2020-11-27 00:59 | NUR ---
IN TO PUT PATIENT BACK ON OXYGEN. PT HAD BEEN HAVING AN SPO2 OF 95% ON ROOM AIR FOR THE LAST HOUR WHILE ASLEEP. PT THEN BEGAN TO DESATURATE TO THE MID 80'S IN HER SLEEP. PT PUT ON 1L O2 NC, SPO2 NOW AT 100%, RR AT 13. PT RETURNED BACK TO SLEEP AFTER PUTTING NC ON. WILL CONTINUE PLAN OF CARE, CALL LIGHT WITHIN REACH, BED IN LOWEST POSITION.
--- NOTE | 2020-11-27 01:24 | NUR ---
RESPONDED TO PT. CALL LIGHT. PT HAD TO USE THE RESTROOM. PT ABLE TO GET UP AND BACK TO BED UNASSISTED AFTER VOIDING. PT REPORTS HAVING ABDOMINAL PAIN WHEN SITTING UP BUT STATES ITS TOLERABLE AT REST. PT ON 1L NC, IV FLUIDS INFUSING. PT PROVIDED WITH A WARM BLANKET REQUESTED. PT REPORTS NO FURTHER NEEDS WHEN ASKED. WILL CONTINUE PLAN OF CARE.
--- NOTE | 2020-11-27 03:38 | NUR ---
RESPONDED TO PT CALL LIGHT. PT NEEDED TO USE THE RESTROOM. PT ABLE TO GET UP AND WALK TO RESTROOM, VOID, AND GET BACK INTO HER BED UNASSISTED LIKE BEFORE. PT STATES HER PAIN IS TOLERABLE AND DID NOT REQUIRE PAIN MEDICATION. PT STATES SHE STILL CANNOT TAKE DEEP BREATHS THEY ARE PAINFUL. PT LAYING IN BED NOW, IV FLUIDS INFUSING, 1L O2 ON VIA NC. PT REPORTS NO FURTHER NEEDS WHEN ASKED, WILL CONTINUE PLAN OF CARE. CALL LIGHT ON BED WITHIN REACH, BED IN LOWEST POSITION.
--- NOTE | 2020-11-27 05:23 | NUR ---
RESPONDED TO CALL LIGHT. PT WAS IN BED AWAKE AND ALERT SITTING AT THE SIDE. PT STATED SHE NEEDED TO USE THE RESTROOM. PT ABLE TO WALK INTO BATHROOM AND BACK WITHOUT DIFFICULTY. PT STATES SHE HAS A SORENESS WHEN GETTING UP BUT THAT ITS TOLERABLE. PT STATES HER PAIN IS ALSO STILL TOLERABLE AND DID NOT REQUIRE PAIN MEDICATION. IV FLUIDS INFUSING ORDERED, PT ON 1L O2 NC. PT PROVIDED WITH WATER REQUESTED. PT REPORTS NO FURTHER NEEDS WHEN ASKED, WILL CONTINUE PLAN OF CARE. CALL LIGHT WITHIN REACH, BED IN LOWEST POSITION.
--- NOTE | 2020-11-27 06:33 | NUR ---
IN TO ASSESS PT DUE TO DESATURATIONS IN THE 80'S. PT WAS SLEEPING IN BED, PT WOKEN BRIEFLY TO PLACE OXYGEN NC BACK ON. PT NOW ON 1L NC, SPO2 AT 95%, RR AT 17. PT RETURNED REPORTED NO FURTHER NEEDS WHEN ASKED AND WENT BACK TO SLEEP, WILL CONTINUE PLAN OF CARE. CALL LIGHT WITHIN REACH, BED IN LOWEST POSITION.
--- NOTE | 2020-11-27 07:30 | NUR ---
GABO SHIFT ASSESSMENT RECIEVED FROM ROUSTABOUT PUSHER RN. PATIENT RESTING IN BED AT THIS TIME. CALL LIGHT IN REACH. WILL CONTINUE TO CLOSELY MONITOR.
--- NOTE | 2020-11-27 08:30 | NUR ---
PATIENT SHIFT ASSESSMENT COMPLETED AT THIS TIME. PATIENTS BOWEL TONES ACTIVE. PATIENT REPORTS SORENESS ACROSS ABD WITH HE WORSE OF IT MID EPIGASTRIC AND LEFT UPPER QUADDRANT PAIN. PATIENTS BREATH SOUNDS CLEAR AND ON 1L OXYGEN FOR SLEEP. PATIENT MORE AWAKE AND FEELS BETTER THIS AM. PATIENT DENIES WANTING ANYTHING FOR PAIN AND REPORTS IT IS TOLERABLE PAIN. PATIENT WOULD LIKE A SHOWER THIS AM. WILL ORDER BREAKFAST. NO OTHER NEEDS AT THIS TIME. WILL CONTINUE TO CLOSELY MONITOR.
--- NOTE | 2020-11-27 09:45 | NUR ---
PATIENT UP AND SHOWERED. PATIENT TOLERATED WELL AND WALKED BACK TO HER ROOM ON HER OWN. NEW LINEN PLACED ON BED. IV SITE DRESSING CHANGED ON LEFT AC. PATIENT EATING BREAKFAST AT THIS TIME. NO OTHER NEEDS. WILL CONTINUE TO CLOSELY MONITOR.
--- NOTE | 2020-11-27 11:00 | NUR ---
PATIENT REQUESTED TO TAKE A NAP. LIGHTS TURNED DOWN. NO OTHER NEEDS AT THIS TIME. WILL CONTINUE TO CLOSELY MONITOR.
--- NOTE | 2020-11-27 11:02 | NUR ---
BROUGHT PATIENT A NO FAT MENU AROUND 9 AM THIS MORNING. SHE ALREADY ORDERED BREAKFAST AND CHOSE SCRAMBLED EGG WHITES AND FRUIT WHICH ARE APPROPRIATE. SHE APPRECIATED THE MENU. WILL CONTINUE TO MONITOR FOR ANY OTHER NUTRITION OR EDUCATIONAL NEEDS.
--- NOTE | 2020-11-27 12:00 | NUR ---
REPORT RECEIVED FROM LIBIA ARELLANO. AWAITING ROOM TO BE CLEANED BEFORE TRANSFERING PT.
--- NOTE | 2020-11-27 12:05 | NUR ---
REPORT GIVEN TO RUBÉN REZA. ALL QUESTIONS ANSWERED. PATIENT WILL GO TO ROOM 109. AWAITING THE ROOM TO BE CLEANED. WILL TAKE PATIENT OVER ONCE ROOM IS READY. UPDATED PATIENT ON PLAN OF CARE. NO OTHER NEEDS AT THIS TIME.
--- NOTE | 2020-11-27 12:31 | NUR ---
MED REC COMPLETE
--- NOTE | 2020-11-27 12:35 | NUR ---
ROOM CLEANING FINISHED. CCU CALLED AND STATES THEY WILL TRANSFER PT SOON.
--- NOTE | 2020-11-27 12:39 | NUR ---
PT ARRIVED BY WHEELCHAIR FROM CCU. PT TRANSFERS SELF FROM WHEELCHAIR TO BED. STEADY ON FEET WITH STAND BY ASSIST. PT 3/10 ACHING ABDOMANAL PAIN. PT DENIES NEED FOR PAIN MEDIATION AT THIS TIME. PT REPORTS 5/10 RIGHT SHOULDER AND BACK PAIN. LIDOCANE PATCH IN PLACE. PT DENIES NEED FOR ADDITONAL MEDICATION STATING " LONG I LAY RIGHT IT'S OK." IV'S ASSESSED, BOTH FLUSH EASILY, NO SWELLING, REDNESS OR PAIN NOTED. IV FLUID RESUMED THROUGH LEFT HAND IV. LEFT AC IV SALINE LOCKED WITH ALCOHOL CAP APPLIED. NUMBNESS TO RIGHT FINGER AND THUMB UNCHANGED. PT REPORTS "IT COMES AND GOES DEPENDING ON MY POSITION." LUNG SOUNDS CLEAR. PT CONTINUES TO REPORS PAIN WITH DEEP BREATHING. TRACE EDEMA CONTINUES TO BILATERAL SHINS. PT REPORTS HER ABDOMEN "IS REALLY SWOLLEN." DISTENTION NOTED, ABODOMEN OF BUT TENDER TO TOUCH. LUNCH ORDER ARRIVED. PT EATING LUNCH. PT DENIES ADDITIONAL REQUESTS OR COMPLAINTS. CALL LIGHT WITHINR EACH. BED RAILS UP.
--- NOTE | 2020-11-27 12:50 | NUR ---
BROUGHT PATIENT TO ROOM 109 VIA WHEELCHAIR. PATIENT STOOD AND TRANSFERED TO THE BED. RUBÉN REZA IN THE ROOM. ALL QUESTIONS ANSWERED. NO OTHER NEEDS AT THIS TIME. WILL CONTINUE TO CLOSELY MONITOR.
--- NOTE | 2020-11-27 13:58 | NUR ---
No change in plan for dc.
--- NOTE | 2020-11-27 15:30 | NUR ---
THIS RN TO ROOM TO CHECK ON PT. PT RESTING IN BED. PT REPORTS 6/10 PAIN IN RIGHT SHOULDER AND BACK AND 3/10 PAIN IN ABDOMEN. ABDOMEN CONTINUES TO BE NOTABLE SWOLLEN. PT DECLINES PAIN MEDICATIONS. SCHEDULED MEDICATIONS GIVEN (SEE EMAR). PT UP WITH STAND BY ASSIST TO VOID. VOIDS 700ML CLEAR YELLOW URINE. SBA BACK TO BED. PT DENIES ADDITIONAL REQUESTS OR COMPLAINTS. CALL LIGHT WITHIN REACH. ICE WATER REFILLED. BED RAILSUP.
--- NOTE | 2020-11-27 16:37 | NUR ---
PT TRASNFERED FROM CCU THIS SHIFT, HERE FOR METABOLIC ACIDOSIS AND PANCREATITIS. PT INDEPENDANT IN ROOM AND STEADY ON FEET WITH STAND BY ASSIST. PT TOELRATING LOW FAT DIET WITH GOOD APPTITE AND MINIMAL NAUSEA. PT REPORTING 3-4/10 ACHING PAIN IN ABDOMEN AND 5-6/10 PAIN IN RIGHT SHOULDER AND CHEST. PT DECLINES PRN PAIN MEDICAITON THIS SHIFT STATING THAT REPOSITIONING IS MOST BENIFICIAL TO HER, LIDOCANE PATCH IN PLACE. TACHY CARDIA CONTINUES. PT NEEDING 1L O2 BY NC WHILE SLEEPING. PT AFEBRIAL THIS SHIFT. ABDOMEN CONTINUES TO BE TENDER TO TOUCH AND DISTENDED. PT VOIDING QUANTITY SUFFICIENT. PT USES CALL LIGHT APPROPRIATLY.
--- NOTE | 2020-11-27 17:27 | NUR ---
THIS RN TO ROOM TO CHECK ON PT. PT REPORTS ABDOMEN CONTINUES TO FEEL BLOATED AND DISTENDED "I FEEL LIKE I'M ." PT REPORTS 4/10 CRAMPING PAIN IN ABDOMEN. PT REPORTS SHOULDER PAIN IS UNCHANGED. PT DECLINES PAIN MEDICATION. VITALS TAKEN. PTS TEMPERATURE RISING. PT REPORTS "FEELING HOT." MILD DIAPHROESIS NOTED. WILL REASSESS TEMPERATURE IN A FEW HOURS. PT ABLE TO EAT ~75% OF DINNER. NOTED THAT PT HAS NOT HAD A BOWEL MOVEMENT SINCE BEFORE ADMISSION. PT DENIES ADDIITONAL REQUESTS OR COMPLAINTS. CALL LIGHT WITHIN REACH.
--- NOTE | 2020-11-27 18:03 | NUR ---
PT NOTED TO BE FEBRIAL. DR. SALAZAR CALLED AND UPDATED REGARDING PT STATUS. REQUESTS PT GO TO CT FOR SCAN OF ABDOMEN. ORDER PLACED. IMAGING CALLED. PT TAKEN TO CT BY THIS RN.
--- NOTE | 2020-11-27 18:11 | NUR ---
THIS RN TO ROOM TO TAKE PT TO CT SCAN. PT REPORTS SHE HAD A HYSTERECTOMY IN MARCH OF 2016 "BUT I STILL HAVE MY OVARIES." CALLED AND STATES PT CAN GO TO CT WITH OUT TEST. ORDER CANCELED. IV SALINE LOCKED. PT UP TO USE RESTROOM, NO ASSISTANCE NEEDED. PT TAKEN TO CT BY THIS RN.
--- NOTE | 2020-11-27 18:31 | NUR ---
PT RETURNED FROM CT WITH THIS RN. PT TRANSFERS SELF TO BED. PT REPORTS 7/10 ABDOMINAL PAIN AT THIS TIME STATING "ITS JUST TOO MUCH MOVING AROUND." PT REQUESTS PAIN MEDICATION STATING "I JUST NEED TO BE DONE WITH THIS PAIN." PT REQUESTS OXYCODONE "SO I CAN SLEEP" BUT AGREES TO IBUPROFEN UNTIL THE CT RESULTS COME BACK SO SHE CAN DISCUSS THEM WITH THE DOCTOR "WITH MY FULL MIND." PT RESTING IN BED WITH HEAD OF BED ELEVATED TO 30 DEGREES. CALL LIGHT WITHIN REACH. BED RAILS UP.
--- NOTE | 2020-11-27 19:03 | NUR ---
CT RESULTS COMPLETE. NOTIFIED. ORDERS TO PLACE PT ON A CLEAR LIQUID DIET AND INCREASE IV FLUID RATE TO 125ML/HR. ORDERS REPEAT BACK OVER TELEPHONE TO CONFIRM. ORDERS ENTERED. PT UPDATED ON PLAN OF CARE. IV FLUID RATE INCREASED. PT REPORTS 5/10 ABDOMINAL PAIN AND DENIES NEED FOR ADDITIONAL PAIN MEDIATION. NO ADDITIONAL REQUESTS OR COMPLAINTS. CALL LIGHT WITHIN REACH. BED RAILS UP.
--- NOTE | 2020-11-27 19:46 | NUR ---
up to br at change of shift, was incontinent of bowel, skin care done, clean attends, back t bed !PSBA, bed alarm back on.
--- NOTE | 2020-11-27 19:48 | NUR ---
Awake, IVF infusing, on room air at this time,
--- NOTE | 2020-11-27 21:40 | NUR ---
IN ROOM TO ROUND CHARGE, pt AWAKE AND RESTING IN BED. CONSUMER AFFAIRS SPECIALIST CHRISTIANO IN ROOM AND COMPLETING VS AND I&O'S, pt ASKING ABOUT PAIN MEDICATION, PRIMARY RN NOEL AWARE. CALL LIGHT IN REACH.
--- NOTE | 2020-11-27 21:40 | NUR ---
IN TO GET VITALS, I&Os DONE AT THIS TIME, WATER TOPPED OFF, NO FURTHER NEEDS AT THIS TIME, RN TO BE IN SHORTY WITH PAIN MEDS
--- NOTE | 2020-11-27 21:54 | NUR ---
Awake, watching tv, c/o 5-6/10 abd pain. Abd distended, yuniel, tender, more toward the left side and back. medicated with Oxycodone 5mg po. IVF infusing LH, sl LAC intact,patent. O2 @L at HS at this time. was on room air earlier at begining of shift. Tolerating fluids well, no c/o n/v, independent in room. cooperative,pleasant
--- NOTE | 2020-11-28 00:29 | NUR ---
RESTING, NO DISTRESS, IVF INFUSING, O2 2LNC, NO FURTHER C/O PAIN
--- NOTE | 2020-11-28 02:20 | NUR ---
RESTING, EYS CLOSED, O2 OFF, PT TOOK OFF HERSELF, IVF INFUSING, NO C/O PAIN, AWAKES AND GOES BACK TO SLEEP RIGHT AWAY. CALL LIGHT AND FLUIDS AT BEDSIDE
--- NOTE | 2020-11-28 05:30 | NUR ---
VSS AND I&O'S COMPLETE, pt AWAKE AND RESTING IN BED. ON RA, O2 SAT 100%. IV PUMP CLEARED, IV FLUIDS INFUSING PER MD ORDERS, SITE WNL. FRESH WATER AT BEDSIDE, NO FURTHER NEEDS. CALL LIGHT IN REACH.
--- NOTE | 2020-11-28 05:41 | NUR ---
Pt has slept all shift, independent in room, used O2 2L NC half of this shift. off at this time. Not chronic, uses it at HS sometimes. sats 100%, no resp distress. Was medicated x1 with Oxycodone 5mg po x1 per distended painful abd. MILAGRO. IVF infusing w/o problems, tolerating liquids and clear diet well, no c/o n/v this shift.
--- NOTE | 2020-11-28 07:00 | NUR ---
BEDSIDE HANDOFF REPORT RECEIVED FROM CONTENT PUBLISHER RN. PT SLEEPING, LEFT UNDISTURBED. LR INFUSING AT 125ML/HR.
--- NOTE | 2020-11-28 07:05 | NUR ---
BEDSIDE HANDOFF REPORT RECEIVED FROM CORPORATE INVESTIGATOR RN. PT SLEEPING, LEFT UNDISTURBED.
--- NOTE | 2020-11-28 08:45 | NUR ---
PT RESTING IN BED. PT STATES PAIN IS MUCH BETTER TODAY AND ABD DISTENTION IS IMPROVED. PT ON ROOM AIR, LUNG SOUNDS CLEAR. BOWEL TONES ACTIVE, DENIES NAUSEA AT THIS TIME, ABD TENDER TO PALPATE. CMS INTACT, WITHOUT EDEMA. DISCUSSED PLAN OF CARE. PT DENIES OTHER NEEDS AT THIS TIME.
--- NOTE | 2020-11-28 11:41 | NUR ---
PT REATING IN BED, ALERT AND ORIENTED. PT HOPING TO DC LATER TODAY. PAIN SEEMS TO BE UNDER CONTROL, PT THANKED ME FOR COMING IN. GAVE BLESSING,WILL FOLLOW NEEDED.
--- NOTE | 2020-11-28 12:00 | NUR ---
PT COMPLETED WITH SHOWER. IV FLUIDS RESUMED. PT ASSISTED TO ORDER LUNCH, LOW FAT DIET. PT DENIES OTHER NEEDS AT THIS TIME.
[2020-11-28] MEDS ORDERED: SODIUM CHLORIDE1 GM PO (14:20)
== END 2020-11-28 15:05 | disposition home or self-care (01) | DRG 439 ==
LOC: ED 11:13 → MS 11:14 → CCU 21:50 → MS 11-27 10:40
PROVIDERS: ADMIT Student in an Organized Health Care Education/Training Program; ATTEND Student in an Organized Health Care Education/Training Program
DX: K85.20 Alcohol induced acute pancreatitis without necrosis or infection (principal); E87.2 Acidosis; E22.2 Syndrome of inappropriate secretion of antidiuretic hormone; G90.50 Complex regional pain syndrome I, unspecified; Z20.822 Contact with and (suspected) exposure to COVID-19; E78.1 Pure hyperglyceridemia; F10.10 Alcohol abuse, uncomplicated; I10 Essential (primary) hypertension; D50.9 Iron deficiency anemia, unspecified; R00.0 Tachycardia, unspecified; E87.6 Hypokalemia; Z88.5 Allergy status to narcotic agent; Z87.891 Personal history of nicotine dependence; Z87.442 Personal history of urinary calculi
CPT/HCPCS: 36415; 71046; 74177; 80048; 80053; 81001; 82330; 82803; 83605; 83690; 83735; 83930; 84100; 84133; 84300; 84478; 84484; 84702; 85025; 85379; 85651; 86140; 93005; 93010; 96365; 96374; 96375; 96376; 99285-25; A9270; G0378; J0696; J1885; J2060; J2270; J3475; J3480; J7060; J7121; J7131; U0003

== ENCOUNTER 2021-04-09 08:33 | Inpatient (IN) | payer BC, OTHER ==
[~2021-04-09] VITALS: Ht 165.1 cm; Wt 83.3 kg
[~2021-04-09 08:33] MED LIST changes: +FENOFIBRATE160 MG PO; +KLOR-CON M2020 MEQ PO; +LABETALOL HCL100 MG PO; +ROSUVASTATIN CA40 MG PO; +SODIUM CHLORIDE1 GM PO; +VASCEPA1 GM PO
--- OUTSIDE RECORDS SUMMARY | 2021-04-09 08:36 | XMS ---
PreManage Notification: HARLEEN CM Security Jingle Writer Events No recent Security Events currently on file CRITERIA MET - [facility] - Has Care Guidelines CARE PROVIDERS JAYNE BELTRAN Nurse Practitioner Current PHONE: [phone] ROXIE GIBBS Physician Turf Farmer: Surgical 01/22/2019-Current PHONE: Unknown [facility] 04/21/2020-[facility] PHONE: [phone] Leeann has no Care Guidelines for this patient. Care History Medical/Surgical 01/22/2019 [facility] [place] - [facility]IENT [facility] ELIGIBLE, \T\middot;\T\nbsp; PLEASE REFER PATIENT TO [facility] FOR NON EMERGENT MEDICAL NEEDS. \T\middot;\T\nbsp; [facility] CAN SEE PATIENTS SAME DAY FOR APTS IF PATIENT CALLS FIRST THING IN THE MORNING. Katina VISIT COUNT (12 MO.) 3 SHWET[facility] Persaud TOTAL 3 NOTE: Visits indicate total known visits. ED/UCC VISIT TRACKING (12 MO.) 04/09/2021 08:34 [facility] [place] TYPE: Emergency COMPLAINT: - LOWER BACK KIDNEY PAIN 11/25/2020 11:13 [facility] [place] TYPE: Emergency COMPLAINT: - CHEST PAIN 04/19/2020 21:12 [facility] [place] TYPE: Emergency COMPLAINT: - CHEST PAIN INPATIENT VISIT TRACKING (12 MO.) 11/27/2020 10:40 [facility] [place] TYPE: Medical Surgical COMPLAINT: - METABOLIC ACIDOSIS DIAGNOSES: - Hypokalemia - Personal history of nicotine dependence - Syndrome of inappropriate secretion of antidiuretic hormone - Alcohol abuse, uncomplicated - Essential (primary) hypertension - Syndrome of inappropriate secretion of antidiuretic hormone - Complex regional pain syndrome I, unspecified - Iron deficiency anemia, unspecified - Alcohol induced acute pancreatitis without necrosis or infection - Complex regional pain syndrome I, unspecified - Essential (primary) hypertension - Personal history of urinary calculi - Personal history of urinary calculi - Hypokalemia - Tachycardia, unspecified - Alcohol abuse, uncomplicated - Acidosis - Pure hyperglyceridemia - Tachycardia, unspecified - Iron deficiency anemia, unspecified - Allergy status to narcotic agent - Allergy status to narcotic agent - Alcohol induced acute pancreatitis without necrosis or infection - Pure hyperglyceridemia - Personal history of nicotine dependence 04/20/2020 01:[address] 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
[2021-04-09] MEDS ORDERED: FUROSEMIDE20 MG PO (09:27)
--- NOTE | 2021-04-09 15:55 | NUR ---
PT IS ALERT AND ORIENTED X4. REPORTS 7/10 IN LOWER ABD. PT ALSO REPORTS NAUSEA. PT REPORTS ABD/RIB PAIN WITH DEEP BREATH, NO CHEST PAIN. PT IS COOPERATIVE. ABLE TO TRANSFER SELF FROM GURNEY TO BED INDEPENDENTLY. VITALS ARE WNL, SLIGHT ELEVATED BP AT 150/100.
[2021-04-09] MEDS ORDERED: ZESTRIL40 MG PO (17:07)
[2021-04-09] MEDS ORDERED: NORVASC5 MG PO (17:08)
--- NOTE | 2021-04-09 17:25 | NUR ---
PT LAYING IN BED, VITALS ARE WNL. CALL LIGHT IS WITHIN REACH. COMMODE SET UP AT BEDSIDE FOR PT CONVIENCE. BOTH IV SITES ARE INTACT, NO REDNESS OR SWELLING NOTED AT EITHER SITE, FLUIDS INFUSE EASILY. PT IS AWAKE AND ALERT X4, APPEARS COMFORTABLE AT THIS TIME. PT REPORTS PAIN IS TOLLERABLE AT 3/10 IN ABD. PT REQUESTS AND IS GIVEN HOT TEA, SHE DENIES DESIRE FOR ANY OTHER CLEAR LIQUIDS AT THIS TIME.
--- NOTE | 2021-04-09 18:10 | NUR ---
INSULIN DRIP TITRATE UP TO 1 UNIT/HR FROM 0.9 UNIT/HR FOR CBG OF 107. PT THEN UP TO USE THE BEDSIDE COMMODE. WITH ACTIVITY PT HR ELEVATES TO 125. PT DENIES NEED FOR PAIN MEDICATION AT THIS TIME.
--- NOTE | 2021-04-09 19:20 | NUR ---
REPORT RECEIVED FROM CYNTHIA. CARE ASSUMED BY THIS SN. PATIENT RESTING IN BED WITH NO COMPLAITNS AT THIS TIME.
--- NOTE | 2021-04-09 20:00 | NUR ---
IN TO ASSESS PATIENT. PT REPORTS 6/10 ABDOMINAL PAIN AT THIS TIME. PATIENT DOES NOT WANT MEDICAITON AT THIS TIME. PTS HR REMAINS IN THE 90'S, OXYGEN SATURATION 97% ON RA. PT UP TO USE THE COMMODE. PTS HR ELEVATED TO THE 110'S WITH EXERTION. PT VOIDED 800MLS. PT BACK TO BED AND REPOSITIONED. PT HAS NO OTHER COMPLAINTS AT THIS TIME.
--- NOTE | 2021-04-09 21:16 | NUR ---
IN TO CHECK PTS BLOOD SUGAR. BLOOD SUGAR 107. INSULIN DRIP TITRATED. PT REPORTS 7/10 ABDOMINAL PAIN, PAIN MEDICATION GIVEN. PATIENT HAS NO OTHER COMPLAINTS AT THIS TIME. CALL LIGHT IN PLACE.
--- NOTE | 2021-04-09 21:35 | NUR ---
IN TO ASSESS PATIENT DUE TO ELEVATED HR. PT UP TO USE THE COMMODE. HR ELEVATED TO THE 130'S. PATIENT VOIDED. PT STATES THAT PAIN IS BETTER. PATIENT BACK TO BED. HR IN THE 90'S. PATIENT HAS NO COMPLAINTS AT THIS TIME.
--- NOTE | 2021-04-09 23:08 | NUR ---
IN TO CHECK PATIENTS BLOOD SUGAR. PATINET RESTING IN BED. HR REMAINS IN THE 80'S. OXYGEN SATURATION 97% ON RA. PATIENT STATES THAT PAIN IS BETTER NOW. PATIENT TOLERATING SIPS OF ICE WATER. PATIENT HAS NO OTHER COMPLAINTS AT THIS TIME.
--- NOTE | 2021-04-10 00:06 | NUR ---
IN TO ASSESS PATIENTS BLOOD SUGAR. PATIENT RESTING IN BED. PATIENT STATES THAT HER PAIN IS WELL CONTROLLED AT THIS TIME. PATIENT UP TO USE THE COMMODE. HR ELEVATED TO 120'S WITH EXERTION. OXYGEN SATURATION 97%. PATIENT DOES NOT HAVE ANY COMPLAINTS OF SOB WITH EXERTION. PATIENT BACK TO BED. HR 94 WHEN RESTING. PATIENT HAS NO OTHER COMPLAINTS AT THIS TIME.
--- NOTE | 2021-04-10 01:10 | NUR ---
IN TO CHECK PATIENTS BLOOD GLUCOSE. BG 122, PUMP TITRATED SEE EMAR. PT RESTING IN BED. NO COMPLAINTS AT THIS TIME.
--- NOTE | 2021-04-10 02:22 | NUR ---
IN TO CHECK PATIENTS BLOOD GLUCOSE. BG 120, PUMP TITRATED SEE EMAR. PATIENT IS RESTING IN BED. PATIENT HAS SOME COMPLAINTS OF PAIN BUT STATES "IT IS FINE RIGHT NOW". PATIENT IS UP TO THE COMMODE. HR ELEVATED TO THE 110'S WITH EXERTION. PT VOIDED. PT POSITIONED BACK IN BED. NO FURTHER COMPLAINTS AT THIS TIME.
--- NOTE | 2021-04-10 04:13 | NUR ---
IN TO CHECK PATIENTS BLOOD SUGAR. PATIENT ASLEEP IN BED. HR REMAINS IN THE 80'S. RESPIRATIONS 12, OXYGEN SATURATION 95% ON ROOM AIR. VITALS OBTAINED. PATIENT REPORTS AN INCREASE IN PAIN BUT DOES NOT WISH TO TAKE ANY MEDICATION AT THIS TIME. PATIENT HAS NO OTHER COMPLAINTS AT THIS TIME.
--- NOTE | 2021-04-10 05:18 | NUR ---
IN TO CHECK PATIENTS BLOOD SUGAR. BS 121, PUMP TITRATED SEE EMAR. PATIENT RESTING IN BED, REPORTS THAT PAIN IS UNDER CONTROL. HR REMAINS IN THE 80'S. PATIENT UP TO USE THE COMMODE TO VOID. HR ELEVATES TO 120'S WITH TRANSFER. PATIENT BACK TO BED, HR DECREASES TO THE 90'S. LAB IN TO SEE PATIENT. NO OTHER COMPLAINTS AT THIS TIME.
--- NOTE | 2021-04-10 06:05 | NUR ---
PATIENT ASLEEP IN BED. HR REMAINS IN THE 80'S. RESPIRTIONS EVEN AND UNLABORED. PATIENT HAS NO COMPLAITNS AT THIS TIME. CALL LIGHT IN PLACE.
--- NOTE | 2021-04-10 08:00 | NUR ---
insulin drip titrated to 0.7 unit/hr for cbg of 123.
--- NOTE | 2021-04-10 08:25 | NUR ---
PT BACK TO BED FROM AMBULATING TO BATHROOM TO DO AM CARES INDPENDENTLY. PT VOIDS UNMEASURED AMOUNT. ALL LINENS CHANGED ON BED. VITALS ARE WNL. PT RENATO ACTIVITY WELL. PT DENIES NEED FOR PAIN MEDS. PT DENIES NAUSEA AND SOB. BOTH IV SITES ARE INTACT, NO REDNESS OR SWELLING NOTED, FLUIDS INFUSE EASILY. PT REMAINS ALERT AND ORIENTED X4, COOPERATIVE. OFFERED PT CLEAR LIQUIDS, PT REQUESTS AND IS GIVEN HERBAL TEA.
--- NOTE | 2021-04-10 09:00 | NUR ---
insulin drip titrated to 0.9 unit/hr for cbg of 149.
[2021-04-10] MEDS ORDERED: ZOLPIDEM TARTRAT5 MG PO (09:32)
--- NOTE | 2021-04-10 09:33 | NUR ---
MED REC COMPLETE
--- NOTE | 2021-04-10 10:00 | NUR ---
insulin drip titrated to 0.8 unit/hr for a cbg of 132.
--- NOTE | 2021-04-10 10:20 | NUR ---
potassium infusion slowed to 75 ml/hr for pt comfort, due to irritation at the iv site with a rate of 131 ml/hr.
--- NOTE | 2021-04-10 10:32 | NUR ---
pt is awake and alert x4 sitting up in bed visiting with her mother at the bedside. pt denies need for pain medication at this time, also denies nausea and sob.
--- NOTE | 2021-04-10 11:05 | NUR ---
insulin drip titated to 0.7 unit/hr for cbg of 125
--- NOTE | 2021-04-10 11:25 | NUR ---
PT ALERT, ORIENTED AND SITTNG UP IN BED WATCHING TV. PT STATES SHE IS FEELING BETTER, GAVE ENCOURAGEMENT AND BLESSING. LEFT G.POST, WILL FOLLOW
--- NOTE | 2021-04-10 12:15 | NUR ---
PT GIVEN 0.5 MG IV DILAUDID FOR 7/10 ABD AND BILAT FLANK PAIN. PT ALSO GIVEN 12.5 MG IV PHENERGAN FOR NAUSEA. PT REPORTS PAIN INCREASED SLOWLY OVER THE MORNING. PT REMANIS ALERT AND ORIENTED X4. BOTH IV SITES ARE INTACT, NO REDNESS OR SWELLING NOTED, FLUIDS AND FLUSHES INFUSE EASILY.
--- NOTE | 2021-04-10 15:46 | NUR ---
Pt. states lives in a 1 story home with her 10 yo daughter. Does not use any DME. Denies financial issues. Pancreatitis flare symptoms. Plans on dc to home when feeling better and cleared medically.
--- NOTE | 2021-04-10 16:20 | NUR ---
PT IS LAYING IN BED AWAKE AND ALERT X4. PT REPORTS THAT NAUSEA AND PAIN ARE WELL CONTROLED AT THIS TIME, DENIES NEED FOR MEDICATION. PT VITALS ARE WNL, AND SHE REMAINS ON ROOM AIR. PT HAS BEEN ABLE TO SLEEP FOR "ABOUT AN HOUR" THIS AFTERNOON. PT GIVEN A CUP OF BROTH AND REPORTS THAT "THIS TASTES GOOD". PT IV SITES ARE INTACT AND FLUIDS INFUSE EASILY. CALL LIGHT IS WITHIN REACH AND COMMODE IS NEXT TO BED (ALSO WITHIN REACH).
--- NOTE | 2021-04-10 17:01 | NUR ---
PT GIVEN 0.5 MG IV DILAUDID FOR 7/10 ABD PAIN, AND 4 MG IV ZOFRAN FOR NAUSEA. PT REMAINS ALERT AND ORIENTED X4. BOTH IV SITES ARE INTACT, FLUIDS INFUSE EASILY.
--- NOTE | 2021-04-10 18:36 | NUR ---
CALLED WITH [facility] RESULT FROM 1715 BLOOD DRAW. RESULT IS STILL ELEVATED AT 1220. ORDER GIVEN TO CHANGE CONTINUOUS FLUIDS TO D10 1/2NS AT 150 ML/HR. ORDER CALLED IN TO PHARMACIST APRIL Funes
--- NOTE | 2021-04-10 19:32 | NUR ---
REPORT RECEIVED FROM [facility]. CARE ASSUMED BY THIS SN. PATIENT RESTING IN BED WITH SOME COMPLAINTS OF FLANK PAIN. PATIENT DOES NOT WANT ANY PAIN MEDICATION AT THIS TIME. PLAN OF CARE DISCUSSED WITH PATIENT. NO FURTHER QUESTIONS AT THIS TIME.
--- NOTE | 2021-04-10 20:13 | NUR ---
IN TO ASSESS PATIENT. PATIENT RESTING IN BED. HR REMAINS IN THE 90'S. BLOOD GLUCOSE 131, PUMP TITRATED, SEE EMAR. PATIENT REPORTS FLANK PAIN AND MID ABDOMINAL PAIN BUT DOES NOT WANT MEDICATION AT THIS TIME. PATIENT HAS NO COMPLAINTS AT THIS TIME.
--- NOTE | 2021-04-10 21:00 | NUR ---
IN TO CHECK PATIENTS BLOOD GLUCOSE. PT REPORTS 7/10 ABDOMINAL AND FLANK PAIN. PATIENT REQUESTED PAIN MEDICATION, PAIN MEDICATION GIVEN. PATIENTS BLOOD GLUCOSE 120, INSULIN PUMP TITRATED. PATIENT HAS NO OTHER COMPLAINTS AT THIS TIME.
--- NOTE | 2021-04-10 23:00 | NUR ---
PATIENT RESTING IN BED, NO COMPLAINTS AT THIS TIME. PATIENT STATES THAT PAIN HAS IMPROVED SINCE MEDICATION. WILL CONTUINUE TO MONITOR.
--- NOTE | 2021-04-11 00:12 | NUR ---
IN TO CHECK ON PATIENT. PATIENT RESTING IN BED. HR REMAINS IN THE 80'S. RESPIRATIONS EVEN AND UNLABORED. OXYGEN SATURATION 95% ON RA. PATIENT HAS COMPLAINTS OF FLANK PAIN BUT DOES NOT WANT PAIN MEDICATION AT THIS TIME. PATIENT HAS NO OTHER COMPLAITNS.
--- NOTE | 2021-04-11 01:49 | NUR ---
IN TO CHECK ON PATIENT. PATIENT REPORTS ABDOMINAL AND FLANK PAIN AT 8/10. PAIN MEDICAITON GIVEN. PATIENT UP TO THE COMMODE TO VOID. PATIENTS HR ELEVATED TO 100 WITH TRANSFER. PATIENT BACK TO BED, HR IN THE LOW 90'S. PATIENT HAS NO FURTHER COMPLAITNS AT THIS TIME.
--- NOTE | 2021-04-11 03:23 | NUR ---
IN TO CHECK ON PATIENT. PATIENT RESTING IN BED. HR REMAINS IN THE 80'S. OXYGEN SATURATION 98% ON RA. PATIENT HAS NO COMPLAINTS AT THIS TIME.
--- NOTE | 2021-04-11 04:10 | NUR ---
IN TO CHECK PATIENTS BLOOD GLUCOSE. BG 134. INSULIN PUMP TITRATED, SEE EMAR. PATIENT RESTING IN BED. HR REMAINS IN THE 80'S, RESPIRATIONS EVEN AND UNLABORED. PATIENT HAS SOME COMPLAITNS OF PAIN BUT STATES THAT IT IS TOLERABLE NOW DUE TO THE MEDICATION. PATIENT HAS NO OTHER CONCERNS AT THIS TIME. CALL LIGHT IN PLACE.
--- NOTE | 2021-04-11 06:23 | NUR ---
IN TO CHECK ON PATIENT. PATIENT REPORTS 8/10 MID ABDOMINAL AND FLANK PAIN. PAIN MEDICATION GIVEN. PATIENT RESTING IN BED. HR REMAINS IN THE 80'S, OXYGEN SATURATION 97% ON RA. INSULIN PUMP TITRATED, SEE EMAR. PATIENT HAS NO OTHER COMPLAINTS AT THIS TIME. LAB IN TO SEE PATIENT. WILL CONTINUE TO MONITOR.
--- NOTE | 2021-04-11 08:18 | NUR ---
PATIENT RESTING IN BED UPON INITIAL ASSESSMENT AND WAS SLEEPING. PT EASILY AWAKENS TO VOICE AND STATES HER PAIN IS NOW A 5/10 AFTER HER LAST DOSE OF PAIN MEDICATION. PATIENT'S ASSESSMENT COMPLETE. PT STATES HER PAIN IS ABOUT THE SAME WHEN SHE CAME TO THE HOSPTIAL. INSULIN GTT REMAINS ON AND INFUSING, WELL THE D10 1/2 NS. PT'S LABS DRAWN BY RN FROM HER IV SITE. PATIENT WANTING TO TAKE A SHOWER THIS AM AND HELPED TO GET UP TO DO THIS. IV SITES WRAPPED. LABS PENDING. CLEAR LIQUID TRAY TO BE ORDERED FOR PATIENT. PLAN OF CARE DISCUSSED. AM MEDS GIVEN. WILL CONTINUE TO MONITOR.
--- NOTE | 2021-04-11 09:08 | NUR ---
PATIENT BACK TO HER ROOM AFTER SHOWERING. INSULIN GTT AND D10 RESUMES AND BEING TITRATED HOURLY. PT EATING SOME CLEAR LIQUIDS AND TOLERATING WELL W/O NAUSEA AT THIS TIME. PT ENDORSES THAT SHE JUST FEELS EXHAUSTED OVERALL. WILL CONTINUE TO MONITOR. CALL LIGHT AT BEDSIDE.
--- NOTE | 2021-04-11 10:36 | NUR ---
DR. SALAZAR IN TO SEE PATIENT. PLAN IS TO TAKE PATIENT OFF INSULIN GTT, AN HOUR LATER D/C D10 IVF AND THEN ALLOW PATIENT TO HAVE A LOW FAT DIET. WILL CONTINUE TO MONITOR. INSULIN TURNED OFF. IV SITE IN RIGHT WRIST D/C DUE TO SWELLING AROUND THE SITE.
--- NOTE | 2021-04-11 11:17 | NUR ---
IN TO ADMINISTER SCHEDULED MEDICATION. PT LAYING IN BED AWAKE AND ALERT WATCHING TV. IVF INFUSING ORDERED. PO MEDICATIONS ADMINISTERED (SEE MAR). PT REPORTS NO FURTHER NEEDS AT THIS TIME WHEN ASKED, WILL CONTINUE PLAN OF CARE.
--- NOTE | 2021-04-11 11:34 | NUR ---
IN TO START ORDERED IVF. PT TAKEN OFF OF THE D10 1/2 NS AT THIS TIME AND PUT ON LR AT 75ML/HR. PT AWAKE AND ALERT LAYING IN BED AND REPORTS ONLY 4/10 ABD PAIN WHEN ASKED. PT STATES PAIN IS TOLERABLE AT THIS TIME. PT REPORTS NO FURTHER NEEDS WHEN ASKED AT THIS TIME, WILL CONTINUE PLAN OF CARE. CALL LIGHT IN REACH.
--- NOTE | 2021-04-11 13:52 | NUR ---
PATIENT CONTINUES TO REST IN BED AND DENIES NEEDS. DISCUSSED WITH PATIENT POTENTIALLY SWITCHING PATIENT TO ORAL PAIN MEDICATION. DR. SALAZAR CALLED AND UPDATED. NEW ORDERS REC'D AND PLACED.
--- NOTE | 2021-04-11 15:34 | NUR ---
PATIENT CONTINUES TO REST IN BED. HR IN THE LOW 90s, SINUS. PT DENIES NEEDS.
--- NOTE | 2021-04-11 16:41 | NUR ---
PATIENT UP TO BATHROOM AROUND 1600 AND VOIDS. PT STATES HER PAIN IS VERY TOLERABLE AT THIS TIME, CURRENTLY RATING A 4/10. PATIENT STATES THE TYLENOL HELPED HER HEADACHE WELL. IVF CONTINUE AT 75 ML/HR. PT'S BLOOD PRESSURES HAVE BEEN SLOWLY INCREASING, WITH THE LAST READING OF 136/109 (119). WILL ADDRESS WITH DR. SALAZAR NEXT TIME WE COMMUNICATE WITH MD. PT NORMALLY TAKES A COUPLE OF DIFFERENT BLOOD PRESSURES MEDS THAT ARE CURRENTLY HELD. ACTIVE BOWEL TONES HEARD THIS AFTERNOON. LOW FAT DIET ORDERED FOR DINNER.
--- NOTE | 2021-04-11 17:43 | NUR ---
PATIENT WILL TRANSFER TO THE MEDICAL FLOOR THIS EVENING. PATIENT'S PAIN HAS CONTINUED TO IMPROVE THROUGHOUT THE DAY. PT TOLERATED HER DINNER OF CHICKEN NOODLE SOUP AND A DINNER ROLL. DENIES FURTHER NEEDS.
--- NOTE | 2021-04-11 19:00 | NUR ---
SHIFT REPORT RECEIVED FROM [facility] CCU LIBIA GODOY AT BEDSIDE. pt AWAKE AND RESTING IN BED, IV FLUIDS INFUSING PER MD ORDERS, SITE WNL. pt A/OX4, DENIES NEEDS AND CALL LIGHT IN REACH. BOARD UPDATED.
--- NOTE | 2021-04-11 20:38 | NUR ---
ASSESSMENT COMPLETE, SCHEDULED MEDS GIVEN, SEE EMAR. VSS, pt ON RA AND REPORTS TOLERABLE 4/10 PAIN. DENIES NAUSEA, BUT REPORTS SOME ABD DISTENTION. CRACKERS PROVIDED PER pt REQUEST. IV SITE WNL, FLUSHES EASILY. pt DENIES FURTHER NEEDS, INDEPENDENT IN ROOM. CALL LIGHT IN REACH. DENIES NEED TO VOID AT THIS TIME, WILL MONITOR.
--- NOTE | 2021-04-12 00:28 | NUR ---
ROUNDING ON pt, pt AWAKE AND ON HER WAY TO THE BATHROOM TO VOID. INDEPENDNENT IN ROOM, HAT EMPTIED FROM PREVIOUS VOID. NO NEEDS VERBALIZED, CALL LIGHT IN REACH.
--- NOTE | 2021-04-12 01:26 | NUR ---
IV PUMP ALARMING, NEW BAG IV FLUIDS HUNG AND INFUSING PER MD ORDERS, SITE REMAINS WNL. pt AWOKE TO VOICE, DENIES NEEDS. REPORTS PAIN AT 2/10 AND DESCRIBES TOLERABLE. HAT EMPTIED FROM PREVIOUS VOID, CALL LIGHT IN REACH.
--- NOTE | 2021-04-12 03:35 | NUR ---
pt AWAKE AND RESTING IN BED, REPORTS TOLERABLE 1-2/10 PAIN. DENIES NEED FOR PAIN MEDICATION, STATES, "IT'S REALLY GOOD RIGHT NOW". NO NEW CHANGES OR CONCERNS. IV SITE WNL, FLUIDS REMAIN INFUSING PER MD ORDERS. CALL LIGHT IN REACH.
--- NOTE | 2021-04-12 07:42 | NUR ---
PT ALERT AND INTERACTIVE AT TIME OF SHIFT EXCHANGE. FRESH H20 AT BEDSIDE, DENIES OTHER NEEDS OF.
--- NOTE | 2021-04-12 08:05 | NUR ---
PT AWAKE IN BED WATCHING TV. BREAKFAST JUST ARRIVED, PT WORKING ON EATING. WARM CLOTH DENCLINED AND FRESH WATER ALREADY GIVEN. WHITE BOARD UPDATED. CALL LIGHT WITHIN REACH. NO FURTHER NEEDS AT THIS TIME.
--- NOTE | 2021-04-12 09:02 | NUR ---
PT EATS 100% OF MORNING MEAL DENIES PAIN OR NAUSEA. STATES SHE HOPES TO GO HOME TODAY, THAT SHE FEELS PRETTY GOOD. LABS REVIEWED WITH HER PER HER REQUEST.
== END 2021-04-12 12:06 | disposition home or self-care (01) | DRG 439 ==
LOC: ED 08:33 → CCU 14:58 → MS 04-11 18:25
PROVIDERS: ADMIT Student in an Organized Health Care Education/Training Program; ATTEND Student in an Organized Health Care Education/Training Program
DX: K85.90 Acute pancreatitis without necrosis or infection, unspecified (principal); G90.50 Complex regional pain syndrome I, unspecified; Z20.822 Contact with and (suspected) exposure to COVID-19; E78.1 Pure hyperglyceridemia; I10 Essential (primary) hypertension; R00.0 Tachycardia, unspecified; K76.0 Fatty (change of) liver, not elsewhere classified; Z88.5 Allergy status to narcotic agent; Z79.899 Other long term (current) drug therapy; Z79.1 Long term (current) use of non-steroidal anti-inflammatories (NSAID)
CPT/HCPCS: 36415; 76705; 80053; 80176; 81001; 83690; 83735; 84478; 85025; 86704; 86706; 86709; 86803; 87340; 96375; 99285-25; C9113; C9803; J1170; J1650; J2405; J2550; J3475; J3480; J7030; J7042; J7060; J7121; U0003

== ENCOUNTER 2021-05-06 11:23 | Inpatient (IN) | payer BC, OTHER ==
[~2021-05-06] VITALS: Ht 165.1 cm; Wt 83.8 kg
[~2021-05-06 11:23] MED LIST changes: +FUROSEMIDE20 MG PO; +NORVASC5 MG PO; +ZESTRIL40 MG PO; +ZOLPIDEM TARTRAT5 MG PO
--- OUTSIDE RECORDS SUMMARY | 2021-05-06 11:36 | XMS ---
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 - 2 Visits in 30 Days - [facility] - Has Care Guidelines CARE PROVIDERS ROXIE GIBBS Physician Reprographics Technician: Surgical 01/22/2019-[facility] PHONE: Unknown [facility] 04/21/2020- PHONE: [phone] Leeann has no Care Guidelines for this patient. Care History Medical/Surgical 01/22/2019 [facility], \T\middot;\T\nbsp; PLEASE REFER PATIENT TO [facility] FOR NON EMERGENT MEDICAL NEEDS. \T\middot;\T\nbsp; [facility] CAN SEE PATIENTS SAME DAY FOR APTS IF PATIENT CALLS FIRST THING IN THE MORNING. E.D. VISIT COUNT (12 MO.) [address] [facility] TOTAL 3 NOTE: Visits indicate total known visits. ED/UCC VISIT TRACKING (12 MO.) 05/06/2021 11:24 [facility] TYPE: Emergency COMPLAINT: - ABDOMINAL PAIN, NAUSEA, SWOLLEN STOMACH, BACK PAIN 04/09/2021 08:34 [facility] [place] TYPE: Emergency COMPLAINT: - LOWER BACK KIDNEY PAIN 11/25/2020 11:13 [facility] [place] TYPE: Emergency COMPLAINT: - CHEST PAIN INPATIENT VISIT TRACKING (12 MO.) 04/09/2021 14:58 [facility] [place] TYPE: Medical Surgical COMPLAINT: - PANCREATITIS DIAGNOSES: - Allergy status to narcotic agent - Pure hyperglyceridemia - Other manager terminal (current) drug therapy - Tachycardia, unspecified - Fatty (change of) liver, not elsewhere classified - Complex regional pain syndrome I, unspecified - Acute pancreatitis without necrosis or infection, unspecified - Essential (primary) hypertension - intermodal customer service (current) use of non-steroidal anti-inflammatories (NSAID) 11/27/2020 10:40 [facility] [place] TYPE: Medical [...] hyperglyceridemia - Personal history of nicotine dependence [email or web address]
[2021-05-06] MEDS ORDERED: LISINOPRIL40 MG PO (11:42)
--- NOTE | 2021-05-06 17:15 | NUR ---
1620; PT ARRIVES FROM ER VIA STRETCHER AND SELF TRANSFERS TO CCU W/O DIFFICULTY. PT REPORTS 7/10 ABD AND BACK PAIN W/O NAUSEA. PT'S IV FLUID BOLUS HAS 800 ML REMAINING AND IS INFUSING SLOWLEY VIA IV PRIMARY TUBEING. FLUIDS PLACED ONTO PUMP AND SET TO 999/HR. PT GIVEN CALL LIGHT. PAIN TREATED WITH 4MG IV MORPHINE. PT DENIES NEEDS AT THIS TIME. BED RAILS IN UP POSITION.
--- NOTE | 2021-05-06 18:39 | NUR ---
PT'S HEART RATE HAS SLOWELY BEEN ESCILATING AND IS CURRENTLY 138 AND PT NOW HAS FEVER AT 101.3F. DR CORADO NOTIFIED, BLADDER SCANNER ORDERED, TYLENOL RECOMENDED.
--- NOTE | 2021-05-06 20:50 | NUR ---
1944 SECONDARY IV SITE STARTED BY JAYNE REZA. LABS DRAWN. PATIENT IN 08/23 PAIN. PRN MEDS PROVIDED BY MARCELLA REZA. LR BOLUS INFUSING. 1999 D5LR AND INSULIN DRIP STARTED PER ORDER. INFUSING VERIFIED BY MIKE REZA. PATIENT IS MORNING COMFORTABLE. DESATS WHILE SLEEPING. 2L NC PLACED. HR 130'S, SINUS TACH. MD AWARE. BP WNL. XRAY IN ROOM. 2019 BILLS CATH PLACED, URINE SAMPLE COLLECTED. PATIENT TOLERATED WELL. REPORTS PAIN INCREASING AND SOME MILD NAUSEA. PRN PAIN MEDS AND ZOFRAN PROVIDED. LR BOLUS FINISHED. PATIENT RESTING IN BED WITH EYES CLOSED. AT BEDSIDE. PATIENT DENIED FURTHER NEEDS. ORAL TEMP 100.0 F.
--- NOTE | 2021-05-06 21:32 | NUR ---
CALLED UNIT. UPDATE PROVIDED. PATIENT HAVING MORE PVCs, MAG ADDED TO 2000 LABS. NEW FLUID ORDERS TO BE ENTERED BY MD. WILL CONTINUE CLOSE MONITORING OF URINE OUTPUT.
--- NOTE | 2021-05-06 22:37 | NUR ---
DISCUSSED DELAY IN IV FLUIDS WITH , ORDERS TO RUN D5LR AT 600 ML/HR UNTIL D10 WITH SALINE IS AVAILBALE. PATIENT REPORTS PAIN 7/10, PRN MEDS PROVIDED. NO NAUSEA AT THIS TIME. INSULIN PER SCALE, VERIFIED WITH MIKE REZA. BILLS DRAINING, URINE NOT QS. MS AWARE. ORAL TEMP WNL. VS STABLE, HR CONTINUES IN THE 130'S.
--- NOTE | 2021-05-06 23:21 | NUR ---
PATIENT REPORTS INCREASED PAIN AND NAUSEA. PRN MORPHINE AND COMPAZINE PROVIDED. INSULIN ADJUSTED PER PROTOCOL. URINE OUTPUT NOT QS. IV FLUIDS PER ORDER. SITES WNL X2. PATIENT IS CALM AND APPROPRIATE. DENIES ANY NEEDS. 1L NC IN PLACE DUE TO DESAT WHILE SLEEPING. CALL LIGHT IN REACH.
--- NOTE | 2021-05-07 01:23 | NUR ---
DISCUSSED PATIENT'S STATUS WITH . ORDERS RECEIVED AND VERIFIED VIA REPEAT BACK. IV BOLUS STARTED PER ORDER, SITES WNL. LABS DRAWN. BILLS FLUSHED TO ENSURE PATENCY, FLUSHED FLUID RETURNED EASILY. PATIENT REPORTS PAIN 8/10. PRN PAIN MEDS PROVIDED. ORAL TEMP 99.1F. PATIENT'S LUNG SOUNDS ARE CLEAR, ROOM AIR WHILE AWAKE. 1L NC WHEN SLEEPING.
--- NOTE | 2021-05-07 03:07 | NUR ---
ACCU CHECK DONE. PATIENT REPORTS PAIN /. PRN MEDS PROVIDED. MILD NAUSEA. BILLS DRAINING FREELY, URINE OUTPUT CONTINUES TO BE INADEQUATE. IV FLUIDS PER ORDER, SITES WNL X2. PATIENT ASSISTED TO REPOSITION. DENIES ANY NEEDS AT THIS TIME. ABD IS MODERATELY DISTENDED. LUNG SOUNDS ARE CLEAR. PATIENT REPORTS FEELING "TIGHT" IN HER HANDS. GENERAL SWELLING NOTED. HR CONTINUES IN THE 130'S. ADEQUATE BP.
--- NOTE | 2021-05-07 05:15 | NUR ---
PT MEDICATED WITH 15MG PO OXYCODONE AND 5MG IV MORPHINE FOR 7/10 BACK PAIN AND REPORTS HER ABDOMEN IS NOT CURRENTLY PAINFUL. PT ALSO GIVEN 12.5MG IV PHENERGAN FOR NAUSEA. CB, INSULIN DRIP TITRATED TO 2.4 UNTIS/HR PER PROTOCOL, VERIFIED WITH LIBIA CORDERO.
--- NOTE | 2021-05-07 06:24 | NUR ---
PATIENT PROVIDED WITH PRN NAUSEA MEDS AND TYLENOL FOR FEVER 101.0 F. IV FLUIDS PER ORDER, SITE WNL X2. BILLS EMPTIED. URINE IS CONCENTRATED. ACCU CHECK DONE, ADJUSTED PER PROTOCOL.
--- NOTE | 2021-05-07 07:50 | NUR ---
TOOK REPORT ON PT. PT IN ROOM SLEEPING IN BED.
--- NOTE | 2021-05-07 09:33 | NUR ---
DR. CORADO NOTIFIED WITH PT UPDATE. PT IN RM SLEEPING.
--- NOTE | 2021-05-07 10:00 | NUR ---
PT REPORTING SOB. THIS RN REPOSITIONED PT AND PERFORMED LUNG ASSESSMENT. FINE CRACKLES NOTED ON MID R LUNG. IV FLUIDS DECREASED. DR. CORADO NOTIFIED. NC 02 INCREASED TO 2L.
--- NOTE | 2021-05-07 10:37 | NUR ---
[facility]ications [facility]
--- NOTE | 2021-05-07 10:41 | NUR ---
OVER TO UNIT TO COMPLETE CASE MANAGEMENT ASSESSMENT. PATIENT CURRENTLY PAINFUL AND SHOB. UPDATE RECVD FROM MARCELLA REZA. WILL DIFFER ASSESSMENT AT THIS TIME. WILL CONTINUE TO FOLLOW UP WITH PATIENT REGARDING DISCHARGE PLANNING.
--- NOTE | 2021-05-07 10:48 | NUR ---
IV FLUIDS MOVED TO 75ML/HR
--- NOTE | 2021-05-07 10:52 | NUR ---
MULTIPLE CALLS MADE TO LAB FOR RESULTS FROM 0600 LAB DRAW. LAB REPORTS LABS ARE BEING PROCESSED IN [place].
--- NOTE | 2021-05-07 10:53 | NUR ---
CALL MADE TO DAY SURGERY TO MID LINE NURSE.
--- NOTE | 2021-05-07 11:20 | NUR ---
KIRK REZA IN ROOM TO PLACE PICC LINE.
--- NOTE | 2021-05-07 11:39 | NUR ---
[place] CALLS MADE TO LAB ABOUT PT'S LAB RESULTS WHO REPORT THEY DO NOT HAVE AN ETA AT THIS TIME. DR. CORADO NOTIFIED.
--- NOTE | 2021-05-07 12:00 | NUR ---
PT DEMONSTRAITING AN INCREASE IN SOMULENCE. DR. CORADO NOTIFIED.
--- NOTE | 2021-05-07 12:26 | NUR ---
DR. CORADO NOTIFIED ABOUT PT'S URINARY OUTPUT.
--- NOTE | 2021-05-07 12:50 | NUR ---
PICC INSERTION NOTE ORDERS RECIEVED TO EVALUATE ELFRINA FOR POSSIBLE PICC INSERTION. AFTER REVIEWING THE CHART AND INTERVIEWING THE PT, NO ABSOLUTE CONTRAINDICATIONS WERE FOUND. RISKS AND COMPLICATIONS OF PICC LINES WERE DISCUSSED WITH THE PT AND INFORMED CONSENT WAS SIGNED PRIOR TO THE START OF THE PROCEDURE. THE RIGHT ARM WAS EVALUATED AND THE RIGHT BASILIC VEIN WAS SEEN TO BE LARGE ENOUGH TO ACCOMIDATE AN 8FR LINE. A 4 FR DOULBLE LUMEN SHOULD BE ENOUGH FOR HER CARE. THE BASILIC VEIN WAS IDENTIFIED AT 1.5 CM DEPTH AND STRAIGHT MAKING IT A GOOD CANDIDATE FOR THE PICC LINE. THERE WERE NO ISSUES WITH ACCESSING THE VEIN, ADVANCING THE IV, GUIDEWIRE, INTRODUCER, OR PICC. [employer] MAGNETIC TRACKING WAS USED. THE LINE WAS SEEN IN A CENTRAL LOCATION PRIOR TO CALLING XRAY. UNFORTUNATELY THE MAGNETIC TRACKER WIRE WAS ACCIDENTLY PULLED AND THE CXR SHOWS THE WIRE IN THE SUBCLAVICULAR VEIN AND THE TIP OF THE PICC EXTENDING FURTHER INTO THE CHEST. WE ARE AWAITING RESULTS FROM RADIOLOGY PRIOR TO USING THE LINE. THE PT TOLERATED THE PROCEDURE WELL AND DENIED PAIN. EDUCATION REGARDING CARE OF PICC LINES WAS GIVEN TO THE PT. A LIGHT PRESSURE DRESSING WAS PLACED OVER THE STERILE DRESSING THE PT IS ANTICOAGULATED.
--- NOTE | 2021-05-07 13:13 | NUR ---
RECIEVED CALL FROM DR DALTON IN RADIOLOGY. ON DR DALTON ADVICE WE WITHDREW THE LINE 2 CM AND ORDERED A REPEAT CXR.
--- NOTE | 2021-05-07 13:13 | NUR ---
LAB CALLED WITH A CRITICAL LAB VALUE OF 4.2 LACTIC ACID. HAS BEEN NOTIFIED.
--- NOTE | 2021-05-07 14:00 | NUR ---
PT IN ROOM SLEEPING LAYING IN BED. CALL LIGHT IN REACH. BED RAILS IN UP POSITION.
--- NOTE | 2021-05-07 15:07 | NUR ---
CALLED TO REPORT PICC LINE IS IN GOOD POSITION, AND IS OK TO USE.
--- NOTE | 2021-05-07 17:30 | NUR ---
IV FLUID RATE DECREASED PER DR. CORADO 10ML/HR.
--- NOTE | 2021-05-07 17:42 | NUR ---
IV INSULIN TITRATION UNITS PER HR 0800 2.7 0900 2.7 1000 2.7 1100 2.7 1200 2.4 1400 2.4 1600 2.1 CONFIRMED BY SETH RN, TEODORA REZA, AND MASON REZA. SEE GLUCOSE FLOW SHEET IN PT CHART
--- NOTE | 2021-05-07 18:35 | EKG ---
[facility] [address] [place] [address] Signed Sinus tachycardia with premature ventricular complexes or fusion complexes Possible Left atrial enlargement Inferior infarct , age undetermined Cannot rule out Anterior infarct , age undetermined Abnormal ECG When compared with ECG of 25-NOV-2020 11:18, fusion complexes are now present Inferior infarct is now present Nonspecific T wave abnormality now evident in Anterolateral leads Confirmed by AMRITA CORADO MD ([id number]) on 05/07/2021 6:35:13 PM Electronically Signed By: AMRITA CORADO MD 05/07/21 1835 PATIENT NAME: HARLEEN CM Electrocardiogram DATE OF : 75 PHYSICIAN: AMRITA CORADO MD REPORT #: [id number] REPORT IS CONFIDENTIAL AND NOT TO BE RELEASED WITHOUT AUTHORIZATION
--- NOTE | 2021-05-07 19:22 | NUR ---
PT SLEEPING IN BED WITH CALL LIGHT IN REACH AND BED RAILS UP. DISEASE CONTROL INSPECTOR TO CALL DR. CORADO ABOUT FEVER.
--- NOTE | 2021-05-07 20:00 | NUR ---
PATIENT SLEEPING SOUNDLY. O2 SATS 88% ON 2L NC. PATIENT HOB ELEVATED AND RR 10. PATIENT WOKE BRIEFLY TO VOICE BUT FELL ASLEEP QUICKLY. D50 PUSHED THROUGH PICC LINE. IV FLUIDS INFUSING PER ORDER. PATIENT IS HOT TO THE TOUCH. ABLE TO WAKE HER FOR PO TYLENOL. PATIENT REPORTS GOOD PAIN CONTROL. MILD NAUSEA UPON WAKING. ASSISTED PATIENT OUT OF BED TO CHANGE BED LINENS. PATIENT REPORTS FEELING DIZZY AND WEAK. ABLE TO STAND PIVOT TO THE RECLINER. PATIENT SLEPT WHILE BED WAS CHANGED AND PARTIALLY THOUGHT A BEDBATH. LUNG SOUNDS ARE COARSE WITH CRACKLES IN THE BASES AND MID LOBES ON BOTH SIDES. MORE COARSE ON THE LEFT. ENCOURAGED IS AND CPT. PATIENT UNABLE TO FOLLOW INSTRUCTIONS DUE TO DROWSINESS. ASSISTED PATIENT BACK TO BED. TITRATED TO 5L NC TO MAINTAIN O2 SATS GREATER THAN 90%. RR 10. PATIENT REPORTS FEELING HOT. FAN PROVIDED AND KPAD TURNED TO COOLING AND PLACED ON HER CHEST. ACCU CHECK DONE, TITRATED INSULIN DRIP PER PROTOCOL. BILLS FLUSHED TO ENSURE PATENCY. BILLS CARE DONE.
--- NOTE | 2021-05-07 21:00 | NUR ---
DISCUSSED PATIENT'S O2 DEMANDS WITH MD. ORDERS FOR CPAP RECEIVED. RT CALLED.
--- NOTE | 2021-05-07 21:33 | NUR ---
PT PLACED ON V30 AUTO PAP WITH 5L/M BLEED IN
--- NOTE | 2021-05-07 22:04 | NUR ---
CALLED. ORDERS TO SL PATIENT AT THIS TIME AND MONITOR BLOOD GLUCOSE Q1H FOR THE NEXT 3 HOURS. DISCUSSED PATIENT'S INCREASED DROWSINESS AND MD ORDERS SEDATING MEDS TO BE HELD AT THIS TIME.
--- NOTE | 2021-05-07 22:34 | NUR ---
PO MEDS HELD. PATIENT LETHARGIC, WAKES TO PRESSURE BREIFLY. TOLERATING CPAP WITH 5L BLEED IN. REPOSITIONED IN BED WITH HOB ELEVATED TO 30 DEGREES AND NECK EXTENDED STRIGHT. D50 PUSHED. SECONDS PICC LINE HEP-LOCKED. ACCU CHECK DONE, INSULIN TITRATED PER PROTOCOL. COOLING MESURES IN PLACE, PATIENT AXILLARY TEMP 101.4F.
--- NOTE | 2021-05-07 23:17 | NUR ---
ACCU CHECK DONE. TITRATED PER PROTOCOL. PATIENT CONTINUES TO REST WITH EYES CLOSED. DOES NOT SITR WHEN FINGER POKED.
--- NOTE | 2021-05-07 23:30 | NUR ---
PATIENT CALLED FOR ASSISTANCE. REPORTS WAKING FROM A BAD DREAM IN A PANIC AND PULLED THE HOSE FROM THE CPAP MASK AND FELT TRAPPED. REMOVED CPAP MASK. PATIENT COUGHING, HOB ELEVATED TO NEAR 90 DEGREES. PATIENT ABLE TO RELAX AFTER A FEW MINS AND IS READY TO PUT THE MASK BACK ON. PATIENT IS CALM. ORIENTED. ADEQUATE PAIN CONTROL AND MILD NAUSEA. CPAP BACK IN PLACE, PATIENT DESATS TO 86% ON ROOM AIR. COOLING PAD IN PLACE. LEFT HOB ELEVATED. PATIENT APPEARS COMFORTABLE. BREATHING IS NONLABORED AND O2 SATS >95%. CALL LIGHT IN HAND. SMALL LIGHT LEFT ON.
--- NOTE | 2021-05-07 23:45 | NUR ---
CALLED AND ORDERS TO CONTINUE D10 IV FLUIDS AT 50ML/HR UNTIL LABS ARE RESULTED.
--- NOTE | 2021-05-08 01:00 | NUR ---
PATIENT REPOSITIONED IN THE BED. COOLING PAD PLACED BEHIND HER BACK. COOL WASHCLOTH ON HER HEAD. ASSESSMENT FINDINGS UNCHANGED. PATIENT HAS SHALLOW BREATHING. TOLERATING CPAP WITH 5L BLEED IN. 5L NC WHILE AWAKE. INADEQUATE URINE OUTPUT CONTINUES. INSULIN INFUSION PER PROTOCOL. VS STABLE, HR 130'S SINUS TACH.
--- NOTE | 2021-05-08 03:07 | NUR ---
DISCUSSED PATIENT'S LAB FINDINGS WITH . ORDERS FOR REDRAW RECEIVED TO BE DONE NOW. LABS DRAWN WITH BUTTERFLY TO PREVENT CONTAMINATION FROM INSULIN DRIP AND D10 IV FLUIDS. PATIENT TOLERATED WELL. ASSISTED TO REPOSITION. PATIENT REPORTS MINIMAL PAIN AND NAUSEA AT THIS TIME. CONTINUES TO BE LETHARGIC, FALLING ASLEEP MID SENTANCE. CPAP IN PLACE.
--- NOTE | 2021-05-08 04:31 | NUR ---
PATIENT RESTING WITH EYES CLOSED. DOES NOT WAKE WITH RN IN ROOM. D50 PUSHED PER ORDER. ACCU CHECK DONE AND INSULIN TITRATED PER ORDERS. PICC LINE SITE WNL. VS STABLE. HR IMPROVED SLIGHTLY TO 125 SINUS TACH.
--- NOTE | 2021-05-08 05:00 | NUR ---
PATIENT TO CT WITH [facility] CHARGE NURSE ON THE MONITOR
--- NOTE | 2021-05-08 06:30 | NUR ---
PATIENT IS DISORIENTED, REQUIRES RECURRENT REORIENTATION. PATIENT WAS WRONG ABOUT THE DATE AND THEN REMEMBERED. PATIENT ASKED IF THE ROOM WAS FULL OF PEOPLE AND THEN STATED "NO I THINK THATS A DREAM". PATIENT IS ON 6L NC. BILLS EMPTIED. VS STABLE. PATIENT DENIES NAUSEA OR PAIN. PICC LINE SL AT THIS TIME.
--- NOTE | 2021-05-08 07:30 | NUR ---
PATIENT SHIFT REPORT RECIEVED FROM SHALE MINER BLASTING RN. PATIENT RESTING IN BED ON CPAP AT THIS TIME. PATIENT TOLERATING WELL. PER REPORT PATIENT HAS HAD INCREASED DROWSINESS AND EPISODES OF CONFUSION WHEN AWAKENING, BUT EASILY REORIENTS TO PLACE. WILL CONTINUE TO CLOSELY MONITOR.
--- NOTE | 2021-05-08 08:00 | NUR ---
CORADO IN TO TALK WITH PATIENT. PATIENT WILL BE TRANSFERING TO [facility] IN [place] FOR HIGHER LEVEL OF CARE. PATIENT AGREEABLE TO PLAN OF CARE.
--- NOTE | 2021-05-08 08:40 | NUR ---
PATIENTS ASSESSMENT COMPELTED. PATIENT IS ALERT, BUT CONFUSED ABOUT TIME OF DAY. PATIENT ABLE TO BE REORIENTED. PATIENT ON 6L AT THSI TIME D/T TAKING MEDICATIONS AND WANTING OFF THE CPAP FOR A BIT. WILL PLACE BACK ON CPAP SHORTLY. PATIENTS BREATH SOUNDS CLEAR IN THE UPPERS AND CRACKLES IN THE BASES. PATIENTS ABD IS VERY TENDER TO TOUCH. BOWEL TONES ACTIVE. PATIENT IS NOTED TO BE VERY SWOLLEN ALL OVER AND STATES "I FEEL TIGHT EVERY WHERE AND FLY ITCHY". BILLS CATHETER IN PLACE WITH DARK URINE PRESENT. NO OTHER NEEDS AT THIS TIME. [facility] SHOULD BE HERE SHORTLY TO TRANSFER PATIENT. WILL CONTINUE TO CLOSELY MONITOR.
--- NOTE | 2021-05-08 08:54 | NUR ---
PER DR. CORADO IN AM MEETING PATIENT TO TRANSFER TO [facility] AT THIS TIME.
--- NOTE | 2021-05-08 09:02 | NUR ---
INTO UNIT TO SEE PATIENT. [facility] CREW IN ROOM.
--- NOTE | 2021-05-08 09:20 | NUR ---
[facility] ARRIVED TO TRANSFER PATIENT. REPROT GIVEN TO STAFF. ALL QUESTIONS ANSWERED. PATIENT DISCONECTED FROM OUR EQUIPMENT AND TRANSFERED TO THEIR EQUIPMENT AND ONTO [facility]. PATIENT TOLERATED WELL. UPDATED STAFF THAT SHE HAS BEEN ON EITHER CPAP WITH 5L BLED IN OR 6L NC. NO OTHER QUESTIONS AT THIS TIME. ALL BELONGINGS SENT WITH PATIENT INCLUDING HER HOME MEDICATION VESCEPA. MD CORADO UPDATED PATIENTS SISTER JANETTE PER REQUEST. NO OTHER NEEDS. FULL REPORT GIVEN TO [facility] STAFF. NO OTHER QUESTIONS AT THIS TIME.
--- NOTE | 2021-05-08 09:34 | NUR ---
CALLED AND GAVE REPORT TO BETH REZA AT [facility] IN [place]. ALL QUESTIONS ANSWERED. NO OTHER NEEDS AT THIS TIME. PROVIDED WITH A CALL BACK NUMBER FOR ANY OTHER QUESTIONS THAT ARISE AFTER PATIENT ARRIVES.
== END 2021-05-08 09:15 | disposition short-term general hospital (02) | DRG 438 ==
LOC: ED 11:23 → CCU 11:25
PROVIDERS: ADMIT Internal Medicine; ATTEND Internal Medicine
PROC: 02HV33Z Insertion of Infusion Device into Superior Vena Cava, Percutaneous Approach (ICD-10-PCS; principal; 2021-05-07 11:30)
DX: K85.81 Other acute pancreatitis with uninfected necrosis (principal); J96.01 Acute respiratory failure with hypoxia; R65.10 Systemic inflammatory response syndrome (SIRS) of non-infectious origin without acute organ dysfunction; N17.9 Acute kidney failure, unspecified; E87.2 Acidosis; E87.1 Hypo-osmolality and hyponatremia; Z20.822 Contact with and (suspected) exposure to COVID-19; E78.1 Pure hyperglyceridemia; I10 Essential (primary) hypertension; G89.4 Chronic pain syndrome; F51.04 Psychophysiologic insomnia; D64.9 Anemia, unspecified; Z88.5 Allergy status to narcotic agent; Z79.899 Other long term (current) drug therapy; Z79.1 Long term (current) use of non-steroidal anti-inflammatories (NSAID)
CPT/HCPCS: 36569; 71045; 74176; 80048; 80053; 81001; 82010; 83605; 83690; 83735; 83935; 84478; 85025; 87040; 93005; 93010; 94660; 96372; 96374; 96375; 96376; 99285-25; C1751; C9803; G0378; J0780; J1170; J1200; J1650; J1790; J1885; J2270; J2405; J2550; J3475; J3480; J7030; J7121; J7131; P9047; U0003

== ENCOUNTER → 2022-02-03 | Emergency (ER) | payer BC, OTHER ==
[~2022-02-03] VITALS: Ht 165.1 cm; Wt 84.8 kg
[~2022-02-03] MED LIST changes: +CELEBREX200 MG PO; +CELECOXIB200 MG PO; +GABAPENTIN600 MG PO; +IRON18 MG PO; +MEDROL4 M1 PO; +MULTI-VITAMIN1 EACH PO; +OXYBUTYNIN CHLOR5 MG PO; +OXYCODONE HCL5 MG PO; +SENNA LAX8.6 MG PO; +XARELTO10 MG PO
--- OUTSIDE RECORDS SUMMARY | 2022-02-03 15:00 | XMS ---
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 Care History Medical/Surgical 01/22/2019 [facility] - PATIENT IS A YELLOWHAWK ELIGIBLE, \T\middot;\T\nbsp; PLEASE REFER PATIENT TO [facility] FOR NON EMERGENT MEDICAL NEEDS. \T\middot;\T\nbsp; [facility] CAN SEE PATIENTS SAME DAY FOR APTS IF PATIENT CALLS FIRST THING IN THE MORNING. E.D. VISIT COUNT (12 MO.) 3 [facility]aud TOTAL 3 NOTE: Visits indicate total known visits. ED/UCC VISIT TRACKING (12 MO.) 02/03/2022 14:58 [facility] [place] TYPE: Emergency COMPLAINT: - FALL, R HIP PAIN 05/06/2021 11:24 [facility] [place] TYPE: Emergency COMPLAINT: - ABDOMINAL PAIN, NAUSEA, SWOLLEN STOMACH, BACK PAIN 04/09/2021 08:34 [facility] [place] TYPE: Emergency COMPLAINT: - LOWER BACK KIDNEY PAIN INPATIENT VISIT TRACKING (12 MO.) 05/08/2021 11:02 [facility] [place] TYPE: Medical Surgical COMPLAINT: - pancreatitis, acute renal failure DIAGNOSES: - pancreatitis, acute renal failure 05/06/2021 19:00 [facility] [place] TYPE: Critical Care COMPLAINT: - PANCREATITIS DIAGNOSES: - Other acute pancreatitis with uninfected necrosis - Psychophysiologic insomnia - Chronic pain syndrome - Acidosis - Other meterman (current) drug therapy - 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 [place] TYPE: Medical Surgical COMPLAINT: - PANCREATITIS DIAGNOSES: - Allergy status to narcotic agent - Pure hyperglyceridemia - Other meterman (current) drug therapy - Tachycardia, unspecified - Fatty (change of) liver, not elsewhere classified - Complex regional pain syndrome I, unspecified - Acute pancreatitis without necrosis or infection, unspecified - Essential (primary) hypertension - FDC (current) use of non-steroidal anti-inflammatories (NSAID) [email or web address]
== END ==
LOC: ED 14:57
DX: M25.551 Pain in right hip (principal); D50.9 Iron deficiency anemia, unspecified; I10 Essential (primary) hypertension; Z88.5 Allergy status to narcotic agent; Z91.011 Allergy to milk products; Z79.899 Other long term (current) drug therapy; X50.1XXA Overexertion from prolonged static or awkward postures, initial encounter; W18.30XA Fall on same level, unspecified, initial encounter
CPT/HCPCS: 73502; 73552; 99283-25

== ENCOUNTER 2023-02-07 16:41 | Emergency (ER) | payer BC, OTHER ==
[~2023-02-07] VITALS: Ht 165.1 cm; Wt 80.3 kg
[~2023-02-07 16:41] MED LIST changes: +MORPHINE SULFAT15 MG PO
--- OUTSIDE RECORDS SUMMARY | 2023-02-07 16:45 | XMS ---
PreManage Notification: HARLEEN DELEON Security Desk Officer Events No recent Security Events currently on file CRITERIA MET - [facility] - 2 Visits in 30 Days CARE PROVIDERS ROXIE GIBBS Physician Benefits Specialist Recruiter: Surgical 01/22/2019-[facility] PHONE: Unknown [facility]/[place] 04/21/2020-[facility] PHONE: [phone] Leeann has no Care Guidelines for this patient. Care History Medical/Surgical 01/22/2019 [facility] - PATIENT IS A YELLOWHAWK ELIGIBLE, \T\middot;\T\nbsp; PLEASE REFER PATIENT TO [facility] FOR NON EMERGENT MEDICAL NEEDS. \T\middot;\T\nbsp; [facility] CAN SEE PATIENTS SAME DAY FOR APTS IF PATIENT CALLS FIRST THING IN THE MORNING. E.D. VISIT COUNT (12 MO.) 3 SHWETHA Persaud TOTAL 3 NOTE: Visits indicate total known visits. ED/UCC VISIT TRACKING (12 MO.) 02/07/2023 16:42 [facility] Yoder [place] TYPE: Emergency COMPLAINT: - L SIDE FACIAL PARALLYSIS 01/21/2023 12:48 [facility] [place] TYPE: Emergency COMPLAINT: - L FLANK TO GROIN PAIN/ NO INJ DIAGNOSES: - Allergy to milk products - Unspecified abdominal pain - Other intermediate (current) drug therapy - Esophagitis, unspecified without bleeding - Allergy status to narcotic agent - Essential (primary) hypertension 08/24/2022 06:[address] [facility] [place] TYPE: Emergency COMPLAINT: - POSSIBLE KIDNEY INFECTION DIAGNOSES: - Other chronic pancreatitis - Other intermediate (current) drug therapy - Essential (primary) hypertension - Allergy to milk products - Allergy status to narcotic agent - Contact with and (suspected) exposure to COVID-19 - Unspecified abdominal pain INPATIENT VISIT TRACKING (12 MO.) No inpatient visits to display in this time frame [email or web address]
[2023-02-07] MEDS ORDERED: TOLTERODINE TART2 M1 PO (17:02)
[2023-02-07] MEDS ORDERED: FAMCICLOVIR500 MG PO (17:10)
[2023-02-07] MEDS ORDERED: PREDNISONE20 MG PO (17:10)
== END 2023-02-07 17:30 | disposition home or self-care (01) ==
LOC: ED 16:41
DX: G51.0 Bell's palsy (principal); I10 Essential (primary) hypertension; D50.9 Iron deficiency anemia, unspecified; Z87.442 Personal history of urinary calculi; Z88.5 Allergy status to narcotic agent; Z91.011 Allergy to milk products; Z79.899 Other long term (current) drug therapy
CPT/HCPCS: 99283; A9270; J7512

== ENCOUNTER 2023-09-05 12:56 | Day surgery (SDC) | payer BC, OTHER ==
[~2023-09-05] VITALS: Ht 165.1 cm; Wt 72.7 kg
[~2023-09-05 12:56] MED LIST changes: +AMOX TR-K CLV1 EAC1 PO; +FAMCICLOVIR500 MG PO; +METOPROLOL TART50 MG PO; +ONDANSETRON HCL4 MG PO; +POTASSIUM20 MEQ/15 PO; +PREDNISONE20 MG PO; +TOLTERODINE TART2 M1 PO
[2023-09-05 13:13] VITALS: BP 127/95
--- NOTE | 2023-09-05 14:41 | NUR ---
09/05/23 1441 DarleneLoan 1433-PT ARRIVES TO PACU AWAKE AND SITTING UP IN BED. PT HAD TO BE GIVEN ZOFRAN RIGHT BEFORE COMING TO PACU AFTER SCOPE FOR NAUSEA. PT DENIES NAUSEA NOW. VSS. PT ENCOURAGED TO PASS GAS. 1440-PT REPORTS HAVING "HOT FLASH FROM MENOPAUSE" AND UNCOVERS HERSELF. SHE DOES REPORT HER STOMACH IS "A LITTLE UPSET". PT LAYING BACK SUPINE IN BED WITH EYES CLOSED. RESP EVEN AND UNLABORED.
[2023-09-05 15:01] VITALS: BP 138/84
--- NOTE | 2023-09-08 08:41 | OR ---
[facility] [address], [place] [address] Signed DATE OF OPERATION: 09/05/2023 SURGEON: Gale Ochoa MD PREOPERATIVE DIAGNOSIS: Colon screening. POSTOPERATIVE DIAGNOSIS: Mild inflammation of cecum, otherwise normal. PROCEDURE: Total colonoscopy to cecum with cold morcellation biopsy of cecum. ANESTHESIA: Intravenous sedation fentanyl 100 mcg and Versed 8 mg. INDICATION: This 47-year-old [place] woman is a patient Dr. Joseph of [facility] and was referred for screening colonoscopy. She has no symptoms of bleeding, diarrhea or constipation and no family history of colon cancer. She has never had colonoscopy in the past and is here for screening colonoscopy. She understands the risk of bleeding, infection, and perforation related to colonoscopy and wished to proceed. FINDINGS: The prep was good. Complete colonoscopy was undertaken of the cecum without problem. The ileocecal valve and appendiceal orifice were well identified and normal. Mild inflammation of the cecum was noted. This was probably not pathologic, but biopsy was obtained nevertheless. The remaining colon was entirely normal with no sign of inflammation, diverticular formation, colitis, or cancer. There are certainly no polyps. PROCEDURE IN DETAIL: The patient was brought to the endoscopy suite and placed in lateral decubitus position given intravenous sedation to the point of slurred speech and nystagmus. Digital rectal examination was normal. An Olympus video colonoscope was passed in the rectum and manipulated throughout the colon ultimately intubating the cecum. The ileocecal valve and appendiceal orifice were normal. Mild inflammation was known of the cecum and low, probably not pathologic. Biopsies obtained to assess for occult colitis. The scope was then withdrawn and Electronically Signed By: GALE OCHOA MD 09/08/23 0841 PATIENT NAME: HARLEEN DELEON OPERATIVE REPORT DATE OF : 75 REPORT #: [id number] PHYSICIAN: GALE OCHOA MD PCP: FLACA JOSEPH MD REPORT IS CONFIDENTIAL AND NOT TO BE RELEASED WITHOUT AUTHORIZATION [facility] [address], [place] [address] Signed examination throughout showed no evidence of abnormality specifically no polyps, diverticular formation, colitis, or cancer. Retroflexed view was normal as well. The scope was removed. The patient was taken to the recovery room in good condition. CONCLUDING DIAGNOSIS: Essentially normal colon; mild inflammation of the cecum of little significance probably. PLAN: Recommend repeat colonoscopy in 10 years, sooner if clinically indicated. She will return to the ongoing care of Dr. Joseph at [facility]. MD JOSE Aponte/SUSANL /[id number] cc: Dr. Joseph [facility] Copies: ~ Electronically Signed By: GALE OCHOA MD 09/08/23 0841 PATIENT NAME: HARLEEN DELEON OPERATIVE REPORT DATE OF : 75 REPORT #: [id number] PHYSICIAN: GALE OCHOA MD PCP: FLACA JOSEPH MD REPORT IS CONFIDENTIAL AND NOT TO BE RELEASED WITHOUT AUTHORIZATION
--- NOTE | 2023-09-08 16:00 | PATH ---
[facility] [address], [place] [address] Signed SPECIMEN(S): A CECUM BIOPSY SPECIMEN SOURCE: A. CECUM BIOPSY CLINICAL HISTORY: Initial screening colonoscopy; no family history of colon cancer. FINAL PATHOLOGIC DIAGNOSIS: Cecum biopsy: - Benign colonic mucosa, negative for specific diagnostic abnormality. JR:marcio MICROSCOPIC EXAMINATION: Histologic sections of all submitted blocks are examined by light microscopy. These findings, together with the gross examination, support the pathologic diagnosis. GROSS DESCRIPTION: The specimen, labeled and designated "Lupillo Deleon, colon, cecum biopsy," is received in formalin and consists of 2 pedraza soft tissue fragments measuring 0.2 x 0.4 cm in greatest dimension, all specimens are submitted entirely in (A1). MMA (under the direct supervision of a pathologist) The Gross Description was prepared using a voice recognition system. The report was reviewed for accuracy; however, sound-alike word errors, addition and/or deletions may occur. If there is any question about this report, please contact Client Services. PERFORMING LABORATORY: Technical component was performed by [facility], [address] [place] [id number] (CLIA# [id number]). Professional interpretation was performed by [facility] - [facility], [address] [place] [id number] (CLIA#: [id number]). Diagnostician: Faraz Washington MD Pathologist Electronically Signed 09/08/2023 Copies: PATIENT NAME: HARLEEN DELEON PATHOLOGY DATE OF : 75 REPORT #: [id number] PHYSICIAN: [facility] PCP: FLACA CALDERON MD REPORT IS CONFIDENTIAL AND NOT TO BE RELEASED WITHOUT AUTHORIZATION [address] [address] Signed ~ PATIENT NAME: HARLEEN DELEON PATHOLOGY DATE OF : 75 REPORT #: [id number] PHYSICIAN: [facility] PCP: FLACA CALDERON MD REPORT IS CONFIDENTIAL AND NOT TO BE RELEASED WITHOUT AUTHORIZATION
== END 2023-09-05 15:10 | disposition home or self-care (01) ==
LOC: DS 12:56 → OPS 12:56 → DS 14:00 → OPS 14:00
PROVIDERS: ATTEND Surgery
PROC: 0DBH8ZX Excision of Cecum, Via Natural or Artificial Opening Endoscopic, Diagnostic (ICD-10-PCS; principal; 2023-09-05 14:00)
DX: Z12.11 Encounter for screening for malignant neoplasm of colon (principal); I10 Essential (primary) hypertension; K21.9 Gastro-esophageal reflux disease without esophagitis; Z96.649 Presence of unspecified artificial hip joint; Z90.711 Acquired absence of uterus with remaining cervical stump
CPT/HCPCS: 84703; 99153; G0500; J0690; J2250; J2405; J3010

== ENCOUNTER 2023-10-27 01:12 | Emergency (ER) | payer BC, OTHER ==
[~2023-10-27] VITALS: Ht 165.1 cm; Wt 79.0 kg
[2023-10-27 01:28] LABS: BILIRUBIN, URINE POSITIVE (negative); BLOOD/HGB, URINE MODERATE (Negative); KETONE, URINE NEGATIVE (Negative); LEUK ESTERASE, URINE NEGATIVE (negative); NITRITE, URINE NEGATIVE (negative); PH, URINE 5.5 (5-7)
[2023-10-27] MEDS ORDERED: LASIX80 MG PO (01:31)
[2023-10-27 01:33] LABS: EPITHELIAL CELLS, URINE SQUAMOUS 4+ /lpf (0-1+)
[2023-10-27 01:35] LABS: BACTERIA, URINE 1+ /hpf (negative); CASTS, URINE NONE SEEN \\lpf; CRYSTALS, URINE AMORPHOUS URATES 3+ (0-1+); WHITE BLOOD CELLS, URINE 0-1 /HPF (0-5)
[2023-10-27 01:36] LABS: REFLEX CULTURE, URINE No (No)
[2023-10-27 02:16] LABS: HEMATOCRIT 40.2 % (35.0-50.0); HEMOGLOBIN 14.1 g/dL (12.0-18.0); MCH 31.5 (27-36); PLATELET COUNT 237 K/uL (140-440); RBC 4.47 M/ul (4.3-5.7); RDW 13.5 (10.5-15.0)
[2023-10-27 02:29] LABS: BANDS, MANUAL DIFF 9; LYMPHOCYTES, MANUAL DIFF 65; NEUTROPHILS, MANUAL DIFF 26
[2023-10-27 02:30] LABS: ALBUMIN 2.8 g/dL (3.4-5.0); ALBUMIN/GLOBULIN RATIO 0.62 (1.1-2.4); ANION GAP 26.2 (7-21); BILIRUBIN, TOTAL 2.2 ng/dL (0.2-1.0); POTASSIUM 3.2 mmol/L (3.5-5.1); PROTEIN, TOTAL 7.3 g/dL (6.4-8.2)
[2023-10-27 03:04] LABS: BUN/CREATININE RATIO 23.68 (6.0-28.6); CREATININE, SERUM 1.52 mg/dL (0.55-1.02)
[2023-10-27] MEDS ORDERED: CARAFATE1 GM PO (03:48)
[2023-10-27] MEDS ORDERED: ONDANSETRON ODT4 MG PO (04:15)
[2023-10-27 04:34] VITALS: BP 108/60
== END 2023-10-27 04:34 | disposition home or self-care (01) ==
LOC: ED 01:12
PROVIDERS: Internal Medicine
DX: R10.12 Left upper quadrant pain (principal); R10.11 Right upper quadrant pain; K21.9 Gastro-esophageal reflux disease without esophagitis; I10 Essential (primary) hypertension; Z87.19 Personal history of other diseases of the digestive system; Z87.442 Personal history of urinary calculi; Z91.011 Allergy to milk products; Z88.5 Allergy status to narcotic agent; Z79.899 Other long term (current) drug therapy
CPT/HCPCS: 36415; 74177; 80053; 81001; 83690; 85025; 96361; 96375; 99284-25; A9270; G0480; J1885; J2405; J7121; Q9967

== ENCOUNTER 2023-11-30 06:53 | Inpatient (IN) | payer BC, OTHER ==
[2023-11-30] VITALS (7 sets, daily range): BP systolic 106–140; BP diastolic 58–884
[~2023-11-30] VITALS: Ht 165.1 cm; Wt 77.4 kg
[~2023-11-30 06:53] MED LIST changes: +CARAFATE1 GM PO; +LASIX80 MG PO
[2023-11-30 07:34] LABS: HEMOGLOBIN 12.4 g/dL (12.0-18.0); MCH 31.7 (27-36)
[2023-11-30 07:38] LABS: HEMATOCRIT 35.1 % (35.0-50.0); MCHC 35.4 g/dl (30-36); MCV 89.6 fl (81-99); PLATELET COUNT 248 K/uL (140-440); RBC 3.92 M/ul (4.3-5.7); RDW 14.2 (10.5-15.0)
[2023-11-30 07:54] LABS: ALBUMIN 2.4 g/dL (3.4-5.0); ALBUMIN/GLOBULIN RATIO 0.51 (1.1-2.4); ALKALINE PHOSPHATASE 281 U/L (46-116); BILIRUBIN, TOTAL 1.2 ng/dL (0.2-1.0); BUN/CREATININE RATIO 6.77 (6.0-28.6); CALCIUM 7.9 mg/dL (8.5-10.1); CHLORIDE 95 mmol/L (98-107); CREATININE, SERUM 0.59 mg/dL (0.55-1.02); GLOMERULAR FILTRATION RATE,EST 111 mL/min (>60); POTASSIUM 3.2 mmol/L (3.5-5.1); PROTEIN, TOTAL 7.1 g/dL (6.4-8.2); UREA NITROGEN 4 mg/dL (7-18)
[2023-11-30 07:58] LABS: ANION GAP 30.2 (7-21); CARBON DIOXIDE 9 mmol/L (21-32)
[2023-11-30 08:09] LABS: AST (SGOT) 480 U/L (15-37); BANDS, MANUAL DIFF 16; BASOPHILS, MANUAL DIFF 1; LYMPHOCYTES, MANUAL DIFF 19; MONOCYTES, MANUAL DIFF 5; NEUTROPHILS, MANUAL DIFF 59
[2023-11-30 08:10] LABS: EOSINOPHILS, MANUAL DIFF 0
[2023-11-30 09:17] LABS: CHOLESTEROL 362 mg/dL (<200); CHOLESTEROL/HDL RATIO 22.6; HDL CHOLESTEROL 16 (40-60)
[2023-11-30 09:21] LABS: TRIGLYCERIDES 3126 ng/dL (<150)
[2023-11-30 09:45] LABS: BILIRUBIN, URINE NEGATIVE (negative); BLOOD/HGB, URINE NEGATIVE (Negative); KETONE, URINE SMALL (Negative); LEUK ESTERASE, URINE NEGATIVE (negative); NITRITE, URINE NEGATIVE (negative); PH, URINE 6.5 (5-7)
[2023-11-30 09:51] LABS: BACTERIA, URINE NONE SEEN /hpf (negative); CASTS, URINE NONE SEEN \\lpf; COLLECTION TYPE, URINE CLEAN CATCH; CRYSTALS, URINE NONE SEEN (0-1+); EPITHELIAL CELLS, URINE SQUAMOUS 2+ /lpf (0-1+); RED BLOOD CELLS, URINE 0-1 /hpf (0-5); REFLEX CULTURE, URINE No (No); WHITE BLOOD CELLS, URINE 0-1 /HPF (0-5)
--- NOTE | 2023-11-30 13:22 | NUR ---
PT TO ROOM 129 VIA ER, ALERT AND ORIENTED X4 IN ROOM, KCL FUSING AND MG STARTED. PT REPORTS BACK FLANK PAIN 7/10 MEDICATED WITH 0.5 DILAUDID SEE EMAR. - CALL LIGHT IN REACH - ORIENTTED TO ROOM, 50 ML EMISIS WITH CLEAR LIQ. INTAKE.
--- NOTE | 2023-11-30 14:01 | NUR ---
dr called re: oxygen room air 85-87% - place 2l nc 97%, clarify ivkcl order stop after this bag from er, iv fluids to be d5 ns at 125.
[2023-11-30 14:39] LABS: ANION GAP 14.6 (7-21); BUN/CREATININE RATIO 6.15 (6.0-28.6); CALCIUM 7.9 mg/dL (8.5-10.1); CREATININE, SERUM 0.65 mg/dL (0.55-1.02); POTASSIUM 3.6 mmol/L (3.5-5.1)
--- NOTE | 2023-11-30 15:15 | NUR ---
TALKED WITH PT ABOUT FEELINGS OF LOW BS - DRIP IS STARTED AND DOUBLE CHECKED WITH JAYNE REZA, PRIMARY D5NS @125 CONCURRENT. PT AMB TO BR VOID 300 ML OF URINE, NOW RESTING IN BED WITH CALL LIGHT - AND OXYGEN 2L 98% WAS 88% AT REST RA.
--- NOTE | 2023-11-30 16:20 | NUR ---
pt complaining of extreme abdominal pain like a bubble, with nausea and flank pain, repositioned to abd/ hands knee position, zofran and dilaudid given, cool cloth - pt improved, but continues to be in pain,. rn with pt, in room.
--- NOTE | 2023-11-30 16:31 | NUR ---
call to dr mcdermott about extreme abd pain that is new and diffrent, front lower abd pain feels like gas bubble - new orders for simethicone and compazine. rn in room with pt and she says the medications are working and she is feeling better - but bubble felling is still present.
[2023-11-30 17:46] LABS: ANION GAP 8.1 (7-21); BUN/CREATININE RATIO 2.4 (6.0-28.6); CREATININE, SERUM 0.83 mg/dL (0.55-1.02); POTASSIUM 3.1 mmol/L (3.5-5.1)
--- NOTE | 2023-11-30 18:05 | NUR ---
updates on phone to dr mcdermott, abd pain improving, new lab kcl 3.1 - orders for replacement.
--- NOTE | 2023-11-30 19:30 | NUR ---
REPORT RECIEVED FORM BOBBI REZA. PT AWAKE IN ROOM WITH IN THE ROOM, HR 100'S ST AND RR 18, SPO2 97% WITH PT ON 2L/O2.
--- NOTE | 2023-11-30 19:50 | NUR ---
PT CALLS FOR ASSISTANCE UP TO BATHROOM, PT STEADY ON FEET, SBA, PT VOIDED 450 YELLOW CLEAR URINE AND BACK TO BED. REQUESTS PAIN MEDICATION FOR LOWER ABDOMINAL PAIN, SPREADING TO SIDES OF BACK/FLANK AREA. WILL GIVE PRN DILAUDID. PT IS ALERT AND ORIENTED, LUNGS CLEAR, ACTIVE BT. IN AT BEDSIDE. INSULIN DRIP IS INFUSING AT 7.7 UNITS/HR ALONG WITH D5NS AT 125 AND K RIDER. PLAN OF CARE FOR THE NIGHT DISCUSSED, PT HAS NO QUESTIONS OR CONCERNS.
[2023-11-30 21:59] LABS: ANION GAP 9.8 (7-21); BUN/CREATININE RATIO 3.7 (6.0-28.6); CREATININE, SERUM 0.81 mg/dL (0.55-1.02); POTASSIUM 3.8 mmol/L (3.5-5.1)
[2023-11-30 22:05] LABS: CHOLESTEROL/HDL RATIO 16.3
[2023-11-30 22:06] LABS: ALBUMIN 2.2 g/dL (3.4-5.0); ALBUMIN/GLOBULIN RATIO 0.54 (1.1-2.4); BILIRUBIN, DIRECT 0.2 mg/dL (0.0-0.2); BILIRUBIN, INDIRECT 0.3 (0.1-0.7); BILIRUBIN, TOTAL 0.5 ng/dL (0.2-1.0); PROTEIN, TOTAL 6.3 g/dL (6.4-8.2)
--- NOTE | 2023-11-30 22:28 | NUR ---
PT UP TO BATHROOM WITH ASSIST AND BACK TO BED, HR UP TO 120 WHILE UP BUT BACK DOWN QUICKLY ONCE SHE IS IN BED TO 100. PT REPORTS PAIN MUCH BETTER AFTER DILAUDID WAS GIVEN.
--- NOTE | 2023-11-30 23:05 | NUR ---
INSULIN DRIP IS OFF, PT UPDATED.
[2023-12-01] VITALS (10 sets, daily range): BP systolic 101–121; BP diastolic 59–86
--- NOTE | 2023-12-01 00:10 | NUR ---
IN TO DO BLOOD SUGAR AND ASSESSMEN, PT STATES PAIN IS STILL AT A TOLERABLE LEVEL AND DOES NOT NEED ANY PAIN MEDICATION AT THIS TIME. BLOOD SUGAR WAS 120, IVF LR CONT TO INFUSE AT 125, PT HAS NO REQUESTS, WANTS TO TRY TO GET SOME SLEEP. HR 100'S, SPO2 92% ON 2L/O2.
--- NOTE | 2023-12-01 02:15 | NUR ---
PT CALLS TO USE BR, PROVIDED. PT STATES NO OTHER NEEDS. CALL LIGHT IN REACH.
--- NOTE | 2023-12-01 02:53 | NUR ---
PT APPEARS RESTFUL, RESP EVEN AND UNLABORED RR 16 SPO2 94% ON 2L AND HR 104.
--- NOTE | 2023-12-01 04:00 | NUR ---
PT SLEEPING WELL, RESP EVEN AND UNLABORED, HR STEADY AT 100'S, RR 18 AND SPO2 93%, WILL DEFER ASSESSMENT UNTIL PT WAKES UP.
--- NOTE | 2023-12-01 05:20 | NUR ---
LAB IN TO DRAW
[2023-12-01 05:27] LABS: BASOPHILS 0.8 % (0-2); EOSINOPHILS 1.3 % (0-6); HEMATOCRIT 29.1 % (35.0-50.0); HEMOGLOBIN 9.8 g/dL (12.0-18.0); LYMPHOCYTES 17.3 % (24-44); MCH 30.8 (27-36); MCHC 33.7 g/dl (30-36); MCV 91.4 fl (81-99); MONOCYTES 7.1 % (0-12); NEUTROPHILS 73.5 % (39-80); PLATELET COUNT 190 K/uL (140-440); RBC 3.19 M/ul (4.3-5.7); RDW 15.3 (10.5-15.0)
[2023-12-01 05:40] LABS: ALBUMIN/GLOBULIN RATIO 0.5 (1.1-2.4); ANION GAP 11.7 (7-21); BILIRUBIN, TOTAL 0.5 ng/dL (0.2-1.0); BUN/CREATININE RATIO 3.03 (6.0-28.6); CHOLESTEROL/HDL RATIO 13.9; CREATININE, SERUM 0.66 mg/dL (0.55-1.02); MAGNESIUM 2.1 mg/dL (1.8-2.4); PHOSPHORUS, INORGANIC 2.4 mg/dL (2.5-4.9); POTASSIUM 3.7 mmol/L (3.5-5.1)
--- NOTE | 2023-12-01 06:00 | NUR ---
PT CALLS FOR ASSISTANCE UP TO BR, UP TO VOID AND BACK TO BED, O2/2L IN PLACE. DENIES PAIN, WANTS TO GO BACK TO SLEEP.
--- NOTE | 2023-12-01 07:28 | NUR ---
report from tools and parts attendant, pt resting in bed, eyes closed, hr 105, 95% on 2l nc. rr 18. call light in reach, insulin drip off and iv fluids lr @ 125 fusing.
--- NOTE | 2023-12-01 08:20 | NUR ---
PATIENT SITTING UP IN BED, GLUCOSE AND VITALS CHARTED. WASHCLOTH PROVIDED FOR FACE AND HANDS. PATIENT BRUSHING HER TEETHAT THIS TIME WELL. CALL LIGHT INEASY REACH
--- NOTE | 2023-12-01 08:32 | NUR ---
THIS RN SPOKE WITH DR REDMOND REVIEWED NEW ORDERS AND LABS.
--- NOTE | 2023-12-01 09:35 | NUR ---
dr mcdermott in with pt. increase diet order.
--- NOTE | 2023-12-01 09:55 | NUR ---
PT AMB TO BR VOID 400 ML, ABLE TO EAT ORANGE FRUIT AND DRINK WNL. DENIES PAIN. FEELING WELL.
--- NOTE | 2023-12-01 10:55 | NUR ---
Spoke with pt and spouse. Pt. plans on dc home today. She denies needs. Does not use any DME. 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 Pt will go home with spouse and daughter. No financial concerns.
== END 2023-12-01 13:15 | disposition home or self-care (01) | DRG 439 ==
LOC: ED 06:53 → CCU 12:34
PROVIDERS: Emergency Medicine; ADMIT Family Medicine; ATTEND Family Medicine
DX: K85.90 Acute pancreatitis without necrosis or infection, unspecified (principal); E87.1 Hypo-osmolality and hyponatremia; E87.20 Acidosis, unspecified; E78.1 Pure hyperglyceridemia; K86.1 Other chronic pancreatitis; R00.0 Tachycardia, unspecified; E83.51 Hypocalcemia; E83.42 Hypomagnesemia; E87.6 Hypokalemia; R74.01 Elevation of levels of liver transaminase levels; R73.9 Hyperglycemia, unspecified; E83.39 Other disorders of phosphorus metabolism; D50.9 Iron deficiency anemia, unspecified; I10 Essential (primary) hypertension; Z87.442 Personal history of urinary calculi; Z98.890 Other specified postprocedural states; Z90.710 Acquired absence of both cervix and uterus; Z88.5 Allergy status to narcotic agent; Z91.011 Allergy to milk products; Z79.899 Other long term (current) drug therapy; Z79.01 Long term (current) use of anticoagulants; Z11.52 Encounter for screening for COVID-19
CPT/HCPCS: 36415; 74177; 80048; 80053; 80061; 80076; 81001; 83690; 83735; 84100; 85025; 96361; 96366; 96375; 96376; 99285-25; A9270; C9113; J1170; J1650; J1815; J2405; J3475; J3480; J3490; J7030; J7042; J7060; J7121; Q9967; U0002

== ENCOUNTER 2024-10-08 09:20 | Emergency (ER) | payer BC, OTHER ==
[~2024-10-08] VITALS: Ht 165.1 cm; Wt 69.5 kg
[2024-10-08] MEDS ORDERED: FUROSEMIDE40 MG PO (09:31)
[2024-10-08] MEDS ORDERED: ONDANSETRON 4 MG TAB ODT SL ONE (09:45)
[2024-10-08] MEDS ORDERED: HYDROmorphone HCL 2 MG TAB PO ONE ×2 (09:45→15:00)
[2024-10-08] MEDS ORDERED: ACETAMINOPHEN 500 MG TAB PO ONE (09:45)
[2024-10-08] MEDS ORDERED: SODIUM CHLORIDE 0.9% 1,000 ML IV ONE (13:00)
[2024-10-08 13:29] LABS: BASOPHILS 0.8 % (0-2); EOSINOPHILS 1.6 % (0-6); HEMATOCRIT 25.7 % (35.0-50.0); HEMOGLOBIN 8.8 g/dL (12.0-18.0); LYMPHOCYTES 37.4 % (24-44); MCH 31.6 (27-36); MCHC 34.3 g/dl (30-36); MONOCYTES 7.9 % (0-12); NEUTROPHILS 52.3 % (39-80); PLATELET COUNT 294 K/uL (140-440); RBC 2.79 M/ul (4.3-5.7); RDW 14.2 (10.5-15.0)
[2024-10-08 13:42] LABS: ALBUMIN 2.7 g/dL (3.4-5.0); ALBUMIN/GLOBULIN RATIO 0.61 (1.1-2.4); ANION GAP 15.8 (7-21); BILIRUBIN, TOTAL 0.4 ng/dL (0.2-1.0); CALCIUM 8.4 mg/dL (8.5-10.1); CREATININE, SERUM 2.6 mg/dL (0.55-1.02); POTASSIUM 2.8 mmol/L (3.5-5.1); PROTEIN, TOTAL 7.1 g/dL (6.4-8.2)
[2024-10-08] MEDS ORDERED: POTASSIUM CHLORIDE 10 MEQ TABCR PO ONE (14:30)
[2024-10-08 14:33] LABS: ERYTHROCYTE SEDIMENTATION RATE 98
[2024-10-08] MEDS ORDERED: DILAUDID2 MG PO (14:58)
[2024-10-08 15:15] VITALS: BP 92/68
== END 2024-10-08 15:16 | disposition home or self-care (01) ==
LOC: ED 09:20
PROVIDERS: Emergency Medicine
DX: M25.552 Pain in left hip (principal); I12.9 Hypertensive chronic kidney disease with stage 1 through stage 4 chronic kidney disease, or unspecified chronic kidney disease; N18.9 Chronic kidney disease, unspecified; Z96.643 Presence of artificial hip joint, bilateral; Z88.5 Allergy status to narcotic agent; Z91.011 Allergy to milk products; Z79.899 Other long term (current) drug therapy
CPT/HCPCS: 36415; 73721; 80053; 85025; 85651; 86140; 96360; 99283-25; A9270; J7030

== ENCOUNTER 2025-07-04 12:54 | Inpatient (IN) | payer BC, OTHER ==
[~2025-07-04] VITALS: Ht 165.1 cm; Wt 66.7 kg
[~2025-07-04 12:54] MED LIST changes: +DILAUDID2 MG PO; +FUROSEMIDE40 MG PO
[2025-07-04] MEDS ORDERED: KETOROLAC TROMETHAMINE 15 MG/ML VIAL IV ONE (13:00)
[2025-07-04] MEDS ORDERED: LOSARTAN POTASS50 MG PO (13:11)
[2025-07-04] MEDS ORDERED: METOPROLOL TART25 MG PO (13:11)
[2025-07-04 13:12] LABS: BLOOD/HGB, URINE SMALL (Negative); KETONE, URINE NEGATIVE (Negative); LEUK ESTERASE, URINE TRACE (negative); NITRITE, URINE NEGATIVE (negative)
[2025-07-04] MEDS ORDERED: KLOR-CON 1010 MEQ PO (13:12)
[2025-07-04 13:22] LABS: BASOPHILS 0.5 % (0.1-1.2); EOSINOPHILS 0 % (0.7-5.8); LYMPHOCYTES 12.7 % (19.3-51.7); MCH 29.9 PG (25.6-32.2); MCHC 33.2 g/dL (32.2-35.5); MCV 89.8 fL (79.4-94.8); MONOCYTES 8.2 % (4.7-12.5); NEUTROPHILS 78.3 % (34.0-71.1); RBC 4.12 M/uL (3.93-5.22)
[2025-07-04 13:25] LABS: BACTERIA, URINE RARE /hpf (negative); CASTS, URINE NONE SEEN \\lpf; CRYSTALS, URINE NONE SEEN (0-1+); EPITHELIAL CELLS, URINE SQUAMOUS 1+ /lpf (0-1+); REFLEX CULTURE, URINE Yes (No)
[2025-07-04] MEDS ORDERED: SODIUM CHLORIDE 0.9% 1,500 ML IV PRN (13:30)
[2025-07-04] MEDS ORDERED: MORPHINE SULFATE 4 MG/ML VIAL IV PRN ×2 (13:30→18:30)
[2025-07-04 13:34] LABS: INR 0.98 (0.80-1.30); PROTIME 12.3 Sec (11.2-14.2)
[2025-07-04 13:39] LABS: ALT (SGPT) 29.0 U/L (14-59); AST (SGOT) 36.0 U/L (15-37); GLOMERULAR FILTRATION RATE,EST 52.0 mL/min (>60); PROTEIN, TOTAL 8.4 g/dL (6.4-8.2); UREA NITROGEN 13.0 mg/dL (7-18)
[2025-07-04 13:44] LABS: LACTIC ACID, BLOOD 0.9 mmol/L (0.4-2.0)
[2025-07-04] MEDS ORDERED: SODIUM CHLORIDE 0.9% 1,000 ML IV PRN (17:15)
[2025-07-04] MEDS ORDERED: SODIUM CHLORIDE 0.9% 1,000 ML IV SCH ×2 (18:00→18:30)
[2025-07-04] MEDS ORDERED: PROCHLORPERAZINE EDISYLATE 10 MG/2 ML VIAL IV PRN (18:00)
[2025-07-04] MEDS ORDERED: ACETAMINOPHEN 325 MG TAB PO PRN (18:00)
[2025-07-04] MEDS ORDERED: POTASSIUM CHLORIDE 10 MEQ TABCR PO ONE (18:30)
[2025-07-04] MEDS ORDERED: KETOROLAC TROMETHAMINE 15 MG/ML VIAL IV PRN (18:30)
[2025-07-04 18:45] VITALS: BP 117/71
--- NOTE | 2025-07-04 18:45 | NUR ---
REPORT RECEIVED FROM LIBIA MURO. PATIENT TRANSFERRED TO [facility] SURG ROOM 113. PATIENT IN BED, EYES OPEN, CHEST RISE EVEN AND UNLABORED. PATIENT REPORTS NAUSEA AND PAIN 7/10. PATIENT REQUESTING PAIN MEDICATION. PRN NAUSEA AND PAIN MEDICATION ADMINISTERED PER PATIENT. REQUEST. TYLENOL ADMINISTERED FOR FEVER. IV FLUID BOLUS STARTED PER ORDER AND INFUSING WITHOUT DIFFICULTY. PATIENT DENIES FURTHER CONCERNS AT THIS TIME.
--- NOTE | 2025-07-04 19:31 | NUR ---
REPORT RECEIVED FROM DAY SHIFT RN. PATIENT RESTING IN BED ON BACK. DENIES NEEDS AT THIS TIME. CALL LIGHT IN REACH.
--- NOTE | 2025-07-04 20:45 | NUR ---
PATIENT RESTING IN BED. SCHEDULED MEDICATIONS ADMINISTERED. IV FLUID INFUSING PER ORDER. PATIENT DENIES FURTHER NEEDS AT THIS TIME. CALL LIGHT IN REACH.
[2025-07-04 21:08] VITALS: BP 102/68
--- NOTE | 2025-07-04 21:09 | NUR ---
in room per primary rn request, vs collected. temp inproving-primary rn aware and updated. iv sites x2 wnl, fluids infusing as directed. remaining admission documentation completed, pt denies additional needs or concerns. call light in reach. sig other remains at bedside.
--- NOTE | 2025-07-04 23:56 | NUR ---
PATIENT RESTING IN BED WITH EYES CLOSED. RESPIRATIONS EVEN AND UNLABORED. CALL LIGHT IN REACH.
[2025-07-05] VITALS (11 sets, daily range): BP systolic 105–124; BP diastolic 67–81
--- NOTE | 2025-07-05 00:47 | NUR ---
CALL LIGHT ANSWERED. PATIENT UP TO BATHROOM USING MINIMAL 1P SBA AND FWW TO VOID. PATIENT BACK TO BED. VS AND I&Os OBTAINED AND RECORDED. PATIENT REPORTING 5/10 RIGHT FLANK PAIN. PRN PAIN MEDICATION ADMINISTERED. PATIENT DENIES FURTHER NEEDS. CALL LIGHT IN REACH.
--- NOTE | 2025-07-05 02:40 | NUR ---
PATIENT LAYING IN BED. VITAL SIGNS AND I&OS WERE DONE. PATIENT DECLINED TO USE THE BATHROOM. PATIENTS CALL LIGHT IS WITHIN REACH AND NO FURTHER NEEDS AT THIS TIME.
--- NOTE | 2025-07-05 05:44 | NUR ---
PATIENT RESTING IN BED. DENIES NEEDS. LEFT AC IV INFILTRATED. LEFT AC IV DCd WNL WITH TIP INTACT. IV FLUID INFUSING INTO RIGHT AC IV. RIGHT AC IV FLUSHES WNL. WARM BLANKET PROVIDED. NO FURTHER NEEDS. CALL LIGHT IN REACH.
[2025-07-05 06:15] LABS: BASOPHILS 0.3 % (0.1-1.2); EOSINOPHILS 0.1 % (0.7-5.8); LYMPHOCYTES 15.4 % (19.3-51.7); MCH 29.9 PG (25.6-32.2); MCHC 32.1 g/dL (32.2-35.5); MCV 93.1 fL (79.4-94.8); MONOCYTES 11.4 % (4.7-12.5); NEUTROPHILS 72.5 % (34.0-71.1); RBC 3.61 M/uL (3.93-5.22)
[2025-07-05 06:30] LABS: ALT (SGPT) 20.0 U/L (14-59); AST (SGOT) 30.0 U/L (15-37); GLOMERULAR FILTRATION RATE,EST 70.0 mL/min (>60); PHOSPHORUS, INORGANIC 2.5 mg/dL (2.5-4.9); PROTEIN, TOTAL 6.9 g/dL (6.4-8.2); UREA NITROGEN 9.0 mg/dL (7-18)
--- NOTE | 2025-07-05 07:05 | NUR ---
REPORT RECEIVED FROM KEVON REZA.
--- NOTE | 2025-07-05 07:27 | NUR ---
UR CLINICAL REVIEW: [facility], MEETS INPT FOR UTI CREAT 1.26, GFR 52, POTASSIUM 3.2, HEARTRATE >100, FEVERS, IV FLUIDS, [facility] 07/04/2025 @ 1803 ORDER MATCHES REG AUTH PENDING, WILL SEND CLINICALS IF REQUESTED, VIA RIGHTFAX PLAN TO DC TO HOME WHEN MEDICALLY STABLE 07/09/2025
[2025-07-05] MEDS ORDERED: IBUPROFEN 600 MG TAB PO PRN (08:15)
--- NOTE | 2025-07-05 08:35 | NUR ---
PATIENT IN BED AT THIS TIME. PER[employer]MAN[employer]UT[employer] SPECIALIST CHARTED HOURLY ROUNDS AND ASSISTED PATIENT TO CHAIR. CALL LIGHT WITHIN REACH, NO FURTHER NEEDS AT THIS TIME.
[2025-07-05] MEDS ORDERED: ENOXAPARIN SODIUM 40 MG/0.4 ML SYR SUB-Q SCH (09:00)
--- NOTE | 2025-07-05 09:02 | NUR ---
PT SITTING UP IN CHAIR, JUST FINISHED BREAKFAST. PT STATES PAIN TO R) FLANK, MEDICATION GIVEN. ASSESSMENT COMPLETE. NO OTHER REQUESTS AT THIS TIME. CALL LIGHT WITHIN REACH.
[2025-07-05] MEDS ORDERED: SODIUM FLUORIDE51 GM MM (10:00)
[2025-07-05] MEDS ORDERED: FISH OIL 1,0001 EAC6 PO (10:01)
[2025-07-05] MEDS ORDERED: VITAMIN D325 MCG PO (10:01)
--- NOTE | 2025-07-05 10:01 | NUR ---
MED REC COMPLETE
--- NOTE | 2025-07-05 10:19 | NUR ---
INTO SEE PATIENT. PERSONAL HEALTH INFORMATION REVIEWED. PATIENT LIVES AT HOME WITH A COUPLE STEPS IN. DENIES ANY DIFFCULTY DOING THEM. PATIENT USES A CANE. SHE DOES DRIVE. DENIES ANY DIFFCULTY PAYING UTLITIES OR OBTAINING FOOD. DOES NOT USE OXYGEN OR A CPAP. HAS FAMILY TO PICK HER UP IF NEEDED BUT ALSO HAS HER CAR HERE. NO FUTHER CM NEEDS AT THIS TIME.
--- NOTE | 2025-07-05 10:30 | NUR ---
AFTER I SET UP THE SHOWER. PATIENT WENT IN AND TOOK A SHOWER NEW GOWN. BED LINENS CHANGED. PATIENT WAS SITTING UP IN HER CHAIR.
--- NOTE | 2025-07-05 11:25 | NUR ---
PT NOT AVAILABLE FOR VISIT. PROVIDED PRAYER.
[2025-07-05] MEDS ORDERED: PHARMACY RENAL DOSE ADJUSTMENT 1 DOSE MISC PO SCH (12:00)
--- NOTE | 2025-07-05 12:44 | NUR ---
BROUGHT PATIENT SOME CRACKER AND LEMON AND METLAKATLA SODA. PATIENT IS NOW RESTING.
--- NOTE | 2025-07-05 13:03 | NUR ---
PT RESTING IN BED AFTER EATING LUNCH. PT STATES PAIN IS TOLERABLE AT THIS TIME, HAS NO REQUESTS. CALL LIGHT WITHIN REACH.
--- NOTE | 2025-07-05 14:57 | NUR ---
PT RESTING IN BED, STATES PAIN HAS INCREASED TO 8/10 AND MORPHINE GIVEN ORDERED. PT HAS NO OTHER REQUESTS AT THIS TIME. CALL LIGHT WITHIN REACH.
--- NOTE | 2025-07-05 18:44 | NUR ---
PT C/O NIETO 06/23, MORPHINE GIVEN ORDERED AND REQUESTED. PT RESTING IN BED WITH ROOM QUITE. NO OTHER REQUESTS AT THIS TIME. CALL LIGHT WITHIN REACH.
--- NOTE | 2025-07-05 19:19 | NUR ---
BROUGHT PATIENT A FRESH CUP OF ICE WATER, CRACKERS AND A LEMON AND UNGA SODA.
--- NOTE | 2025-07-05 19:27 | NUR ---
REPORT RECEIVED FROM DAY SHIFT RN. PATIENT REPORTS NAUSEA AND TEMP OF 100.5. PRN MEDICATION ADMINISTERED BY OTHER RN. PATIENT DENIES FURTHER NEEDS. CALL LIGHT IN REACH.
--- NOTE | 2025-07-05 20:10 | NUR ---
PATIENT RESTING IN BED. VS AND I&Os OBTAINED AND RECORDED. PATIENT DENIES NEEDS AT THIS TIME. ASSESSMENT COMPLETE. CALL LIGHT IN REACH.
[2025-07-05] MEDS ORDERED: HYDROmorphone HCL 1 MG/ML SYR IV PRN (22:15)
--- NOTE | 2025-07-05 23:07 | NUR ---
PT UTILIZES CALL LIGHT, REPORTS 8/10 PAIN TO FLANK. PRN ADMINISTERED. PT DENIES FURTHER NEEDS AT THIS TIME. CALL LIGHT IN REACH.
[2025-07-06] VITALS (10 sets, daily range): BP systolic 112–140; BP diastolic 78–94
--- NOTE | 2025-07-06 00:42 | NUR ---
PATIENT RESTING IN BED. DENIES NEEDS AT THIS TIME. CALL LIGHT IN REACH.
--- NOTE | 2025-07-06 02:38 | NUR ---
PATIENT RESTING IN BED, APPEARS COMFORTABLE. DENIES NEEDS AT THIS TIME. CALL LIGHT IN REACH.
[2025-07-06 05:15] LABS: BASOPHILS 0.3 % (0.1-1.2); EOSINOPHILS 1.1 % (0.7-5.8); LYMPHOCYTES 28.1 % (19.3-51.7); MCH 29.6 PG (25.6-32.2); MCHC 31.8 g/dL (32.2-35.5); MCV 93.0 fL (79.4-94.8); MONOCYTES 12.5 % (4.7-12.5); NEUTROPHILS 57.8 % (34.0-71.1); RBC 3.01 M/uL (3.93-5.22)
--- NOTE | 2025-07-06 05:32 | NUR ---
PATIENT RESTING IN BED. NEW BAG IV FLUID INFUSING PER ORDER. VS AND I&Os OBTAINED AND RECORDED. FRESH ICE WATER PROVIDED. PATIENT DENIES FURTHER NEEDS AT THIS TIME. CALL LIGHT IN REACH.
[2025-07-06 05:33] LABS: ALT (SGPT) 34.0 U/L (14-59); AST (SGOT) 56.0 U/L (15-37); GLOMERULAR FILTRATION RATE,EST 99.0 mL/min (>60); PROTEIN, TOTAL 6.1 g/dL (6.4-8.2); UREA NITROGEN 5.0 mg/dL (7-18)
--- NOTE | 2025-07-06 07:44 | NUR ---
MORNING REPORT RECIEVED FROM LIBIA LUND. PT LAYING IN BED AWAKE AND ALERT, PT DENIES ANY CURRENT NEEDS AT THIS TIME AND HAS CALL LIGHT IN REACH IF NEEDED, PT DENIES PAIN.
--- NOTE | 2025-07-06 11:15 | NUR ---
PT SITTING UP IN BED, PT HAS FAMILY CURRENTLY IN ROOM, PT HAS MODERATE PAIN BUT DENIES NEED FOR INTERVENTION AT THIS TIME CALL LIGHT IN REACH.
[2025-07-06] MEDS ORDERED: POTASSIUM CHLORIDE 10 MEQ TABCR PO ONE (11:45)
--- NOTE | 2025-07-06 14:18 | NUR ---
PT RESTING IN BED WITH HEAD UP 30% - VISITOR IN ROOM. GOT PT FRESH ICE WATER AND THEN PT REPORTED NEEDING NOTHING MORE AT THIS TIME.
--- NOTE | 2025-07-06 14:54 | NUR ---
PT SITTING UP IN BED, PT HAS FAMILY CURRENTLY AT PT BEDSIDE, PT HAS NO CURRENT CONCERNS AND HAS CALL LIGHT IN REACH IF NEEDED.
--- NOTE | 2025-07-06 15:39 | NUR ---
PT SITTING UP IN BED PT CALLED AND REQUESTED PAIN AND NAUSEA MEDS ( SEE EMAR), PT HAS NO OTHER CONCERNS AT THIS TIME AND HAS FRIEND AT BED SIDE. CALL LIGHT IN REACH AT THIS TIME.
--- NOTE | 2025-07-06 16:41 | NUR ---
LAYING IN BED WITH EYES CLOSED CHEST RISE EQUAL BILAT, PT HAS FRIEND IN ROOM AT BED SIDE CURRENTLY WITH CALL LIGHT IN REACH.
--- NOTE | 2025-07-06 17:41 | NUR ---
PT SITTING UP IN BED, PT AWOKE FROM A NAP AND HAS NO CURRENT CONCERNS AT THIS TIME, FRIEND IN ROOM AND CALL LIGHT IN REACH AT THIS TIME.
--- NOTE | 2025-07-06 19:19 | NUR ---
RECEIVED REPORT ON PT. IN TO INTRODUCE, PT REQUESTING PAIN MEDICATION. DISCUSSED WITH PT WILL REVIEW MEDICATIONS AND BE BACK IN. PT NOW VOMITING.
--- NOTE | 2025-07-06 19:19 | NUR ---
PT REQUESTING PAIN MEDICATION. SHE HAS ALSO VOMITTED. GOT PT FRESH WATER AND CALL LIGHT WITHIN REACH. PT'S NEW NURSE KNOWS ABOUT BOTH, SHE CHECKED IN A MINUTE AGO.
--- NOTE | 2025-07-06 20:23 | NUR ---
PATIENT IS LAYING IN BED. VITAL SIGNS AND I&OS WERE DONE. PATIENT DECLINED TO USE THE RESTROOM. PATIENTS CALL LIGHT IS WITHIN REACH AND NO FURTHER NEEDS AT THIS TIME.
--- NOTE | 2025-07-07 00:27 | NUR ---
PT LAYING IN BED, RESTING EYES OPEN. PT DENIES ANY NEEDS AT THIS TIME. CALL LIGHT WITH IN REACH.
--- NOTE | 2025-07-07 03:00 | NUR ---
PT RESTING EYES CLOSED. CALL LIGHT WITH IN REACH.
--- NOTE | 2025-07-07 04:19 | NUR ---
PT RESTING WITH EYES CLOSED. CALL LIGHT WITH IN REACH.
[2025-07-07 05:07] VITALS: BP 123/93
[2025-07-07 05:08] VITALS: BP 123/93
--- NOTE | 2025-07-07 05:18 | NUR ---
IN FOR PT ASSESSMENT. PT REQUESTING TYLENOL FOR HEADACHE. PT UP TO BATHROOM. PT REPORTS THAT HER RIGHT FLANK PAIN IS IMPROVING, DENIES PAIN REPORTS TENDERNESS. WATER REFILLED. CALL LIGHT WITH IN REACH. PT HAS NO NEEDS AT THIS TIME.
[2025-07-07 05:26] LABS: BASOPHILS 0.3 % (0.1-1.2); EOSINOPHILS 1.9 % (0.7-5.8); LYMPHOCYTES 34.5 % (19.3-51.7); MCH 29.4 PG (25.6-32.2); MCHC 32.1 g/dL (32.2-35.5); MCV 91.6 fL (79.4-94.8); MONOCYTES 10.9 % (4.7-12.5); NEUTROPHILS 52.2 % (34.0-71.1); RBC 2.96 M/uL (3.93-5.22)
[2025-07-07 05:43] LABS: ALT (SGPT) 59.0 U/L (14-59); AST (SGOT) 82.0 U/L (15-37); GLOMERULAR FILTRATION RATE,EST 106.0 mL/min (>60); PROTEIN, TOTAL 6.3 g/dL (6.4-8.2); UREA NITROGEN 6.0 mg/dL (7-18)
--- NOTE | 2025-07-07 07:06 | NUR ---
Pt report received from RNs Ayah/Dennise. Pt is ambulating around the room, washing up and changing her clothing because "I sweated all night". IV Saline locked (good blood return, flushes well, no redness, no swelling, no leaking, no c/o pain) while she changed, then reconnected to ordered fluids. Pt states "I am going home today". Denies further needs at this time.
--- NOTE | 2025-07-07 08:10 | NUR ---
PT AMBULATED INTO THE RESTROOM, REPORTED NO DIZZINESS OR OTHER PROBLEMS. PT PERFORMED BED BATH INDEPENDENTLY AND REPORTED SHE WILL BRUSH HER TEETH FOLLOWING BREAKFAST. ROOM CLEANED AND TRASH REMOVED. PT HAS CALL LIGHT. GOT PT FRESH ICE WATER. PT REPORTED SHE NEEDED NOTHING MORE AT THIS TIME.
[2025-07-07 10:27] VITALS: BP 133/88
--- NOTE | 2025-07-07 10:28 | NUR ---
PT SITTING UP IN BED. ORAL CARE COMPLETED BY PT. PT REPORTS FEELING "MUCH BETTER". GOT PT FRESH ICE WATER AND CALL LIGHT IS WITHIN REACH ON THE BED. PT REPORTS NEEDING NOTHING MORE AT THIS TIME.
[2025-07-07 10:30] VITALS: BP 133/88
--- NOTE | 2025-07-07 10:31 | NUR ---
PT SITTING IN BED. PT HAS CALL LIGHT WITH HER. PT IS AMBULATING INDEPENDENTLY WITHOUT ANY ISSUES REPORTED BY PT.
--- NOTE | 2025-07-07 11:52 | NUR ---
In with pt for hourly rounding. Pt denies needs at this time. Dr. Ca in with pt at this time.
[2025-07-07] MEDS ORDERED: CEFDINIR300 MG PO (12:29)
[2025-07-07] MEDS ORDERED: ONDANSETRON ODT8 MG PO (12:30)
[2025-07-07 12:42] VITALS: BP 139/91
--- NOTE | 2025-07-07 12:46 | NUR ---
PT SITTING ON THE SIDE OF THE BED. PT READY TO LEAVE - NURSE IN TO GIVE DC INSTRUCTIONS.
[2025-07-07 12:52] VITALS: BP 139/91
== END 2025-07-07 13:00 | disposition home or self-care (01) | DRG 872 ==
LOC: ED 12:54 → MS 18:19
PROVIDERS: Emergency Medicine; ADMIT Family Medicine; ATTEND Family Medicine
DX: A41.9 Sepsis, unspecified organism (principal); N12 Tubulo-interstitial nephritis, not specified as acute or chronic; N17.9 Acute kidney failure, unspecified; E87.6 Hypokalemia; I12.9 Hypertensive chronic kidney disease with stage 1 through stage 4 chronic kidney disease, or unspecified chronic kidney disease; E78.00 Pure hypercholesterolemia, unspecified; N18.30 Chronic kidney disease, stage 3 unspecified; D64.89 Other specified anemias; Z88.5 Allergy status to narcotic agent; Z87.440 Personal history of urinary (tract) infections; Z87.442 Personal history of urinary calculi
CPT/HCPCS: 36415; 74177; 80053; 81001; 83605; 83690; 83735; 84100; 84478; 84703; 85025; 85610; 85730; 87040; 87077; 87088; 87186; 96365; 96375; 99285-25; A9270; J0696; J0780; J1171; J1650; J2270; J2405; J7030; Q9967

== ENCOUNTER 2025-08-01 08:13 | Emergency (ER) | payer BC, OTHER ==
[~2025-08-01] VITALS: Ht 165.1 cm; Wt 66.7 kg
[~2025-08-01 08:13] MED LIST changes: +CEFDINIR300 MG PO; +FISH OIL 1,0001 EAC6 PO; +KLOR-CON 1010 MEQ PO; +LOSARTAN POTASS50 MG PO; +METOPROLOL TART25 MG PO; +SODIUM FLUORIDE51 GM MM; +VITAMIN D325 MCG PO
[2025-08-01 11:47] LABS: BLOOD/HGB, URINE TRACE-I (Negative); KETONE, URINE NEGATIVE (Negative); LEUK ESTERASE, URINE SMALL (negative); NITRITE, URINE NEGATIVE (negative)
[2025-08-01 11:55] LABS: BACTERIA, URINE NONE SEEN /hpf (negative); CASTS, URINE NONE SEEN \\lpf; CRYSTALS, URINE NONE SEEN (0-1+); EPITHELIAL CELLS, URINE SQUAMOUS 2+ /lpf (0-1+); REFLEX CULTURE, URINE No (No)
[2025-08-01 12:16] LABS: BASOPHILS 0.8 % (0.1-1.2); EOSINOPHILS 1.8 % (0.7-5.8); LYMPHOCYTES 37.9 % (19.3-51.7); MCH 29.4 PG (25.6-32.2); MCHC 32.6 g/dL (32.2-35.5); MCV 90.3 fL (79.4-94.8); MONOCYTES 7.0 % (4.7-12.5); NEUTROPHILS 52.2 % (34.0-71.1); RBC 4.32 M/uL (3.93-5.22)
[2025-08-01 12:30] LABS: ALT (SGPT) 27.0 U/L (14-59); AST (SGOT) 30.0 U/L (15-37); GLOMERULAR FILTRATION RATE,EST 67.0 mL/min (>60); PROTEIN, TOTAL 8.1 g/dL (6.4-8.2); UREA NITROGEN 19.0 mg/dL (7-18)
[2025-08-01] MEDS ORDERED: PROCHLORPERAZINE EDISYLATE 10 MG/2 ML VIAL IV ONE (13:30)
[2025-08-01 15:10] VITALS: BP 122/92
== END 2025-08-01 15:12 | disposition home or self-care (01) ==
LOC: ED 08:13
PROVIDERS: Emergency Medicine
DX: R42 Dizziness and giddiness (principal); I12.9 Hypertensive chronic kidney disease with stage 1 through stage 4 chronic kidney disease, or unspecified chronic kidney disease; N18.30 Chronic kidney disease, stage 3 unspecified; Z88.5 Allergy status to narcotic agent; Z91.011 Allergy to milk products; Z79.899 Other long term (current) drug therapy
CPT/HCPCS: 36415; 70551; 80053; 81001; 84703; 85025; 96374; 96375; 99284-25; J0780; J1200